=== PATIENT | female | born 1970 | race Caucasian/White ===

== ENCOUNTER 2016-06-25 14:19 | Emergency (ER) | payer SELFPAY ==
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
[2016-06-25 17:06] VITALS: BP 126/79
--- NOTE | 2016-06-25 19:07 | EKG REPORT ---
SEVERITY:- NORMAL ECG - SINUS RHYTHM : Confirmed by: Nghia Cage MD 25-Jun-2016 19:06:09
--- NOTE | 2016-06-25 19:07 | EKG REPORT ---
SEVERITY:- BORDERLINE ECG - SINUS RHYTHM LOW VOLTAGE THROUGHOUT ST ELEV, PROBABLE NORMAL EARLY REPOL PATTERN : Confirmed by: Nghia Cage MD 25-Jun-2016 19:06:29
== END 2016-06-25 17:06 | disposition home or self-care (01) ==
LOC: ER 14:19
DX: S20.219A Contusion of unspecified front wall of thorax, initial encounter (principal); Y04.2XXA Assault by strike against or bumped into by another person, initial encounter; Y92.009 Unspecified place in unspecified non-institutional (private) residence as the place of occurrence of the external cause; F17.210 Nicotine dependence, cigarettes, uncomplicated; J45.909 Unspecified asthma, uncomplicated; R07.1 Chest pain on breathing
CPT/HCPCS: 71020; 93005; 93010; 99284

== ENCOUNTER 2016-07-06 02:18 | Emergency (ER) | payer OTHER ==
[2016-07-06] MEDS ORDERED: IBUPROFEN 600 MG TABLET PO ONE (07:24)
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
[2016-07-06 07:45] VITALS: BP 120/85
== END 2016-07-06 08:22 | disposition home or self-care (01) ==
LOC: ER 02:18
PROC: 0PSPXZZ Reposition Right Metacarpal, External Approach (ICD-10-PCS; principal; 2016-07-06)
DX: S62.616A Displaced fracture of proximal phalanx of right little finger, initial encounter for closed fracture (principal); S62.336A Displaced fracture of neck of fifth metacarpal bone, right hand, initial encounter for closed fracture; S79.921A Unspecified injury of right thigh, initial encounter; Y04.8XXA Assault by other bodily force, initial encounter; Y92.009 Unspecified place in unspecified non-institutional (private) residence as the place of occurrence of the external cause; M79.641 Pain in right hand; M79.604 Pain in right leg; J45.909 Unspecified asthma, uncomplicated
CPT/HCPCS: 99283

== ENCOUNTER 2016-08-07 02:59 | Emergency (ER) | payer SELFPAY ==
[2016-08-07] MEDS ORDERED: ONDANSETRON HCL INJ/PF 4 MG/2 ML SDV IV ONE (03:18)
[2016-08-07] MEDS ORDERED: NORMAL SALINE 1000 ML 1,000 ML IV ONE (03:18)
[2016-08-07 03:34] LABS: ABSOLUTE LYMPHOCYTES (AUTO) 1.1 10^3/uL (0.5-4.7); ABSOLUTE MONOCYTES (AUTO) 0.4 10^3/uL (0.1-1.4); ABSOLUTE NEUT (AUTO) 1.1 10^3/uL (1.7-8.2); BASOPHILS % (AUTO) 0.4 % (0-2); EOSINOPHILS % (AUTO) 1.3 % (0-6); HEMATOCRIT 36.3 % (36.0-47.0); HEMOGLOBIN 12.5 g/dL (12.0-15.5); HGB HCT DIFFERENCE 1.2; LYMPHOCYTES % (AUTO) 42.1 % (13-45); MEAN CORPUSCULAR HEMOGLOBIN 36.7 pg (27.0-33.4); MEAN CORPUSCULAR HGB CONC 34.4 g/dL (32.0-36.0); MEAN CORPUSCULAR VOLUME 107 fl (80-97); MONOCYTES % (AUTO) 14.8 % (3-13); RED BLOOD COUNT 3.41 10^6/uL (3.72-5.28); RED CELL DISTRIBUTION WIDTH 12.8 % (11.5-14.0); SEGMENTED NEUTROPHILS % (AUTO) 41.4 % (42-78); WHITE BLOOD COUNT 2.6 10^3/uL (4.0-10.5)
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
[2016-08-07 03:45] LABS: ALANINE AMINOTRANSFERASE 25 U/L (9-52); ALBUMIN 4.4 g/dL (3.5-5.0); ALKALINE PHOSPHATASE 55 U/L (38-126); ANION GAP 18 (5-19); ASPARTATE AMINO TRANSFERASE 45 U/L (14-36); BILIRUBIN,DIRECT 0.3 mg/dL (0.0-0.4); BILIRUBIN,TOTAL 0.3 mg/dL (0.2-1.3); BLOOD UREA NITROGEN 8 mg/dL (7-20); CALCIUM 9.2 mg/dL (8.4-10.2); CARBON DIOXIDE 24 mmol/L (22-30); CHLORIDE 105 mmol/L (98-107); CREATINE KINASE 163 U/L (30-135); CREATININE RESULT 0.56 mg/dL (0.52-1.25); GLUCOSE 86 mg/dL (75-110); POTASSIUM 3.9 mmol/L (3.6-5.0); SODIUM 146.7 mmol/L (137-145)
[2016-08-07 03:57] LABS: CREATINE KINASE MB 0.96 ng/mL (<4.55)
[2016-08-07 04:04] LABS: TROPONIN I < 0.012 ng/mL
[2016-08-07 06:26] VITALS: BP 117/91
--- NOTE | 2016-08-07 18:54 | EKG REPORT ---
SEVERITY:- NORMAL ECG - SINUS RHYTHM : Confirmed by: Nghia Cage MD 07-Aug-2016 18:54:02
== END 2016-08-07 06:25 | disposition home or self-care (01) ==
LOC: ER 02:59
PROC: 2W3RX1Z Immobilization of Left Lower Leg using Splint (ICD-10-PCS; principal; 2016-08-07)
DX: M25.472 Effusion, left ankle (principal); F10.129 Alcohol abuse with intoxication, unspecified; R00.2 Palpitations; Z87.891 Personal history of nicotine dependence; Z98.51 Tubal ligation status
CPT/HCPCS: 93005; 99285; 96361; 96374; 36415; 82553; 82550; 84703; 85025; 80053; 84484; 73610; 71010; 93010; 29515; J2405; J7030

== ENCOUNTER 2016-10-28 05:10 | Emergency (ER) | payer OTHER ==
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
--- NOTE | 2016-10-28 06:03 | RADIOLOGY REPORT (SQ) ---
EXAM DESCRIPTION: RIBS RIGHT W/PA CHEST COMPLETED DATE/TIME: 10/28/2016 5:32 am REASON FOR STUDY: fall COMPARISON: None. TECHNIQUE: Frontal view of the chest and additional views of the right and left ribs acquired. NUMBER OF VIEWS: Five view. LIMITATIONS: None. FINDINGS: FRONTAL CXR: No pneumothorax. No pleural effusion. No atelectasis or infiltrates. Azygo s lobe. RIBS: No displaced rib fractures. No lytic or blastic bony lesions. Mild deformity of the right 10t h rib laterally may indicate a minimally displaced fracture or prior injury. Minimal nonspecific def ormity of the posterior right 12th and 11th ribs. OTHER: Partially imaged screw fixation at the cervicothoracic junction. IMPRESSION: NO PNEUMOTHORAX. Mild deformity of the right 10th rib laterally may indicate a minimall y displaced fracture or prior injury. COMMENT: SITE OF TRAUMA/COMPLAINT MARKED/STAMP COMPLETED: NO. TECHNICAL DOCUMENTATION: JOB ID: [id number] [employer]- All Rights Reserved
== END 2016-10-28 06:53 | disposition home or self-care (01) ==
LOC: ER 05:10
DX: S20.20XA Contusion of thorax, unspecified, initial encounter (principal); X58.XXXA Exposure to other specified factors, initial encounter; M95.4 Acquired deformity of chest and rib; R07.81 Pleurodynia; F17.210 Nicotine dependence, cigarettes, uncomplicated; J45.909 Unspecified asthma, uncomplicated; Z88.3 Allergy status to other anti-infective agents
CPT/HCPCS: 99283

== ENCOUNTER 2017-01-26 22:38 | Emergency (ER) | payer OTHER ==
[2017-01-26 22:46] VITALS: BP 131/78
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
== END 2017-01-27 05:50 | disposition home or self-care (01) ==
LOC: ER 22:38
DX: S99.911A Unspecified injury of right ankle, initial encounter (principal); W17.89XA Other fall from one level to another, initial encounter; F10.129 Alcohol abuse with intoxication, unspecified; J45.909 Unspecified asthma, uncomplicated
CPT/HCPCS: 99284

== ENCOUNTER 2017-02-01 23:31 | Emergency (ER) | payer OTHER ==
[~2017-02-01 23:31] MED LIST: ROCURONIUM BROMIDE INJ 50 MG/5 ML VIAL IV ONE; SUCCINYLCHOLINE CHLORIDE INJ 200 MG/10 ML VIAL ONE
[2017-02-01] MEDS ORDERED: KETAMINE HCL INJ 500 MG/10 ML VIAL ONE (23:33)
[2017-02-01] MEDS ORDERED: DIPHENHYDRAMINE HCL 50 MG/ML VIAL IV ONE (23:51)
[2017-02-01] MEDS ORDERED: PROPOFOL 100 ML IV PRN (23:51)
[2017-02-01] MEDS ORDERED: EPINEPHRINE INJ/PF 1 MG/1 ML AMPULE IM ONE (23:52)
[2017-02-01] MEDS ORDERED: ETOMIDATE INJ/PF 20 MG/10 ML SDV IV ONE ×2 (23:52)
[2017-02-02] MEDS ORDERED: MIDAZOLAM 2 MG/2 ML INJ IV ONE (00:03)
[2017-02-02] MEDS ORDERED: MIDAZOLAM HCL 100 ML IV PRN (00:03)
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
[2017-02-02] MEDS ORDERED: ROCURONIUM BROMIDE INJ 50 MG/5 ML VIAL IV ONE ×3 (00:07→02:10)
--- NOTE | 2017-02-02 00:09 | RADIOLOGY REPORT (SQ) ---
EXAM DESCRIPTION: CHEST SINGLE VIEW COMPLETED DATE/TIME: 02/01/2017 11:58 pm REASON FOR STUDY: post intubation COMPARISON: August 2016 EXAM PARAMETERS: NUMBER OF VIEWS: One view. TECHNIQUE: Single frontal radiographic view of the chest acquired. RADIATION DOSE: NA LIMITATIONS: None. FINDINGS: LUNGS AND PLEURA: No opacities, masses. No obvious pneumothorax. No pleural effusion. MEDIASTINUM AND HILAR STRUCTURES: Air is identified within the mediastinum. HEART AND VASCULAR STRUCTURES: Heart normal in size. Normal vasculature. BONES: No acute findings. HARDWARE: Endotracheal tube is identified with its tip just above the level of the aortic arch. ET t ube is identified to the right of midline. I cannot confirm its relationship to the josh on the cu rrent film. OTHER: There is extensive subcutaneous air throughout the thorax. IMPRESSION: Air is identified within the mediastinum. There is extensive subcutaneous air throughou t the thorax. Endotracheal position as noted above. Other findings as noted above TECHNICAL DOCUMENTATION: JOB ID: [id number]
[2017-02-02 00:29] LABS: ALANINE AMINOTRANSFERASE 39 U/L (9-52); ALBUMIN 4.7 g/dL (3.5-5.0); ALKALINE PHOSPHATASE 81 U/L (38-126); ASPARTATE AMINO TRANSFERASE 57 U/L (14-36); BILIRUBIN,DIRECT 0.7 mg/dL (0.0-0.4); BILIRUBIN,TOTAL 0.9 mg/dL (0.2-1.3); BLOOD UREA NITROGEN 5 mg/dL (7-20); CALCIUM 9.5 mg/dL (8.4-10.2); CREATININE RESULT 0.45 mg/dL (0.52-1.25); GLUCOSE 148 mg/dL (75-110); POTASSIUM 3.1 mmol/L (3.6-5.0); TOTAL PROTEIN 7.5 g/dL (6.3-8.2)
[2017-02-02 00:34] LABS: ABSOLUTE LYMPHOCYTES (AUTO) 1.8 10^3/uL (0.5-4.7); ABSOLUTE MONOCYTES (AUTO) 0.8 10^3/uL (0.1-1.4); ABSOLUTE NEUT (AUTO) 5.7 10^3/uL (1.7-8.2); BASOPHILS % (AUTO) 0.3 % (0-2); EOSINOPHILS % (AUTO) 0.3 % (0-6); HEMATOCRIT 36.3 % (36.0-47.0); HEMOGLOBIN 12.9 g/dL (12.0-15.5); HGB HCT DIFFERENCE 2.4; LYMPHOCYTES % (AUTO) 21.3 % (13-45); MEAN CORPUSCULAR HEMOGLOBIN 37.6 pg (27.0-33.4); MEAN CORPUSCULAR HGB CONC 35.4 g/dL (32.0-36.0); MEAN CORPUSCULAR VOLUME 106 fl (80-97); MONOCYTES % (AUTO) 9.6 % (3-13); RED BLOOD COUNT 3.42 10^6/uL (3.72-5.28); RED CELL DISTRIBUTION WIDTH 13.3 % (11.5-14.0); SEGMENTED NEUTROPHILS % (AUTO) 68.5 % (42-78); WHITE BLOOD COUNT 8.3 10^3/uL (4.0-10.5)
[2017-02-02 00:37] LABS: PARTIAL THROMBOPLASTIN TIME 25.9 SEC (23.5-35.8); PROTHROMBIN TIME 11.5 SEC (11.4-15.4)
[2017-02-02 00:42] LABS: CARBON DIOXIDE 19 mmol/L (22-30); CHLORIDE 81 mmol/L (98-107)
[2017-02-02 00:45] LABS: ANION GAP 21 (5-19)
[2017-02-02 00:46] LABS: SODIUM 120.6 mmol/L (137-145)
--- NOTE | 2017-02-02 01:07 | RADIOLOGY REPORT (SQ) ---
EXAM DESCRIPTION: CT SOFT TISSUE NECK WITHOUT COMPLETED DATE/TIME: 02/02/2017 12:43 am REASON FOR STUDY: subcutaneous air COMPARISON: None. TECHNIQUE: Noncontrast scanning from skull base through lung apices with review of bone, soft tissue and lung windows. Reconstructed coronal and sagittal MPR images reviewed. All images stored on PAC S. All CT scanners at this facility use dose modulation, iterative reconstruction, and/or weight based d osing when appropriate to reduce radiation dose to as low as reasonably achievable (ALARA). [facility]: Dose Right [facility]: CareDose [facility]: Dose Right [facility]: Teradose 4D [facility]: [employer] RADIATION DOSE: mGy. LIMITATIONS: There is extensive subcutaneous air which limits evaluation otherwise. FINDINGS: SKULL BASE: Intact. MAJOR SALIVARY GLANDS: Poorly seen. Normal as visualized. LYMPHADENOPATHY: No adenopathy. MUCOSAL MASSES OR ASYMMETRY: Nondiagnostic. LARYNX/CORDS: An ETT is present which appears to be within the airway as visualized. LUNG APICES: Bilateral pneumothoraces left greater than right. Extensive pneumomediastinum. BONES: Surgical changes in the spine. THYROID: Normal size. No masses. PARANASAL SINUSES: Clear. OTHER: There is extensive subcutaneous emphysema throughout the face and neck. Air extends throughou t the fascia all tissue planes in the face and neck. Air is also seen in the prevertebral space. Es ophagus as visualized appears intact. IMPRESSION: Extensive subcutaneous emphysema with extension throughout the factual planes of the fac e and neck. Air in the prevertebral space. ETT appears to be in appropriate position. Esophagus as visualized appears normal. Bilateral pneumothoraces left greater than right to be further described on chest CT. TECHNICAL DOCUMENTATION: JOB ID: [id number] Quality ID # [id number]: Final reports with documentation of one or more dose reduction techniques (e.g., Au tomated exposure control, adjustment of the mA and/or kV according to patient size, use of iterative reconstruction technique) 2010 [employer]- All Rights Reserved
--- NOTE | 2017-02-02 01:20 | RADIOLOGY REPORT (SQ) ---
EXAM DESCRIPTION: CT CHEST WITHOUT COMPLETED DATE/TIME: 02/02/2017 12:43 am REASON FOR STUDY: subcutaneous air COMPARISON: Chest radiograph TECHNIQUE: CT scan performed of the chest without intravenous contrast. Images reviewed with lung, soft tissue and bone windows. Reconstructed coronal and sagittal MPR images reviewed. All images st ored on PACS. All CT scanners at this facility use dose modulation, iterative reconstruction, and/or weight based d osing when appropriate to reduce radiation dose to as low as reasonably achievable (ALARA). [facility]: Dose Right [facility]: CareDose [facility]: Dose Right [facility]: Teradose 4D [facility]: [employer] RADIATION DOSE: Up-to-date CT equipment and radiation dose reduction techniques were employed. CTDIv ol: 14.4 mGy. DLP: 1158 mGy-cm. mGy. LIMITATIONS: No technical limitations. FINDINGS: LUNGS AND PLEURA: Bilateral pneumothoraces. Approximately 50% on the left in 20% on the r ight. Parenchymal opacities right upper lobe. No effusions. HILAR AND MEDIASTINAL STRUCTURES: Severe pneumo mediastinum. Air extends along all fascial planes. No definitive etiology. Esophagus visualize. ETT within the trachea. HEART AND VASCULAR STRUCTURES: No aneurysm. No pericardial effusion. UPPER ABDOMEN: See separate report of the CT of the abdomen. THYROID AND OTHER SOFT TISSUES: No masses. No adenopathy. BONES: Multiple posterior left rib fractures. HARDWARE: None in the chest. OTHER: marked diffuse subcutaneous emphysema with air dissecting along all fascial planes along the chest wall and into the neck and upper extremities. IMPRESSION: Bilateral pneumothoraces left greater than right. Approximately 50% on the left and 20% on the right. Parenchymal opacity in the right upper lobe. Severe pneumomediastinum with air extending along all factual planes. Marked diffuse subcutaneous emphysema with air dissecting along all fascial planes along the chest wa ll and into the neck and upper extremities. Multiple posterior left rib fractures. COMMENT: Pertinent findings on the imaging study reported as a CRITICAL RESULT to ALEKSANDR PRESTON DO at01:07 on 02/02/2017. Category of Critical Result: Bilateral pneumothoraces. TECHNICAL DOCUMENTATION: JOB ID: [id number] Quality ID # [id number]: Final reports with documentation of one or more dose reduction techniques (e.g., Au tomated exposure control, adjustment of the mA and/or kV according to patient size, use of iterative reconstruction technique) 2010 [employer]- All Rights Reserved
--- NOTE | 2017-02-02 01:23 | RADIOLOGY REPORT (SQ) ---
EXAM DESCRIPTION: CT ABD/PELVIS NO ORAL OR IV COMPLETED DATE/TIME: 02/02/2017 12:43 am REASON FOR STUDY: subcutaneous air COMPARISON: None. TECHNIQUE: CT scan of the abdomen and pelvis performed without intravenous or oral contrast. Images reviewed with lung, soft tissue, and bone windows. Reconstructed coronal and sagittal MPR images revi ewed. All images stored on PACS. All CT scanners at this facility use dose modulation, iterative reconstruction, and/or weight based d osing when appropriate to reduce radiation dose to as low as reasonably achievable (ALARA). [facility]: Dose Right [facility]: CareDose [facility]: Dose Right [facility]: Teradose 4D [facility]: [employer] RADIATION DOSE: mGy. LIMITATIONS: None. FINDINGS: LOWER CHEST: No significant findings. No nodules or infiltrates. NON-CONTRASTED LIVER, SPLEEN, ADRENALS: Evaluation limited by lack of IV contrast. No identified sign ificant masses. PANCREAS: No masses. No peripancreatic inflammatory changes. GALLBLADDER: No identified stones by CT criteria. No inflammatory changes to suggest cholecystitis. RIGHT KIDNEY AND URETER: No suspicious masses. Assessment limited by lack of IV contrast. No signif icant calcifications. No hydronephrosis or hydroureter. LEFT KIDNEY AND URETER: No suspicious masses. Assessment limited by lack of IV contrast. No signifi cant calcifications. No hydronephrosis or hydroureter. AORTA AND RETROPERITONEUM: No aneurysm. No retroperitoneal masses or adenopathy. BOWEL AND PERITONEAL CAVITY: No obvious masses or inflammatory changes. No free fluid. APPENDIX: Not visualized. PELVIS, BLADDER, AND ABDOMINAL WALL:No abnormal masses. No free fluid. Bladder normal. BONES: Old lower right rib fractures. Acute left rib fractures. OTHER: Extensive subcutaneous emphysema. Extends along all fascia planes of the abdominal wall and p osteriorly. No pneumoperitoneum IMPRESSION: No acute intra-abdominal process. Extensive subcutaneous emphysema throughout the abdominal wall dissecting along all tissue planes. Old lower right rib fractures. Acute left rib fractures as described. COMMENT: Quality ID # 436: Final reports with documentation of one or more dose reduction techniques (e.g., Automated exposure control, adjustment of the mA and/or kV according to patient size, use of iterative reconstruction technique) TECHNICAL DOCUMENTATION: JOB ID: [id number]- All Rights Reserved
[2017-02-02] MEDS ORDERED: POTASSI CL 20 MEQ/50 ML RIDER 20 MEQ/50 ML RTUPB IV SCH (01:25)
--- NOTE | 2017-02-02 01:31 | Operative Report ---
Operative Report DATE OF SURGERY: 02/02/17 Operative Report: Consent was implied emergent. Postprocedural chest xray shows improvement of left pneumothorax and evidence of multiple rib fractures corresponding with history of falls. Patient was sterilely prepped and draped in the usual manner. Pleurovac device was setup prior to access to the chest. Prior to access local was instilled to the subcutaneous tissue to the level of the periosteum of the rib. Access to the pleural cavity was accomplished using access needle with 12 Belgian chest tube, this was advanced with recovery of air. The chest tube was immediately placed to suction with recovery of air. It was affixed to the chest using accompanying coty needle and stitch. Occlusive dressing was placed over the chest tube site and fixed to her skin at multiple sites. Patient tolerated the procedure well. PREOPERATIVE DIAGNOSIS: left pneumothorax, multiple rib fractures POSTOPERATIVE DIAGNOSIS: left pneumothorax, multiple rib fractures OPERATION: left tube thoracostomy SURGEON: UMANG KEBEDE ANESTHESIA: Local COMPLICATIONS: none ESTIMATED BLOOD LOSS: 5mls INTRAOPERATIVE FINDINGS: subcutaneous emphysema
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
--- NOTE | 2017-02-02 01:43 | RADIOLOGY REPORT (SQ) ---
EXAM DESCRIPTION: CHEST SINGLE VIEW COMPLETED DATE/TIME: 02/02/2017 1:28 am REASON FOR STUDY: post chest tube placement COMPARISON: Recent chest radiograph and CT scan. EXAM PARAMETERS: NUMBER OF VIEWS: One view. TECHNIQUE: Single frontal radiographic view of the chest acquired. RADIATION DOSE: NA LIMITATIONS: Extensive subcutaneous emphysema compromises evaluation. FINDINGS: LUNGS AND PLEURA: The right pneumothorax seen on CT not identified on chest radiograph. S mall left apical pneumothorax. Indwelling small caliber chest tube on the left. MEDIASTINUM AND HILAR STRUCTURES: Pneumomediastinum. HEART AND VASCULAR STRUCTURES: Heart normal in size. Normal vasculature. BONES: Multiple rib fractures seen on CT not well seen on chest radiograph. HARDWARE: ETT just at the josh. OTHER: No other significant finding. IMPRESSION: Interval placement of a left-sided small caliber chest tube. Small apical pneumothorax identified on the left. Multiple rib fractures seen on CT not identified on chest radiograph. ET tube just above the josh. TECHNICAL DOCUMENTATION: JOB ID: [id number]
--- NOTE | 2017-02-02 02:16 | RADIOLOGY REPORT (SQ) ---
EXAM DESCRIPTION: CHEST SINGLE VIEW COMPLETED DATE/TIME: 02/02/2017 2:06 am REASON FOR STUDY: penumothorax, hypotension COMPARISON: Chest radiographs of earlier the same date EXAM PARAMETERS: NUMBER OF VIEWS: One view TECHNIQUE: Single frontal radiograph of the chest. RADIATION DOSE: N/A LIMITATIONS: None. FINDINGS: TEMPORARY SUPPORT DEVICES:ETT in expected location. Left pleural catheter unchanged. LUNGS AND PLEURA: Small apical pneumothorax on the left. Parenchymal opacity in the right lung. No ma sses. Right pneumothorax seen on CT not seen on chest radiograph. MEDIASTINUM AND HILAR STRUCTURES: Extensive mediastinal air. HEART AND VASCULAR STRUCTURES: Heart normal in size. normal vascularity. Aorta normal for age. BONES: No acute findings. OTHER: No other significant finding. IMPRESSION: Stable radiographic appearance of the chest. ETT repositioned and in expected location. TECHNICAL DOCUMENTATION: JOB ID: [id number] [employer]- All Rights Reserved
[2017-02-02 04:23] VITALS: BP 108/84
== END 2017-02-02 02:20 | disposition short-term general hospital (02) ==
LOC: ER 23:31
DX: S27.0XXA Traumatic pneumothorax, initial encounter (principal); S22.42XA Multiple fractures of ribs, left side, initial encounter for closed fracture; T79.7XXA Traumatic subcutaneous emphysema, initial encounter; X58.XXXA Exposure to other specified factors, initial encounter; E87.1 Hypo-osmolality and hyponatremia; R11.0 Nausea; R22.0 Localized swelling, mass and lump, head; R00.0 Tachycardia, unspecified; J45.909 Unspecified asthma, uncomplicated; F17.200 Nicotine dependence, unspecified, uncomplicated; Z88.3 Allergy status to other anti-infective agents; Z87.01 Personal history of pneumonia (recurrent)
CPT/HCPCS: 99291; 99292; 96372; 51702; 96374; 36415; 83735; 85025; 85610; 85730; 80053; 71010 ×2; 70490; 71250; 74176; 32551; 31500; J3490 ×2; J1200; J0171; J2704; J0330; J2250; 94002

== ENCOUNTER 2017-05-11 13:25 | Emergency (ER) | payer OTHER ==
[2017-05-11 13:38] VITALS: BP 143/81
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
== END 2017-05-11 14:08 | disposition home or self-care (01) ==
LOC: ER 13:25
DX: Z48.02 Encounter for removal of sutures (principal); J45.909 Unspecified asthma, uncomplicated; Z88.3 Allergy status to other anti-infective agents

== ENCOUNTER 2017-05-23 13:18 | Inpatient (IN) | payer OTHER ==
[2017-05-23] MEDS ORDERED: CEFTRIAXONE INJ 1000 MG VIAL IV ONE (14:57)
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
[2017-05-23] MEDS ORDERED: RINGERS SOLUTION,LACTATED 1,000 ML IV ONE (15:05)
[2017-05-23] MEDS: NORMAL SALINE 1000 ML 1,000 ML IV PRN ×4 (15:28→23:27)
--- NOTE | 2017-05-23 15:38 | RADIOLOGY REPORT (SQ) ---
EXAM DESCRIPTION: CHEST SINGLE VIEW COMPLETED DATE/TIME: 05/23/2017 3:27 pm REASON FOR STUDY: flu like symptoms, hypoxemia COMPARISON: None. EXAM PARAMETERS: NUMBER OF VIEWS: One view. TECHNIQUE: Single frontal radiographic view of the chest acquired. RADIATION DOSE: NA LIMITATIONS: None. FINDINGS: LUNGS AND PLEURA: There is extensive alveolar are airspace type infiltrate in the right mi d and lower lung field consistent with pneumonia. Infiltrate at left costophrenic angle. Blunting o f left costophrenic angle with pleural effusion not excluded. . MEDIASTINUM AND HILAR STRUCTURES: No masses. Contour normal. HEART AND VASCULAR STRUCTURES: The heart is unchanged. The pulmonary vasculature is normal. BONES: Old displaced fractures of left posterior 6th -9th ribs. HARDWARE: Changes compatible with cervicothoracic fusion. OTHER: Chest leads in place. IMPRESSION: Extensive consolidation right mid and lower lung field consistent with pneumonia. Left basilar infiltrate. Left pleural thickening or effusion. TECHNICAL DOCUMENTATION: JOB ID: [id number] [employer]- All Rights Reserved
[2017-05-23 16:02] LABS: A TYPE INFLUENZA AG NEGATIVE (NEGATIVE); B INFLUENZA AG NEGATIVE (NEGATIVE)
[2017-05-23 16:50] LABS: ALANINE AMINOTRANSFERASE 34 U/L (9-52); ALBUMIN 2.7 g/dL (3.5-5.0); ALKALINE PHOSPHATASE 37 U/L (38-126); ASPARTATE AMINO TRANSFERASE 62 U/L (14-36); BLOOD UREA NITROGEN 43 mg/dL (7-20); CALCIUM 7.2 mg/dL (8.4-10.2); CARBON DIOXIDE 14 mmol/L (22-30); CHLORIDE 87 mmol/L (98-107); CREATINE KINASE 44 U/L (30-135); GLUCOSE 90 mg/dL (75-110); TOTAL PROTEIN 5.3 g/dL (6.3-8.2)
[2017-05-23 16:51] LABS: ANION GAP 19 (5-19)
[2017-05-23 16:59] LABS: AMORPHOUS SEDIMENT,URINE TRACE /HPF; APPEARANCE,URINE CLOUDY; BILIRUBIN,URINE NEGATIVE (NEGATIVE); COLOR,URINE YELLOW; GLUCOSE, URINE NEGATIVE (NEGATIVE); KETONES,URINE NEGATIVE (NEGATIVE); LEUKOCYTE ESTERASE,URINE NEGATIVE (NEGATIVE); NITRITE,URINE NEGATIVE (NEGATIVE); PROTEIN,URINE 100 mg/dL (NEGATIVE); URINE SPECIFIC GRAVITY 1.011; UROBILINOGEN,URINE NEGATIVE mg/dL (<2.0)
[2017-05-23 17:02] LABS: CREATINE KINASE MB 1.33 ng/mL (<4.55); NT PRO BNP 5300 pg/mL (<125)
[2017-05-23 17:03] LABS: TROPONIN I < 0.012 ng/mL
[2017-05-23 17:12] LABS: BILIRUBIN,TOTAL 0.2 mg/dL (0.2-1.3)
[2017-05-23] MEDS ORDERED: HYDROMORPHONE HCL INJ/PF 2 MG/ML AMPULE IV ONE ×2 (17:14→18:30)
[2017-05-23 17:16] LABS: BILIRUBIN,DIRECT 0.2 mg/dL (0.0-0.4)
[2017-05-23 17:18] LABS: SODIUM 119.6 mmol/L (137-145)
[2017-05-23] MEDS ORDERED: LEVOFLOXACIN 750 MG/D5W RTU 750 MG/150 ML RTUPB IV ONE (17:57)
--- NOTE | 2017-05-23 18:29 | RADIOLOGY REPORT (SQ) ---
EXAM DESCRIPTION: CHEST SINGLE VIEW COMPLETED DATE/TIME: 05/23/2017 6:05 pm REASON FOR STUDY: chest pain COMPARISON: 05/23/2017. FINDINGS: AP portable upright single-view chest at approximately 1756 hours. Right IJ line with tip to the cavoatrial junction. No evidence of pneumothorax. Extensive right lung infiltrate as before. IMPRESSION: Appropriate right central line. No pneumothorax. TECHNICAL DOCUMENTATION: JOB ID: [id number]
--- NOTE | 2017-05-23 18:33 | EKG REPORT ---
SEVERITY:- ABNORMAL ECG - SINUS TACHYCARDIA PROBABLE LEFT ATRIAL ABNORMALITY BORDERLINE PROLONGED QT INTERVAL : Confirmed by: Brenda Jenkins 23-May-2017 18:33:11
[2017-05-23] MEDS: MAGNESIUM SULFATE/D5W 1 GM/100 ML RTUPB IV SCH ×4 (18:34→20:01)
[2017-05-23] MEDS ORDERED: IPRATROPIUM/ALBUTEROL 0.5-2.5 MG/3 ML AMPUL NEB PRN (18:39)
[2017-05-23] MEDS ORDERED: ONDANSETRON HCL INJ/PF 4 MG/2 ML SDV IV PRN (18:41)
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
[2017-05-23 19:12] LABS: HEMATOCRIT 32.1 % (36.0-47.0); HEMOGLOBIN 11.2 g/dL (12.0-15.5); MEAN CORPUSCULAR HEMOGLOBIN 35.3 pg (27.0-33.4); MEAN CORPUSCULAR HGB CONC 34.9 g/dL (32.0-36.0); MEAN CORPUSCULAR VOLUME 101 fl (80-97); RED BLOOD COUNT 3.17 10^6/uL (3.72-5.28); RED CELL DISTRIBUTION WIDTH 13.4 % (11.5-14.0)
[2017-05-23] MEDS ORDERED: PIPERACILLIN SODIUM/TAZOBACTAM 2.25 GM in NORMAL SALINE 50 ML IV SCH ×2 (19:15→22:00)
[2017-05-23 19:17] LABS: PROTHROMBIN TIME 13.9 SEC (11.4-15.4)
[2017-05-23] MEDS ORDERED: DEXTROSE 5%-WATER 250 ML with NOREPINEPHRINE BITARTRATE 4 MG IV PRN ×2 (19:18)
[2017-05-23] MEDS ORDERED: NOREPINEPHRINE BITARTRATE INJ/PF 4 MG/4 ML SDV IV ONE (19:21)
[2017-05-23 20:00] LABS: ARTERIAL BLOOD BASE EXCESS -9.1 mmol/L; ARTERIAL BLOOD H2CO3 1.01 mmol/L (1.05-1.35); ARTERIAL BLOOD HCO3 16.3 mmol/L (20-26); ARTERIAL BLOOD O2 SATURATION 90.3 % (94-98); ARTERIAL BLOOD PCO2 33.4 mmHg (35-45); ARTERIAL BLOOD PH 7.31 (7.35-7.45); ARTERIAL BLOOD TOTAL CO2 17.3 mmol/L (21-25)
[2017-05-23 20:02] LABS: ARTERIAL BLOOD FIO2 6L
[2017-05-23 20:04] LABS: PLATELET COUNT 90 10^3/uL (150-450)
[2017-05-23] MEDS ORDERED: THIAMINE HCL INJ 200 MG/2 ML VIAL IV PRN (20:11)
[2017-05-23] MEDS ORDERED: FOLIC ACID INJ 5 MG/1 ML 10 ML VIAL IV PRN (20:12)
[2017-05-23] MEDS ORDERED: THIAMINE HCL 100 MG, FOLIC ACID 1 MG in NORMAL SALINE 250 ML IV ONE ×2 (20:15→21:00)
[2017-05-23 20:21] LABS: ABSOLUTE LYMPHOCYTES# (MANUAL) 0.1 10^3/uL (0.5-4.7); ABSOLUTE MONOCYTES # (MANUAL) 0.2 10^3/uL (0.1-1.4); ABSOLUTE NEUTROPHILS# (MANUAL) 0.9 10^3/uL (1.7-8.2); BASOPHILS % (MANUAL) 0 % (0-2); EOSINOPHILS % (MANUAL) 6 % (0-6); LYMPHOCYTES % (MANUAL) 4 % (13-45); MONOCYTES % (MANUAL) 14 % (3-13); SEGMENTED NEUTROPHILS % (MAN) 48 % (42-78); TOTAL CELLS COUNTED 50
[2017-05-23 20:24] LABS: BURR CELLS 1+; OVALOCYTES SLIGHT; PLATELET COMMENT DECREASED; POIKILOCYTOSIS 1+; TOXIC GRANULATION 2+; TOXIC VACUOLATION PRESENT
[2017-05-23 20:28] LABS: BAND NEUTROPHILS % (MANUAL) 26 % (3-5); WHITE BLOOD COUNT 1.2 10^3/uL (4.0-10.5)
[2017-05-23] MEDS ORDERED: DOXYCYCLINE HYCLATE 100 MG in DEXTROSE 5%-WATER 250 ML IV ONE (20:30)
[2017-05-23] MEDS ORDERED: DOXYCYCLINE HYCLATE INJ 100 MG VIAL IV PRN (21:03)
[2017-05-23] MEDS ORDERED: THIAMINE HCL INJ 200 MG/2 ML VIAL ONE (21:24)
[2017-05-23] MEDS: PANTOPRAZOLE SODIUM 40 MG VIAL IV SCH (21:32)
[2017-05-23] MEDS: PIPERACILLIN/TAZOBACTAM 2.25 GM VIAL IV PRN (21:45)
[2017-05-23] MEDS ORDERED: HEPARIN SOD (PORCINE) 5,000 UNIT/ML 1 ML SYRINGE SUBCUT SCH (22:00)
[2017-05-24] MEDS ORDERED: CEFEPIME 2 GM/D5W RTU 2 GM/50 ML RTUPB IV SCH
[2017-05-24] MEDS ORDERED: NOREPINEPHRINE BITARTRATE INJ/PF 4 MG/4 ML SDV IV ONE ×2 (00:33→06:41)
[2017-05-24] MEDS ORDERED: LORAZEPAM INJ 2 MG/1 ML VIAL ONE ×2 (01:04→07:54)
[2017-05-24] MEDS: LORAZEPAM INJ 2 MG/1 ML VIAL IV PRN ×3 (01:04→11:03)
[2017-05-24] MEDS: MAGNESIUM SULFATE/D5W 1 GM/100 ML RTUPB IV SCH ×3 (01:12→03:15)
[2017-05-24] MEDS ORDERED: MAGNESIUM SULFATE/D5W 1 GM/100 ML RTUPB IV ONE (03:05)
[2017-05-24] MEDS: PIPERACILLIN/TAZOBACTAM 2.25 GM VIAL IV PRN (06:00)
[2017-05-24 06:02] LABS: FREE T4 (FREE THYROXINE) 1.52 ng/dL (0.78-2.19)
[2017-05-24 06:07] LABS: HEMATOCRIT 32.3 % (36.0-47.0); HEMOGLOBIN 11.1 g/dL (12.0-15.5); MEAN CORPUSCULAR HEMOGLOBIN 34.8 pg (27.0-33.4); MEAN CORPUSCULAR HGB CONC 34.3 g/dL (32.0-36.0); MEAN CORPUSCULAR VOLUME 102 fl (80-97); RED BLOOD COUNT 3.17 10^6/uL (3.72-5.28); RED CELL DISTRIBUTION WIDTH 13.4 % (11.5-14.0)
[2017-05-24 06:16] LABS: THYROID STIMULATING HORMONE 2.29 uIU/mL (0.47-4.68)
[2017-05-24 06:24] LABS: PLATELET COUNT 58 10^3/uL (150-450)
[2017-05-24 06:43] LABS: ABSOLUTE LYMPHOCYTES# (MANUAL) 0.1 10^3/uL (0.5-4.7); ABSOLUTE MONOCYTES # (MANUAL) 0.4 10^3/uL (0.1-1.4); ABSOLUTE NEUTROPHILS# (MANUAL) 0.5 10^3/uL (1.7-8.2); BAND NEUTROPHILS % (MANUAL) 32 % (3-5); BASOPHILS % (MANUAL) 0 % (0-2); EOSINOPHILS % (MANUAL) 6 % (0-6); LYMPHOCYTES % (MANUAL) 10 % (13-45); MONOCYTES % (MANUAL) 36 % (3-13); SEGMENTED NEUTROPHILS % (MAN) 4 % (42-78); TOTAL CELLS COUNTED 50
[2017-05-24] MEDS: DEXTROSE 5%-WATER 250 ML with NOREPINEPHRINE BITARTRATE 4 MG IV PRN ×10 (06:46→20:21)
[2017-05-24 06:48] LABS: BURR CELLS SLIGHT; PLATELET COMMENT DECREASED; POIKILOCYTOSIS SLIGHT
[2017-05-24 06:52] LABS: MYELOCYTES % (MANUAL) 10 % (0)
[2017-05-24 06:53] LABS: PROMYELOCYTES % (MANUAL) 2 % (0)
[2017-05-24 06:54] LABS: ARTERIAL BLOOD BASE EXCESS -10.5 mmol/L; ARTERIAL BLOOD H2CO3 1.05 mmol/L (1.05-1.35); ARTERIAL BLOOD HCO3 15.6 mmol/L (20-26); ARTERIAL BLOOD O2 SATURATION 87.5 % (94-98); ARTERIAL BLOOD PCO2 34.9 mmHg (35-45); ARTERIAL BLOOD PH 7.27 (7.35-7.45); ARTERIAL BLOOD PO2 59.5 mmHg (80-100); ARTERIAL BLOOD TOTAL CO2 16.6 mmol/L (21-25)
[2017-05-24 06:56] LABS: ARTERIAL BLOOD FIO2 40%
[2017-05-24] MEDS ORDERED: VANCOMYCIN HCL INJ 1000 MG VIAL IV ONE (06:57)
[2017-05-24 07:23] LABS: ANION GAP 13 (5-19); BLOOD UREA NITROGEN 32 mg/dL (7-20); CARBON DIOXIDE 15 mmol/L (22-30); CHLORIDE 96 mmol/L (98-107); GLUCOSE 95 mg/dL (75-110); SODIUM 123.6 mmol/L (137-145)
[2017-05-24 07:48] LABS: CALCIUM 6.3 mg/dL (8.4-10.2); POTASSIUM 2.7 mmol/L (3.6-5.0)
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
[2017-05-24] MEDS ORDERED: CALCIUM GLUCONATE 1000 MG/10 ML INJ IV ONE (10:00)
[2017-05-24] MEDS ORDERED: THIAMINE HCL 100 MG, FOLIC ACID 1 MG in NORMAL SALINE 250 ML IV SCH ×2 (10:00→22:00)
[2017-05-24] MEDS: PANTOPRAZOLE SODIUM 40 MG VIAL IV SCH ×2 (10:15→21:32)
[2017-05-24] MEDS ORDERED: PHARMACY COMMUNICATION ORDER MC NR (10:45)
[2017-05-24] MEDS: POTASSI CL 20 MEQ/50 ML RIDER 20 MEQ/50 ML RTUPB IV SCH ×3 (10:51→14:46)
[2017-05-24] MEDS ORDERED: INFLUENZA ADLT QUAD (36MOS+) 2017-18 VAC 0.5 ML SYR IM PRN (11:41)
[2017-05-24] MEDS ORDERED: PROPOFOL INJ 200 MG/20 ML VIAL IV ONE (11:52)
[2017-05-24] MEDS: MIDAZOLAM HCL 50 MG/100 ML RTUINJ IV PRN ×3 (12:04→22:10)
[2017-05-24] MEDS: NORMAL SALINE 1000 ML 1,000 ML IV PRN (12:04)
[2017-05-24] MEDS: DOXYCYCLINE HYCLATE 100 MG in DEXTROSE 5%-WATER 250 ML IV SCH ×2 (12:05→21:31)
--- NOTE | 2017-05-24 12:40 | PDOC PROGRESS REPORT ---
Subjective Progress Note for:: 05/24/17 Subjective:: Patient is seen on rounds. She is presently on BIPAP with FIO2 of 40%. She is not tachypneic at rest. She desaturates easily down into the 70's when mask is off. She is presently requiring levophed to keep her MAP > 65 mmHg. She was agitated a short time ago, and was given ativan for sedation. She is unable to answer questions for review of systems at the present time. There is no family presently at the bedside. Reason For Visit: RESPIRATORY FAILURE,PNEUMONIA,SEPSIS Physical Exam Vital Signs: Temp Pulse Resp BP Pulse Ox 97.4 F 114 H 25 H 97/64 L 94 05/24/17 08:01 05/23/17 13:27 05/24/17 08:01 05/24/17 08:00 05/24/17 08:01 Intake & Output 05/23/17 05/24/17 05/25/17 06:59 06:59 06:59 Intake Total 2600 Output Total 1200 Balance 1400 General appearance: PRESENT: disheveled, thin, well-developed Head exam: PRESENT: atraumatic, normocephalic Eye exam: PRESENT: conjunctiva pale Ear exam: PRESENT: normal external ear exam Mouth exam: PRESENT: moist, tongue midline Neck exam: ABSENT: carotid bruit, JVD, lymphadenopathy, thyromegaly Respiratory exam: PRESENT: accessory muscle use, crackles, decreased breath sounds, tachypnea - Right lower lung field, left base Cardiovascular exam: PRESENT: RRR. ABSENT: diastolic murmur, rubs, systolic murmur Pulses: PRESENT: normal dorsalis pedis pul Vascular exam: PRESENT: normal capillary refill GI/Abdominal exam: PRESENT: normal bowel sounds, soft. ABSENT: distended, guarding, mass, organolmegaly, rebound, tenderness Rectal exam: PRESENT: deferred Extremities exam: PRESENT: full ROM. ABSENT: calf tenderness, clubbing, pedal edema Musculoskeletal exam: PRESENT: full ROM Neurological exam: PRESENT: alert, awake, oriented to person, oriented to place , CN II-XII grossly intact Psychiatric exam: PRESENT: flat affect Skin exam: PRESENT: dry, intact, mottled, warm. ABSENT: cyanosis, rash Results Laboratory Results: 05/24/17 05:20 05/24/17 05:20 05/23/17 05/23/17 05/23/17 18:55 18:55 18:55 WBC 1.2 L* RBC 3.17 L Hgb 11.2 L Hct 32.1 L MCV 101 H MCH 35.3 H MCHC 34.9 RDW 13.4 Plt Count 90 L Seg Neutrophils % Not Reportable Lymphocytes % Not Reportable Monocytes % Not Reportable Eosinophils % Not Reportable Basophils % Not Reportable Absolute Neutrophils Not Reportable Absolute Lymphocytes Not Reportable Absolute Monocytes Not Reportable Absolute Eosinophils Not Reportable Absolute Basophils Not Reportable Carbonic Acid HCO3/H2CO3 Ratio ABG pH ABG pCO2 ABG pO2 ABG HCO3 ABG O2 Saturation ABG Base Excess FiO2 Sodium Potassium Chloride Carbon Dioxide Anion Gap BUN Creatinine 2.29 H Est GFR ( Amer) 28 L Est GFR (Non-Af Amer) 23 L Glucose Lactic Acid 1.5 Calcium Phosphorus Magnesium TSH Free T4 05/23/17 05/23/17 05/24/17 19:13 19:47 05:20 WBC RBC Hgb Hct MCV MCH MCHC RDW Plt Count Seg Neutrophils % Lymphocytes % Monocytes % Eosinophils % Basophils % Absolute Neutrophils Absolute Lymphocytes Absolute Monocytes Absolute Eosinophils Absolute Basophils Carbonic Acid 1.01 L HCO3/H2CO3 Ratio 16:1 ABG pH 7.31 L ABG pCO2 33.4 L ABG pO2 63.0 L ABG HCO3 16.3 L ABG O2 Saturation 90.3 L ABG Base Excess -9.1 FiO2 6L Sodium Potassium Chloride Carbon Dioxide Anion Gap BUN Creatinine Est GFR ( Amer) Est GFR (Non-Af Amer) Glucose Lactic Acid Calcium Phosphorus 3.9 Magnesium TSH 2.29 Free T4 1.52 05/24/17 05/24/17 05/24/17 05:20 05:20 06:20 WBC 1.0 L* RBC 3.17 L Hgb 11.1 L Hct 32.3 L MCV 102 H MCH 34.8 H MCHC 34.3 RDW 13.4 Plt Count 58 L Seg Neutrophils % Not Reportable Lymphocytes % Not Reportable Monocytes % Not Reportable Eosinophils % Not Reportable Basophils % Not Reportable Absolute Neutrophils Not Reportable Absolute Lymphocytes Not Reportable Absolute Monocytes Not Reportable Absolute Eosinophils Not Reportable Absolute Basophils Not Reportable Carbonic Acid 1.05 HCO3/H2CO3 Ratio 14:1 ABG pH 7.27 L ABG pCO2 34.9 L ABG pO2 59.5 L ABG HCO3 15.6 L ABG O2 Saturation 87.5 L ABG Base Excess -10.5 FiO2 40% Sodium 123.6 L Potassium 2.7 L* D Chloride 96 L Carbon Dioxide 15 L Anion Gap 13 BUN 32 H Creatinine 1.42 H Est GFR ( Amer) 48 L Est GFR (Non-Af Amer) 40 L Glucose 95 Lactic Acid Calcium 6.3 L* Phosphorus Magnesium 2.5 H D TSH Free T4 Impressions: Chest X-Ray 05/24/17 06:00 IMPRESSION: Dense right lower lobe pneumonia persists. Dense consolidation in the medial left lung base persists. Assessment & Plan - Diagnosis (1) Sepsis Qualifiers: Sepsis type: sepsis due to unspecified organism Qualified Code(s): A41.9 - Sepsis, unspecified organism Is this a current diagnosis for this admission?: Yes Plan: Patient was rehydrated with sepsis bolus protocol. She is presently on Levophed at 6mcg/kg/min to maintain MAP > 65 mm Hg. She has severe right middle and lower lobe infiltrates on CXR. She desaturates whenever she takes BIPAP mask off into the 70s. Her chest xray and ABG have worsened since yesterday. 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 We will proceed with elective intubation before she worsens any further. She remains extremely critical (2) Acute hypoxemic respiratory failure Is this a current diagnosis for this admission?: Yes Plan: As above in number 1. Attempts to call were unsuccessful. No answering machine (3) Pneumonia Qualifiers: Pneumonia type: due to unspecified organism Laterality: right Lung location: lower lobe of lung Qualified Code(s): J18.1 - Lobar pneumonia, unspecified organism Is this a current diagnosis for this admission?: Yes Plan: She has broad spectrum coverage. Blood cultures and sputum cultures pending then can descalate (4) Acute renal failure Qualifiers: Acute renal failure type: unspecified Qualified Code(s): N17.9 - Acute kidney failure, unspecified Is this a current diagnosis for this admission?: Yes Plan: Secondary to sepsis, prerenal dehydration and hypotension. Will continue to hydrate (5) Hyponatremia Is this a current diagnosis for this admission?: Yes Plan: Secondary to dehydration and alcoholism (6) Chronic alcoholism Is this a current diagnosis for this admission?: Yes Plan: Patient at high risk for DTs. She will be sedated on IV versed. She has been given high dose thiamine. Banana bag daily (7) Electrolyte imbalance Is this a current diagnosis for this admission?: Yes Plan: Replete and monitor (8) Tobacco abuse Is this a current diagnosis for this admission?: Yes Plan: Counseled (10) Thrombocytopenia Is this a current diagnosis for this admission?: Yes Plan: Secondary to alcoholism and liver disease (11) Neutropenia associated with infectious disease Is this a current diagnosis for this admission?: Yes Plan: Will continue to monitor. She has a significant bandemia as well
[2017-05-24 13:03] LABS: ARTERIAL BLOOD BASE EXCESS -12.9 mmol/L; ARTERIAL BLOOD H2CO3 1.14 mmol/L (1.05-1.35); ARTERIAL BLOOD HCO3 14.4 mmol/L (20-26); ARTERIAL BLOOD O2 SATURATION 91.9 % (94-98); ARTERIAL BLOOD TOTAL CO2 15.6 mmol/L (21-25)
--- NOTE | 2017-05-24 13:04 | RADIOLOGY REPORT (SQ) ---
EXAM DESCRIPTION: CHEST SINGLE VIEW COMPLETED DATE/TIME: 05/24/2017 12:31 pm REASON FOR STUDY: et placement COMPARISON: 03/23/2018 EXAM PARAMETERS: NUMBER OF VIEWS: One view. TECHNIQUE: Single frontal radiographic view of the chest acquired. RADIATION DOSE: NA LIMITATIONS: None. FINDINGS: LUNGS AND PLEURA: Severe pneumonia in the right mid and lower lung not significantly lanier ed. Small bilateral pleural effusions. MEDIASTINUM AND HILAR STRUCTURES: No masses. Contour normal. HEART AND VASCULAR STRUCTURES: Heart normal in size. Normal vasculature. BONES: No acute findings. HARDWARE: Interval insertion of an endotracheal tube with its tip 3 cm above the josh in an NG tube with its tip well within the stomach. Right jugular catheter with its tip in superior vena cava. S tatus post posterior fusion in the lower cervical spine. OTHER: No other significant finding. IMPRESSION: 1. Interval insertion of an endotracheal tube with its tip 3 cm above the josh. 2. No significant change in the pneumonia on the right with small bilateral effusions being noted. TECHNICAL DOCUMENTATION: JOB ID: [id number] [employer]- All Rights Reserved
[2017-05-24 13:08] LABS: ARTERIAL BLOOD FIO2 50%
--- NOTE | 2017-05-24 13:10 | RADIOLOGY REPORT (SQ) ---
EXAM DESCRIPTION: KUB/ABDOMEN (SINGLE VIEW) COMPLETED DATE/TIME: 05/24/2017 12:31 pm REASON FOR STUDY: NGT placement COMPARISON: None. NUMBER OF VIEWS: One view. TECHNIQUE: Supine radiographic image of the upper abdomen acquired for NG placement. LIMITATIONS: None. FINDINGS: BOWEL GAS PATTERN: Normal bowel gas pattern. No dilated loops. CALCIFICATIONS: No suspicious calcifications. SOFT TISSUES: No gross mass or suggestion of organomegaly. HARDWARE: Tip of the NG tube is in the body the stomach. BONES: No acute fracture. No worrisome bone lesions. OTHER: Pneumonia on the right with small left effusion. IMPRESSION: Tip of the NG tube is in the body the stomach. TECHNICAL DOCUMENTATION: JOB ID: [id number] [employer]- All Rights Reserved
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
[2017-05-24 14:29] LABS: PATH REVIEW PATHOLOGIST REVIEWED
[2017-05-24 14:29] LABS: PATH REVIEW PATHOLOGIST REVIEWED
[2017-05-24] MEDS: PIPERACILLIN SODIUM/TAZOBACTAM 2.25 GM in NORMAL SALINE 100 ML IV SCH ×2 (14:48→21:32)
[2017-05-24] MEDS ORDERED: NICOTINE 21 MG/24 HR PATCH.TD24 TD ONE (15:00)
[2017-05-24] MEDS ORDERED: ROCURONIUM BROMIDE INJ 50 MG/5 ML VIAL IV ONE (15:38)
[2017-05-24] MEDS ORDERED: IPRATROPIUM/ALBUTEROL 0.5-2.5 MG/3 ML AMPUL NEB ONE (16:30)
[2017-05-24 16:59] LABS: ARTERIAL BLOOD BASE EXCESS -10.2 mmol/L; ARTERIAL BLOOD H2CO3 0.99 mmol/L (1.05-1.35); ARTERIAL BLOOD HCO3 15.4 mmol/L (20-26); ARTERIAL BLOOD O2 SATURATION 90.2 % (94-98); ARTERIAL BLOOD PCO2 32.9 mmHg (35-45); ARTERIAL BLOOD PH 7.29 (7.35-7.45); ARTERIAL BLOOD PO2 63.8 mmHg (80-100); ARTERIAL BLOOD TOTAL CO2 16.4 mmol/L (21-25)
[2017-05-24 17:02] LABS: ARTERIAL BLOOD FIO2 50%
[2017-05-24] MEDS ORDERED: PHENYLEPHRINE HCL INJ/PF 10 MG/1 ML SDV ONE (17:18)
[2017-05-24] MEDS ORDERED: PROPOFOL 100 ML IV ONE (17:24)
[2017-05-24] MEDS ORDERED: NORMAL SALINE 1000 ML 1,000 ML with POTASSIUM CHLORIDE 20 MEQ, MAGNESIUM SULFATE 8 MEQ,... IV SCH ×5 (18:00)
[2017-05-24] MEDS: NORMAL SALINE 1000 ML 1,000 ML with POTASSIUM CHLORIDE 20 MEQ, MAGNESIUM SULFATE 8 MEQ,... IV SCH ×5 (19:16)
[2017-05-24 19:50] LABS: ARTERIAL BLOOD H2CO3 0.83 mmol/L (1.05-1.35); ARTERIAL BLOOD HCO3 14.4 mmol/L (20-26); ARTERIAL BLOOD PCO2 27.5 mmHg (35-45); ARTERIAL BLOOD PH 7.34 (7.35-7.45); ARTERIAL BLOOD PO2 65.2 mmHg (80-100); ARTERIAL BLOOD TOTAL CO2 15.2 mmol/L (21-25)
[2017-05-24 20:05] LABS: ARTERIAL BLOOD FIO2 50%
[2017-05-25] MEDS: DEXTROSE 5%-WATER 250 ML with NOREPINEPHRINE BITARTRATE 4 MG IV PRN ×6 (00:35→15:33)
[2017-05-25] MEDS: PROPOFOL 100 ML IV PRN ×2 (01:24→17:58)
[2017-05-25] MEDS: MIDAZOLAM HCL 50 MG/100 ML RTUINJ IV PRN ×3 (02:30→20:05)
[2017-05-25 04:27] LABS: HEMATOCRIT 30.3 % (36.0-47.0); HEMOGLOBIN 10.5 g/dL (12.0-15.5); MEAN CORPUSCULAR HEMOGLOBIN 35.1 pg (27.0-33.4); MEAN CORPUSCULAR HGB CONC 34.5 g/dL (32.0-36.0); MEAN CORPUSCULAR VOLUME 102 fl (80-97); RED BLOOD COUNT 2.99 10^6/uL (3.72-5.28); RED CELL DISTRIBUTION WIDTH 13.6 % (11.5-14.0)
[2017-05-25 04:28] LABS: ALANINE AMINOTRANSFERASE 23 U/L (9-52); ALBUMIN 2.2 g/dL (3.5-5.0); ALKALINE PHOSPHATASE 39 U/L (38-126); ANION GAP 9 (5-19); ASPARTATE AMINO TRANSFERASE 41 U/L (14-36); BILIRUBIN,DIRECT 0.1 mg/dL (0.0-0.4); BILIRUBIN,TOTAL 0.1 mg/dL (0.2-1.3); BLOOD UREA NITROGEN 15 mg/dL (7-20); CARBON DIOXIDE 14 mmol/L (22-30); CHLORIDE 105 mmol/L (98-107); GLUCOSE 143 mg/dL (75-110); PHOSPHORUS 2.4 mg/dL (2.5-4.5); SODIUM 128.4 mmol/L (137-145); TOTAL PROTEIN 4.3 g/dL (6.3-8.2)
[2017-05-25 04:36] LABS: INTERNATIONAL RATION (INR) 1.02; PROTHROMBIN TIME 14.1 SEC (11.4-15.4)
[2017-05-25 04:37] LABS: PARTIAL THROMBOPLASTIN TIME 33.4 SEC (23.5-35.8)
[2017-05-25 04:48] LABS: CALCIUM 6.5 mg/dL (8.4-10.2); POTASSIUM 2.7 mmol/L (3.6-5.0)
[2017-05-25 05:03] LABS: WHITE BLOOD COUNT 7.1 10^3/uL (4.0-10.5)
[2017-05-25 05:13] LABS: ABSOLUTE LYMPHOCYTES# (MANUAL) 0.3 10^3/uL (0.5-4.7); ABSOLUTE MONOCYTES # (MANUAL) 0.2 10^3/uL (0.1-1.4); ABSOLUTE NEUTROPHILS# (MANUAL) 6.6 10^3/uL (1.7-8.2); BAND NEUTROPHILS % (MANUAL) 34 % (3-5); BASOPHILS % (MANUAL) 0 % (0-2); EOSINOPHILS % (MANUAL) 0 % (0-6); LYMPHOCYTES % (MANUAL) 4 % (13-45); MONOCYTES % (MANUAL) 3 % (3-13); SEGMENTED NEUTROPHILS % (MAN) 59 % (42-78); TOTAL CELLS COUNTED 100
[2017-05-25 05:14] LABS: TOXIC GRANULATION 1+
[2017-05-25 05:15] LABS: TOXIC VACUOLATION PRESENT
[2017-05-25 05:16] LABS: ANISOCYTOSIS SLIGHT
[2017-05-25 05:17] LABS: PLATELET COMMENT DECREASED
[2017-05-25] MEDS ORDERED: POTASSIUM CHLORIDE 20 MEQ/15 ML UDCUP ONE ×2 (05:21→05:27)
[2017-05-25] MEDS: PIPERACILLIN SODIUM/TAZOBACTAM 2.25 GM in NORMAL SALINE 100 ML IV SCH ×3 (05:24→23:38)
[2017-05-25] MEDS ORDERED: POTASSI CL 20 MEQ/50 ML RIDER 40 MEQ/100 ML RTUPB IV ONE (05:27)
[2017-05-25 05:30] LABS: PLATELET COUNT 31 10^3/uL (150-450)
[2017-05-25] MEDS ORDERED: POTASSIUM CHLORIDE 20 MEQ/15 ML UDCUP NG ONE (05:30)
[2017-05-25] MEDS: POTASSIUM CHLORIDE 20 MEQ/50 ML RTU IV SCH ×2 (05:53→07:06)
[2017-05-25 06:22] LABS: ARTERIAL BLOOD BASE EXCESS -10.3 mmol/L; ARTERIAL BLOOD H2CO3 0.74 mmol/L (1.05-1.35); ARTERIAL BLOOD HCO3 13.6 mmol/L (20-26); ARTERIAL BLOOD O2 SATURATION 92.4 % (94-98); ARTERIAL BLOOD PCO2 24.6 mmHg (35-45); ARTERIAL BLOOD PH 7.36 (7.35-7.45); ARTERIAL BLOOD PO2 64.4 mmHg (80-100); ARTERIAL BLOOD TOTAL CO2 14.4 mmol/L (21-25)
[2017-05-25 06:40] LABS: ARTERIAL BLOOD FIO2 50%
--- NOTE | 2017-05-25 07:08 | RADIOLOGY REPORT (SQ) ---
EXAM DESCRIPTION: CHEST SINGLE VIEW CLINICAL HISTORY: sob COMPARISON: 05/24/2017 FINDINGS: Single frontal view of the chest. Postoperative change of the cervical spine. Endotracheal tube with tip 3 cm above the josh. NG tube with tip below the diaphragm. Right IJ central venous catheter with tip in the SVC. No pneumothorax. Likely small bilateral pleural effusions. Dense right lung consolidation is stable. No new osseous abnormalities. Upper abdominal soft tissues are unremarkable. IMPRESSION: 1. Stable appearance of the chest.
[2017-05-25 07:41] LABS: HEPATITIS A AB IGM Negative (Negative); HEPATITIS B CORE AB IGM Negative (Negative); HEPATITS B SURFACE ANTIGEN Negative (Negative)
[2017-05-25 08:17] LABS: HEPATITIS C VIRUS ANTIBODY 0.4 s/co ratio (0.0-0.9)
[2017-05-25] MEDS: DEXTROSE 5%-WATER 250 ML with PHENYLEPHRINE HCL 40 MG IV PRN ×2 (08:21)
[2017-05-25] MEDS: DOXYCYCLINE HYCLATE 100 MG in DEXTROSE 5%-WATER 250 ML IV SCH ×2 (10:38→23:37)
[2017-05-25] MEDS: NICOTINE 21 MG/24 HR PATCH.TD24 TD SCH (10:38)
[2017-05-25] MEDS: PANTOPRAZOLE SODIUM 40 MG VIAL IV SCH ×2 (10:39→23:38)
[2017-05-25] MEDS ORDERED: CALCIUM GLUCONATE 1000 MG/10 ML INJ IV ONE (12:39)
--- NOTE | 2017-05-25 12:41 | PDOC PROGRESS REPORT ---
Subjective Progress Note for:: 05/25/17 Subjective:: Patient presented with respiratory distress. Patient initially placed on BiPAP however not responding well to that. She is now intubated for hypercapnic hypoxic respiratory failure. Patient blood gases slowly improving. Reason For Visit: RESPIRATORY FAILURE,PNEUMONIA,SEPSIS Physical Exam Vital Signs: Temp Pulse Resp BP Pulse Ox 99.7 F 93 25 H 106/71 100 05/25/17 11:45 05/25/17 11:45 05/25/17 11:45 05/25/17 11:45 05/25/17 11:45 Intake & Output 05/24/17 05/25/17 05/26/17 06:59 06:59 06:59 Intake Total 2600 4631 Output Total 1200 2565 700 Balance 1400 2066 -700 Weight 51.8 kg General appearance: PRESENT: no acute distress, thin, well-developed Head exam: PRESENT: normocephalic Eye exam: PRESENT: EOMI. ABSENT: scleral icterus Ear exam: PRESENT: normal external ear exam Mouth exam: PRESENT: moist Neck exam: ABSENT: carotid bruit, JVD, lymphadenopathy, thyromegaly Respiratory exam: PRESENT: clear to auscultation servando. ABSENT: rales, rhonchi, wheezes Cardiovascular exam: PRESENT: RRR. ABSENT: diastolic murmur, rubs, systolic murmur Pulses: PRESENT: normal dorsalis pedis pul Vascular exam: PRESENT: normal capillary refill GI/Abdominal exam: PRESENT: normal bowel sounds, soft. ABSENT: distended, guarding, mass, organolmegaly, rebound, tenderness Rectal exam: PRESENT: deferred Gentrourinary exam: PRESENT: indwelling catheter Extremities exam: PRESENT: other - Edema of the hands. ABSENT: calf tenderness , clubbing, pedal edema Neurological exam: PRESENT: other - Sedated. ABSENT: motor sensory deficit Psychiatric exam: ABSENT: homicidal ideation, suicidal ideation Skin exam: PRESENT: dry, intact, warm, other - 2 views. ABSENT: cyanosis, rash Results Laboratory Results: 05/25/17 03:52 05/25/17 03:52 05/24/17 05/24/17 05/24/17 12:45 16:40 19:30 WBC RBC Hgb Hct MCV MCH MCHC RDW Plt Count Seg Neutrophils % Lymphocytes % Monocytes % Eosinophils % Basophils % Absolute Neutrophils Absolute Lymphocytes Absolute Monocytes Absolute Eosinophils Absolute Basophils Carbonic Acid 1.14 0.99 L 0.83 L HCO3/H2CO3 Ratio 12:1 15:1 17:1 ABG pH 7.20 L* 7.29 L 7.34 L ABG pCO2 38.0 32.9 L 27.5 L ABG pO2 75.0 L 63.8 L 65.2 L ABG HCO3 14.4 L 15.4 L 14.4 L ABG O2 Saturation 91.9 L 90.2 L 92.0 L ABG Base Excess -12.9 -10.2 -10.0 FiO2 50% 50% 50% Sodium Potassium Chloride Carbon Dioxide Anion Gap BUN Creatinine Est GFR ( Amer) Est GFR (Non-Af Amer) Glucose Calcium Phosphorus Magnesium Total Bilirubin AST ALT Alkaline Phosphatase Total Protein Albumin 05/25/17 05/25/17 05/25/17 03:52 03:52 06:10 WBC 7.1 D RBC 2.99 L Hgb 10.5 L Hct 30.3 L MCV 102 H MCH 35.1 H MCHC 34.5 RDW 13.6 Plt Count 31 L Seg Neutrophils % Not Reportable Lymphocytes % Not Reportable Monocytes % Not Reportable Eosinophils % Not Reportable Basophils % Not Reportable Absolute Neutrophils Not Reportable Absolute Lymphocytes Not Reportable Absolute Monocytes Not Reportable Absolute Eosinophils Not Reportable Absolute Basophils Not Reportable Carbonic Acid 0.74 L HCO3/H2CO3 Ratio 18:1 ABG pH 7.36 ABG pCO2 24.6 L ABG pO2 64.4 L ABG HCO3 13.6 L ABG O2 Saturation 92.4 L ABG Base Excess -10.3 FiO2 50% Sodium 128.4 L Potassium 2.7 L* Chloride 105 Carbon Dioxide 14 L Anion Gap 9 BUN 15 Creatinine 0.68 Est GFR ( Amer) > 60 Est GFR (Non-Af Amer) > 60 Glucose 143 H Calcium 6.5 L* Phosphorus 2.4 L Magnesium 2.3 Total Bilirubin 0.1 L AST 41 H ALT 23 Alkaline Phosphatase 39 Total Protein 4.3 L Albumin 2.2 L Impressions: KUB X-Ray 05/24/17 00:00 IMPRESSION: Tip of the NG tube is in the body the stomach. Chest X-Ray 05/25/17 06:00 IMPRESSION: 1. Stable appearance of the chest. Assessment & Plan - Diagnosis (1) Sepsis Qualifiers: Sepsis type: sepsis due to unspecified organism Qualified Code(s): A41.9 - Sepsis, unspecified organism Is this a current diagnosis for this admission?: Yes Plan: Septic shock secondary to pneumonia which was present on admission. Patient currently on Zosyn and doxycycline still on Dajuan-Synephrine and fluids. Will wean as tolerated. (2) Respiratory failure with hypoxia and hypercapnia Qualifiers: Chronicity: acute Qualified Code(s): J96.01 - Acute respiratory failure with hypoxia; J96.02 - Acute respiratory failure with hypercapnia; J96.02 - Acute respiratory failure with hypercapnia; J96.02 - Acute respiratory failure with hypercapnia Is this a current diagnosis for this admission?: Yes Plan: Return if this is acute however suspect that this may be acute on chronic as patient has extensive smoking history and may have underlying COPD. Patient currently on nebs, budesonide and antibiotics. Will add steroids. Patient currently intubated. Pulmonology following. Will order serial ABGs and chest x -rays. (3) Acute renal failure Qualifiers: Acute renal failure type: unspecified Qualified Code(s): N17.9 - Acute kidney failure, unspecified Is this a current diagnosis for this admission?: Yes Plan: Acute renal failure most likely due to septic shock and hypotension. Patient renal function is now back to normal. Patient creatinine is now 0.6. (4) Chronic alcoholism Is this a current diagnosis for this admission?: Yes Plan: Continue supportive care. She currently on midazolam and propofol. (5) Hyponatremia Is this a current diagnosis for this admission?: Yes Plan: Likely secondary to alcohol abuse and or dehydration. Patient hyponatremia is improving with IV hydration. Him has trended up from 123.6-128.4. (6) Pancytopenia Is this a current diagnosis for this admission?: Yes Plan: Cytopenia most likely due to infection and/or chronic alcoholism resulting in bone marrow suppression. WBC is now 7.1. Hemoglobin is 10.5. Patient has macrocytic anemia most likely secondary to alcohol abuse. Patient platelets are 31,000 which is trending down. Will continue to monitor. Will DC heparin and start patient on SCDs for DVT prophylaxis. (7) Pneumonia Qualifiers: Pneumonia type: due to unspecified organism Laterality: right Lung location: lower lobe of lung Qualified Code(s): J18.1 - Lobar pneumonia, unspecified organism Is this a current diagnosis for this admission?: Yes Plan: Patient on Zosyn and doxycycline. Please note that azithromycin and Levaquin are not being used due to QT prolongation. (8) Protein calorie malnutrition Is this a current diagnosis for this admission?: Yes Plan: Possibly due to poor p.o. intake. Will start dietary supplementation when appropriate. (9) Tobacco abuse Is this a current diagnosis for this admission?: Yes Plan: Patient counseling when appropriate. (10) Hypokalemia Plan: Given a total of 60 mEq of potassium. (11) Hypocalcemia Is this a current diagnosis for this admission?: Yes Plan: Patient calcium is low normal. When corrected for hypoalbuminemia her calcium is still 7.94. Will give patient calcium gluconate. Will follow up. - Time Time Spent with patient: 25-34 minutes Anticipated discharge: Home - Inpatient Certification Medical Necessity: Need For IV Fluids - She is currently intubated and on pressors for hypotension. Patient is still critical in the ICU., Need For Continuous Telemetry Monitoring, Need for Nebulizer Therapy and Monitoring of Response, Need for IV Antibiotics
[2017-05-25] MEDS: NORMAL SALINE 1000 ML 1,000 ML IV PRN (12:52)
[2017-05-25] MEDS ORDERED: POTASSI CL 20 MEQ/50 ML RIDER 20 MEQ/50 ML RTUPB IV ONE (13:00)
[2017-05-25] MEDS: METHYLPREDNISOLONE INJ 40 MG/1 ML SDV IV SCH ×2 (13:26→23:39)
[2017-05-25] MEDS: IPRATROPIUM/ALBUTEROL 0.5-2.5 MG/3 ML AMPUL NEB SCH ×2 (14:40→19:53)
[2017-05-25] MEDS: NORMAL SALINE 1000 ML 1,000 ML with POTASSIUM CHLORIDE 20 MEQ, MAGNESIUM SULFATE 8 MEQ,... IV SCH ×5 (17:57)
[2017-05-25] MEDS: BUDESONIDE NEB 0.5 MG/2 ML AMPUL NEB SCH (19:53)
--- NOTE | 2017-05-25 21:04 | PDOC PROGRESS REPORT ---
Subjective Progress Note for:: 05/25/17 Subjective:: intubated/sedated Reason For Visit: RESPIRATORY FAILURE,PNEUMONIA,SEPSIS Physical Exam Vital Signs: Temp Pulse Resp BP Pulse Ox 37.2 F L 77 25 H 106/71 99 05/25/17 16:00 05/25/17 19:52 05/25/17 19:52 05/25/17 11:45 05/25/17 19:52 Intake & Output 05/24/17 05/25/17 05/26/17 06:59 06:59 06:59 Intake Total 2600 4631 2685 Output Total 1200 2565 1950 Balance 1400 2066 735 Weight 51.8 kg General appearance: PRESENT: no acute distress, disheveled, well-developed Head exam: PRESENT: atraumatic, normocephalic Eye exam: PRESENT: conjunctiva pale. ABSENT: nystagmus, periorbital swelling, scleral icterus Mouth exam: PRESENT: dry mucosa, neck supple, tongue midline, other - ET tube Neck exam: ABSENT: carotid bruit, JVD, lymphadenopathy, thyromegaly, tracheal deviation, tracheostomy Respiratory exam: PRESENT: decreased breath sounds, prolonged expiratory phas, rhonchi, symmetrical, unlabored, wheezes. ABSENT: retraction, stridor, tachypnea Cardiovascular exam: PRESENT: RRR, +S1, +S2 Pulses: PRESENT: normal radial pulses GI/Abdominal exam: PRESENT: diminished bowel sounds, soft Extremities exam: ABSENT: calf tenderness, clubbing Musculoskeletal exam: ABSENT: deformity, dislocation Neurological exam: ABSENT: alert, awake, oriented to person Skin exam: PRESENT: dry, warm Results Laboratory Results: 05/25/17 03:52 05/25/17 03:52 05/25/17 05/25/17 05/25/17 03:52 03:52 06:10 WBC 7.1 D RBC 2.99 L Hgb 10.5 L Hct 30.3 L MCV 102 H MCH 35.1 H MCHC 34.5 RDW 13.6 Plt Count 31 L Seg Neutrophils % Not Reportable Lymphocytes % Not Reportable Monocytes % Not Reportable Eosinophils % Not Reportable Basophils % Not Reportable Absolute Neutrophils Not Reportable Absolute Lymphocytes Not Reportable Absolute Monocytes Not Reportable Absolute Eosinophils Not Reportable Absolute Basophils Not Reportable Carbonic Acid 0.74 L HCO3/H2CO3 Ratio 18:1 ABG pH 7.36 ABG pCO2 24.6 L ABG pO2 64.4 L ABG HCO3 13.6 L ABG O2 Saturation 92.4 L ABG Base Excess -10.3 FiO2 50% Sodium 128.4 L Potassium 2.7 L* Chloride 105 Carbon Dioxide 14 L Anion Gap 9 BUN 15 Creatinine 0.68 Est GFR ( Amer) > 60 Est GFR (Non-Af Amer) > 60 Glucose 143 H Calcium 6.5 L* Phosphorus 2.4 L Magnesium 2.3 Total Bilirubin 0.1 L AST 41 H ALT 23 Alkaline Phosphatase 39 Total Protein 4.3 L Albumin 2.2 L Impressions: KUB X-Ray 05/24/17 00:00 IMPRESSION: Tip of the NG tube is in the body the stomach. Chest X-Ray 05/25/17 06:00 IMPRESSION: 1. Stable appearance of the chest. Assessment & Plan - Diagnosis (1) Pancytopenia Is this a current diagnosis for this admission?: Yes Plan: most likely due to chronic alcohol abuse Labs- All tests 24 hr 05/24/17 05:20 WBC 1.0 L* Hgb 11.1 L MCV 102 H Total Counted 50 (2) Acute hypoxemic respiratory failure Is this a current diagnosis for this admission?: Yes Plan: [facility] vent hypercapnic/hypoxic resp failure (3) Acute renal failure Qualifiers: Acute renal failure type: unspecified Qualified Code(s): N17.9 - Acute kidney failure, unspecified Is this a current diagnosis for this admission?: Yes (4) Chronic alcoholism Is this a current diagnosis for this admission?: Yes Plan: MCV 102--- min 24 beers per day ---per RN report DT precautions thiamine;MVI et al (5) Protein calorie malnutrition Is this a current diagnosis for this admission?: Yes (6) Sepsis Qualifiers: Sepsis type: sepsis due to unspecified organism Qualified Code(s): A41.9 - Sepsis, unspecified organism Is this a current diagnosis for this admission?: Yes (7) Tobacco abuse Is this a current diagnosis for this admission?: Yes - Time Total Critical Time (Minutes): 45
[2017-05-26] MEDS: DEXTROSE 5%-WATER 250 ML with NOREPINEPHRINE BITARTRATE 4 MG IV PRN ×2 (00:24)
[2017-05-26] MEDS: DEXTROSE 5%-WATER 250 ML with PHENYLEPHRINE HCL 40 MG IV PRN ×4 (00:42→17:40)
[2017-05-26] MEDS: IPRATROPIUM/ALBUTEROL 0.5-2.5 MG/3 ML AMPUL NEB SCH ×4 (02:18→20:09)
[2017-05-26] MEDS: NORMAL SALINE 1000 ML 1,000 ML IV PRN (02:18)
[2017-05-26] MEDS: MIDAZOLAM HCL 50 MG/100 ML RTUINJ IV PRN ×3 (03:42→17:40)
[2017-05-26] MEDS: METHYLPREDNISOLONE INJ 40 MG/1 ML SDV IV SCH ×3 (05:59→21:15)
[2017-05-26] MEDS: PIPERACILLIN SODIUM/TAZOBACTAM 2.25 GM in NORMAL SALINE 100 ML IV SCH (06:00)
[2017-05-26 07:07] LABS: ALANINE AMINOTRANSFERASE 19 U/L (9-52); ALBUMIN 1.8 g/dL (3.5-5.0); ALKALINE PHOSPHATASE 51 U/L (38-126); ANION GAP 9 (5-19); ASPARTATE AMINO TRANSFERASE 41 U/L (14-36); BLOOD UREA NITROGEN 11 mg/dL (7-20); CALCIUM 7.1 mg/dL (8.4-10.2); CARBON DIOXIDE 13 mmol/L (22-30); CHLORIDE 110 mmol/L (98-107); GLUCOSE 217 mg/dL (75-110); POTASSIUM 3.2 mmol/L (3.6-5.0); SODIUM 132.2 mmol/L (137-145); TOTAL PROTEIN 3.6 g/dL (6.3-8.2)
[2017-05-26 07:11] LABS: BILIRUBIN,TOTAL < 0.1 mg/dL (0.2-1.3)
[2017-05-26 07:18] LABS: HEMATOCRIT 27.3 % (36.0-47.0); HEMOGLOBIN 9.4 g/dL (12.0-15.5); MEAN CORPUSCULAR HGB CONC 34.3 g/dL (32.0-36.0); MEAN CORPUSCULAR VOLUME 102 fl (80-97); RED BLOOD COUNT 2.68 10^6/uL (3.72-5.28); RED CELL DISTRIBUTION WIDTH 13.9 % (11.5-14.0)
[2017-05-26 07:23] LABS: WHITE BLOOD COUNT 17.2 10^3/uL (4.0-10.5)
[2017-05-26 07:25] LABS: PLATELET COUNT 22 10^3/uL (150-450)
[2017-05-26 07:26] LABS: BASOPHILS % (MANUAL) 0 % (0-2); EOSINOPHILS % (MANUAL) 0 % (0-6); TOTAL CELLS COUNTED 100
[2017-05-26 07:27] LABS: ABSOLUTE LYMPHOCYTES# (MANUAL) 0.5 10^3/uL (0.5-4.7); ABSOLUTE MONOCYTES # (MANUAL) 0.2 10^3/uL (0.1-1.4); ABSOLUTE NEUTROPHILS# (MANUAL) 16.5 10^3/uL (1.7-8.2); BAND NEUTROPHILS % (MANUAL) 4 % (3-5); LYMPHOCYTES % (MANUAL) 2 % (13-45); MONOCYTES % (MANUAL) 1 % (3-13); SEGMENTED NEUTROPHILS % (MAN) 92 % (42-78); TOXIC GRANULATION 2+; TOXIC VACUOLATION PRESENT
[2017-05-26 07:28] LABS: HYPOCHROMASIA SLIGHT; PLATELET COMMENT DECREASED; POLYCHROMASIA SLIGHT
--- NOTE | 2017-05-26 07:28 | RADIOLOGY REPORT (SQ) ---
EXAM DESCRIPTION: CHEST SINGLE VIEW CLINICAL HISTORY: sob COMPARISON: 05/25/2017 FINDINGS: Single frontal view of the chest. Postoperative change of the cervical spine. Endotracheal tube with tip 2 cm above the josh. NG tube with tip below the diaphragm. Right IJ central venous catheter with tip in the SVC. No pneumothorax. Likely small bilateral pleural effusions. Dense right lung consolidation is stable. No new osseous abnormalities. Upper abdominal soft tissues are unremarkable. IMPRESSION: 1. Endotracheal tube with tip 2 cm above the josh. Consider pulling back 1-2 cm. Otherwise stable appearance of the chest.
[2017-05-26] MEDS: PROPOFOL 100 ML IV PRN ×2 (07:34→17:40)
[2017-05-26 07:38] LABS: ARTERIAL BLOOD BASE EXCESS -11.8 mmol/L; ARTERIAL BLOOD FIO2 60%; ARTERIAL BLOOD H2CO3 0.73 mmol/L (1.05-1.35); ARTERIAL BLOOD HCO3 12.5 mmol/L (20-26); ARTERIAL BLOOD O2 SATURATION 96.1 % (94-98); ARTERIAL BLOOD PCO2 24.4 mmHg (35-45); ARTERIAL BLOOD PH 7.33 (7.35-7.45); ARTERIAL BLOOD PO2 86.1 mmHg (80-100); ARTERIAL BLOOD TOTAL CO2 13.3 mmol/L (21-25)
[2017-05-26] MEDS: BUDESONIDE NEB 0.5 MG/2 ML AMPUL NEB SCH ×2 (07:53→20:09)
[2017-05-26] MEDS: PANTOPRAZOLE SODIUM 40 MG VIAL IV SCH ×2 (10:57→21:18)
[2017-05-26] MEDS: NICOTINE 21 MG/24 HR PATCH.TD24 TD SCH (10:57)
[2017-05-26] MEDS: DOXYCYCLINE HYCLATE 100 MG in DEXTROSE 5%-WATER 250 ML IV SCH (10:57)
[2017-05-26 11:39] LABS: PATH REVIEW PATHOLOGIST REVIEWED
[2017-05-26] MEDS ORDERED: SODIUM BICARBONATE 8.4% INJ 50 MEQ/50 ML DISP.SYRIN IV ONE (11:41)
[2017-05-26] MEDS ORDERED: DEXTROSE 5%-WATER 1000 ML 1,000 ML with SODIUM BICARBONATE 100 MEQ IV ONE ×2 (14:00)
[2017-05-26] MEDS: POTASSI CL 20 MEQ/50 ML RIDER 20 MEQ/50 ML RTUPB IV SCH ×2 (17:36→17:41)
[2017-05-26] MEDS: PIPERACILLIN SODIUM/TAZOBACTAM 3.375 GM in NORMAL SALINE 100 ML IV SCH ×2 (17:37→22:14)
[2017-05-26] MEDS: NORMAL SALINE 1000 ML 1,000 ML with POTASSIUM CHLORIDE 20 MEQ, MAGNESIUM SULFATE 8 MEQ,... IV SCH ×5 (17:42)
--- NOTE | 2017-05-26 22:23 | PDOC PROGRESS REPORT ---
Subjective Progress Note for:: 05/26/17 Subjective:: Patient presented with respiratory distress. Patient initially placed on BiPAP however not responding well to that. She is now intubated for hypercapnic hypoxic respiratory failure. Patient blood gases slowly improving. Called by pharmacist today stating that patient doxycycline may be interfering with her Zosyn. Doxycycline was discontinued. Reason For Visit: RESPIRATORY FAILURE,PNEUMONIA,SEPSIS Physical Exam Vital Signs: Temp Pulse Resp BP Pulse Ox 97.3 F 84 25 H 121/85 99 05/26/17 21:54 05/26/17 21:54 05/26/17 21:54 05/26/17 21:54 05/26/17 21:54 Intake & Output 05/25/17 05/26/17 05/27/17 06:59 06:59 06:59 Intake Total 4631 3209 2069 Output Total 2565 2735 1475 Balance 2066 474 594 Weight 51.8 kg 53.9 kg General appearance: PRESENT: no acute distress Head exam: PRESENT: normocephalic Eye exam: ABSENT: scleral icterus Ear exam: PRESENT: normal external ear exam Mouth exam: PRESENT: moist, other - ET tube in place Neck exam: ABSENT: carotid bruit, JVD, lymphadenopathy, thyromegaly Respiratory exam: PRESENT: clear to auscultation servando. ABSENT: rales, rhonchi, wheezes Cardiovascular exam: PRESENT: RRR. ABSENT: diastolic murmur, rubs, systolic murmur Pulses: PRESENT: normal dorsalis pedis pul Vascular exam: PRESENT: normal capillary refill GI/Abdominal exam: PRESENT: normal bowel sounds, soft. ABSENT: distended, guarding, mass, organolmegaly, rebound, tenderness Rectal exam: PRESENT: deferred Gentrourinary exam: PRESENT: indwelling catheter Extremities exam: PRESENT: full ROM, other - Swelling of the hands. ABSENT: calf tenderness, clubbing, pedal edema Neurological exam: PRESENT: other - Intubated and sedated. ABSENT: motor sensory deficit Psychiatric exam: ABSENT: homicidal ideation, suicidal ideation Skin exam: PRESENT: dry, intact, warm. ABSENT: cyanosis, rash Results Laboratory Results: 05/26/17 05:15 05/26/17 05:15 05/26/17 05/26/17 05/26/17 05:15 05:15 05:15 WBC 17.2 H D RBC 2.68 L Hgb 9.4 L Hct 27.3 L MCV 102 H MCH 35.0 H MCHC 34.3 RDW 13.9 Plt Count 22 L* Seg Neutrophils % Not Reportable Lymphocytes % Not Reportable Monocytes % Not Reportable Eosinophils % Not Reportable Basophils % Not Reportable Absolute Neutrophils Not Reportable Absolute Lymphocytes Not Reportable Absolute Monocytes Not Reportable Absolute Eosinophils Not Reportable Absolute Basophils Not Reportable Carbonic Acid 0.73 L HCO3/H2CO3 Ratio 17:1 ABG pH 7.33 L ABG pCO2 24.4 L ABG pO2 86.1 ABG HCO3 12.5 L ABG O2 Saturation 96.1 ABG Base Excess -11.8 FiO2 60% Sodium 132.2 L Potassium 3.2 L Chloride 110 H Carbon Dioxide 13 L Anion Gap 9 BUN 11 Creatinine 0.57 Est GFR ( Amer) > 60 Est GFR (Non-Af Amer) > 60 Glucose 217 H Calcium 7.1 L Magnesium 2.0 Total Bilirubin < 0.1 L AST 41 H ALT 19 Alkaline Phosphatase 51 Total Protein 3.6 L Albumin 1.8 L 05/24/17 12:45 Tracheal Aspirate Gram Stain - Final 05/24/17 12:45 Tracheal Aspirate Sputum Culture - Final NO GROWTH 2 DAYS Impressions: KUB X-Ray 05/24/17 00:00 IMPRESSION: Tip of the NG tube is in the body the stomach. Chest X-Ray 05/26/17 06:00 IMPRESSION: 1. Endotracheal tube with tip 2 cm above the josh. Consider pulling back 1-2 cm. Otherwise stable appearance of the chest. Assessment & Plan - Diagnosis (1) Sepsis Qualifiers: Sepsis type: sepsis due to unspecified organism Qualified Code(s): A41.9 - Sepsis, unspecified organism Is this a current diagnosis for this admission?: Yes Plan: Septic shock secondary to pneumonia which was present on admission. Patient currently on Zosyn. Doxycycline discontinued as this may b e interfering with the zosyn. Still on Dajuan-Synephrine and fluids. Patient could be hypotensive due to propofol. Will wean as tolerated. (2) Respiratory failure with hypoxia and hypercapnia Qualifiers: Chronicity: acute Qualified Code(s): J96.01 - Acute respiratory failure with hypoxia; J96.02 - Acute respiratory failure with hypercapnia; J96.02 - Acute respiratory failure with hypercapnia; J96.02 - Acute respiratory failure with hypercapnia Is this a current diagnosis for this admission?: Yes Plan: Return if this is acute however suspect that this may be acute on chronic as patient has extensive smoking history and may have underlying COPD. Patient currently on nebs, budesonide and antibiotics. Continue steroids and wean as tolerated. . Patient currently intubated. Pulmonology following. Will order serial ABGs and chest x-rays. (3) Acute renal failure Qualifiers: Acute renal failure type: unspecified Qualified Code(s): N17.9 - Acute kidney failure, unspecified Is this a current diagnosis for this admission?: Yes Plan: Acute renal failure most likely due to septic shock and hypotension. Resolved. (4) Chronic alcoholism Is this a current diagnosis for this admission?: Yes Plan: Continue supportive care. She currently on midazolam and propofol. Considering weaning propofol as tolerated. (5) Hyponatremia Is this a current diagnosis for this admission?: Yes Plan: Likely secondary to alcohol abuse and or dehydration. Patient hyponatremia is improving with IV hydration. Sodium gradually improving. Will continue normal saline and monitor. (6) Pancytopenia Is this a current diagnosis for this admission?: Yes Plan: Cytopenia most likely due to infection and/or chronic alcoholism resulting in bone marrow suppression. Patient currently has leukocytosis most likely secondary to steroids. Hemoglobin is slightly lower than the day before. Patient has macrocytic anemia most likely secondary to alcohol abuse. Platelets continue to trend down. This could possibly be related to the use of Zosyn. May consider changing antibiotics if platelets continue to trend down. (7) Pneumonia Qualifiers: Pneumonia type: due to unspecified organism Laterality: right Lung location: lower lobe of lung Qualified Code(s): J18.1 - Lobar pneumonia, unspecified organism Is this a current diagnosis for this admission?: Yes Plan: Patient currently on Zosyn. Doxycycline discontinued it may be interfering with the effects of Zosyn. Unfortunately patient is developing profound thrombocytopenia there is some concern that this may be related to Zosyn. (8) Protein calorie malnutrition Is this a current diagnosis for this admission?: Yes Plan: Possibly due to poor p.o. intake. Will start NG feeds when appropriate. (9) Tobacco abuse Is this a current diagnosis for this admission?: Yes Plan: Nicotine patch in place. (10) Hypokalemia Plan: Patient started on IV fluids with potassium. Monitor electrolytes and replace accordingly. (11) Hypocalcemia Is this a current diagnosis for this admission?: Yes Plan: Patient calcium is low normal. When corrected for hypoalbuminemia her calcium is still 7.94. Patient calcium. Will give calcium gluconate and follow-up in the morning. (12) Metabolic acidosis Is this a current diagnosis for this admission?: Yes Plan: Possibly due sepsis secondary to use of propofol. She was given sodium bicarb today. Will continue supportive care and monitor. - Time Time Spent with patient: 15-24 minutes - Inpatient Certification Medical Necessity: Significant Comorbidiites Make Outpatient Treatment Too Risky - Is currently intubated in the ICU. Patient still critical and requires close monitoring., Need Close Monitoring Due to Risk of Patient Decompensation, Need For IV Fluids, Need For Continuous Telemetry Monitoring, Need for IV Antibiotics
[2017-05-26] MEDS ORDERED: CALCIUM GLUCONATE 1000 MG/10 ML INJ IV ONE (22:45)
[2017-05-27] MEDS: POTASSI CL 20 MEQ/NS 1L 1,000 ML IV PRN ×2 (01:41→12:37)
[2017-05-27] MEDS: IPRATROPIUM/ALBUTEROL 0.5-2.5 MG/3 ML AMPUL NEB SCH ×4 (01:49→19:54)
[2017-05-27] MEDS: PIPERACILLIN SODIUM/TAZOBACTAM 3.375 GM in NORMAL SALINE 100 ML IV SCH (03:05)
[2017-05-27] MEDS: PROPOFOL 100 ML IV PRN ×2 (05:00→14:21)
[2017-05-27] MEDS: METHYLPREDNISOLONE INJ 40 MG/1 ML SDV IV SCH ×3 (05:00→22:30)
[2017-05-27 05:33] LABS: ARTERIAL BLOOD BASE EXCESS -7.3 mmol/L; ARTERIAL BLOOD FIO2 40%; ARTERIAL BLOOD H2CO3 0.76 mmol/L (1.05-1.35); ARTERIAL BLOOD HCO3 15.8 mmol/L (20-26); ARTERIAL BLOOD O2 SATURATION 96.2 % (94-98); ARTERIAL BLOOD PCO2 25.4 mmHg (35-45); ARTERIAL BLOOD PH 7.41 (7.35-7.45); ARTERIAL BLOOD PO2 80.1 mmHg (80-100); ARTERIAL BLOOD TOTAL CO2 16.6 mmol/L (21-25)
[2017-05-27 05:54] LABS: HEMATOCRIT 25.7 % (36.0-47.0); HEMOGLOBIN 8.8 g/dL (12.0-15.5); MEAN CORPUSCULAR HEMOGLOBIN 34.6 pg (27.0-33.4); MEAN CORPUSCULAR HGB CONC 34.3 g/dL (32.0-36.0); MEAN CORPUSCULAR VOLUME 101 fl (80-97); RED BLOOD COUNT 2.55 10^6/uL (3.72-5.28); RED CELL DISTRIBUTION WIDTH 13.6 % (11.5-14.0); WHITE BLOOD COUNT 16.3 10^3/uL (4.0-10.5)
--- NOTE | 2017-05-27 06:14 | RADIOLOGY REPORT (SQ) ---
EXAM DESCRIPTION: CHEST SINGLE VIEW CLINICAL HISTORY: Respiratory failure COMPARISON: 05/26/2017 FINDINGS: Single frontal view of the chest. Postoperative change of the cervical spine. Endotracheal tube with tip 4 cm above the josh. NG tube with tip below the diaphragm. Right IJ central venous catheter with tip in the SVC. No pneumothorax. Likely small bilateral pleural effusions. Dense right lung consolidation is stable. No new osseous abnormalities. Upper abdominal soft tissues are unremarkable. IMPRESSION: 1. Stable appearance of the chest. Electronically signed by: Gonzalo Melchor 05/27/2017 5:13 AM
[2017-05-27 06:18] LABS: ALANINE AMINOTRANSFERASE 20 U/L (9-52); ALBUMIN 1.9 g/dL (3.5-5.0); ALKALINE PHOSPHATASE 51 U/L (38-126); ANION GAP 11 (5-19); ASPARTATE AMINO TRANSFERASE 41 U/L (14-36); BILIRUBIN,DIRECT 0.1 mg/dL (0.0-0.4); BILIRUBIN,TOTAL 0.1 mg/dL (0.2-1.3); BLOOD UREA NITROGEN 16 mg/dL (7-20); CALCIUM 7.7 mg/dL (8.4-10.2); CARBON DIOXIDE 15 mmol/L (22-30); CHLORIDE 111 mmol/L (98-107); GLUCOSE 120 mg/dL (75-110); POTASSIUM 3.1 mmol/L (3.6-5.0); SODIUM 136.8 mmol/L (137-145); TOTAL PROTEIN 3.8 g/dL (6.3-8.2)
[2017-05-27 06:29] LABS: ABSOLUTE LYMPHOCYTES# (MANUAL) 0.5 10^3/uL (0.5-4.7); ABSOLUTE MONOCYTES # (MANUAL) 0.2 10^3/uL (0.1-1.4); ABSOLUTE NEUTROPHILS# (MANUAL) 15.6 10^3/uL (1.7-8.2); BAND NEUTROPHILS % (MANUAL) 8 % (3-5); BASOPHILS % (MANUAL) 0 % (0-2); EOSINOPHILS % (MANUAL) 0 % (0-6); LYMPHOCYTES % (MANUAL) 2 % (13-45); MONOCYTES % (MANUAL) 1 % (3-13); SEGMENTED NEUTROPHILS % (MAN) 88 % (42-78); TOTAL CELLS COUNTED 100
[2017-05-27 06:32] LABS: OVALOCYTES SLIGHT; POIKILOCYTOSIS SLIGHT; POLYCHROMASIA SLIGHT; TOXIC GRANULATION 1+
[2017-05-27 06:33] LABS: BURR CELLS SLIGHT; PLATELET COMMENT DECREASED; SCHISTOCYTES SLIGHT; TEAR DROP CELLS SLIGHT
[2017-05-27 06:36] LABS: PLATELET COUNT 24 10^3/uL (150-450)
[2017-05-27] MEDS: BUDESONIDE NEB 0.5 MG/2 ML AMPUL NEB SCH ×2 (07:53→19:54)
[2017-05-27] MEDS ORDERED: POTASSIUM CHLORIDE 20 MEQ/15 ML UDCUP NG ONE (08:00)
[2017-05-27] MEDS: MIDAZOLAM HCL 50 MG/100 ML RTUINJ IV PRN ×4 (08:06→18:08)
[2017-05-27] MEDS: PANTOPRAZOLE SODIUM 40 MG VIAL IV SCH ×2 (09:07→22:30)
[2017-05-27] MEDS: NICOTINE 21 MG/24 HR PATCH.TD24 TD SCH (09:07)
--- NOTE | 2017-05-27 09:28 | PROGRESS NOTE E ---
Progress Note NAME: ENZO BECKMAN : 1970 AGE: 46Y DATE: 05/27/2017 ROOM: 608 SUBJECTIVE: The patient is lying in bed. The patient remains intubated and sedated, is unable to provide any history. The patient, although still quite ill, appears to be making improvements in terms of aeration. The patient's bandemia has improved, and the patient is now off both vasopressors. The patient has been afebrile. Her blood pressures have been overall much improved. The patient is unable to voice any concerns at this time. REVIEW OF SYSTEMS: Unobtainable. MEDICATIONS: Reviewed. OBJECTIVE: GENERAL: The patient is a 46-year-old female who is currently intubated and sedated, and she is unable to respond. VITAL SIGNS ARE FOLLOWS: Temperature is 99.0. Pulse 97. Respirations 25. Blood pressure is 110/79. Oxygen saturation 99% on 40% FIO2. SKIN: Pale. Dry. No rash. She is not diaphoretic. HEENT: Pupils are sluggish but reactive. Conjunctivae are pale. NECK: There is no evidence of JVP. CARDIOVASCULAR SYSTEM: Heart is tachycardic, regular. No rub. CHEST: Diminished. Symmetrical. Mechanical. ABDOMEN: Soft, nontender, nondistended. EXTREMITIES: No clubbing, cyanosis. The patient does have some dependent-appearing edema. DIAGNOSTICS: Lab values are as follows. Hematology obtained on 05/27/2017: WBCs are 16.3. Hemoglobin is 8.8. Hematocrit is 25.7. Platelet count is 24,000. Chemistry obtained on 05/27/2017: Sodium is 136. Potassium is 3.1. Chloride is 111. Carbon dioxide 15. BUN 16. Creatinine is 0.57. Glucose is 120. Calcium is 7.7. Bilirubin is 0.1. AST 41. ALT is 20. IMPRESSION AND PLAN: 1. STREPTOCOCCUS PNEUMONIAE PNEUMONIA. Will transition coverage to meropenem given the patient's profound thrombocytopenia and will follow. 2. [id number] HYPOXEMIC AND HYPERCAPNIC RESPIRATORY FAILURE. Feel the patient does have underlying COPD given her extensive tobacco history. Continue nebs, antibiotics, and the patient is down to 40% FIO2. Chest x-ray is not that impressive. 3. ACUTE RENAL FAILURE MOST LIKELY DUE TO THE PATIENT'S SEPTIC SHOCK AND HYPOTENSION, RESOLVED. 4. SEPTIC SHOCK. The patient is now off vasopressors, but will continue coverage with meropenem. 5. ALCOHOL DEPENDENCY, CONTINUOUS. Will continue supportive care. Will continue sedation heavily with Versed and attempt to wean propofol if needed. 6. HYPONATREMIA MOST LIKELY SECONDARY TO ALCOHOL ABUSE, DEHYDRATION. This did improve with hydration. Will follow. 7. PANCYTOPENIA. MOST LIKELY, THIS IS DUE TO INFECTION AND CHRONIC ALCOHOLISM RESULTING IN BONE MARROW SUPPRESSION. The patient does have a leukocytosis just due to steroids, but will transition Zosyn to meropenem and follow. 8. PROTEIN CALORIE MALNOURISHMENT. Will continue feedings. 9. TOBACCO DEPENDENCY, CONTINUOUS. Continue nicotine patch. 10. HYPOKALEMIA. Will replace potassium. 11. HYPOCALCEMIA. Corrected calcium was low. She responded well to calcium gluconate. Will follow. 12. METABOLIC ACIDOSIS MOST LIKELY DUE TO SEPSIS AND PROPOFOL. Patient was given sodium bicarb. Will follow. DISPOSITION: The patient is a FULL CODE. Pending patient's symptomatology and diagnostic findings, will reevaluate as needed. TIME SPENT: Time spent on this critical care visit including assessment, plan, physical examination, an attempt at patient education, and attempt at review of the records is 40 minutes. DICTATING PHYSICIAN: JOY NAVARRO NP [id number] PHY#: [id number] ID: [id number] JOB#: [id number] ACCT: [id number] cc: >
[2017-05-27 10:43] LABS: ARTERIAL BLOOD BASE EXCESS -8.5 mmol/L; ARTERIAL BLOOD FIO2 40%; ARTERIAL BLOOD H2CO3 0.69 mmol/L (1.05-1.35); ARTERIAL BLOOD HCO3 14.6 mmol/L (20-26); ARTERIAL BLOOD O2 SATURATION 94.2 % (94-98); ARTERIAL BLOOD PH 7.42 (7.35-7.45); ARTERIAL BLOOD PO2 67.1 mmHg (80-100); ARTERIAL BLOOD TOTAL CO2 15.3 mmol/L (21-25)
[2017-05-27 12:54] LABS: ARTERIAL BLOOD BASE EXCESS -7.2 mmol/L; ARTERIAL BLOOD FIO2 40%; ARTERIAL BLOOD H2CO3 0.75 mmol/L (1.05-1.35); ARTERIAL BLOOD O2 SATURATION 97.1 % (94-98); ARTERIAL BLOOD PH 7.43 (7.35-7.45); ARTERIAL BLOOD PO2 88.3 mmHg (80-100); ARTERIAL BLOOD TOTAL CO2 16.8 mmol/L (21-25)
[2017-05-27] MEDS: MEROPENEM 1 GM in NORMAL SALINE 100 ML IV SCH ×2 (13:30→22:31)
[2017-05-27] MEDS ORDERED: MEROPENEM 1 GM in NORMAL SALINE 50 ML IV SCH (14:00)
[2017-05-27] MEDS: NORMAL SALINE 1000 ML 1,000 ML with POTASSIUM CHLORIDE 20 MEQ, MAGNESIUM SULFATE 8 MEQ,... IV SCH ×5 (18:15)
[2017-05-28] MEDS: PROPOFOL 100 ML IV PRN ×2 (01:37→14:21)
[2017-05-28] MEDS: IPRATROPIUM/ALBUTEROL 0.5-2.5 MG/3 ML AMPUL NEB SCH ×4 (01:54→19:42)
[2017-05-28] MEDS: MEROPENEM 1 GM in NORMAL SALINE 100 ML IV SCH ×3 (05:29→22:35)
[2017-05-28] MEDS: METHYLPREDNISOLONE INJ 40 MG/1 ML SDV IV SCH ×3 (05:29→22:35)
[2017-05-28 05:37] LABS: ARTERIAL BLOOD BASE EXCESS -7.3 mmol/L; ARTERIAL BLOOD H2CO3 0.79 mmol/L (1.05-1.35); ARTERIAL BLOOD HCO3 16.2 mmol/L (20-26); ARTERIAL BLOOD O2 SATURATION 95.5 % (94-98); ARTERIAL BLOOD PCO2 26.4 mmHg (35-45); ARTERIAL BLOOD PH 7.41 (7.35-7.45); ARTERIAL BLOOD PO2 75.3 mmHg (80-100); ARTERIAL BLOOD TOTAL CO2 17.1 mmol/L (21-25)
[2017-05-28 05:38] LABS: ARTERIAL BLOOD FIO2 40%
[2017-05-28 05:41] LABS: HEMATOCRIT 26.9 % (36.0-47.0); HEMOGLOBIN 9.3 g/dL (12.0-15.5); MEAN CORPUSCULAR HEMOGLOBIN 34.7 pg (27.0-33.4); MEAN CORPUSCULAR HGB CONC 34.7 g/dL (32.0-36.0); MEAN CORPUSCULAR VOLUME 100 fl (80-97); RED BLOOD COUNT 2.69 10^6/uL (3.72-5.28); RED CELL DISTRIBUTION WIDTH 14.3 % (11.5-14.0); WHITE BLOOD COUNT 14.7 10^3/uL (4.0-10.5)
[2017-05-28 05:43] LABS: PLATELET COUNT 34 10^3/uL (150-450)
[2017-05-28 05:52] LABS: ANION GAP 8 (5-19); BLOOD UREA NITROGEN 23 mg/dL (7-20); CALCIUM 7.7 mg/dL (8.4-10.2); CARBON DIOXIDE 16 mmol/L (22-30); CHLORIDE 117 mmol/L (98-107); GLUCOSE 115 mg/dL (75-110); POTASSIUM 3.5 mmol/L (3.6-5.0); SODIUM 141.4 mmol/L (137-145)
[2017-05-28 06:07] LABS: ABSOLUTE LYMPHOCYTES# (MANUAL) 0.7 10^3/uL (0.5-4.7); BAND NEUTROPHILS % (MANUAL) 2 % (3-5); BASOPHILS % (MANUAL) 0 % (0-2); EOSINOPHILS % (MANUAL) 0 % (0-6); LYMPHOCYTES % (MANUAL) 5 % (13-45); MONOCYTES % (MANUAL) 0 % (3-13); SEGMENTED NEUTROPHILS % (MAN) 93 % (42-78); TOTAL CELLS COUNTED 100
[2017-05-28 06:10] LABS: ANISOCYTOSIS SLIGHT; BURR CELLS SLIGHT; POIKILOCYTOSIS SLIGHT; TOXIC GRANULATION 2+
[2017-05-28 06:11] LABS: PLATELET COMMENT DECREASED; PLATELET LARGE PRESENT; SCHISTOCYTES SLIGHT; TEAR DROP CELLS SLIGHT
[2017-05-28] MEDS: POTASSI CL 20 MEQ/NS 1L 1000 ML IV PRN (07:48)
[2017-05-28] MEDS: BUDESONIDE NEB 0.5 MG/2 ML AMPUL NEB SCH ×2 (08:17→19:42)
[2017-05-28] MEDS ORDERED: MORPHINE SULFATE 10 MG/ML INJ IV PRN (08:47)
--- NOTE | 2017-05-28 08:55 | RADIOLOGY REPORT (SQ) ---
EXAM DESCRIPTION: CHEST SINGLE VIEW COMPLETED DATE/TIME: 05/28/2017 7:16 am REASON FOR STUDY: Pt intubated COMPARISON: 05/27/2017 EXAM PARAMETERS: NUMBER OF VIEWS: One view. TECHNIQUE: Single frontal radiographic view of the chest acquired. RADIATION DOSE: NA LIMITATIONS: None. FINDINGS: LUNGS AND PLEURA: Abnormal air space density is seen bilaterally with small associated eff usions. Compared to the prior study there has been some improvement on the right with worsening seen on the left. Differential includes pulmonary edema and pneumonia. MEDIASTINUM AND HILAR STRUCTURES: No masses. Contour normal. HEART AND VASCULAR STRUCTURES: Heart normal in size. Normal vasculature. BONES: No acute findings. HARDWARE: Endotracheal tube with its tip 2 cm above the josh. NG tube with its tip in the upper ab domen. Right jugular catheter with its tip in superior vena cava. OTHER: No other significant finding. IMPRESSION: Interval improvement on the right with worsening noted on the left. TECHNICAL DOCUMENTATION: JOB ID: [id number] [employer]- All Rights Reserved
[2017-05-28] MEDS: PANTOPRAZOLE SODIUM 40 MG VIAL IV SCH ×2 (09:08→22:36)
[2017-05-28] MEDS: NICOTINE 21 MG/24 HR PATCH.TD24 TD SCH (09:09)
[2017-05-28] MEDS: HYDROMORPHONE HCL INJ/PF 2 MG/ML AMPULE IV PRN ×3 (09:11→22:36)
--- NOTE | 2017-05-28 10:03 | PROGRESS NOTE E ---
Progress Note NAME: ENZO BECKMAN : 1970 AGE: 46Y DATE: ROOM: 608 SUBJECTIVE: The patient is lying in bed. The patient does appear to be somewhat better today. The patient is no longer having episodes of rapid breathing followed by apnea. I do believe part of this was alcohol withdrawal. The patient continues on Versed and propofol for sedation. The patient is off pressors at this time. The patient has appeared to have responded well to the antibiotic change of meropenem, no longer having low-grade fevers which was thought to be pharmacological. The patient's white count is down to 14.7 and her platelets have improved to 34,000. The patient's ABG this morning is reflective of a pO2 of 75 and pCO2 of 26. Overall, the patient appears to be moving in the right direction at this point. There is no available as the patient's was intoxicated upon his visit. BRIEF HISTORY: The patient is a 46-year-old female with a past medical history of multiple ER contacts. The patient presented to the emergency department with a chief complaint of shortness of breath. The patient, who is a chronic smoker, alcoholic, with underlying COPD gave a month history of increasing dyspnea. The patient was found to have a right lower lobe pneumonia and was found to be septic. The patient was initially tried on BiPAP, however, failed and resulted in intubation. The patient is being followed by Pulmonology. REVIEW OF SYSTEMS: Unobtainable. MEDICATIONS: Medications have been reviewed. OBJECTIVE: ENERAL: The patient is a 46-year-old female who is currently sedated. She does not appear to be distressed, appears more comfortable than yesterday. VITAL SIGNS FOLLOWS: Temperature is 98.4. Pulse 101. Respirations 18. Blood pressure is 135/93. Oxygen saturation 94% on 40% FiO2. SKIN: Warm and dry. No rash. She is not diaphoretic. HEENT: Her pupils are sluggish but reactive. No evidence of JVP. The patient does have an ET tube in place by [employer]. CARDIOVASCULAR: Heart is regular. No rub. CHEST: Diminished, symmetrical, mechanical. ABDOMEN: Soft, nontender. EXTREMITIES: No clubbing or cyanosis. The patient does have some dependent ed. PSYCHIATRIC: Unable to assess. DIAGNOSTICS: Lab are as follows: Hematology panel 05/28/2017: WBC 41.7, hemoglobin 10.3, hematocrit 26.9, platelet count is 34,000. Chemistries done on 05/28/2017: Sodium is 141, potassium 3.5, chloride 117, carbon dioxide 16, BUN 23, creatinine 0.51. Glucose 116. Calcium is 7.7. Magnesium is 1.9. IMPRESSION AND PLAN: 1. STREPTOCOCCUS PNEUMONIAE PNEUMONIA. The patient has responded well to transition to meropenem. Repeat sputum was negative. Given the patient's profound thrombocytopenia, it has improved since stopping Zosyn. 2. ACUTE ON CHRONIC HYPOXEMIC AND HYPERCAPNIC RESPIRATORY FAILURE, overall much improved. The patient is on 40% FiO2, no longer hypercapnic. Chest x-ray does reveal increased aeration by my read. 3. ACUTE RENAL FAILURE. Most likely due to septic shock. Hypotension has resolved. 4. SEPTIC SHOCK. The patient is now off vasopressors. Continue with meropenem. 5. ALCOHOL DEPENDENCY CONTINUES. Will continue supportive care. Will continue to sedate with Versed as I do believe the patient is having withdrawal. 6. HYPONATREMIA. Most likely secondary to chronic alcohol use as well as dehydration. Improved with hydration. 7. PANCYTOPENIA. Most likely due to chronic alcoholism resulting in bone marrow suppression and sepsis process. The patient does not appear to be in DIC. The patient does have leukocytosis, which may be a steroidal response. Platelets are improving. 8. TOBACCO DEPENDENCY, continues. Continue nicotine patch. 9. HYPOKALEMIA. The patient is on a potassium protocol. 10. HYPOCALCEMIA, corrected. Calcium was low. Patient responded well to calcium gluconate. Will follow. 11. PROTEIN/CALORIE MALNOURISHMENT. Will start the patient on trickle feeds. 12. METABOLIC ACIDOSIS DUE TO SEPSIS, INCREASED RENAL FAILURE WELL PROPOFOL. The patient was given sodium bicarb yesterday. Overall stable. Will follow. DISPOSITION: THE PATIENT IS A FULL CODE. Pending the patient's symptomatology and diagnostic findings, we will reevaluate as needed. Time spent on this critical care visit including assessment, plan, physical examination, attempt at patient education, and review of records, specialty collaboration is 40 minutes. DICTATING PHYSICIAN: JOY NAVARRO NP [id number] PHY#: [id number] ID: [id number] JOB#: [id number] ACCT: [id number] cc: > MTDD
[2017-05-28] MEDS: NORMAL SALINE 1000 ML 1,000 ML with POTASSIUM CHLORIDE 20 MEQ, MAGNESIUM SULFATE 8 MEQ,... IV SCH ×5 (18:02)
[2017-05-29] MEDS: IPRATROPIUM/ALBUTEROL 0.5-2.5 MG/3 ML AMPUL NEB SCH ×4 (00:59→20:01)
[2017-05-29] MEDS: POTASSI CL 20 MEQ/NS 1L 1000 ML IV PRN ×2 (01:36→12:19)
[2017-05-29] MEDS: PROPOFOL 100 ML IV PRN ×2 (03:45→12:19)
[2017-05-29] MEDS: HYDROMORPHONE HCL INJ/PF 2 MG/ML AMPULE IV PRN ×4 (03:45→20:28)
[2017-05-29] MEDS: MEROPENEM 1 GM in NORMAL SALINE 100 ML IV SCH ×3 (05:24→22:01)
[2017-05-29] MEDS: METHYLPREDNISOLONE INJ 40 MG/1 ML SDV IV SCH ×3 (05:24→22:02)
[2017-05-29 05:30] LABS: ARTERIAL BLOOD BASE EXCESS -6.5 mmol/L; ARTERIAL BLOOD H2CO3 0.79 mmol/L (1.05-1.35); ARTERIAL BLOOD HCO3 16.8 mmol/L (20-26); ARTERIAL BLOOD O2 SATURATION 95.9 % (94-98); ARTERIAL BLOOD PCO2 26.2 mmHg (35-45); ARTERIAL BLOOD PH 7.42 (7.35-7.45); ARTERIAL BLOOD PO2 77.1 mmHg (80-100); ARTERIAL BLOOD TOTAL CO2 17.6 mmol/L (21-25)
[2017-05-29 05:32] LABS: ARTERIAL BLOOD FIO2 45%
[2017-05-29 05:36] LABS: HEMATOCRIT 27.6 % (36.0-47.0); HEMOGLOBIN 9.5 g/dL (12.0-15.5); MEAN CORPUSCULAR HEMOGLOBIN 34.1 pg (27.0-33.4); MEAN CORPUSCULAR HGB CONC 34.4 g/dL (32.0-36.0); MEAN CORPUSCULAR VOLUME 99 fl (80-97); RED BLOOD COUNT 2.79 10^6/uL (3.72-5.28); RED CELL DISTRIBUTION WIDTH 14.8 % (11.5-14.0); WHITE BLOOD COUNT 15.8 10^3/uL (4.0-10.5)
[2017-05-29 05:39] LABS: INTERNATIONAL RATION (INR) 0.94; PROTHROMBIN TIME 13.3 SEC (11.4-15.4)
[2017-05-29 05:40] LABS: PARTIAL THROMBOPLASTIN TIME 25.7 SEC (23.5-35.8)
[2017-05-29 05:46] LABS: PLATELET COUNT 33 10^3/uL (150-450)
[2017-05-29 05:52] LABS: ALANINE AMINOTRANSFERASE 22 U/L (9-52); ALBUMIN 1.9 g/dL (3.5-5.0); ALKALINE PHOSPHATASE 64 U/L (38-126); ANION GAP 6 (5-19); ASPARTATE AMINO TRANSFERASE 35 U/L (14-36); BILIRUBIN,DIRECT 1.5 mg/dL (0.0-0.4); BILIRUBIN,TOTAL 1.7 mg/dL (0.2-1.3); BLOOD UREA NITROGEN 29 mg/dL (7-20); CALCIUM 7.9 mg/dL (8.4-10.2); CARBON DIOXIDE 18 mmol/L (22-30); CHLORIDE 122 mmol/L (98-107); GLUCOSE 143 mg/dL (75-110); POTASSIUM 4.1 mmol/L (3.6-5.0); SODIUM 146.1 mmol/L (137-145); TOTAL PROTEIN 4.2 g/dL (6.3-8.2)
[2017-05-29 06:05] LABS: ABSOLUTE LYMPHOCYTES# (MANUAL) 0.3 10^3/uL (0.5-4.7); ABSOLUTE NEUTROPHILS# (MANUAL) 15.5 10^3/uL (1.7-8.2); BAND NEUTROPHILS % (MANUAL) 2 % (3-5); BASOPHILS % (MANUAL) 0 % (0-2); EOSINOPHILS % (MANUAL) 0 % (0-6); LYMPHOCYTES % (MANUAL) 2 % (13-45); MONOCYTES % (MANUAL) 0 % (3-13); SEGMENTED NEUTROPHILS % (MAN) 96 % (42-78); TOTAL CELLS COUNTED 100
[2017-05-29 06:06] LABS: ANISOCYTOSIS 1+; PLATELET COMMENT DECREASED; TOXIC GRANULATION 1+; TOXIC VACUOLATION PRESENT
--- NOTE | 2017-05-29 07:13 | RADIOLOGY REPORT (SQ) ---
EXAM DESCRIPTION: CHEST SINGLE VIEW CLINICAL HISTORY: pna COMPARISON: 05/28/2017 FINDINGS: Single frontal view of the chest. Postoperative change of the cervical spine. Endotracheal tube with tip 2 cm above the josh. NG tube with tip below the diaphragm. Right IJ central venous catheter with tip in the SVC. No pneumothorax. Small bilateral pleural effusions and bibasilar airspace opacity, greater on the right than the left. No new osseous abnormalities. Upper abdominal soft tissues are unremarkable. IMPRESSION: 1. Stable appearance of the chest.
[2017-05-29] MEDS: BUDESONIDE NEB 0.5 MG/2 ML AMPUL NEB SCH ×2 (08:20→20:02)
[2017-05-29] MEDS: NICOTINE 21 MG/24 HR PATCH.TD24 TD SCH (10:29)
[2017-05-29] MEDS: PANTOPRAZOLE SODIUM 40 MG VIAL IV SCH ×2 (10:29→22:02)
--- NOTE | 2017-05-29 11:55 | PDOC PROGRESS REPORT ---
Subjective Progress Note for:: 05/26/17 Subjective:: intubated/sedated Reason For Visit: RESPIRATORY FAILURE,PNEUMONIA,SEPSIS Physical Exam Vital Signs: Temp Pulse Resp BP Pulse Ox 98.1 F 79 16 95/64 L 97 05/26/17 08:00 05/26/17 08:00 05/26/17 08:00 05/26/17 08:00 05/26/17 08:00 Intake & Output 05/25/17 05/26/17 05/27/17 06:59 06:59 06:59 Intake Total 4631 3209 Output Total 2565 2735 110 Balance 2066 474 -110 Weight 51.8 kg 53.9 kg General appearance: PRESENT: no acute distress, disheveled, obese, well- developed Head exam: PRESENT: atraumatic, normocephalic Eye exam: PRESENT: conjunctiva pale. ABSENT: nystagmus, periorbital swelling, scleral icterus Mouth exam: PRESENT: dry mucosa, neck supple, tongue midline, other - ET tube in place Neck exam: ABSENT: carotid bruit, JVD, lymphadenopathy, thyromegaly, tracheal deviation, tracheostomy Respiratory exam: PRESENT: decreased breath sounds, prolonged expiratory phas, rhonchi, symmetrical, unlabored, wheezes. ABSENT: retraction, stridor, tachypnea Cardiovascular exam: PRESENT: RRR, +S1, +S2, tachycardia Pulses: PRESENT: normal radial pulses GI/Abdominal exam: PRESENT: diminished bowel sounds, soft Extremities exam: ABSENT: clubbing Musculoskeletal exam: ABSENT: deformity, dislocation Neurological exam: ABSENT: alert, awake, oriented to person Skin exam: PRESENT: dry, warm Results Laboratory Results: 05/26/17 05:15 05/26/17 05:15 05/26/17 05/26/17 05/26/17 05:15 05:15 05:15 WBC 17.2 H D RBC 2.68 L Hgb 9.4 L Hct 27.3 L MCV 102 H MCH 35.0 H MCHC 34.3 RDW 13.9 Plt Count 22 L* Seg Neutrophils % Not Reportable Lymphocytes % Not Reportable Monocytes % Not Reportable Eosinophils % Not Reportable Basophils % Not Reportable Absolute Neutrophils Not Reportable Absolute Lymphocytes Not Reportable Absolute Monocytes Not Reportable Absolute Eosinophils Not Reportable Absolute Basophils Not Reportable Carbonic Acid 0.73 L HCO3/H2CO3 Ratio 17:1 ABG pH 7.33 L ABG pCO2 24.4 L ABG pO2 86.1 ABG HCO3 12.5 L ABG O2 Saturation 96.1 ABG Base Excess -11.8 FiO2 60% Sodium 132.2 L Potassium 3.2 L Chloride 110 H Carbon Dioxide 13 L Anion Gap 9 BUN 11 Creatinine 0.57 Est GFR ( Amer) > 60 Est GFR (Non-Af Amer) > 60 Glucose 217 H Calcium 7.1 L Magnesium 2.0 Total Bilirubin < 0.1 L AST 41 H ALT 19 Alkaline Phosphatase 51 Total Protein 3.6 L Albumin 1.8 L Impressions: KUB X-Ray 05/24/17 00:00 IMPRESSION: Tip of the NG tube is in the body the stomach. Chest X-Ray 05/26/17 06:00 IMPRESSION: 1. Endotracheal tube with tip 2 cm above the josh. Consider pulling back 1-2 cm. Otherwise stable appearance of the chest. Assessment & Plan - Diagnosis (1) Pancytopenia Is this a current diagnosis for this admission?: Yes Plan: Platelets continued to decline (2) Acute hypoxemic respiratory failure Is this a current diagnosis for this admission?: Yes Plan: mech vent hypercapnic/hypoxic resp failure (3) Acute renal failure Qualifiers: Acute renal failure type: unspecified Qualified Code(s): N17.9 - Acute kidney failure, unspecified Is this a current diagnosis for this admission?: Yes Plan: Labs- All tests 24 hr 05/24/17 05:20 BUN 32 H Creatinine 1.42 H possible ATN (4) Chronic alcoholism Is this a current diagnosis for this admission?: Yes Plan: MCV 102--- min 24 beers per day ---per RN report DT precautions thiamine;MVI et al (5) Protein calorie malnutrition Is this a current diagnosis for this admission?: Yes Plan: empty alcohol calories (6) Sepsis Qualifiers: Sepsis type: sepsis due to unspecified organism Qualified Code(s): A41.9 - Sepsis, unspecified organism Is this a current diagnosis for this admission?: Yes Plan: reqiring vasopressor agent(s) (7) Tobacco abuse Is this a current diagnosis for this admission?: Yes Plan: transdermal nicotine - Time Total Critical Time (Minutes): 45
--- NOTE | 2017-05-29 11:58 | PDOC PROGRESS REPORT ---
Subjective Progress Note for:: 05/27/17 Subjective:: intubated/sedated Reason For Visit: RESPIRATORY FAILURE,PNEUMONIA,SEPSIS Physical Exam Vital Signs: Temp Pulse Resp BP Pulse Ox 98.4 F 112 H 25 H 135/93 H 93 05/28/17 06:00 05/28/17 08:17 05/28/17 08:17 05/28/17 05:34 05/28/17 08:17 Intake & Output 05/27/17 05/28/17 05/29/17 06:59 06:59 06:59 Intake Total 4327 3591 Output Total 2790 2270 325 Balance 1537 1321 -325 Weight 56.5 kg 57.5 kg General appearance: PRESENT: no acute distress, disheveled, obese, well- developed. ABSENT: cooperative Head exam: PRESENT: atraumatic, normocephalic Eye exam: PRESENT: conjunctiva pale. ABSENT: nystagmus, periorbital swelling, scleral icterus Mouth exam: PRESENT: dry mucosa, neck supple, tongue midline, other - ET tube in place Neck exam: ABSENT: carotid bruit, JVD, lymphadenopathy, thyromegaly, tracheal deviation, tracheostomy Respiratory exam: PRESENT: crackles, decreased breath sounds, prolonged expiratory phas, rhonchi, symmetrical, unlabored, wheezes. ABSENT: retraction, stridor, tachypnea Cardiovascular exam: PRESENT: RRR, +S1, +S2 Pulses: PRESENT: normal radial pulses GI/Abdominal exam: PRESENT: diminished bowel sounds, soft Gentrourinary exam: PRESENT: indwelling catheter Extremities exam: ABSENT: clubbing Musculoskeletal exam: ABSENT: deformity, dislocation Neurological exam: ABSENT: alert, awake, oriented to person Skin exam: PRESENT: dry, warm Results Laboratory Results: 05/28/17 05:15 05/28/17 05:15 05/27/17 05/27/17 05/27/17 09:40 12:40 19:55 WBC RBC Hgb Hct MCV MCH MCHC RDW Plt Count Seg Neutrophils % Lymphocytes % Monocytes % Eosinophils % Basophils % Absolute Neutrophils Absolute Lymphocytes Absolute Monocytes Absolute Eosinophils Absolute Basophils Carbonic Acid 0.69 L 0.75 L HCO3/H2CO3 Ratio 21:1 21:1 ABG pH 7.42 7.43 ABG pCO2 23.0 L 25.0 L ABG pO2 67.1 L 88.3 ABG HCO3 14.6 L 16.0 L ABG O2 Saturation 94.2 97.1 ABG Base Excess -8.5 -7.2 FiO2 40% 40% Sodium Potassium 3.6 Chloride Carbon Dioxide Anion Gap BUN Creatinine Est GFR ( Amer) Est GFR (Non-Af Amer) Glucose Calcium Magnesium 05/28/17 05/28/17 05/28/17 05:15 05:15 05:15 WBC 14.7 H RBC 2.69 L Hgb 9.3 L Hct 26.9 L MCV 100 H MCH 34.7 H MCHC 34.7 RDW 14.3 H Plt Count 34 L Seg Neutrophils % Not Reportable Lymphocytes % Not Reportable Monocytes % Not Reportable Eosinophils % Not Reportable Basophils % Not Reportable Absolute Neutrophils Not Reportable Absolute Lymphocytes Not Reportable Absolute Monocytes Not Reportable Absolute Eosinophils Not Reportable Absolute Basophils Not Reportable Carbonic Acid 0.79 L HCO3/H2CO3 Ratio 20:1 ABG pH 7.41 ABG pCO2 26.4 L ABG pO2 75.3 L ABG HCO3 16.2 L ABG O2 Saturation 95.5 ABG Base Excess -7.3 FiO2 40% Sodium 141.4 Potassium 3.5 L Chloride 117 H Carbon Dioxide 16 L Anion Gap 8 BUN 23 H Creatinine 0.51 L Est GFR ( Amer) > 60 Est GFR (Non-Af Amer) > 60 Glucose 115 H Calcium 7.7 L Magnesium 1.9 Impressions: KUB X-Ray 05/24/17 00:00 IMPRESSION: Tip of the NG tube is in the body the stomach. Chest X-Ray 05/28/17 06:00 IMPRESSION: Interval improvement on the right with worsening noted on the left. Assessment & Plan - Diagnosis (1) Pancytopenia Is this a current diagnosis for this admission?: Yes Plan: Platelets continued to decline (2) Acute hypoxemic respiratory failure Is this a current diagnosis for this admission?: Yes Plan: Slightly improved hypercapnic/hypoxic resp failure (3) Acute renal failure Qualifiers: Acute renal failure type: unspecified Qualified Code(s): N17.9 - Acute kidney failure, unspecified Is this a current diagnosis for this admission?: Yes Plan: Labs- All tests 24 hr 05/24/17 05:20 BUN 32 H Creatinine 1.42 H possible ATN (4) Chronic alcoholism Is this a current diagnosis for this admission?: Yes Plan: MCV 102--- min 24 beers per day ---per RN report DT precautions thiamine;MVI et al (5) Protein calorie malnutrition Is this a current diagnosis for this admission?: Yes Plan: empty alcohol calories (6) Sepsis Qualifiers: Sepsis type: sepsis due to unspecified organism Qualified Code(s): A41.9 - Sepsis, unspecified organism Is this a current diagnosis for this admission?: Yes Plan: reqiring vasopressor agent(s) (7) Tobacco abuse Is this a current diagnosis for this admission?: Yes Plan: transdermal nicotine - Time Total Critical Time (Minutes): 40
--- NOTE | 2017-05-29 12:01 | PDOC PROGRESS REPORT ---
Subjective Progress Note for:: 05/28/17 Subjective:: intubated/sedated Reason For Visit: RESPIRATORY FAILURE,PNEUMONIA,SEPSIS Physical Exam Vital Signs: Temp Pulse Resp BP Pulse Ox 98.4 F 112 H 25 H 135/93 H 93 05/28/17 06:00 05/28/17 08:17 05/28/17 08:17 05/28/17 05:34 05/28/17 08:17 Intake & Output 05/27/17 05/28/17 05/29/17 06:59 06:59 06:59 Intake Total 4327 3591 Output Total 2790 2270 325 Balance 1537 1321 -325 Weight 56.5 kg 57.5 kg General appearance: PRESENT: no acute distress, disheveled, obese, well- developed. ABSENT: cooperative Head exam: PRESENT: atraumatic, normocephalic Eye exam: PRESENT: conjunctiva pale. ABSENT: nystagmus, periorbital swelling, scleral icterus Mouth exam: PRESENT: dry mucosa, neck supple, tongue midline, other Neck exam: ABSENT: carotid bruit, JVD, lymphadenopathy, thyromegaly, tracheal deviation, tracheostomy Respiratory exam: PRESENT: crackles, decreased breath sounds, prolonged expiratory phas, rhonchi, symmetrical, unlabored, wheezes. ABSENT: rales, retraction, stridor, tachypnea Cardiovascular exam: PRESENT: RRR, +S1, +S2 Pulses: PRESENT: normal radial pulses GI/Abdominal exam: PRESENT: diminished bowel sounds, soft Extremities exam: ABSENT: clubbing Musculoskeletal exam: ABSENT: deformity, dislocation Neurological exam: ABSENT: alert, altered Skin exam: PRESENT: dry, warm Results Laboratory Results: 05/28/17 05:15 05/28/17 05:15 05/27/17 05/27/17 05/27/17 09:40 12:40 19:55 WBC RBC Hgb Hct MCV MCH MCHC RDW Plt Count Seg Neutrophils % Lymphocytes % Monocytes % Eosinophils % Basophils % Absolute Neutrophils Absolute Lymphocytes Absolute Monocytes Absolute Eosinophils Absolute Basophils Carbonic Acid 0.69 L 0.75 L HCO3/H2CO3 Ratio 21:1 21:1 ABG pH 7.42 7.43 ABG pCO2 23.0 L 25.0 L ABG pO2 67.1 L 88.3 ABG HCO3 14.6 L 16.0 L ABG O2 Saturation 94.2 97.1 ABG Base Excess -8.5 -7.2 FiO2 40% 40% Sodium Potassium 3.6 Chloride Carbon Dioxide Anion Gap BUN Creatinine Est GFR ( Amer) Est GFR (Non-Af Amer) Glucose Calcium Magnesium 05/28/17 05/28/17 05/28/17 05:15 05:15 05:15 WBC 14.7 H RBC 2.69 L Hgb 9.3 L Hct 26.9 L MCV 100 H MCH 34.7 H MCHC 34.7 RDW 14.3 H Plt Count 34 L Seg Neutrophils % Not Reportable Lymphocytes % Not Reportable Monocytes % Not Reportable Eosinophils % Not Reportable Basophils % Not Reportable Absolute Neutrophils Not Reportable Absolute Lymphocytes Not Reportable Absolute Monocytes Not Reportable Absolute Eosinophils Not Reportable Absolute Basophils Not Reportable Carbonic Acid 0.79 L HCO3/H2CO3 Ratio 20:1 ABG pH 7.41 ABG pCO2 26.4 L ABG pO2 75.3 L ABG HCO3 16.2 L ABG O2 Saturation 95.5 ABG Base Excess -7.3 FiO2 40% Sodium 141.4 Potassium 3.5 L Chloride 117 H Carbon Dioxide 16 L Anion Gap 8 BUN 23 H Creatinine 0.51 L Est GFR ( Amer) > 60 Est GFR (Non-Af Amer) > 60 Glucose 115 H Calcium 7.7 L Magnesium 1.9 Impressions: KUB X-Ray 05/24/17 00:00 IMPRESSION: Tip of the NG tube is in the body the stomach. Chest X-Ray 05/28/17 06:00 IMPRESSION: Interval improvement on the right with worsening noted on the left. Assessment & Plan - Diagnosis (1) Pancytopenia Is this a current diagnosis for this admission?: Yes Plan: platelets beginning to increase (2) Acute hypoxemic respiratory failure Is this a current diagnosis for this admission?: Yes Plan: Slightly improved hypercapnic/hypoxic resp failure (3) Acute renal failure Qualifiers: Acute renal failure type: unspecified Qualified Code(s): N17.9 - Acute kidney failure, unspecified Is this a current diagnosis for this admission?: Yes Plan: improvement Labs- All tests 24 hr 05/23/17 05/23/17 05/24/17 16:00 18:55 05:20 Creatinine 2.39 H 2.29 H 1.42 H 05/25/17 05/26/17 05/27/17 03:52 05:15 05:10 Creatinine 0.68 0.57 0.57 05/28/17 05/29/17 05:15 05:10 Creatinine 0.51 L 0.46 L (4) Chronic alcoholism Is this a current diagnosis for this admission?: Yes Plan: MCV 102--- min 24 beers per day ---per RN report DT precautions thiamine;MVI et al (5) Protein calorie malnutrition Is this a current diagnosis for this admission?: Yes Plan: empty alcohol calories (6) Sepsis Qualifiers: Sepsis type: sepsis due to unspecified organism Qualified Code(s): A41.9 - Sepsis, unspecified organism Is this a current diagnosis for this admission?: Yes Plan: reqiring vasopressor agent(s) (7) Tobacco abuse Is this a current diagnosis for this admission?: Yes - Time Total Critical Time (Minutes): 45
--- NOTE | 2017-05-29 12:05 | PDOC PROGRESS REPORT ---
Subjective Progress Note for:: 05/29/17 Subjective:: intubated/sedated Reason For Visit: RESPIRATORY FAILURE,PNEUMONIA,SEPSIS Physical Exam Vital Signs: Temp Pulse Resp BP Pulse Ox 99.7 F 117 H 25 H 140/87 H 94 05/29/17 08:00 05/29/17 08:20 05/29/17 08:20 05/29/17 05:57 05/29/17 08:20 Intake & Output 05/28/17 05/29/17 05/30/17 06:59 06:59 06:59 Intake Total 3591 3552 Output Total 2270 2795 250 Balance 1321 757 -250 Weight 57.5 kg 58.8 kg General appearance: PRESENT: no acute distress, disheveled, obese, well- developed. ABSENT: cooperative Head exam: PRESENT: atraumatic, normocephalic Eye exam: PRESENT: conjunctiva pale, EOMI. ABSENT: nystagmus, periorbital swelling, scleral icterus Mouth exam: PRESENT: dry mucosa, neck supple, tongue midline, other - ET tube Neck exam: ABSENT: carotid bruit, JVD, lymphadenopathy, thyromegaly, tracheal deviation, tracheostomy Respiratory exam: PRESENT: crackles, decreased breath sounds, prolonged expiratory phas, rhonchi, symmetrical, unlabored. ABSENT: retraction, stridor, tachypnea Cardiovascular exam: PRESENT: RRR, +S1, +S2 Pulses: PRESENT: normal radial pulses GI/Abdominal exam: PRESENT: diminished bowel sounds, tenderness Extremities exam: ABSENT: clubbing Musculoskeletal exam: ABSENT: deformity, dislocation Neurological exam: ABSENT: alert, awake, oriented to person Skin exam: PRESENT: dry, warm Results Laboratory Results: 05/29/17 05:10 05/29/17 05:10 05/29/17 05/29/17 05/29/17 05:10 05:10 05:10 WBC 15.8 H RBC 2.79 L Hgb 9.5 L Hct 27.6 L MCV 99 H MCH 34.1 H MCHC 34.4 RDW 14.8 H Plt Count 33 L Seg Neutrophils % Not Reportable Lymphocytes % Not Reportable Monocytes % Not Reportable Eosinophils % Not Reportable Basophils % Not Reportable Absolute Neutrophils Not Reportable Absolute Lymphocytes Not Reportable Absolute Monocytes Not Reportable Absolute Eosinophils Not Reportable Absolute Basophils Not Reportable Carbonic Acid 0.79 L HCO3/H2CO3 Ratio 21:1 ABG pH 7.42 ABG pCO2 26.2 L ABG pO2 77.1 L ABG HCO3 16.8 L ABG O2 Saturation 95.9 ABG Base Excess -6.5 FiO2 45% Sodium 146.1 H Potassium 4.1 Chloride 122 H Carbon Dioxide 18 L Anion Gap 6 BUN 29 H Creatinine 0.46 L Est GFR ( Amer) > 60 Est GFR (Non-Af Amer) > 60 Glucose 143 H Calcium 7.9 L Magnesium 2.0 Total Bilirubin 1.7 H AST 35 ALT 22 Alkaline Phosphatase 64 Total Protein 4.2 L Albumin 1.9 L Prealbumin 10.0 L 05/23/17 18:55 Blood Blood Culture - Final NO GROWTH IN 5 DAYS Impressions: KUB X-Ray 05/24/17 00:00 IMPRESSION: Tip of the NG tube is in the body the stomach. Chest X-Ray 05/29/17 06:00 IMPRESSION: 1. Stable appearance of the chest. Assessment & Plan - Diagnosis (1) Pancytopenia Is this a current diagnosis for this admission?: Yes Plan: platelets beginning to increase (2) Acute hypoxemic respiratory failure Is this a current diagnosis for this admission?: Yes Plan: Slightly improved hypoxic resp failure Labs- All tests 24 hr 05/23/17 05/24/17 05/24/17 19:47 06:20 12:45 ABG pO2 63.0 L 59.5 L 75.0 L FiO2 6L 40% 50% 05/24/17 05/24/17 05/25/17 16:40 19:30 06:10 ABG pO2 63.8 L 65.2 L 64.4 L FiO2 50% 50% 50% 05/26/17 05/27/17 05/27/17 05:15 05:10 09:40 ABG pO2 86.1 80.1 67.1 L FiO2 60% 40% 40% 05/27/17 05/28/17 05/29/17 12:40 05:15 05:10 ABG pO2 88.3 75.3 L 77.1 L FiO2 40% 40% 45% (3) Acute renal failure Qualifiers: Acute renal failure type: unspecified Qualified Code(s): N17.9 - Acute kidney failure, unspecified Is this a current diagnosis for this admission?: Yes Plan: improvement Labs- All tests 24 hr 05/23/17 05/23/17 05/24/17 16:00 18:55 05:20 Creatinine 2.39 H 2.29 H 1.42 H 05/25/17 05/26/17 05/27/17 03:52 05:15 05:10 Creatinine 0.68 0.57 0.57 05/28/17 05/29/17 05:15 05:10 Creatinine 0.51 L 0.46 L (4) Chronic alcoholism Is this a current diagnosis for this admission?: Yes Plan: MCV 102--- min 24 beers per day ---per RN report DT precautions thiamine;MVI et al (5) Protein calorie malnutrition Is this a current diagnosis for this admission?: Yes Plan: empty alcohol calories (6) Sepsis Qualifiers: Sepsis type: sepsis due to unspecified organism Qualified Code(s): A41.9 - Sepsis, unspecified organism Is this a current diagnosis for this admission?: Yes (7) Tobacco abuse Is this a current diagnosis for this admission?: Yes - Time Total Critical Time (Minutes): 40
[2017-05-29] MEDS ORDERED: METOPROLOL TARTRATE PF/INJ 5 MG/5 ML SDV IV ONE (14:45)
[2017-05-29] MEDS: NORMAL SALINE 1000 ML 1,000 ML with POTASSIUM CHLORIDE 20 MEQ, MAGNESIUM SULFATE 8 MEQ,... IV SCH ×5 (17:15)
[2017-05-29] MEDS: MIDAZOLAM HCL 50 MG/100 ML RTUINJ IV PRN (18:30)
[2017-05-30] MEDS: IPRATROPIUM/ALBUTEROL 0.5-2.5 MG/3 ML AMPUL NEB SCH ×4 (01:58→19:52)
[2017-05-30] MEDS: POTASSI CL 20 MEQ/NS 1L 1000 ML IV PRN (02:13)
[2017-05-30] MEDS: HYDROMORPHONE HCL INJ/PF 2 MG/ML AMPULE IV PRN ×2 (02:15→10:38)
[2017-05-30] MEDS: PROPOFOL 100 ML IV PRN ×2 (05:02→17:14)
[2017-05-30] MEDS: METHYLPREDNISOLONE INJ 40 MG/1 ML SDV IV SCH ×3 (05:05→21:07)
[2017-05-30] MEDS: NORMAL SALINE INJ/PF 0.9% 10 ML SDV IV PRN ×2 (05:06→10:03)
[2017-05-30] MEDS: MEROPENEM 1 GM in NORMAL SALINE 100 ML IV SCH ×3 (05:06→21:09)
[2017-05-30 05:31] LABS: ARTERIAL BLOOD BASE EXCESS -7.8 mmol/L; ARTERIAL BLOOD H2CO3 0.79 mmol/L (1.05-1.35); ARTERIAL BLOOD HCO3 15.7 mmol/L (20-26); ARTERIAL BLOOD O2 SATURATION 96.2 % (94-98); ARTERIAL BLOOD PCO2 26.1 mmHg (35-45); ARTERIAL BLOOD PO2 81.7 mmHg (80-100); ARTERIAL BLOOD TOTAL CO2 16.5 mmol/L (21-25)
[2017-05-30 05:36] LABS: HEMATOCRIT 28.7 % (36.0-47.0); HEMOGLOBIN 9.7 g/dL (12.0-15.5); MEAN CORPUSCULAR HEMOGLOBIN 33.9 pg (27.0-33.4); MEAN CORPUSCULAR HGB CONC 33.6 g/dL (32.0-36.0); MEAN CORPUSCULAR VOLUME 101 fl (80-97); RED BLOOD COUNT 2.85 10^6/uL (3.72-5.28); RED CELL DISTRIBUTION WIDTH 14.7 % (11.5-14.0); WHITE BLOOD COUNT 28.2 10^3/uL (4.0-10.5)
[2017-05-30] MEDS: MIDAZOLAM HCL 50 MG/100 ML RTUINJ IV PRN ×2 (05:37→17:12)
[2017-05-30 05:47] LABS: ARTERIAL BLOOD FIO2 50%
[2017-05-30 05:55] LABS: PLATELET COUNT 38 10^3/uL (150-450)
[2017-05-30 06:00] LABS: ANION GAP 8 (5-19); BLOOD UREA NITROGEN 46 mg/dL (7-20); CALCIUM 7.9 mg/dL (8.4-10.2); CARBON DIOXIDE 17 mmol/L (22-30); CHLORIDE 126 mmol/L (98-107); GLUCOSE 117 mg/dL (75-110); POTASSIUM 5.9 mmol/L (3.6-5.0); SODIUM 150.7 mmol/L (137-145)
[2017-05-30 06:07] LABS: ABSOLUTE LYMPHOCYTES# (MANUAL) 0.8 10^3/uL (0.5-4.7); ABSOLUTE MONOCYTES # (MANUAL) 0.6 10^3/uL (0.1-1.4); ABSOLUTE NEUTROPHILS# (MANUAL) 26.8 10^3/uL (1.7-8.2); BAND NEUTROPHILS % (MANUAL) 5 % (3-5); BASOPHILS % (MANUAL) 0 % (0-2); EOSINOPHILS % (MANUAL) 0 % (0-6); LYMPHOCYTES % (MANUAL) 3 % (13-45); MONOCYTES % (MANUAL) 2 % (3-13); SEGMENTED NEUTROPHILS % (MAN) 90 % (42-78); TOTAL CELLS COUNTED 100
[2017-05-30 06:09] LABS: PLATELET COMMENT DECREASED
[2017-05-30 06:10] LABS: PLATELET LARGE PRESENT
[2017-05-30 06:12] LABS: RBC MORPHOLOGY COMMENT NORMO-CYTIC/CHROMIC
--- NOTE | 2017-05-30 06:16 | RADIOLOGY REPORT (SQ) ---
EXAM DESCRIPTION: CHEST SINGLE VIEW CLINICAL HISTORY: pna resp failure COMPARISON: 05/29/2017 FINDINGS: Single frontal view of the chest. Postoperative change of the cervical spine. Endotracheal tube with tip 2 cm above the josh. NG tube with tip below the diaphragm. Right IJ central venous catheter with tip in the SVC. No pneumothorax. Small bilateral pleural effusions and bibasilar airspace opacity, greater on the right than the left. No new osseous abnormalities. Upper abdominal soft tissues are unremarkable. IMPRESSION: 1. Stable appearance of the chest. Electronically signed by: Gonzalo Melchor 05/30/2017 5:14 AM
--- NOTE | 2017-05-30 08:17 | RADIOLOGY REPORT (SQ) ---
EXAM DESCRIPTION: KUB/ABDOMEN (SINGLE VIEW) COMPLETED DATE/TIME: 05/30/2017 8:06 am REASON FOR STUDY: abd. discomfort/distention COMPARISON: 05/24/2017 NUMBER OF VIEWS: One view. TECHNIQUE: Supine radiographic image of the abdomen acquired. LIMITATIONS: None. FINDINGS: BOWEL GAS PATTERN: Normal bowel gas pattern. No dilated loops. CALCIFICATIONS: No suspicious calcifications. SOFT TISSUES: No gross mass or suggestion of organomegaly. HARDWARE: Nasogastric tube terminates in the expected location of the stomach. Alonzo catheter in randy ce. BONES: No acute fracture. No worrisome bone lesions. OTHER: No other significant finding. IMPRESSION: NO RADIOGRAPHIC EVIDENCE FOR ACUTE ABDOMINAL DISEASE. SATISFACTORY PLACEMENT NASOGASTRI C TUBE AND ALONZO CATHETER. TECHNICAL DOCUMENTATION: JOB ID: [id number] [employer]- All Rights Reserved Reading location - IP/workstation name: [email or web address]
[2017-05-30] MEDS: BUDESONIDE NEB 0.5 MG/2 ML AMPUL NEB SCH ×2 (08:36→19:53)
[2017-05-30] MEDS: PANTOPRAZOLE SODIUM 40 MG VIAL IV SCH ×2 (09:57→21:08)
[2017-05-30] MEDS: NICOTINE 21 MG/24 HR PATCH.TD24 TD SCH (09:58)
--- NOTE | 2017-05-30 10:14 | PDOC PROGRESS REPORT ---
Subjective Progress Note for:: 05/29/17 Subjective:: Patient was seen in the intensive care unit currently intubated sedated from a Versed infusion. It appears that she probably is having alcohol withdrawal syndrome in addition to possible aspiration pneumonia. Patient was also found to be septic. Patient was admitted with shortness of breath and difficulty breathing. She was found to have a right lower lobe pneumonia. Reason For Visit: RESPIRATORY FAILURE,PNEUMONIA,SEPSIS Physical Exam Vital Signs: Temp Pulse Resp BP Pulse Ox 100.2 F 117 H 25 H 112/78 94 05/29/17 12:00 05/29/17 08:20 05/29/17 11:00 05/29/17 10:35 05/29/17 11:00 Intake & Output 05/28/17 05/29/17 05/30/17 06:59 06:59 06:59 Intake Total 3591 3552 Output Total 2270 2795 1350 Balance 1321 757 -1350 Weight 57.5 kg 58.8 kg Results Laboratory Results: 05/29/17 05:10 05/29/17 05:10 05/29/17 05/29/17 05/29/17 05:10 05:10 05:10 WBC 15.8 H RBC 2.79 L Hgb 9.5 L Hct 27.6 L MCV 99 H MCH 34.1 H MCHC 34.4 RDW 14.8 H Plt Count 33 L Seg Neutrophils % Not Reportable Lymphocytes % Not Reportable Monocytes % Not Reportable Eosinophils % Not Reportable Basophils % Not Reportable Absolute Neutrophils Not Reportable Absolute Lymphocytes Not Reportable Absolute Monocytes Not Reportable Absolute Eosinophils Not Reportable Absolute Basophils Not Reportable Carbonic Acid 0.79 L HCO3/H2CO3 Ratio 21:1 ABG pH 7.42 ABG pCO2 26.2 L ABG pO2 77.1 L ABG HCO3 16.8 L ABG O2 Saturation 95.9 ABG Base Excess -6.5 FiO2 45% Sodium 146.1 H Potassium 4.1 Chloride 122 H Carbon Dioxide 18 L Anion Gap 6 BUN 29 H Creatinine 0.46 L Est GFR ( Amer) > 60 Est GFR (Non-Af Amer) > 60 Glucose 143 H Calcium 7.9 L Magnesium 2.0 Total Bilirubin 1.7 H AST 35 ALT 22 Alkaline Phosphatase 64 Total Protein 4.2 L Albumin 1.9 L Prealbumin 10.0 L 05/23/17 18:55 Blood Blood Culture - Final NO GROWTH IN 5 DAYS Impressions: KUB X-Ray 05/24/17 00:00 IMPRESSION: Tip of the NG tube is in the body the stomach. Chest X-Ray 05/29/17 06:00 IMPRESSION: 1. Stable appearance of the chest. Assessment & Plan - Plan Summary Plan Summary: Assessment and plan Streptococcus pneumonia pneumonia currently on meropenem. If possible we will try and de-escalate. #2 acute on chronic hypoxic and hypercapnic respiratory failure currently on mechanical ventilation. Patient is on SIMV as well as 40% FiO2 and PEEP of 10. Weaning as per pulmonary #3 acute kidney injury likely secondary to ATN. #4 septic shock resolving. She is currently on vasopressors 5. Alcohol abuse with withdrawal syndrome however patient is currently sedated and intubated will continue supportive care. 6. Hyponatremia likely secondary to chronic alcohol abuse 7. Cytopenia secondary to acute infection as well as chronic alcoholism 8. Tobacco abuse disorder patient will need counseling once stable 9. Hypokalemia as well as hypocalcemia on replacement protocol 10. Protein calorie malnutritio continue supplementations 11. Metabolic acidosis likely multifactorial including sepsis renal failure on propofol will continue same sodium bicarb
[2017-05-30] MEDS ORDERED: DOCUSATE SODIUM 100 MG/10 ML UDC NG SCH (10:15)
--- NOTE | 2017-05-30 10:20 | PDOC PROGRESS REPORT ---
Subjective Progress Note for:: 05/30/17 Subjective:: Patient was seen in the intensive care unit currently intubated sedated from a Versed infusion. It appears that she probably is having alcohol withdrawal syndrome in addition to possible aspiration pneumonia. Patient was also found to be septic. Patient was admitted with shortness of breath and difficulty breathing. She was found to have a right lower lobe pneumonia. Patient remains intubated, abdomen distended with last BM on May, no vomiting Reason For Visit: RESPIRATORY FAILURE,PNEUMONIA,SEPSIS Physical Exam Vital Signs: Temp Pulse Resp BP Pulse Ox 100.8 F H 130 H 30 H 87/68 L 93 05/30/17 10:00 05/30/17 08:36 05/30/17 10:00 05/30/17 09:36 05/30/17 10:00 Intake & Output 05/29/17 05/30/17 05/31/17 06:59 06:59 06:59 Intake Total 3552 3770 Output Total 2795 2210 153 Balance 757 1560 -153 Weight 58.8 kg 60.4 kg General appearance: PRESENT: no acute distress, other - Intubated Head exam: PRESENT: atraumatic Eye exam: PRESENT: PERRLA Neck exam: ABSENT: carotid bruit, JVD Respiratory exam: ABSENT: accessory muscle use, chest wall tenderness Cardiovascular exam: PRESENT: +S1, +S2, tachycardia GI/Abdominal exam: PRESENT: diminished bowel sounds, distended, tenderness - mild Extremities exam: PRESENT: +1 edema. ABSENT: joint swelling Neurological exam: PRESENT: other - sedated, responds to pain Skin exam: PRESENT: dry, intact, warm. ABSENT: cyanosis, rash Results Laboratory Results: 05/30/17 05:22 05/30/17 05:22 05/30/17 05/30/17 05/30/17 05:22 05:22 05:22 WBC 28.2 H RBC 2.85 L Hgb 9.7 L Hct 28.7 L MCV 101 H MCH 33.9 H MCHC 33.6 RDW 14.7 H Plt Count 38 L Seg Neutrophils % Not Reportable Lymphocytes % Not Reportable Monocytes % Not Reportable Eosinophils % Not Reportable Basophils % Not Reportable Absolute Neutrophils Not Reportable Absolute Lymphocytes Not Reportable Absolute Monocytes Not Reportable Absolute Eosinophils Not Reportable Absolute Basophils Not Reportable Carbonic Acid 0.79 L HCO3/H2CO3 Ratio 19:1 ABG pH 7.40 ABG pCO2 26.1 L ABG pO2 81.7 ABG HCO3 15.7 L ABG O2 Saturation 96.2 ABG Base Excess -7.8 FiO2 50% Sodium 150.7 H Potassium 5.9 H Chloride 126 H Carbon Dioxide 17 L Anion Gap 8 BUN 46 H Creatinine 0.72 Est GFR ( Amer) > 60 Est GFR (Non-Af Amer) > 60 Glucose 117 H Calcium 7.9 L Magnesium 2.4 H Impressions: KUB X-Ray 05/30/17 00:00 IMPRESSION: NO RADIOGRAPHIC EVIDENCE FOR ACUTE ABDOMINAL DISEASE. SATISFACTORY PLACEMENT NASOGASTRIC TUBE AND ALONZO CATHETER. Chest X-Ray 05/30/17 06:00 IMPRESSION: 1. Stable appearance of the chest. Assessment & Plan - Time Time Spent with patient: 25-34 minutes Medications reviewed and adjusted accordingly: Yes Anticipated discharge: Home - Inpatient Certification Based on my medical assessment, after consideration of the patient's comorbidities, presenting symptoms, or acuity I expect that the services needed warrant INPATIENT care.: Yes Medical Necessity: Need Close Monitoring Due to Risk of Patient Decompensation, Need For IV Fluids, Need for IV Antibiotics - Plan Summary Plan Summary: Streptococcus pneumonia pneumonia currently on meropenem. IAlthough her leukocytosis is worse the continous steroid use may be a contributing factor. Will taper steroids as tolerated #2 acute on chronic hypoxic and hypercapnic respiratory failure currently on mechanical ventilation. Patient is on SIMV as well as 50% FiO2 and PEEP of 10. Appears she was hypoxic during the night and her FIO2 had to be increased #3 acute kidney injury likely secondary to ATN. #4 septic shock resolving. She is currently off vasopressors 5. Alcohol abuse with withdrawal syndrome however patient is currently sedated and intubated will continue supportive care with versed. Some of her tachycardia could also be secondary to withdrawal as well as sepsis 6. Hypernatremia likely aiatrogenic- will change IVF to hypotonic fluid. Hold TF as she appears to have some ileus though KUB shows no significant findings 7. Hyperkalemia- iatrogenic, dc IV K 8. Tobacco abuse disorder patient will need counseling once stable 9. Cytopenia secondary to acute infection as well as chronic alcoholism 10. Protein calorie malnutritio continue supplementations 11. Metabolic acidosis likely multifactorial including sepsis renal failure on propofol will continue same sodium bicarb 12. Sinus tachycardia- multifactorial
[2017-05-30] MEDS: DEXTROSE 5%-1/2 NORMAL SALINE 1,000 ML IV PRN ×2 (10:37→21:06)
[2017-05-30 12:19] LABS: ANION GAP 10 (5-19); BLOOD UREA NITROGEN 54 mg/dL (7-20); CALCIUM 7.9 mg/dL (8.4-10.2); CARBON DIOXIDE 16 mmol/L (22-30); CHLORIDE 125 mmol/L (98-107); GLUCOSE 142 mg/dL (75-110); SODIUM 150.5 mmol/L (137-145)
[2017-05-30 12:22] LABS: POTASSIUM 6.1 mmol/L (3.6-5.0)
[2017-05-30] MEDS ORDERED: INSULIN REG, HUMAN 100 UNIT/ML 3 ML VIAL (PYX) ONE (12:40)
[2017-05-30] MEDS ORDERED: DEXTROSE 50%-WATER 25 GM/50 ML DISP.SYRIN IV ONE ×2 (12:41→12:45)
[2017-05-30] MEDS ORDERED: FUROSEMIDE INJ/PF 20 MG/2 ML SDV ONE (12:41)
[2017-05-30] MEDS: METOCLOPRAMIDE HCL INJ/PF 10 MG/2 ML SDV IV SCH ×3 (12:43→23:41)
[2017-05-30] MEDS ORDERED: INSULIN REG, HUMAN 100 UNIT/ML 3 ML VIAL (PYX) SUBCUT ONE (12:45)
[2017-05-30] MEDS ORDERED: FUROSEMIDE INJ/PF 20 MG/2 ML SDV IV ONE ×2 (12:45→22:00)
[2017-05-30] MEDS ORDERED: LACTULOSE SYRUP 20 GM/30 ML UDCUP PO ONE (13:00)
--- NOTE | 2017-05-30 15:21 | PDOC PROGRESS REPORT ---
Subjective Progress Note for:: 05/30/17 Subjective:: intubated/sedated Reason For Visit: RESPIRATORY FAILURE,PNEUMONIA,SEPSIS Physical Exam Vital Signs: Temp Pulse Resp BP Pulse Ox 100.6 F H 126 H 25 H 102/76 95 05/30/17 07:00 05/30/17 07:30 05/30/17 07:00 05/30/17 06:35 05/30/17 07:00 Intake & Output 05/29/17 05/30/17 05/31/17 06:59 06:59 06:59 Intake Total 3552 3770 Output Total 2795 2210 Balance 757 1560 Weight 58.8 kg 60.4 kg General appearance: PRESENT: no acute distress, disheveled, thin, well- developed. ABSENT: cooperative Head exam: PRESENT: atraumatic, normocephalic Eye exam: PRESENT: conjunctiva pale. ABSENT: nystagmus, periorbital swelling, scleral icterus Mouth exam: PRESENT: dry mucosa, neck supple, tongue midline Neck exam: ABSENT: carotid bruit, JVD, lymphadenopathy, thyromegaly, tracheal deviation, tracheostomy Respiratory exam: PRESENT: decreased breath sounds, prolonged expiratory phas, rales, rhonchi, symmetrical, unlabored. ABSENT: retraction, stridor, tachypnea Cardiovascular exam: PRESENT: RRR, +S1, +S2, tachycardia Pulses: PRESENT: normal radial pulses GI/Abdominal exam: PRESENT: distended, soft Extremities exam: ABSENT: clubbing, joint swelling, pedal edema Musculoskeletal exam: ABSENT: deformity, dislocation Neurological exam: ABSENT: alert, awake, oriented to person Skin exam: PRESENT: dry, warm Results Laboratory Results: 05/30/17 05:22 05/30/17 05:22 05/30/17 05/30/17 05/30/17 05:22 05:22 05:22 WBC 28.2 H RBC 2.85 L Hgb 9.7 L Hct 28.7 L MCV 101 H MCH 33.9 H MCHC 33.6 RDW 14.7 H Plt Count 38 L Seg Neutrophils % Not Reportable Lymphocytes % Not Reportable Monocytes % Not Reportable Eosinophils % Not Reportable Basophils % Not Reportable Absolute Neutrophils Not Reportable Absolute Lymphocytes Not Reportable Absolute Monocytes Not Reportable Absolute Eosinophils Not Reportable Absolute Basophils Not Reportable Carbonic Acid 0.79 L HCO3/H2CO3 Ratio 19:1 ABG pH 7.40 ABG pCO2 26.1 L ABG pO2 81.7 ABG HCO3 15.7 L ABG O2 Saturation 96.2 ABG Base Excess -7.8 FiO2 50% Sodium 150.7 H Potassium 5.9 H Chloride 126 H Carbon Dioxide 17 L Anion Gap 8 BUN 46 H Creatinine 0.72 Est GFR ( Amer) > 60 Est GFR (Non-Af Amer) > 60 Glucose 117 H Calcium 7.9 L Magnesium 2.4 H Impressions: KUB X-Ray 05/24/17 00:00 IMPRESSION: Tip of the NG tube is in the body the stomach. Chest X-Ray 05/30/17 06:00 IMPRESSION: 1. Stable appearance of the chest. Assessment & Plan - Diagnosis (1) Pancytopenia Is this a current diagnosis for this admission?: Yes Plan: wbc improve to appropriate leucocytosis hgb stable plt remain low Labs- All tests 24 hr 05/25/17 05/30/17 03:52 05:22 WBC 7.1 D 28.2 H Hgb 9.7 L Plt Count 38 L (2) Acute hypoxemic respiratory failure Is this a current diagnosis for this admission?: Yes Plan: Labs- All tests 24 hr 05/30/17 05:22 ABG pH 7.40 ABG pCO2 26.1 L ABG pO2 81.7 FiO2 50% (3) Acute renal failure Qualifiers: Acute renal failure type: unspecified Qualified Code(s): N17.9 - Acute kidney failure, unspecified Is this a current diagnosis for this admission?: Yes Plan: Labs- All tests 24 hr 05/30/17 11:45 Sodium 150.5 H Potassium 6.1 H* Chloride 125 H Carbon Dioxide 16 L BUN 54 H hyperkalemia hypernatremia(TBW deficit 2.37 liters) azotemia met acidosis I/O ++6.4 L (4) Chronic alcoholism Is this a current diagnosis for this admission?: Yes Plan: MCV 102--- min 24 beers per day ---per RN report DT precautions thiamine;MVI et al (5) Protein calorie malnutrition Is this a current diagnosis for this admission?: Yes (6) Sepsis Qualifiers: Sepsis type: sepsis due to unspecified organism Qualified Code(s): A41.9 - Sepsis, unspecified organism Is this a current diagnosis for this admission?: Yes Plan: reqiring vasopressor agent(s) (7) Tobacco abuse Is this a current diagnosis for this admission?: Yes Plan: transdermal nicotine - Time Total Critical Time (Minutes): 50
[2017-05-30] MEDS ORDERED: SODIUM POLYSTYRENE SULFONATE 15 GM/60 ML NG ONE (17:00)
[2017-05-30 18:29] LABS: ANION GAP 9 (5-19); BLOOD UREA NITROGEN 56 mg/dL (7-20); CALCIUM 8.1 mg/dL (8.4-10.2); CARBON DIOXIDE 16 mmol/L (22-30); CHLORIDE 124 mmol/L (98-107); GLUCOSE 225 mg/dL (75-110); POTASSIUM 5.7 mmol/L (3.6-5.0); SODIUM 149.2 mmol/L (137-145)
[2017-05-30] MEDS: LACTULOSE SYRUP 20 GM/30 ML UDCUP PO SCH (21:06)
[2017-05-31] MEDS: IPRATROPIUM/ALBUTEROL 0.5-2.5 MG/3 ML AMPUL NEB SCH ×4 (02:01→20:23)
[2017-05-31] MEDS: HYDROMORPHONE HCL INJ/PF 2 MG/ML AMPULE IV PRN ×3 (02:58→20:45)
[2017-05-31] MEDS: PROPOFOL 100 ML IV PRN ×2 (05:01→18:25)
[2017-05-31] MEDS: MIDAZOLAM HCL 50 MG/100 ML RTUINJ IV PRN ×2 (05:02→18:25)
[2017-05-31] MEDS: MEROPENEM 1 GM in NORMAL SALINE 100 ML IV SCH ×3 (05:02→21:26)
[2017-05-31] MEDS: NORMAL SALINE INJ/PF 0.9% 10 ML SDV IV PRN (05:03)
[2017-05-31] MEDS: METOCLOPRAMIDE HCL INJ/PF 10 MG/2 ML SDV IV SCH ×3 (05:03→18:43)
[2017-05-31 05:30] LABS: ARTERIAL BLOOD BASE EXCESS -8.6 mmol/L; ARTERIAL BLOOD H2CO3 0.77 mmol/L (1.05-1.35); ARTERIAL BLOOD HCO3 15.3 mmol/L (20-26); ARTERIAL BLOOD O2 SATURATION 97.2 % (94-98); ARTERIAL BLOOD PCO2 25.5 mmHg (35-45); ARTERIAL BLOOD PO2 91.6 mmHg (80-100)
[2017-05-31 05:33] LABS: ARTERIAL BLOOD FIO2 45%
[2017-05-31 05:47] LABS: ANION GAP 13 (5-19); BLOOD UREA NITROGEN 56 mg/dL (7-20); CALCIUM 7.7 mg/dL (8.4-10.2); CARBON DIOXIDE 16 mmol/L (22-30); CHLORIDE 120 mmol/L (98-107); GLUCOSE 260 mg/dL (75-110); PHOSPHORUS 6.1 mg/dL (2.5-4.5); POTASSIUM 5.6 mmol/L (3.6-5.0); SODIUM 148.8 mmol/L (137-145)
[2017-05-31 06:21] LABS: HEMATOCRIT 22.9 % (36.0-47.0); MEAN CORPUSCULAR HEMOGLOBIN 33.6 pg (27.0-33.4); MEAN CORPUSCULAR VOLUME 102 fl (80-97); RED BLOOD COUNT 2.25 10^6/uL (3.72-5.28); RED CELL DISTRIBUTION WIDTH 14.7 % (11.5-14.0); WHITE BLOOD COUNT 19.5 10^3/uL (4.0-10.5)
[2017-05-31 06:50] LABS: PLATELET COUNT 63 10^3/uL (150-450)
[2017-05-31 06:53] LABS: ABSOLUTE LYMPHOCYTES# (MANUAL) 0.2 10^3/uL (0.5-4.7); ABSOLUTE NEUTROPHILS# (MANUAL) 19.3 10^3/uL (1.7-8.2); BAND NEUTROPHILS % (MANUAL) 2 % (3-5); BASOPHILS % (MANUAL) 0 % (0-2); EOSINOPHILS % (MANUAL) 0 % (0-6); LYMPHOCYTES % (MANUAL) 1 % (13-45); MONOCYTES % (MANUAL) 0 % (3-13); SEGMENTED NEUTROPHILS % (MAN) 97 % (42-78); TOTAL CELLS COUNTED 100
[2017-05-31 06:56] LABS: ANISOCYTOSIS SLIGHT; OVALOCYTES SLIGHT; POIKILOCYTOSIS SLIGHT; SICKLE RED CELLS SLIGHT; TOXIC GRANULATION SLIGHT
[2017-05-31 06:57] LABS: PLATELET COMMENT DECREASED; TEAR DROP CELLS SLIGHT
[2017-05-31 07:18] LABS: HEMOGLOBIN 7.6 g/dL (12.0-15.5)
[2017-05-31] MEDS ORDERED: NORMAL SALINE 250 ML IV PRN ×2 (07:33)
[2017-05-31] MEDS: BUDESONIDE NEB 0.5 MG/2 ML AMPUL NEB SCH ×2 (08:20→20:23)
--- NOTE | 2017-05-31 09:25 | RADIOLOGY REPORT (SQ) ---
EXAM DESCRIPTION: CHEST SINGLE VIEW COMPLETED DATE/TIME: 05/31/2017 8:06 am REASON FOR STUDY: resp failu COMPARISON: Chest films 05/30/2017, 05/29/2017, 05/28/2017 EXAM PARAMETERS: NUMBER OF VIEWS: One view. TECHNIQUE: Single frontal radiographic view of the chest acquired. RADIATION DOSE: NA LIMITATIONS: None. FINDINGS: LUNGS AND PLEURA: Cavitary lesions in the right lower lobe with air-fluid levels. Cavitar y pneumonia/ TB/atypical pneumonia should be considered. There is minimal airspace disease above the right and left hemidiaphragms, improved compared to 223 1 8. Question trace left pleural effusion. No pneumothorax. MEDIASTINUM AND HILAR STRUCTURES: No masses. Contour normal. HEART AND VASCULAR STRUCTURES: Heart normal in size. Normal vasculature. BONES: No acute findings. HARDWARE: Endotracheal tube tip is at the josh. This report was called to the patient's nurse in [facility] [place]. Right jugular central line tip superior vena cava. Nasogastric tube tip and side port in the stomach. OTHER: No other significant finding. IMPRESSION: Endotracheal tube tip at the josh. Patient's ICU nurse notified Clearing of the diffuse alveolar opacities in the mid and lower lungs seen 05/28/2015. There is persi stent cavitary infiltrate right lung with at least 3 air-filled cavities containing air-fluid levels. Minimal left basilar atelectasis above the left hemidiaphragm. Trace left pleural effusion TECHNICAL DOCUMENTATION: JOB ID: [id number] [employer]- All Rights Reserved Reading location - IP/workstation name: [facility]-[email or web address]
[2017-05-31] MEDS: METHYLPREDNISOLONE INJ 40 MG/1 ML SDV IV SCH ×2 (09:44→21:26)
[2017-05-31] MEDS: NICOTINE 21 MG/24 HR PATCH.TD24 TD SCH (09:44)
[2017-05-31] MEDS: PANTOPRAZOLE SODIUM 40 MG VIAL IV SCH ×2 (09:45→21:26)
[2017-05-31] MEDS: LACTULOSE SYRUP 20 GM/30 ML UDCUP PO SCH (09:46)
--- NOTE | 2017-05-31 10:06 | PDOC PROGRESS REPORT ---
Subjective Progress Note for:: 05/31/17 Subjective:: Patient was seen in the intensive care unit currently intubated sedated from a Versed infusion. It appears that she probably is having alcohol withdrawal syndrome in addition to possible aspiration pneumonia. Patient was also found to be septic. Patient was admitted with shortness of breath and difficulty breathing. She was found to have a right lower lobe pneumonia. Patient remains intubated, abdomen distended with last BM on May, no vomiting. Patient noted to be more anemic with no evidence of acute blood loss. She however remains tachycardic. Reason For Visit: RESPIRATORY FAILURE,PNEUMONIA,SEPSIS Physical Exam Vital Signs: Temp Pulse Resp BP Pulse Ox 98.8 F 111 H 25 H 89/67 L 100 05/31/17 06:00 05/31/17 08:19 05/31/17 08:19 05/31/17 05:48 05/31/17 08:19 Intake & Output 05/30/17 05/31/17 06/01/17 06:59 06:59 06:59 Intake Total 3770 2619 Output Total 2210 1793 175 Balance 1560 826 -175 Weight 60.4 kg 61.8 kg General appearance: PRESENT: other - Intubated unresponsive to pain Head exam: PRESENT: atraumatic Eye exam: PRESENT: PERRLA Ear exam: PRESENT: normal external ear exam Mouth exam: PRESENT: dry mucosa Neck exam: ABSENT: carotid bruit, JVD, lymphadenopathy, thyromegaly Respiratory exam: PRESENT: decreased breath sounds, rhonchi GI/Abdominal exam: PRESENT: distended, firm, hypoactive bowel sounds, tenderness Rectal exam: PRESENT: deferred Neurological exam: PRESENT: altered - Sedated Results Laboratory Results: 05/31/17 06:00 05/31/17 05:05 05/30/17 05/30/17 05/30/17 11:45 17:50 17:50 WBC RBC Hgb Hct MCV MCH MCHC RDW Plt Count Seg Neutrophils % Lymphocytes % Monocytes % Eosinophils % Basophils % Absolute Neutrophils Absolute Lymphocytes Absolute Monocytes Absolute Eosinophils Absolute Basophils Carbonic Acid HCO3/H2CO3 Ratio ABG pH ABG pCO2 ABG pO2 ABG HCO3 ABG O2 Saturation ABG Base Excess FiO2 Sodium 150.5 H 149.2 H Potassium 6.1 H* 5.7 H Chloride 125 H 124 H Carbon Dioxide 16 L 16 L Anion Gap 10 9 BUN 54 H 56 H Creatinine 0.82 0.66 Est GFR ( Amer) > 60 > 60 Est GFR (Non-Af Amer) > 60 > 60 Glucose 142 H 225 H Serum Osmolality 328 H Calcium 7.9 L 8.1 L Phosphorus Magnesium 2.4 H 05/31/17 05/31/17 05/31/17 05:05 05:05 05:05 WBC Cancelled RBC Cancelled Hgb Cancelled Hct Cancelled MCV Cancelled MCH Cancelled MCHC Cancelled RDW Cancelled Plt Count Cancelled Seg Neutrophils % Cancelled Lymphocytes % Cancelled Monocytes % Cancelled Eosinophils % Cancelled Basophils % Cancelled Absolute Neutrophils Cancelled Absolute Lymphocytes Cancelled Absolute Monocytes Cancelled Absolute Eosinophils Cancelled Absolute Basophils Cancelled Carbonic Acid 0.77 L HCO3/H2CO3 Ratio 19:1 ABG pH 7.40 ABG pCO2 25.5 L ABG pO2 91.6 ABG HCO3 15.3 L ABG O2 Saturation 97.2 ABG Base Excess -8.6 FiO2 45% Sodium 148.8 H Potassium 5.6 H Chloride 120 H Carbon Dioxide 16 L Anion Gap 13 BUN 56 H Creatinine 0.69 Est GFR ( Amer) > 60 Est GFR (Non-Af Amer) > 60 Glucose 260 H Serum Osmolality Calcium 7.7 L Phosphorus 6.1 H Magnesium 2.3 05/31/17 05/31/17 05:05 06:00 WBC 19.5 H RBC 2.25 L Hgb 7.6 L D Hct 22.9 L MCV 102 H MCH 33.6 H MCHC 33.0 RDW 14.7 H Plt Count 63 L Seg Neutrophils % Not Reportable Lymphocytes % Not Reportable Monocytes % Not Reportable Eosinophils % Not Reportable Basophils % Not Reportable Absolute Neutrophils Not Reportable Absolute Lymphocytes Not Reportable Absolute Monocytes Not Reportable Absolute Eosinophils Not Reportable Absolute Basophils Not Reportable Carbonic Acid HCO3/H2CO3 Ratio ABG pH ABG pCO2 ABG pO2 ABG HCO3 ABG O2 Saturation ABG Base Excess FiO2 Sodium Potassium Chloride Carbon Dioxide Anion Gap BUN Creatinine Est GFR ( Amer) Est GFR (Non-Af Amer) Glucose Serum Osmolality 333 H Calcium Phosphorus Magnesium Impressions: KUB X-Ray 05/30/17 00:00 IMPRESSION: NO RADIOGRAPHIC EVIDENCE FOR ACUTE ABDOMINAL DISEASE. SATISFACTORY PLACEMENT NASOGASTRIC TUBE AND ALONZO CATHETER. Chest X-Ray 05/31/17 06:00 IMPRESSION: Endotracheal tube tip at the josh. Patient's ICU nurse notified Clearing of the diffuse alveolar opacities in the mid and lower lungs seen 2015. There is persistent cavitary infiltrate right lung with at least 3 air- filled cavities containing air-fluid levels. Minimal left basilar atelectasis above the left hemidiaphragm. Trace left pleural effusion Status: Imported from PACS Assessment & Plan - Time Time Spent with patient: 25-34 minutes Medications reviewed and adjusted accordingly: Yes Anticipated discharge: Home Within: Other - Unknown - Plan Summary Plan Summary: streptococcus pneumonia continue on meropenem. Leukocytosis likely secondary to steroids. This is improving with tapering of steroids #2 acute on chronic hypoxic and hypercapnic respiratory failure currently on mechanical ventilation. Patient is on SIMV as well as 45% FiO2 and PEEP of 10. #3 acute kidney injury likely secondary to ATN. #4 septic shock resolving. She is currently off vasopressors 5. Alcohol abuse with withdrawal syndrome however patient is currently sedated and intubated will continue supportive care with versed. Some of her tachycardia likely secondary to withdrawal as well as sepsis 6. Hypernatremia likely iatrogenic-continue hypotonic fluid. Hold TF as she appears to have some ileus though KUB shows no significant findings We will obtain CT abdomen to reevaluate 7. Hyperkalemia- iatrogenic, off IV K, treat with Kayexalate and continue to monitor lites 8. Anemia with no evidence of acute blood loss likely component of acute illness and bone marrow suppression and underlying nutritional deficiencies. Will obtain iron profile and patient will be transfused. Hopefully this will help her blood pressure as well as her tachycardia also 9. Cytopenia secondary to acute infection as well as chronic alcoholism 10. Protein calorie malnutrition continue supplementations 11. Metabolic acidosis likely multifactorial including sepsis renal failure on propofol will continue same sodium bicarb 12. Sinus tachycardia- multifactorial 13. Tobacco abuse disorder patient will need counseling once stable 14. Patient's prognosis is guarded
[2017-05-31] MEDS: DEXTROSE 5%-1/2 NORMAL SALINE 1,000 ML IV PRN (10:41)
[2017-05-31] MEDS: LEVALBUTEROL HCL NEB 1.25 MG/3 ML AMPUL NEB PRN (11:58)
--- NOTE | 2017-05-31 12:53 | RADIOLOGY REPORT (SQ) ---
EXAM DESCRIPTION: CT ABD/PELVIS WITH IV ORAL COMPLETED DATE/TIME: 05/31/2017 11:44 am REASON FOR STUDY: Abdominal Distension, ?Ileus COMPARISON: CT chest abdomen pelvis 02/02/2017 Chest films 05/23/2017, 05/24/2017, 05/30/2017, 05/31/2017 KUB 05/30/2017 TECHNIQUE: CT scan of the abdomen and pelvis performed using helical scanning technique with dynamic intravenous contrast injection. No oral contrast. Images reviewed with lung, soft tissue, and bone windows. Reconstructed coronal and sagittal MPR images reviewed. Delayed images for evaluation of the urinary system also acquired. All images stored on PACS. All CT scanners at this facility use dose modulation, iterative reconstruction, and/or weight based d osing when appropriate to reduce radiation dose to as low as reasonably achievable (ALARA). [facility]: Dose Right [facility]: CareDose [facility]: Dose Right [facility]: Teradose 4D [facility]: inMotionNow CONTRAST TYPE AND DOSE: contrast/concentration: Isovue 370.00 mg/ml; Total Contrast Delivered: 67.0 ml; Total Saline Delivered: 65.0 ml RENAL FUNCTION: Creatinine 0.7 RADIATION DOSE: CT Rad equipment meets quality standard of care and radiation dose reduction techniq ues were employed. CTDIvol: 8.0 - 9.4 mGy. DLP: 921 mGy-cm.. LIMITATIONS: None. FINDINGS: There is a large amount of free intraperitoneal fluid with scattered air bubbles present. There is dependently layering dense material in the fluid collections along the right and left lower quadrant and pelvis. Findings are worrisome for leakage of oral contrast from bowel perforation. S mall amount of free intraperitoneal air. These findings were called to Dr. Perez as a critical res ult, 1150 hours 05/31/2017. Patient has a nasogastric tube with the tip and side port in the stomach. Oral contrast was given th rough the nasogastric tube into the stomach and small bowel. No dilated bowel loops worrisome for ob struction. LOWER CHEST: There is a cavitary infiltrate in the right middle lobe, with thick walled irregular cav ity with air-fluid levels on axial images 1-7. Bibasilar dependent atelectasis in the posterior lung bases with trace bilateral pleural effusions. 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 No masses. No dilated ducts. SPLEEN: Normal size. No focal lesions. PANCREAS: No masses. No significant calcifications. No adjacent inflammation or peripancreatic fluid collections. Pancreatic duct not dilated. GALLBLADDER: No identified stones by CT criteria. No inflammatory changes to suggest cholecystitis. ADRENAL GLANDS: No significant masses or asymmetry. RIGHT KIDNEY AND URETER: No solid masses. No significant calcifications. No hydronephrosis or hyd roureter. LEFT KIDNEY AND URETER: No solid masses. No significant calcifications. No hydronephrosis or hydr oureter. AORTA AND VESSELS: No aneurysm. No dissection. Renal arteries, SMA, celiac without stenosis. RETROPERITONEUM: No retroperitoneal adenopathy, hemorrhage or masses. BOWEL AND PERITONEAL CAVITY: As above. Leakage of oral contrast with dependently layering density in the pelvis. Large amount of free intraperitoneal fluid, small amount of free intraperitoneal air as above. No CT gross evidence of bowel obstruction. APPENDIX: Not identified PELVIS: [place] catheter drains the bladder. There is a large amount of fluid in the pelvis with oral contrast from bowel leak. Post hysterectomy ABDOMINAL WALL: No masses. No hernias. BONES: Old bilateral lower rib fractures, nonunited. OTHER: No other significant finding. IMPRESSION: Large amount of free intraperitoneal air and fluid. There is oral contrast in the pelvi s suggesting bowel perforation. Findings discussed with the patient's attending physician as a criti onel result COMMENT: Pertinent findings on the imaging study reported as a CRITICAL RESULT to PORFIRIO Grigsby MD at11:47 on 05/31/2017. Category of Critical Result: Free intraperitoneal air and fluid, findings worrisome for bowel perfora tion TECHNICAL DOCUMENTATION: JOB ID: [id number] Quality ID # [id number]: Final reports with documentation of one or more dose reduction techniques (e.g., Au tomated exposure control, adjustment of the mA and/or kV according to patient size, use of iterative reconstruction technique) 2010 [employer]- All Rights Reserved Reading location - IP/workstation name: [email or web address]
[2017-05-31] MEDS ORDERED: ONDANSETRON HCL INJ/PF 4 MG/2 ML SDV ONE (13:33)
[2017-05-31] MEDS ORDERED: GLYCOPYRROLATE INJ 0.4 MG/2 ML VIAL ONE (13:33)
[2017-05-31] MEDS ORDERED: LIDOCAINE 2% INJ-PF (20 MG/ML) 2 ML AMPUL ONE (13:33)
[2017-05-31] MEDS ORDERED: VECURONIUM BROMIDE INJ 10 MG VIAL IV ONE (13:33)
--- NOTE | 2017-05-31 13:52 | PDOC PROGRESS REPORT ---
Subjective Progress Note for:: 05/31/17 Subjective:: intubated/sedated Reason For Visit: RESPIRATORY FAILURE,PNEUMONIA,SEPSIS Physical Exam Vital Signs: Temp Pulse Resp BP Pulse Ox 98.4 F 114 H 25 H 103/71 96 05/31/17 13:13 05/31/17 13:13 05/31/17 13:13 05/31/17 13:13 05/31/17 13:13 Intake & Output 05/30/17 05/31/17 06/01/17 06:59 06:59 06:59 Intake Total 3770 2619 0 Output Total 2210 1793 300 Balance 1560 826 -300 Weight 60.4 kg 61.8 kg General appearance: PRESENT: no acute distress, disheveled, well-developed Head exam: PRESENT: atraumatic, normocephalic Eye exam: PRESENT: conjunctiva pale. ABSENT: nystagmus, periorbital swelling, scleral icterus Mouth exam: PRESENT: dry mucosa, neck supple, tongue midline, other - ET tube Neck exam: ABSENT: carotid bruit, JVD, lymphadenopathy, thyromegaly, tracheal deviation, tracheostomy Respiratory exam: PRESENT: decreased breath sounds, prolonged expiratory phas Cardiovascular exam: PRESENT: RRR, +S1, +S2 Pulses: PRESENT: normal radial pulses - 08204 GI/Abdominal exam: PRESENT: diminished bowel sounds, soft Extremities exam: ABSENT: calf tenderness, clubbing Musculoskeletal exam: ABSENT: deformity, dislocation Neurological exam: ABSENT: awake - 09003 Skin exam: PRESENT: dry, warm - 48311 Results Laboratory Results: 05/31/17 06:00 05/31/17 05:05 05/30/17 05/30/17 05/31/17 17:50 17:50 05:05 WBC RBC Hgb Hct MCV MCH MCHC RDW Plt Count Seg Neutrophils % Lymphocytes % Monocytes % Eosinophils % Basophils % Absolute Neutrophils Absolute Lymphocytes Absolute Monocytes Absolute Eosinophils Absolute Basophils Carbonic Acid 0.77 L HCO3/H2CO3 Ratio 19:1 ABG pH 7.40 ABG pCO2 25.5 L ABG pO2 91.6 ABG HCO3 15.3 L ABG O2 Saturation 97.2 ABG Base Excess -8.6 FiO2 45% Sodium 149.2 H Potassium 5.7 H Chloride 124 H Carbon Dioxide 16 L Anion Gap 9 BUN 56 H Creatinine 0.66 Est GFR ( Amer) > 60 Est GFR (Non-Af Amer) > 60 Glucose 225 H Serum Osmolality 328 H Calcium 8.1 L Phosphorus Magnesium Blood Type Antibody Screen 05/31/17 05/31/17 05/31/17 05:05 05:05 05:05 WBC Cancelled RBC Cancelled Hgb Cancelled Hct Cancelled MCV Cancelled MCH Cancelled MCHC Cancelled RDW Cancelled Plt Count Cancelled Seg Neutrophils % Cancelled Lymphocytes % Cancelled Monocytes % Cancelled Eosinophils % Cancelled Basophils % Cancelled Absolute Neutrophils Cancelled Absolute Lymphocytes Cancelled Absolute Monocytes Cancelled Absolute Eosinophils Cancelled Absolute Basophils Cancelled Carbonic Acid HCO3/H2CO3 Ratio ABG pH ABG pCO2 ABG pO2 ABG HCO3 ABG O2 Saturation ABG Base Excess FiO2 Sodium 148.8 H Potassium 5.6 H Chloride 120 H Carbon Dioxide 16 L Anion Gap 13 BUN 56 H Creatinine 0.69 Est GFR ( Amer) > 60 Est GFR (Non-Af Amer) > 60 Glucose 260 H Serum Osmolality 333 H Calcium 7.7 L Phosphorus 6.1 H Magnesium 2.3 Blood Type Antibody Screen 05/31/17 05/31/17 06:00 08:30 WBC 19.5 H RBC 2.25 L Hgb 7.6 L D Hct 22.9 L MCV 102 H MCH 33.6 H MCHC 33.0 RDW 14.7 H Plt Count 63 L Seg Neutrophils % Not Reportable Lymphocytes % Not Reportable Monocytes % Not Reportable Eosinophils % Not Reportable Basophils % Not Reportable Absolute Neutrophils Not Reportable Absolute Lymphocytes Not Reportable Absolute Monocytes Not Reportable Absolute Eosinophils Not Reportable Absolute Basophils Not Reportable Carbonic Acid HCO3/H2CO3 Ratio ABG pH ABG pCO2 ABG pO2 ABG HCO3 ABG O2 Saturation ABG Base Excess FiO2 Sodium Potassium Chloride Carbon Dioxide Anion Gap BUN Creatinine Est GFR ( Amer) Est GFR (Non-Af Amer) Glucose Serum Osmolality Calcium Phosphorus Magnesium Blood Type A POSITIVE Antibody Screen NEGATIVE Impressions: KUB X-Ray 05/30/17 00:00 IMPRESSION: NO RADIOGRAPHIC EVIDENCE FOR ACUTE ABDOMINAL DISEASE. SATISFACTORY PLACEMENT NASOGASTRIC TUBE AND ALONZO CATHETER. Abdomen/Pelvis CT 05/31/17 00:00 IMPRESSION: Large amount of free intraperitoneal air and fluid. There is oral contrast in the pelvis suggesting bowel perforation. Findings discussed with the patient's attending physician as a critical result Chest X-Ray 05/31/17 06:00 IMPRESSION: Endotracheal tube tip at the josh. Patient's ICU nurse notified Clearing of the diffuse alveolar opacities in the mid and lower lungs seen 2015. There is persistent cavitary infiltrate right lung with at least 3 air- filled cavities containing air-fluid levels. Minimal left basilar atelectasis above the left hemidiaphragm. Trace left pleural effusion Assessment & Plan - Diagnosis (1) Pancytopenia Is this a current diagnosis for this admission?: Yes Plan: wbc improve to appropriate leucocytosis hgb stable plt remain low Labs- All tests 24 hr 05/25/17 05/30/17 03:52 05:22 WBC 7.1 D 28.2 H Hgb 9.7 L Plt Count 38 L (2) Acute hypoxemic respiratory failure Is this a current diagnosis for this admission?: Yes Plan: Labs- All tests 24 hr 05/30/17 05:22 ABG pH 7.40 ABG pCO2 26.1 L ABG pO2 81.7 FiO2 50% (3) Acute renal failure Qualifiers: Acute renal failure type: unspecified Qualified Code(s): N17.9 - Acute kidney failure, unspecified Is this a current diagnosis for this admission?: Yes Plan: Labs- All tests 24 hr 05/30/17 11:45 Sodium 150.5 H Potassium 6.1 H* Chloride 125 H Carbon Dioxide 16 L BUN 54 H hyperkalemia hypernatremia(TBW deficit 2.37 liters) azotemia met acidosis I/O ++6.4 L (4) Chronic alcoholism Is this a current diagnosis for this admission?: Yes Plan: MCV 102--- min 24 beers per day ---per RN report DT precautions thiamine;MVI et al (5) Protein calorie malnutrition Is this a current diagnosis for this admission?: Yes Plan: empty alcohol calories (6) Sepsis Qualifiers: Sepsis type: sepsis due to unspecified organism Qualified Code(s): A41.9 - Sepsis, unspecified organism Is this a current diagnosis for this admission?: Yes Plan: reqiring vasopressor agent(s) (7) Tobacco abuse Is this a current diagnosis for this admission?: Yes Plan: transdermal nicotine - Time Total Critical Time (Minutes): 40
[2017-05-31] MEDS ORDERED: EPHEDRINE SULFATE INJ 50 MG/1 ML AMPULE ONE (14:15)
[2017-05-31] MEDS ORDERED: MIDAZOLAM 2 MG/2 ML INJ ONE (14:15)
[2017-05-31] MEDS ORDERED: FENTANYL CITRATE INJ/PF 250 MCG/5 ML AMPULE ONE (14:15)
[2017-05-31] MEDS ORDERED: PROPOFOL INJ 200 MG/20 ML VIAL IV ONE (14:16)
[2017-05-31 15:37] LABS: HEMATOCRIT 27.2 % (36.0-47.0); MEAN CORPUSCULAR HGB CONC 33.1 g/dL (32.0-36.0); MEAN CORPUSCULAR VOLUME 100 fl (80-97); RED BLOOD COUNT 2.73 10^6/uL (3.72-5.28); RED CELL DISTRIBUTION WIDTH 16.1 % (11.5-14.0); WHITE BLOOD COUNT 19.6 10^3/uL (4.0-10.5)
[2017-05-31 15:40] LABS: ARTERIAL BLOOD BASE EXCESS -10.9 mmol/L; ARTERIAL BLOOD FIO2 100%; ARTERIAL BLOOD H2CO3 1.18 mmol/L (1.05-1.35); ARTERIAL BLOOD HCO3 15.9 mmol/L (20-26); ARTERIAL BLOOD O2 SATURATION 99.7 % (94-98); ARTERIAL BLOOD PCO2 39.2 mmHg (35-45); ARTERIAL BLOOD PH 7.23 (7.35-7.45); ARTERIAL BLOOD PO2 352.3 mmHg (80-100); ARTERIAL BLOOD TOTAL CO2 17.1 mmol/L (21-25)
[2017-05-31] MEDS ORDERED: CALCIUM GLUCONATE 1000 MG/10 ML INJ IV ONE (15:49)
[2017-05-31] MEDS ORDERED: SODIUM BICARBONATE 8.4% INJ 50 MEQ/50 ML DISP.SYRIN ONE ×2 (15:49→15:50)
[2017-05-31 15:55] LABS: ABSOLUTE LYMPHOCYTES# (MANUAL) 0.4 10^3/uL (0.5-4.7); ABSOLUTE MONOCYTES # (MANUAL) 0.2 10^3/uL (0.1-1.4); BAND NEUTROPHILS % (MANUAL) 1 % (3-5); BASOPHILS % (MANUAL) 0 % (0-2); EOSINOPHILS % (MANUAL) 0 % (0-6); LYMPHOCYTES % (MANUAL) 2 % (13-45); MONOCYTES % (MANUAL) 1 % (3-13); SEGMENTED NEUTROPHILS % (MAN) 96 % (42-78); TOTAL CELLS COUNTED 100
[2017-05-31 15:57] LABS: ANISOCYTOSIS 1+
[2017-05-31 15:58] LABS: ANION GAP 5 (5-19); BLOOD UREA NITROGEN 51 mg/dL (7-20); BURR CELLS SLIGHT; CALCIUM 7.4 mg/dL (8.4-10.2); CARBON DIOXIDE 16 mmol/L (22-30); CHLORIDE 127 mmol/L (98-107); GLUCOSE 225 mg/dL (75-110); HELMET CELLS SLIGHT; PLATELET COMMENT DECREASED; PLATELET COUNT 71 10^3/uL (150-450); POIKILOCYTOSIS 1+; POTASSIUM 5.6 mmol/L (3.6-5.0); SODIUM 148.2 mmol/L (137-145)
--- NOTE | 2017-05-31 17:44 | OPERATIVE REPORT E ---
Operative Report NAME: ENZO BECKMAN : 1970 AGE: 46Y DATE OF SURGERY: 05/31/2017 ROOM: 608 PREOPERATIVE DIAGNOSIS: PERITONITIS WITH PERFORATED VISCUS. POSTOPERATIVE DIAGNOSIS: PERITONITIS WITH PERFORATED GASTRIC ULCER. OPERATIONS: Exploratory laparotomy, repair of perforated gastric ulcer with omental patch. SURGEON: MARGY MUÑOZ M.D. ANESTHESIA: General. INDICATIONS: This is a 46-year-old female initially admitted for alcohol withdrawal symptoms. Patient noted to be having distention of the abdomen, and a CAT scan of the abdomen this morning revealed perforated bowel with a lot of fluid in the abdomen, with free air. Patient has been intubated and examination has diffuse firmness of the abdominal wall, with obvious diffuse tenderness. PROCEDURE: Patient's 's telephone number was cut off. Several attempts were done to get in touch with the patient's family, but unable to do so. Since patient needed emergency surgery, consent obtained with her hospitalist and myself to do the exploratory laparotomy. Patient was then placed in supine position, and after adequate general anesthesia, the abdomen was then prepped and draped in the usual sterile fashion. Appropriate timeout was called. A midline incision was then made just below the xiphoid to below the umbilicus. The abdominal cavity was entered. A lot of yellowish fluid extruded out. Most of the fluid was then suctioned out and at least 4 to 5 liters of fluid were suctioned. On exploration of the abdomen, there was an obvious perforation of the anterior gastric wall, close to the pylorus. Two sutures of 2-0 silk were placed close to the perforation, since it was relatively small. Next, abdominal cavity was then copiously irrigated with at least 15 liters of saline until return flow was clear. The small bowel was checked from the ligament of Treitz down to the sacrum. There was a lot of formed yellowish exudate on top of the bowel wall, which mostly was removed gently with a sponge and forceps. The small bowel was noted to be relatively soft and not dilated. The rest of the stomach wall appears to be soft, with no other areas of inflammation. After irrigating the abdominal cavity, the omentum was then used to patch the repaired gastric ulcer site. About 3 sutures of 2-0 silk were used to place the omentum around the perforation. Having done this, the fascia was subsequently closed with running suture using #1 PDS single arm, starting from both ends and tying them just below the umbilicus. The subcutaneous was then irrigated and the skin closed with merry. Sterile dressing was placed over the operative site. Needle, instrument and sponge counts were all correct. The NG tube was placed in the stomach, just above the area of the perforation. Patient tolerated procedure well. Estimated blood loss was about 50 mL. Patient was brought to the intensive care unit in guarded condition. DICTATING PHYSICIAN: MARGY MUÑOZ M.D. [id number] PHY#: [id number] ID: [id number] JOB#: [id number] ACCT: [id number] cc:MARGY MUÑOZ M.D. >
[2017-05-31] MEDS ORDERED: PIPERACILLIN SODIUM/TAZOBACTAM 3.375 GM in NORMAL SALINE 100 ML IV ONE (19:30)
[2017-05-31] MEDS: LACTULOSE SYRUP 20 GM/30 ML UDCUP NG SCH (21:26)
[2017-05-31 21:32] LABS: ARTERIAL BLOOD BASE EXCESS -3.8 mmol/L; ARTERIAL BLOOD FIO2 50%; ARTERIAL BLOOD H2CO3 0.79 mmol/L (1.05-1.35); ARTERIAL BLOOD HCO3 18.6 mmol/L (20-26); ARTERIAL BLOOD O2 SATURATION 94.8 % (94-98); ARTERIAL BLOOD PCO2 26.3 mmHg (35-45); ARTERIAL BLOOD PH 7.47 (7.35-7.45); ARTERIAL BLOOD PO2 67.4 mmHg (80-100); ARTERIAL BLOOD TOTAL CO2 19.4 mmol/L (21-25)
[2017-06-01] MEDS: PIPERACILLIN SODIUM/TAZOBACTAM 3.375 GM in NORMAL SALINE 100 ML IV SCH ×4 (00:22→18:45)
[2017-06-01] MEDS: METOCLOPRAMIDE HCL INJ/PF 10 MG/2 ML SDV IV SCH ×2 (00:22→05:30)
[2017-06-01] MEDS: HYDROMORPHONE HCL INJ/PF 2 MG/ML AMPULE IV PRN ×4 (02:23→21:55)
[2017-06-01] MEDS: IPRATROPIUM/ALBUTEROL 0.5-2.5 MG/3 ML AMPUL NEB SCH ×4 (02:46→20:09)
[2017-06-01] MEDS: DEXTROSE 5%-1/2 NORMAL SALINE 1,000 ML IV PRN (05:23)
[2017-06-01] MEDS: PROPOFOL 100 ML IV PRN ×2 (05:25→16:16)
[2017-06-01 05:39] LABS: HEMATOCRIT 26.9 % (36.0-47.0); HEMOGLOBIN 9.3 g/dL (12.0-15.5); MEAN CORPUSCULAR HEMOGLOBIN 32.2 pg (27.0-33.4); MEAN CORPUSCULAR HGB CONC 34.4 g/dL (32.0-36.0); RED BLOOD COUNT 2.87 10^6/uL (3.72-5.28); RED CELL DISTRIBUTION WIDTH 17.4 % (11.5-14.0); WHITE BLOOD COUNT 14.8 10^3/uL (4.0-10.5)
[2017-06-01 05:48] LABS: ARTERIAL BLOOD BASE EXCESS -2.6 mmol/L; ARTERIAL BLOOD H2CO3 0.78 mmol/L (1.05-1.35); ARTERIAL BLOOD HCO3 19.8 mmol/L (20-26); ARTERIAL BLOOD O2 SATURATION 97.4 % (94-98); ARTERIAL BLOOD PCO2 25.9 mmHg (35-45); ARTERIAL BLOOD PO2 86.5 mmHg (80-100); ARTERIAL BLOOD TOTAL CO2 20.6 mmol/L (21-25)
[2017-06-01 05:52] LABS: ARTERIAL BLOOD FIO2 50%
[2017-06-01 05:58] LABS: ALANINE AMINOTRANSFERASE 48 U/L (9-52); ALBUMIN 1.8 g/dL (3.5-5.0); ALKALINE PHOSPHATASE 74 U/L (38-126); ANION GAP 10 (5-19); ASPARTATE AMINO TRANSFERASE 42 U/L (14-36); BILIRUBIN,DIRECT 1.4 mg/dL (0.0-0.4); BILIRUBIN,TOTAL 1.8 mg/dL (0.2-1.3); BLOOD UREA NITROGEN 38 mg/dL (7-20); CALCIUM 7.8 mg/dL (8.4-10.2); CARBON DIOXIDE 18 mmol/L (22-30); CHLORIDE 126 mmol/L (98-107); GLUCOSE 225 mg/dL (75-110); SODIUM 154.2 mmol/L (137-145); TOTAL PROTEIN 3.8 g/dL (6.3-8.2)
[2017-06-01] MEDS: MEROPENEM 1 GM in NORMAL SALINE 100 ML IV SCH (06:02)
[2017-06-01] MEDS: MIDAZOLAM HCL 50 MG/100 ML RTUINJ IV PRN ×2 (06:02→20:24)
[2017-06-01 06:03] LABS: POTASSIUM 4.5 mmol/L (3.6-5.0)
[2017-06-01 06:16] LABS: MEAN CORPUSCULAR VOLUME 94 fl (80-97); PLATELET COUNT 79 10^3/uL (150-450)
[2017-06-01 06:18] LABS: ABSOLUTE LYMPHOCYTES# (MANUAL) 0.4 10^3/uL (0.5-4.7); ABSOLUTE NEUTROPHILS# (MANUAL) 14.4 10^3/uL (1.7-8.2); BAND NEUTROPHILS % (MANUAL) 3 % (3-5); BASOPHILS % (MANUAL) 0 % (0-2); EOSINOPHILS % (MANUAL) 0 % (0-6); LYMPHOCYTES % (MANUAL) 3 % (13-45); MONOCYTES % (MANUAL) 0 % (3-13); SEGMENTED NEUTROPHILS % (MAN) 94 % (42-78); TOTAL CELLS COUNTED 100
[2017-06-01 06:22] LABS: ANISOCYTOSIS 1+; BURR CELLS 1+; HELMET CELLS SLIGHT; OVALOCYTES SLIGHT; POIKILOCYTOSIS 1+; SCHISTOCYTES 1+; TOXIC GRANULATION 1+
[2017-06-01 06:23] LABS: PLATELET COMMENT DECREASED; PLATELET LARGE PRESENT; TEAR DROP CELLS 1+
--- NOTE | 2017-06-01 07:50 | RADIOLOGY REPORT (SQ) ---
EXAM DESCRIPTION: CHEST SINGLE VIEW CLINICAL HISTORY: 46 years Female, resp fail COMPARISON: 05/31/17. NUMBER OF VIEWS/TECHNIQUE: 1/AP LIMITATIONS: None. FINDINGS: Small patchiness of the right lower lobe, small bibasilar opacity-effusion, normal cardiac silhouette, and tip of an endotracheal tube is 1.7 cm from the josh; recommend 1.5 cm retraction of the endotracheal tube. Adequate appearing right jugular central line and likely adequate enteric tube obscured distally. Lower cervical hardware. No pneumothorax. No acute bone defect. IMPRESSION: Tip of an endotracheal tube is 1.7 cm from the josh; recommend 1.5 cm retraction. Else, stable.
[2017-06-01] MEDS: BUDESONIDE NEB 0.5 MG/2 ML AMPUL NEB SCH ×2 (08:36→20:08)
[2017-06-01] MEDS: PANTOPRAZOLE SODIUM 40 MG VIAL IV SCH ×2 (09:17→21:52)
[2017-06-01] MEDS: LACTULOSE SYRUP 20 GM/30 ML UDCUP NG SCH ×2 (09:17→21:43)
[2017-06-01] MEDS: METHYLPREDNISOLONE INJ 40 MG/1 ML SDV IV SCH (09:17)
[2017-06-01] MEDS: NICOTINE 21 MG/24 HR PATCH.TD24 TD SCH (09:18)
--- NOTE | 2017-06-01 10:02 | PDOC PROGRESS REPORT ---
Subjective Progress Note for:: 06/01/17 Subjective:: Patient was seen in the intensive care unit currently intubated sedated from a Versed infusion. It appears that she probably is having alcohol withdrawal syndrome in addition to possible aspiration pneumonia. Patient was also found to be septic. Patient was admitted with shortness of breath and difficulty breathing. She was found to have a right lower lobe pneumonia. POD 1- Exp Laparotomy Reason For Visit: RESPIRATORY FAILURE,PNEUMONIA,SEPSIS Physical Exam Vital Signs: Temp Pulse Resp BP Pulse Ox 98.1 F 99 25 H 113/71 100 06/01/17 06:00 06/01/17 08:41 06/01/17 08:41 06/01/17 05:53 06/01/17 08:41 Intake & Output 05/31/17 06/01/17 06/02/17 06:59 06:59 06:59 Intake Total 2619 3482 Output Total 1793 2165 200 Balance 826 1317 -200 Weight 61.8 kg 62.2 kg General appearance: PRESENT: no acute distress, other - intubated Head exam: PRESENT: atraumatic Ear exam: PRESENT: normal external ear exam Respiratory exam: PRESENT: decreased breath sounds, unlabored, other - intubated Cardiovascular exam: PRESENT: tachycardia GI/Abdominal exam: PRESENT: distended, firm, hypoactive bowel sounds, other - dressing around incision site Extremities exam: PRESENT: +2 edema Psychiatric exam: PRESENT: other - sedated Results Laboratory Results: 06/01/17 05:10 06/01/17 05:10 05/31/17 05/31/17 05/31/17 08:30 15:15 15:20 WBC 19.6 H RBC 2.73 L Hgb 9.0 L Hct 27.2 L MCV 100 H MCH 33.0 MCHC 33.1 RDW 16.1 H Plt Count 71 L Seg Neutrophils % Not Reportable Lymphocytes % Not Reportable Monocytes % Not Reportable Eosinophils % Not Reportable Basophils % Not Reportable Absolute Neutrophils Not Reportable Absolute Lymphocytes Not Reportable Absolute Monocytes Not Reportable Absolute Eosinophils Not Reportable Absolute Basophils Not Reportable Carbonic Acid 1.18 HCO3/H2CO3 Ratio 13:1 ABG pH 7.23 L ABG pCO2 39.2 ABG pO2 352.3 H ABG HCO3 15.9 L ABG O2 Saturation 99.7 H ABG Base Excess -10.9 FiO2 100% Sodium Potassium Chloride Carbon Dioxide Anion Gap BUN Creatinine Est GFR ( Amer) Est GFR (Non-Af Amer) Glucose Calcium Magnesium Total Bilirubin AST ALT Alkaline Phosphatase Total Protein Albumin Blood Type A POSITIVE Antibody Screen NEGATIVE 05/31/17 05/31/17 06/01/17 15:20 21:15 05:10 WBC RBC Hgb Hct MCV MCH MCHC RDW Plt Count Seg Neutrophils % Lymphocytes % Monocytes % Eosinophils % Basophils % Absolute Neutrophils Absolute Lymphocytes Absolute Monocytes Absolute Eosinophils Absolute Basophils Carbonic Acid 0.79 L 0.78 L HCO3/H2CO3 Ratio 23:1 25:1 ABG pH 7.47 H 7.50 H ABG pCO2 26.3 L 25.9 L ABG pO2 67.4 L 86.5 ABG HCO3 18.6 L 19.8 L ABG O2 Saturation 94.8 97.4 ABG Base Excess -3.8 -2.6 FiO2 50% 50% Sodium 148.2 H Potassium 5.6 H Chloride 127 H Carbon Dioxide 16 L Anion Gap 5 BUN 51 H Creatinine 0.54 Est GFR ( Amer) > 60 Est GFR (Non-Af Amer) > 60 Glucose 225 H Calcium 7.4 L Magnesium Total Bilirubin AST ALT Alkaline Phosphatase Total Protein Albumin Blood Type Antibody Screen 06/01/17 06/01/17 05:10 05:10 WBC 14.8 H RBC 2.87 L Hgb 9.3 L Hct 26.9 L MCV 94 D MCH 32.2 MCHC 34.4 RDW 17.4 H Plt Count 79 L Seg Neutrophils % Not Reportable Lymphocytes % Not Reportable Monocytes % Not Reportable Eosinophils % Not Reportable Basophils % Not Reportable Absolute Neutrophils Not Reportable Absolute Lymphocytes Not Reportable Absolute Monocytes Not Reportable Absolute Eosinophils Not Reportable Absolute Basophils Not Reportable Carbonic Acid HCO3/H2CO3 Ratio ABG pH ABG pCO2 ABG pO2 ABG HCO3 ABG O2 Saturation ABG Base Excess FiO2 Sodium 154.2 H Potassium 4.5 D Chloride 126 H Carbon Dioxide 18 L Anion Gap 10 BUN 38 H Creatinine 0.47 L Est GFR ( Amer) > 60 Est GFR (Non-Af Amer) > 60 Glucose 225 H Calcium 7.8 L Magnesium 2.1 Total Bilirubin 1.8 H AST 42 H ALT 48 Alkaline Phosphatase 74 Total Protein 3.8 L Albumin 1.8 L Blood Type Antibody Screen Impressions: KUB X-Ray 05/30/17 00:00 IMPRESSION: NO RADIOGRAPHIC EVIDENCE FOR ACUTE ABDOMINAL DISEASE. SATISFACTORY PLACEMENT NASOGASTRIC TUBE AND ALONZO CATHETER. Abdomen/Pelvis CT 05/31/17 00:00 IMPRESSION: Large amount of free intraperitoneal air and fluid. There is oral contrast in the pelvis suggesting bowel perforation. Findings discussed with the patient's attending physician as a critical result Chest X-Ray 06/01/17 06:00 IMPRESSION: Tip of an endotracheal tube is 1.7 cm from the josh; recommend 1.5 cm retraction. Else, stable. Assessment & Plan - Plan Summary Plan Summary: #1. Perforated gastric ulcer-Patient is 1 day postop status post exploratory laparotomy perforated gastric ulcer. As she also had an omental patch to repair the gastric ulcer site. Patient had appears to be resting comfortably on the mechanical ventilation. Her abdomen appears to be less distended today with paucity of bowel sounds. #2 acute on chronic hypoxic and hypercapnic respiratory failure currently on mechanical ventilation. Patient is on SIMV 25 as well as 50% FiO2 and PEEP of 10. #3 acute kidney injury likely secondary to ATN. #4 septic shock resolving. She is currently off vasopressors 5. Alcohol abuse with withdrawal syndrome however patient is currently sedated and intubated will continue supportive care with versed. Some of her tachycardia likely secondary to withdrawal as well as sepsis 6. Hypernatremia likely iatrogenic-change to d51/4 7. Hyperkalemia- iatrogenic, off IV K, 8. Anemia with no evidence of acute blood loss likely component of acute illness and bone marrow suppression and underlying nutritional deficiencies. s/ p 2units PRBC 9. Cytopenia secondary to acute infection as well as chronic alcoholism 10. Protein calorie malnutrition continue supplementations 11. Metabolic acidosis likely multifactorial including sepsis renal failure o will continue same sodium bicarb 12. Sinus tachycardia- multifactorial 13. Tobacco abuse disorder patient will need counseling once stable 14. Patient's prognosis is guarded 15. streptococcus pneumonia continue on meropenem.
[2017-06-01] MEDS: DEXTROSE 5%-1/4 NORMAL SALINE 1,000 ML IV PRN (16:17)
[2017-06-01] MEDS ORDERED: PIPERACILLIN SODIUM/TAZOBACTAM 3.375 GM in NORMAL SALINE 100 ML IV SCH (18:00)
[2017-06-02] MEDS: PIPERACILLIN SODIUM/TAZOBACTAM 3.375 GM in NORMAL SALINE 100 ML IV SCH ×4 (01:24→17:20)
[2017-06-02] MEDS: PROPOFOL 100 ML IV PRN ×2 (01:26→10:14)
[2017-06-02] MEDS: DEXTROSE 5%-1/4 NORMAL SALINE 1,000 ML IV PRN ×2 (01:28→10:12)
[2017-06-02] MEDS: IPRATROPIUM/ALBUTEROL 0.5-2.5 MG/3 ML AMPUL NEB SCH ×4 (02:45→20:10)
[2017-06-02] MEDS: HYDROMORPHONE HCL INJ/PF 2 MG/ML AMPULE IV PRN ×3 (03:37→13:38)
[2017-06-02 04:22] LABS: ARTERIAL BLOOD BASE EXCESS -6.1 mmol/L; ARTERIAL BLOOD FIO2 50%; ARTERIAL BLOOD H2CO3 0.88 mmol/L (1.05-1.35); ARTERIAL BLOOD HCO3 17.6 mmol/L (20-26); ARTERIAL BLOOD O2 SATURATION 96.1 % (94-98); ARTERIAL BLOOD PCO2 29.4 mmHg (35-45); ARTERIAL BLOOD PO2 80.9 mmHg (80-100); ARTERIAL BLOOD TOTAL CO2 18.5 mmol/L (21-25)
[2017-06-02 04:23] LABS: HEMATOCRIT 28.7 % (36.0-47.0); HEMOGLOBIN 9.5 g/dL (12.0-15.5); MEAN CORPUSCULAR HGB CONC 33.2 g/dL (32.0-36.0); MEAN CORPUSCULAR VOLUME 97 fl (80-97); PLATELET COUNT 105 10^3/uL (150-450); RED BLOOD COUNT 2.98 10^6/uL (3.72-5.28); RED CELL DISTRIBUTION WIDTH 17.5 % (11.5-14.0); WHITE BLOOD COUNT 16.6 10^3/uL (4.0-10.5)
[2017-06-02 04:38] LABS: BLOOD UREA NITROGEN 23 mg/dL (7-20); CALCIUM 7.6 mg/dL (8.4-10.2); CHLORIDE 125 mmol/L (98-107); GLUCOSE 168 mg/dL (75-110); POTASSIUM 3.8 mmol/L (3.6-5.0)
[2017-06-02 04:44] LABS: ABSOLUTE LYMPHOCYTES# (MANUAL) 0.3 10^3/uL (0.5-4.7); ABSOLUTE NEUTROPHILS# (MANUAL) 16.1 10^3/uL (1.7-8.2); BAND NEUTROPHILS % (MANUAL) 2 % (3-5); BASOPHILS % (MANUAL) 0 % (0-2); EOSINOPHILS % (MANUAL) 1 % (0-6); LYMPHOCYTES % (MANUAL) 2 % (13-45); MONOCYTES % (MANUAL) 0 % (3-13); NUCLEATED RED BLOOD CELLS 1 /100 WBC (0); SEGMENTED NEUTROPHILS % (MAN) 95 % (42-78); TOTAL CELLS COUNTED 100
[2017-06-02 04:46] LABS: ANISOCYTOSIS 1+; OVALOCYTES 1+; PLATELET CLUMPS PRESENT; PLATELET COMMENT ADEQUATE; PLATELET GIANT PRESENT; PLATELET LARGE PRESENT; POIKILOCYTOSIS SLIGHT; POLYCHROMASIA SLIGHT; TOXIC GRANULATION 1+
[2017-06-02 04:50] LABS: CARBON DIOXIDE 20 mmol/L (22-30); SODIUM 149.3 mmol/L (137-145)
[2017-06-02 04:51] LABS: ANION GAP 4 (5-19)
[2017-06-02] MEDS ORDERED: ACETAMINOPHEN 650 MG SUPP.RECT PR ONE (05:56)
[2017-06-02] MEDS ORDERED: NORMAL SALINE 1000 ML 2,000 ML IV ONE (06:00)
[2017-06-02] MEDS ORDERED: ACETAMINOPHEN 650 MG SUPP.RECT PR PRN (06:27)
--- NOTE | 2017-06-02 07:13 | RADIOLOGY REPORT (SQ) ---
EXAM DESCRIPTION: CHEST SINGLE VIEW COMPLETED DATE/TIME: 06/02/2017 6:10 am REASON FOR STUDY: resp fail COMPARISON: Chest films 05/24/2017, 05/30/2017, 05/31/2017, 06/01/2017 EXAM PARAMETERS: NUMBER OF VIEWS: One view. TECHNIQUE: Single frontal radiographic view of the chest acquired. RADIATION DOSE: NA LIMITATIONS: None. FINDINGS: LUNGS AND PLEURA: Cavitation of the right middle lobe with air-fluid levels in the cavitie s. This is similar compared to 05/30/2017, cavities are new compared to chest film 05/24/2017. There is consolidation in the right and left lower lobe retrocardiac regions atelectasis versus pneum onia. Trace left pleural effusion. No gross pneumothorax. MEDIASTINUM AND HILAR STRUCTURES: No masses. Contour normal. HEART AND VASCULAR STRUCTURES: Heart normal in size. Normal vasculature. BONES: Old lower cervical fusion hardware HARDWARE: Endotracheal tube tip 1 cm above the josh. Right jugular central line tip in the right a trium OTHER: No other significant finding. IMPRESSION: No change from yesterday. Cavitation throughout the right middle lobe Persistent dense consolidation in the right and left posterior lung bases. Endotracheal tube tip 1 cm above the josh TECHNICAL DOCUMENTATION: JOB ID: [id number] [employer]- All Rights Reserved Reading location - IP/workstation name: [email or web address]
[2017-06-02] MEDS: BUDESONIDE NEB 0.5 MG/2 ML AMPUL NEB SCH ×2 (07:51→20:10)
[2017-06-02] MEDS ORDERED: PHENYLEPHRINE HCL INJ/PF 10 MG/1 ML SDV ONE (08:38)
--- NOTE | 2017-06-02 09:16 | PDOC PROGRESS REPORT ---
Subjective Progress Note for:: 06/02/17 Subjective:: intubated/sedated Reason For Visit: RESPIRATORY FAILURE,PNEUMONIA,SEPSIS Physical Exam Vital Signs: Temp Pulse Resp BP Pulse Ox 101.7 F H 130 H 28 H 106/78 99 06/02/17 06:08 06/02/17 06:00 06/02/17 06:08 06/02/17 06:08 06/02/17 06:00 Intake & Output 06/01/17 06/02/17 06/03/17 06:59 06:59 06:59 Intake Total 3482 3304 Output Total 2165 1615 70 Balance 1317 1689 -70 Weight 62.2 kg 62.5 kg General appearance: PRESENT: no acute distress, disheveled, thin. ABSENT: cooperative Head exam: PRESENT: atraumatic, normocephalic Eye exam: PRESENT: conjunctiva pale. ABSENT: nystagmus, periorbital swelling, scleral icterus Mouth exam: PRESENT: dry mucosa, neck supple, tongue midline - ET tube Neck exam: PRESENT: tracheostomy. ABSENT: carotid bruit, JVD, lymphadenopathy, thyromegaly, tracheal deviation Respiratory exam: PRESENT: decreased breath sounds, prolonged expiratory phas, rhonchi, symmetrical, unlabored. ABSENT: rales, retraction, stridor, tachypnea Cardiovascular exam: PRESENT: RRR, +S1, +S2 Pulses: PRESENT: normal radial pulses GI/Abdominal exam: PRESENT: diminished bowel sounds, soft Extremities exam: ABSENT: clubbing Musculoskeletal exam: ABSENT: deformity, dislocation Neurological exam: ABSENT: alert, awake, oriented to person Skin exam: PRESENT: dry Results Laboratory Results: 06/02/17 04:10 06/02/17 04:10 05/31/17 06/02/17 06/02/17 08:30 04:10 04:10 WBC RBC Hgb Hct MCV MCH MCHC RDW Plt Count Seg Neutrophils % Lymphocytes % Monocytes % Eosinophils % Basophils % Absolute Neutrophils Absolute Lymphocytes Absolute Monocytes Absolute Eosinophils Absolute Basophils Carbonic Acid 0.88 L HCO3/H2CO3 Ratio 20:1 ABG pH 7.40 ABG pCO2 29.4 L ABG pO2 80.9 ABG HCO3 17.6 L ABG O2 Saturation 96.1 ABG Base Excess -6.1 FiO2 50% Sodium 149.3 H Potassium 3.8 Chloride 125 H Carbon Dioxide 20 L Anion Gap 4 L BUN 23 H Creatinine 0.37 L Est GFR ( Amer) > 60 Est GFR (Non-Af Amer) > 60 Glucose 168 H Calcium 7.6 L Magnesium 1.7 Blood Type A POSITIVE Antibody Screen NEGATIVE 06/02/17 04:10 WBC 16.6 H RBC 2.98 L Hgb 9.5 L Hct 28.7 L MCV 97 MCH 32.0 MCHC 33.2 RDW 17.5 H Plt Count 105 L Seg Neutrophils % Not Reportable Lymphocytes % Not Reportable Monocytes % Not Reportable Eosinophils % Not Reportable Basophils % Not Reportable Absolute Neutrophils Not Reportable Absolute Lymphocytes Not Reportable Absolute Monocytes Not Reportable Absolute Eosinophils Not Reportable Absolute Basophils Not Reportable Carbonic Acid HCO3/H2CO3 Ratio ABG pH ABG pCO2 ABG pO2 ABG HCO3 ABG O2 Saturation ABG Base Excess FiO2 Sodium Potassium Chloride Carbon Dioxide Anion Gap BUN Creatinine Est GFR ( Amer) Est GFR (Non-Af Amer) Glucose Calcium Magnesium Blood Type Antibody Screen Impressions: KUB X-Ray 05/30/17 00:00 IMPRESSION: NO RADIOGRAPHIC EVIDENCE FOR ACUTE ABDOMINAL DISEASE. SATISFACTORY PLACEMENT NASOGASTRIC TUBE AND ALONZO CATHETER. Abdomen/Pelvis CT 05/31/17 00:00 IMPRESSION: Large amount of free intraperitoneal air and fluid. There is oral contrast in the pelvis suggesting bowel perforation. Findings discussed with the patient's attending physician as a critical result Chest X-Ray 06/02/17 06:00 IMPRESSION: No change from yesterday. Cavitation throughout the right middle lobe Persistent dense consolidation in the right and left posterior lung bases. Endotracheal tube tip 1 cm above the josh Assessment & Plan - Diagnosis (1) Pancytopenia Is this a current diagnosis for this admission?: Yes Plan: wbc improve to appropriate leucocytosis hgb stable plt remain low Labs- All tests 24 hr 05/25/17 05/30/17 03:52 05:22 WBC 7.1 D 28.2 H Hgb 9.7 L Plt Count 38 L (2) Acute hypoxemic respiratory failure Is this a current diagnosis for this admission?: Yes Plan: declining cxr (3) Acute renal failure Qualifiers: Acute renal failure type: unspecified Qualified Code(s): N17.9 - Acute kidney failure, unspecified Is this a current diagnosis for this admission?: Yes Plan: I/O last 96h +6.7L wt+3.7 kg (4) Chronic alcoholism Is this a current diagnosis for this admission?: Yes Plan: MCV 102--- min 24 beers per day ---per RN report DT precautions thiamine;MVI et al (5) Protein calorie malnutrition Is this a current diagnosis for this admission?: Yes Plan: empty alcohol calories (6) Sepsis Qualifiers: Sepsis type: sepsis due to unspecified organism Qualified Code(s): A41.9 - Sepsis, unspecified organism Is this a current diagnosis for this admission?: Yes Plan: reqiring vasopressor agent(s) (7) Tobacco abuse Is this a current diagnosis for this admission?: Yes Plan: transdermal nicotine - Time Total Critical Time (Minutes): 50
[2017-06-02] MEDS ORDERED: VASOPRESSIN INJ 20 UNIT/1 ML VIAL ONE (09:27)
[2017-06-02] MEDS ORDERED: DEXTROSE 5%-WATER 250 ML with VASOPRESSIN 100 UNIT IV PRN ×2 (09:34)
--- NOTE | 2017-06-02 09:41 | RADIOLOGY REPORT (SQ) ---
EXAM DESCRIPTION: CHEST SINGLE VIEW COMPLETED DATE/TIME: 06/02/2017 9:22 am REASON FOR STUDY: Aspiration Pneumonia COMPARISON: 06/02/2017, 557 hours EXAM PARAMETERS: NUMBER OF VIEWS: One view. TECHNIQUE: Single frontal radiographic view of the chest acquired. RADIATION DOSE: NA LIMITATIONS: None. FINDINGS: LUNGS AND PLEURA: Lung parenchyma is unchanged. No pleural effusion or pneumothorax MEDIASTINUM AND HILAR STRUCTURES: No masses. Contour normal. HEART AND VASCULAR STRUCTURES: Heart normal in size. Normal vasculature. BONES: No acute findings. HARDWARE: The endotracheal tube has been pulled back, tip is now 2 cm above the josh. Right jugula r central line tip in the SVC/right atrium. Nasogastric tube tip and side port in the stomach. OTHER: No other significant finding. IMPRESSION: Adjustment of the endotracheal tube, tube tip is now 2 cm above the josh TECHNICAL DOCUMENTATION: JOB ID: [id number] [employer]- All Rights Reserved Reading location - IP/workstation name: [email or web address]
--- NOTE | 2017-06-02 09:42 | RADIOLOGY REPORT (SQ) ---
EXAM DESCRIPTION: KUB/ABDOMEN (SINGLE VIEW) COMPLETED DATE/TIME: 06/02/2017 9:22 am REASON FOR STUDY: Vomiting COMPARISON: KUB 05/30/2017 CT abdomen pelvis 05/31/2017 NUMBER OF VIEWS: One view. TECHNIQUE: Supine radiographic image of the abdomen acquired. LIMITATIONS: None. FINDINGS: Midline anterior abdominal wall merry are present post perforated gastric ulcer repair. There is a nasogastric tube with the tip and side port in the stomach. Ohara catheter in the bladder Relatively gasless abdomen with fluid-filled bowel loops present. Old right lower lateral and posterior rib fractures IMPRESSION: Nasogastric tube tip and side port in the stomach Gasless abdomen. Fluid-filled bowel loops are present. TECHNICAL DOCUMENTATION: JOB ID: [id number] [employer]- All Rights Reserved Reading location - IP/workstation name: [email or web address]
[2017-06-02] MEDS: DEXTROSE 5%-WATER 250 ML with PHENYLEPHRINE HCL 40 MG IV PRN ×4 (10:09→22:17)
[2017-06-02] MEDS: LACTULOSE SYRUP 20 GM/30 ML UDCUP NG SCH ×2 (10:15→22:00)
[2017-06-02] MEDS: PANTOPRAZOLE SODIUM 40 MG VIAL IV SCH (10:52)
[2017-06-02] MEDS: NICOTINE 21 MG/24 HR PATCH.TD24 TD SCH (10:52)
[2017-06-02] MEDS ORDERED: METHYLPREDNISOLONE INJ 40 MG/1 ML SDV IV SCH (11:00)
[2017-06-02] MEDS: ACETAMINOPHEN 650 MG SUPP.RECT PR PRN (11:08)
[2017-06-02] MEDS ORDERED: ACETYLCYSTEINE 20% SOLN 800 MG/4 ML VIAL.NEB NEB ONE (11:15)
[2017-06-02] MEDS: LEVALBUTEROL HCL NEB 1.25 MG/3 ML AMPUL NEB PRN (12:00)
[2017-06-02] MEDS ORDERED: PHARMACY COMMUNICATION ORDER MC NR (12:30)
[2017-06-02] MEDS: ACETYLCYSTEINE 20% SOLN 800 MG/4 ML VIAL.NEB NEB SCH (12:38)
--- NOTE | 2017-06-02 12:49 | PDOC PROGRESS REPORT ---
Subjective Progress Note for:: 06/02/17 Subjective:: Patient was seen in the intensive care unit today and unfortunately she appears to have taken a turn for the worse overnight. She has been tachycardic and hypotensive. She actually had bilious vomiting despite the NG tube while I was in the room today. Blood pressure was as low as 85 systolic. Incision site appears to be clean and blood pressure did improve with propofol and versed dosage reduction There has still been no visitors including her to see her and there is no contact information available POD 2- Exp Laparotomy Reason For Visit: RESPIRATORY FAILURE,PNEUMONIA,SEPSIS Physical Exam Vital Signs: Temp Pulse Resp BP Pulse Ox 101.3 F H 137 H 21 H 86/70 L 93 06/02/17 10:12 06/02/17 08:00 06/02/17 10:12 06/02/17 10:12 06/02/17 10:12 Intake & Output 06/01/17 06/02/17 06/03/17 06:59 06:59 06:59 Intake Total 3482 3304 Output Total 2165 1615 80 Balance 1317 1689 -80 Weight 62.2 kg 62.5 kg General appearance: PRESENT: no acute distress, other - Intubated and sedated NG tube and ET tube in place Head exam: PRESENT: atraumatic, normocephalic Eye exam: PRESENT: EOMI, PERRLA. ABSENT: scleral icterus Ear exam: PRESENT: normal external ear exam Mouth exam: PRESENT: dry mucosa Neck exam: ABSENT: carotid bruit, JVD, lymphadenopathy, thyromegaly Respiratory exam: PRESENT: decreased breath sounds, rales, rhonchi. ABSENT: wheezes Cardiovascular exam: PRESENT: diastolic murmur, rubs, +S1, +S2, tachycardia. ABSENT: systolic murmur Pulses: PRESENT: normal dorsalis pedis pul Vascular exam: PRESENT: normal capillary refill GI/Abdominal exam: PRESENT: guarding, hypoactive bowel sounds, mass, organolmegaly, rebound, soft. ABSENT: distended, tenderness Rectal exam: PRESENT: deferred Extremities exam: PRESENT: full ROM, +2 edema - Upper and lower extremities. ABSENT: calf tenderness, clubbing, pedal edema Neurological exam: PRESENT: other - Sedated and unable to evaluate Psychiatric exam: ABSENT: homicidal ideation, suicidal ideation Skin exam: PRESENT: dry, intact, warm. ABSENT: cyanosis, rash Results Laboratory Results: 06/02/17 04:10 06/02/17 04:10 05/31/17 06/02/17 06/02/17 08:30 04:10 04:10 WBC RBC Hgb Hct MCV MCH MCHC RDW Plt Count Seg Neutrophils % Lymphocytes % Monocytes % Eosinophils % Basophils % Absolute Neutrophils Absolute Lymphocytes Absolute Monocytes Absolute Eosinophils Absolute Basophils Carbonic Acid 0.88 L HCO3/H2CO3 Ratio 20:1 ABG pH 7.40 ABG pCO2 29.4 L ABG pO2 80.9 ABG HCO3 17.6 L ABG O2 Saturation 96.1 ABG Base Excess -6.1 FiO2 50% Sodium 149.3 H Potassium 3.8 Chloride 125 H Carbon Dioxide 20 L Anion Gap 4 L BUN 23 H Creatinine 0.37 L Est GFR ( Amer) > 60 Est GFR (Non-Af Amer) > 60 Glucose 168 H Calcium 7.6 L Magnesium 1.7 Blood Type A POSITIVE Antibody Screen NEGATIVE 06/02/17 04:10 WBC 16.6 H RBC 2.98 L Hgb 9.5 L Hct 28.7 L MCV 97 MCH 32.0 MCHC 33.2 RDW 17.5 H Plt Count 105 L Seg Neutrophils % Not Reportable Lymphocytes % Not Reportable Monocytes % Not Reportable Eosinophils % Not Reportable Basophils % Not Reportable Absolute Neutrophils Not Reportable Absolute Lymphocytes Not Reportable Absolute Monocytes Not Reportable Absolute Eosinophils Not Reportable Absolute Basophils Not Reportable Carbonic Acid HCO3/H2CO3 Ratio ABG pH ABG pCO2 ABG pO2 ABG HCO3 ABG O2 Saturation ABG Base Excess FiO2 Sodium Potassium Chloride Carbon Dioxide Anion Gap BUN Creatinine Est GFR ( Amer) Est GFR (Non-Af Amer) Glucose Calcium Magnesium Blood Type Antibody Screen Impressions: Abdomen/Pelvis CT 05/31/17 00:00 IMPRESSION: Large amount of free intraperitoneal air and fluid. There is oral contrast in the pelvis suggesting bowel perforation. Findings discussed with the patient's attending physician as a critical result KUB X-Ray 06/02/17 09:03 IMPRESSION: Nasogastric tube tip and side port in the stomach Gasless abdomen. Fluid-filled bowel loops are present. Chest X-Ray 06/02/17 09:04 IMPRESSION: Adjustment of the endotracheal tube, tube tip is now 2 cm above the josh Assessment & Plan - Time Time Spent with patient: 25-34 minutes Total Critical Time (Minutes): 15 Medications reviewed and adjusted accordingly: Yes Anticipated discharge: Home Within: Other - Unknown - Inpatient Certification Medical Necessity: Need For IV Fluids, Need for IV Antibiotics, Other - Plan Summary Plan Summary: #1. Perforated gastric ulcer-Patient is 2nd day postop status post exploratory laparotomy perforated gastric ulcer. As she also had an omental patch to repair the gastric ulcer site. #2 acute on chronic hypoxic and hypercapnic respiratory failure currently on mechanical ventilation. He is still unable to tolerate any weaning #3 acute kidney injury likely secondary to ATN. #4 septic shock patient is back on Dajuan-Synephrine today as a blood pressure was low and she is febrile with an increase in white count. Will await surgical evaluation although I suspect she may need a follow-up CT of her abdomen She had been on meropenem but this was discontinued and Zosyn started and I have also added vancomycin to her regimen today for broad-spectrum coverage. All heparin cultures have been negative so far except for the initial one on admission which was positive for strep pneumonia 5. Alcohol abuse with withdrawal syndrome however patient is currently sedated and intubated will continue supportive care with versed. Some of her tachycardia likely secondary to withdrawal as well as sepsis 6. Hypernatremia likely iatrogenic-Cont D51/4. May need isotonic fluid at some point due to her blood pressure 7. Hyperkalemia- iatrogenic, off IV K, 8. Anemia with no evidence of acute blood loss likely component of acute illness and bone marrow suppression and underlying nutritional deficiencies. s/ p 2units PRBC 9. Cytopenia secondary to acute infection as well as chronic alcoholism patient received fresh frozen plasma prior to surgery 10. Protein calorie malnutrition-tube feeding has been on hold appropriately and at some point we may need to start this lady on parenteral nutrition 11. Metabolic acidosis likely multifactorial including sepsis renal failure- will continue sodium bicarb 12. Sinus tachycardia- multifactorial 13. Tobacco abuse disorder patient will need counseling once stable 14. Patient's prognosis is guarded to poor 15. streptococcus pneumonia -follow up on CXR
[2017-06-02] MEDS: VANCOMYCIN HCL 1,000 MG in DEXTROSE 5%-WATER 250 ML IV SCH ×2 (13:34→22:16)
[2017-06-02] MEDS ORDERED: FUROSEMIDE INJ/PF 40 MG/4 ML SDV ONE (17:20)
[2017-06-02] MEDS: MIDAZOLAM HCL 50 MG/100 ML RTUINJ IV PRN (17:40)
--- NOTE | 2017-06-02 19:13 | PDOC PROGRESS REPORT ---
Subjective Progress Note for:: 06/02/17 Subjective:: vomiting despite NGT Reason For Visit: RESPIRATORY FAILURE,PNEUMONIA,SEPSIS Physical Exam Vital Signs: Temp Pulse Resp BP Pulse Ox 99.1 F 111 H 26 H 127/82 H 96 06/02/17 18:13 06/02/17 14:39 06/02/17 18:13 06/02/17 18:13 06/02/17 18:13 Intake & Output 06/01/17 06/02/17 06/03/17 06:59 06:59 06:59 Intake Total 3482 3304 1868 Output Total 2165 1615 100 Balance 1317 1689 1768 Weight 62.2 kg 62.5 kg Exam: Patient was more hemodynamically stable yesterday until she had this vomiting episode with possible aspiration. She is back on pressors. Her abdomen is more distended but soft Her NGT is draining well. I spoke to her nurse and told her to make sure NGT is flushed regularly. Still nobody has visited her and apparently no contact information. 's phone apparently disconnected Abdominal findings at this time does not show any obvious acute changes that will require re=exploration. Will monitor closely. Results Laboratory Results: 06/02/17 04:10 06/02/17 04:10 05/31/17 06/02/17 06/02/17 08:30 04:10 04:10 WBC RBC Hgb Hct MCV MCH MCHC RDW Plt Count Seg Neutrophils % Lymphocytes % Monocytes % Eosinophils % Basophils % Absolute Neutrophils Absolute Lymphocytes Absolute Monocytes Absolute Eosinophils Absolute Basophils Carbonic Acid 0.88 L HCO3/H2CO3 Ratio 20:1 ABG pH 7.40 ABG pCO2 29.4 L ABG pO2 80.9 ABG HCO3 17.6 L ABG O2 Saturation 96.1 ABG Base Excess -6.1 FiO2 50% Sodium 149.3 H Potassium 3.8 Chloride 125 H Carbon Dioxide 20 L Anion Gap 4 L BUN 23 H Creatinine 0.37 L Est GFR ( Amer) > 60 Est GFR (Non-Af Amer) > 60 Glucose 168 H Calcium 7.6 L Magnesium 1.7 Blood Type A POSITIVE Antibody Screen NEGATIVE 06/02/17 04:10 WBC 16.6 H RBC 2.98 L Hgb 9.5 L Hct 28.7 L MCV 97 MCH 32.0 MCHC 33.2 RDW 17.5 H Plt Count 105 L Seg Neutrophils % Not Reportable Lymphocytes % Not Reportable Monocytes % Not Reportable Eosinophils % Not Reportable Basophils % Not Reportable Absolute Neutrophils Not Reportable Absolute Lymphocytes Not Reportable Absolute Monocytes Not Reportable Absolute Eosinophils Not Reportable Absolute Basophils Not Reportable Carbonic Acid HCO3/H2CO3 Ratio ABG pH ABG pCO2 ABG pO2 ABG HCO3 ABG O2 Saturation ABG Base Excess FiO2 Sodium Potassium Chloride Carbon Dioxide Anion Gap BUN Creatinine Est GFR ( Amer) Est GFR (Non-Af Amer) Glucose Calcium Magnesium Blood Type Antibody Screen Impressions: Abdomen/Pelvis CT 05/31/17 00:00 IMPRESSION: Large amount of free intraperitoneal air and fluid. There is oral contrast in the pelvis suggesting bowel perforation. Findings discussed with the patient's attending physician as a critical result KUB X-Ray 06/02/17 09:03 IMPRESSION: Nasogastric tube tip and side port in the stomach Gasless abdomen. Fluid-filled bowel loops are present. Chest X-Ray 06/02/17 09:04 IMPRESSION: Adjustment of the endotracheal tube, tube tip is now 2 cm above the josh
[2017-06-03] MEDS: PIPERACILLIN SODIUM/TAZOBACTAM 3.375 GM in NORMAL SALINE 100 ML IV SCH ×4 (00:05→18:51)
[2017-06-03] MEDS: DEXTROSE 5%-1/4 NORMAL SALINE 1,000 ML IV PRN (00:07)
[2017-06-03] MEDS: IPRATROPIUM/ALBUTEROL 0.5-2.5 MG/3 ML AMPUL NEB SCH ×4 (01:41→19:50)
[2017-06-03 05:11] LABS: ARTERIAL BLOOD BASE EXCESS -5.2 mmol/L; ARTERIAL BLOOD H2CO3 0.77 mmol/L (1.05-1.35); ARTERIAL BLOOD HCO3 17.8 mmol/L (20-26); ARTERIAL BLOOD PCO2 25.6 mmHg (35-45); ARTERIAL BLOOD PH 7.46 (7.35-7.45); ARTERIAL BLOOD PO2 141.6 mmHg (80-100); ARTERIAL BLOOD TOTAL CO2 18.5 mmol/L (21-25)
[2017-06-03 05:13] LABS: ARTERIAL BLOOD FIO2 40%
[2017-06-03 05:14] LABS: MEAN CORPUSCULAR HEMOGLOBIN 32.3 pg (27.0-33.4); MEAN CORPUSCULAR HGB CONC 33.5 g/dL (32.0-36.0); MEAN CORPUSCULAR VOLUME 96 fl (80-97); PLATELET COUNT 107 10^3/uL (150-450); RED CELL DISTRIBUTION WIDTH 17.3 % (11.5-14.0); WHITE BLOOD COUNT 22.8 10^3/uL (4.0-10.5)
[2017-06-03 05:33] LABS: ANION GAP 10 (5-19); BLOOD UREA NITROGEN 22 mg/dL (7-20); CALCIUM 7.7 mg/dL (8.4-10.2); CARBON DIOXIDE 18 mmol/L (22-30); CHLORIDE 117 mmol/L (98-107); GLUCOSE 119 mg/dL (75-110); POTASSIUM 3.4 mmol/L (3.6-5.0); SODIUM 145.3 mmol/L (137-145)
[2017-06-03] MEDS: VANCOMYCIN HCL 1,000 MG in DEXTROSE 5%-WATER 250 ML IV SCH ×3 (05:48→22:32)
[2017-06-03 06:11] LABS: ABSOLUTE LYMPHOCYTES# (MANUAL) 0.2 10^3/uL (0.5-4.7); ABSOLUTE NEUTROPHILS# (MANUAL) 22.3 10^3/uL (1.7-8.2); BAND NEUTROPHILS % (MANUAL) 3 % (3-5); BASOPHILS % (MANUAL) 0 % (0-2); EOSINOPHILS % (MANUAL) 1 % (0-6); LYMPHOCYTES % (MANUAL) 1 % (13-45); MONOCYTES % (MANUAL) 0 % (3-13); SEGMENTED NEUTROPHILS % (MAN) 95 % (42-78); TOTAL CELLS COUNTED 100
[2017-06-03] MEDS: ACETAMINOPHEN 650 MG SUPP.RECT PR PRN (06:11)
[2017-06-03] MEDS: MIDAZOLAM HCL 50 MG/100 ML RTUINJ IV PRN ×5 (06:11→23:27)
[2017-06-03 06:13] LABS: ANISOCYTOSIS 1+; OVALOCYTES SLIGHT; PLATELET CLUMPS PRESENT; PLATELET COMMENT ADEQUATE; PLATELET GIANT PRESENT; POIKILOCYTOSIS SLIGHT; POLYCHROMASIA SLIGHT; TOXIC GRANULATION SLIGHT
--- NOTE | 2017-06-03 07:50 | RADIOLOGY REPORT (SQ) ---
EXAM DESCRIPTION: CHEST SINGLE VIEW CLINICAL HISTORY: 46 years Female, PNA/resp failure COMPARISON: 06/02/17. NUMBER OF VIEWS/TECHNIQUE: 1/AP LIMITATIONS: None. FINDINGS: Small patchiness of the peripheral right lower lobe, small left lower lobar opacity, moderate scarring and cavitation-bullous disease of the right mid and lower lung field, adequate appearing endotracheal tube tip is 1.8 cm from the josh; consider 1.2 cm retraction. Likely adequate enteric tube obscured distally. Right jugular central line at the upper right atrium. Small left posterior third rib deformity. Azygos lobe. No pneumothorax. No acute bone defect. IMPRESSION: No significant change.
[2017-06-03] MEDS: BUDESONIDE NEB 0.5 MG/2 ML AMPUL NEB SCH ×2 (07:51→19:50)
[2017-06-03] MEDS: ACETYLCYSTEINE 20% SOLN 800 MG/4 ML VIAL.NEB NEB SCH ×2 (07:51→19:50)
--- NOTE | 2017-06-03 11:01 | PDOC PROGRESS REPORT ---
Subjective Progress Note for:: 06/03/17 Subjective:: Patient was seen in the intensive care unit today and unfortunately she appears to have taken a turn for the worse overnight. She has been tachycardic and hypotensive. She actually had bilious vomiting despite the NG tube while I was in the room today. Blood pressure was as low as 85 systolic. Incision site appears to be clean and blood pressure did improve with propofol and versed dosage reduction There has still been no visitors including her to see her and there is no contact information available POD 3- Exp Laparotomy, dhe appears to have stabilized and symptomatically improved. She did have a large watery stool while I was in the room defrosting many days and understand and abdomen is less distended. She is down on FiO2 to 40% with a PEEP of 8 and SIMV of 20. Her blood pressure has also improved with vasopressin and Dajuan-Synephrine which is currently being titrated. She received a dose of Lasix IV yesterday and a repeat another dose today as edema appears to be much improved. Reason For Visit: RESPIRATORY FAILURE,PNEUMONIA,SEPSIS Physical Exam Vital Signs: Temp Pulse Resp BP Pulse Ox 100.8 F H 125 H 20 121/106 H 96 06/03/17 08:00 06/03/17 08:00 06/03/17 08:00 06/03/17 08:00 06/03/17 08:00 Intake & Output 06/02/17 06/03/17 06/04/17 06:59 06:59 06:59 Intake Total 3304 3597 Output Total 1615 1175 100 Balance 1689 2422 -100 Weight 62.5 kg 66.2 kg General appearance: PRESENT: no acute distress, other - Appears comfortable on mechanical ventilation Head exam: PRESENT: atraumatic Eye exam: PRESENT: PERRLA Ear exam: PRESENT: normal external ear exam Neck exam: ABSENT: carotid bruit, JVD, lymphadenopathy, thyromegaly Respiratory exam: PRESENT: decreased breath sounds, unlabored. ABSENT: rhonchi , wheezes Cardiovascular exam: PRESENT: +S1, +S2, tachycardia Pulses: PRESENT: normal dorsalis pedis pul GI/Abdominal exam: PRESENT: diminished bowel sounds, distended - Less distended , tenderness - Postop as expected Rectal exam: PRESENT: deferred Extremities exam: PRESENT: pedal edema, +2 edema. ABSENT: calf tenderness, clubbing Neurological exam: PRESENT: other - Sedated and intubated Results Laboratory Results: 06/03/17 04:50 06/03/17 04:50 05/31/17 06/03/17 06/03/17 08:30 04:40 04:50 WBC RBC Hgb Hct MCV MCH MCHC RDW Plt Count Seg Neutrophils % Lymphocytes % Monocytes % Eosinophils % Basophils % Absolute Neutrophils Absolute Lymphocytes Absolute Monocytes Absolute Eosinophils Absolute Basophils Carbonic Acid 0.77 L HCO3/H2CO3 Ratio 23:1 ABG pH 7.46 H ABG pCO2 25.6 L ABG pO2 141.6 H ABG HCO3 17.8 L ABG O2 Saturation 99.0 H ABG Base Excess -5.2 FiO2 40% Sodium 145.3 H Potassium 3.4 L Chloride 117 H Carbon Dioxide 18 L Anion Gap 10 BUN 22 H Creatinine 0.37 L Est GFR ( Amer) > 60 Est GFR (Non-Af Amer) > 60 Glucose 119 H Calcium 7.7 L Magnesium 1.6 Stool Occult Blood Blood Type A POSITIVE Antibody Screen NEGATIVE 06/03/17 06/03/17 04:50 08:45 WBC 22.8 H RBC 2.80 L Hgb 9.0 L Hct 27.0 L MCV 96 MCH 32.3 MCHC 33.5 RDW 17.3 H Plt Count 107 L Seg Neutrophils % Not Reportable Lymphocytes % Not Reportable Monocytes % Not Reportable Eosinophils % Not Reportable Basophils % Not Reportable Absolute Neutrophils Not Reportable Absolute Lymphocytes Not Reportable Absolute Monocytes Not Reportable Absolute Eosinophils Not Reportable Absolute Basophils Not Reportable Carbonic Acid HCO3/H2CO3 Ratio ABG pH ABG pCO2 ABG pO2 ABG HCO3 ABG O2 Saturation ABG Base Excess FiO2 Sodium Potassium Chloride Carbon Dioxide Anion Gap BUN Creatinine Est GFR ( Amer) Est GFR (Non-Af Amer) Glucose Calcium Magnesium Stool Occult Blood NEGATIVE Blood Type Antibody Screen Impressions: Abdomen/Pelvis CT 05/31/17 00:00 IMPRESSION: Large amount of free intraperitoneal air and fluid. There is oral contrast in the pelvis suggesting bowel perforation. Findings discussed with the patient's attending physician as a critical result KUB X-Ray 06/02/17 09:03 IMPRESSION: Nasogastric tube tip and side port in the stomach Gasless abdomen. Fluid-filled bowel loops are present. Chest X-Ray 06/03/17 06:00 IMPRESSION: No significant change. Assessment & Plan - Time Time Spent with patient: 35 or more minutes Total Critical Time (Minutes): 15 Medications reviewed and adjusted accordingly: Yes Anticipated discharge: Home - Plan Summary Plan Summary: 1. Perforated gastric ulcer-Patient is postop 3 status post exploratory laparotomy perforated gastric ulcer. As she also had an omental patch to repair the gastric ulcer site. We will continue PPI #2 acute on chronic hypoxic and hypercapnic respiratory failure currently on mechanical ventilation. She is still unable to tolerate any weaning however I do see some progress and a respiration has been relatively stable #3 acute kidney injury likely secondary to ATN. #4 septic shock patient is being tapered off Dajuan-Synephrine today but will continue low-dose vasopressin. She had been on meropenem but this was discontinued and Zosyn started and I also added vancomycin to her regimen 06/02 for broad-spectrum coverage. All pancultures have been negative so far except for the initial one on admission which was positive for strep pneumonia 5. Alcohol abuse with withdrawal syndrome however patient is currently sedated and intubated will continue supportive care with versed. 6. Hypernatremia likely iatrogenic-Cont D51/4. Resolving 7. Hyperkalemia- iatrogenic, off IV K, now slightly hypokalemic 8. Anemia with no evidence of acute blood loss likely component of acute illness and bone marrow suppression and underlying nutritional deficiencies. s/ p 2units PRBC 9. Cytopenia secondary to acute infection as well as chronic alcoholism patient received fresh frozen plasma prior to surgery 10. Protein calorie malnutrition-tube feeding has been on hold appropriately. Will consult nutrition dietitian to start TPN 11. Metabolic acidosis likely multifactorial including sepsis renal failure- will continue sodium bicarb 12. Sinus tachycardia- multifactorial 13. Tobacco abuse disorder patient will need counseling once stable 14. Patient's prognosis is guarded to poor 15. streptococcus pneumonia -we will continue current management
[2017-06-03] MEDS ORDERED: FUROSEMIDE INJ/PF 40 MG/4 ML SDV IV ONE (11:15)
--- NOTE | 2017-06-03 11:16 | PDOC PROGRESS REPORT ---
Subjective Progress Note for:: 06/03/17 Subjective:: intubated/sedated Reason For Visit: RESPIRATORY FAILURE,PNEUMONIA,SEPSIS Physical Exam Vital Signs: Temp Pulse Resp BP Pulse Ox 100.9 F H 112 H 20 106/67 99 06/03/17 06:43 06/03/17 01:41 06/03/17 06:43 06/03/17 06:43 06/03/17 06:43 Intake & Output 06/02/17 06/03/17 06/04/17 06:59 06:59 06:59 Intake Total 3304 3597 Output Total 1615 1175 Balance 1689 8832 Weight 62.5 kg 66.2 kg General appearance: PRESENT: no acute distress, disheveled, well-developed. ABSENT: cooperative Head exam: PRESENT: atraumatic, normocephalic Eye exam: PRESENT: conjunctiva pale, PERRLA. ABSENT: EOMI, nystagmus, periorbital swelling, scleral icterus Mouth exam: PRESENT: dry mucosa, neck supple, tongue midline, other - ET tube in place Neck exam: ABSENT: carotid bruit, JVD, lymphadenopathy, thyromegaly, tracheal deviation, tracheostomy Respiratory exam: PRESENT: crackles, decreased breath sounds, prolonged expiratory phas, rhonchi, symmetrical, unlabored. ABSENT: retraction, stridor, tachypnea Cardiovascular exam: PRESENT: RRR, +S1, +S2 Pulses: PRESENT: normal radial pulses GI/Abdominal exam: PRESENT: diminished bowel sounds, soft, other - Status post surgery Gentrourinary exam: PRESENT: indwelling catheter Extremities exam: ABSENT: clubbing, joint swelling Musculoskeletal exam: ABSENT: deformity, dislocation Neurological exam: ABSENT: alert, awake, oriented to person Skin exam: PRESENT: dry, warm Results Laboratory Results: 06/03/17 04:50 06/03/17 04:50 05/31/17 06/03/17 06/03/17 08:30 04:40 04:50 WBC RBC Hgb Hct MCV MCH MCHC RDW Plt Count Seg Neutrophils % Lymphocytes % Monocytes % Eosinophils % Basophils % Absolute Neutrophils Absolute Lymphocytes Absolute Monocytes Absolute Eosinophils Absolute Basophils Carbonic Acid 0.77 L HCO3/H2CO3 Ratio 23:1 ABG pH 7.46 H ABG pCO2 25.6 L ABG pO2 141.6 H ABG HCO3 17.8 L ABG O2 Saturation 99.0 H ABG Base Excess -5.2 FiO2 40% Sodium 145.3 H Potassium 3.4 L Chloride 117 H Carbon Dioxide 18 L Anion Gap 10 BUN 22 H Creatinine 0.37 L Est GFR ( Amer) > 60 Est GFR (Non-Af Amer) > 60 Glucose 119 H Calcium 7.7 L Magnesium 1.6 Blood Type A POSITIVE Antibody Screen NEGATIVE 06/03/17 04:50 WBC 22.8 H RBC 2.80 L Hgb 9.0 L Hct 27.0 L MCV 96 MCH 32.3 MCHC 33.5 RDW 17.3 H Plt Count 107 L Seg Neutrophils % Not Reportable Lymphocytes % Not Reportable Monocytes % Not Reportable Eosinophils % Not Reportable Basophils % Not Reportable Absolute Neutrophils Not Reportable Absolute Lymphocytes Not Reportable Absolute Monocytes Not Reportable Absolute Eosinophils Not Reportable Absolute Basophils Not Reportable Carbonic Acid HCO3/H2CO3 Ratio ABG pH ABG pCO2 ABG pO2 ABG HCO3 ABG O2 Saturation ABG Base Excess FiO2 Sodium Potassium Chloride Carbon Dioxide Anion Gap BUN Creatinine Est GFR ( Amer) Est GFR (Non-Af Amer) Glucose Calcium Magnesium Blood Type Antibody Screen Impressions: Abdomen/Pelvis CT 05/31/17 00:00 IMPRESSION: Large amount of free intraperitoneal air and fluid. There is oral contrast in the pelvis suggesting bowel perforation. Findings discussed with the patient's attending physician as a critical result KUB X-Ray 06/02/17 09:03 IMPRESSION: Nasogastric tube tip and side port in the stomach Gasless abdomen. Fluid-filled bowel loops are present. Chest X-Ray 06/03/17 06:00 IMPRESSION: No significant change. Assessment & Plan - Diagnosis (1) Pancytopenia Is this a current diagnosis for this admission?: Yes Plan: Platelets low but improving (2) Acute hypoxemic respiratory failure Is this a current diagnosis for this admission?: Yes Plan: Better ABG with less FiO2 requirements (3) Acute renal failure Qualifiers: Acute renal failure type: unspecified Qualified Code(s): N17.9 - Acute kidney failure, unspecified Is this a current diagnosis for this admission?: Yes Plan: I/O last 96h +6.7L wt+3.7 kg (4) Chronic alcoholism Is this a current diagnosis for this admission?: Yes Plan: MCV 102--- min 24 beers per day ---per RN report DT precautions thiamine;MVI et al (5) Protein calorie malnutrition Is this a current diagnosis for this admission?: Yes Plan: Consider TPN or enteral nutrition patient desperate need of protein and calories (6) Sepsis Qualifiers: Sepsis type: sepsis due to unspecified organism Qualified Code(s): A41.9 - Sepsis, unspecified organism Is this a current diagnosis for this admission?: Yes (7) Tobacco abuse Is this a current diagnosis for this admission?: Yes - Time Total Critical Time (Minutes): 35
[2017-06-03] MEDS: METHYLPREDNISOLONE INJ 40 MG/1 ML SDV IV SCH (11:36)
[2017-06-03] MEDS: NICOTINE 21 MG/24 HR PATCH.TD24 TD SCH (11:41)
[2017-06-03] MEDS: LACTULOSE SYRUP 20 GM/30 ML UDCUP NG SCH ×2 (11:41→22:33)
--- NOTE | 2017-06-03 13:31 | PDOC PROGRESS REPORT ---
Subjective Progress Note for:: 06/03/17 Subjective:: Intubated and sedated. Reason For Visit: RESPIRATORY FAILURE,PNEUMONIA,SEPSIS Physical Exam Vital Signs: Temp Pulse Resp BP Pulse Ox 99.5 F 94 21 H 98/66 L 98 06/03/17 12:14 06/03/17 12:00 06/03/17 12:14 06/03/17 12:14 06/03/17 12:14 Intake & Output 06/02/17 06/03/17 06/04/17 06:59 06:59 06:59 Intake Total 3304 3597 Output Total 1615 1175 325 Balance 1689 2422 -325 Weight 62.5 kg 66.2 kg General appearance: PRESENT: no acute distress Respiratory exam: PRESENT: clear to auscultation servando Cardiovascular exam: PRESENT: RRR GI/Abdominal exam: PRESENT: other - Edematous, distended but soft, apparently had bowel movement this morning. Results Laboratory Results: 06/03/17 04:50 06/03/17 04:50 06/03/17 06/03/17 06/03/17 04:40 04:50 04:50 WBC 22.8 H RBC 2.80 L Hgb 9.0 L Hct 27.0 L MCV 96 MCH 32.3 MCHC 33.5 RDW 17.3 H Plt Count 107 L Seg Neutrophils % Not Reportable Lymphocytes % Not Reportable Monocytes % Not Reportable Eosinophils % Not Reportable Basophils % Not Reportable Absolute Neutrophils Not Reportable Absolute Lymphocytes Not Reportable Absolute Monocytes Not Reportable Absolute Eosinophils Not Reportable Absolute Basophils Not Reportable Carbonic Acid 0.77 L HCO3/H2CO3 Ratio 23:1 ABG pH 7.46 H ABG pCO2 25.6 L ABG pO2 141.6 H ABG HCO3 17.8 L ABG O2 Saturation 99.0 H ABG Base Excess -5.2 FiO2 40% Sodium 145.3 H Potassium 3.4 L Chloride 117 H Carbon Dioxide 18 L Anion Gap 10 BUN 22 H Creatinine 0.37 L Est GFR ( Amer) > 60 Est GFR (Non-Af Amer) > 60 Glucose 119 H Calcium 7.7 L Magnesium 1.6 Albumin Stool Occult Blood Stool for White Cells 06/03/17 06/03/17 06/03/17 04:50 08:45 10:14 WBC RBC Hgb Hct MCV MCH MCHC RDW Plt Count Seg Neutrophils % Lymphocytes % Monocytes % Eosinophils % Basophils % Absolute Neutrophils Absolute Lymphocytes Absolute Monocytes Absolute Eosinophils Absolute Basophils Carbonic Acid HCO3/H2CO3 Ratio ABG pH ABG pCO2 ABG pO2 ABG HCO3 ABG O2 Saturation ABG Base Excess FiO2 Sodium Potassium Chloride Carbon Dioxide Anion Gap BUN Creatinine Est GFR ( Amer) Est GFR (Non-Af Amer) Glucose Calcium Cancelled Magnesium Albumin 1.6 L Stool Occult Blood NEGATIVE Stool for White Cells NO WBCs SEEN Impressions: Abdomen/Pelvis CT 05/31/17 00:00 IMPRESSION: Large amount of free intraperitoneal air and fluid. There is oral contrast in the pelvis suggesting bowel perforation. Findings discussed with the patient's attending physician as a critical result KUB X-Ray 06/02/17 09:03 IMPRESSION: Nasogastric tube tip and side port in the stomach Gasless abdomen. Fluid-filled bowel loops are present. Chest X-Ray 06/03/17 06:00 IMPRESSION: No significant change. Assessment & Plan - Diagnosis (1) Perforated gastric ulcer Qualifiers: Gastric ulcer chronicity: acute Qualified Code(s): K25.1 - Acute gastric ulcer with perforation Is this a current diagnosis for this admission?: Yes Plan: Status post omental patch. Postoperative course complicated by probable aspiration. Continue supportive care. Would NOT start feeding through the NG tube yet.
[2017-06-03 14:31] LABS: VANCOMYCIN,TROUGH 18.3 ug/mL (5.0-20.0)
[2017-06-03] MEDS: PROPOFOL 100 ML IV PRN (18:50)
[2017-06-04] MEDS: PIPERACILLIN SODIUM/TAZOBACTAM 3.375 GM in NORMAL SALINE 100 ML IV SCH ×4 (00:50→17:53)
[2017-06-04] MEDS: IPRATROPIUM/ALBUTEROL 0.5-2.5 MG/3 ML AMPUL NEB SCH ×4 (02:11→20:47)
[2017-06-04] MEDS: DEXTROSE 5%-1/4 NORMAL SALINE 1,000 ML IV PRN (02:30)
[2017-06-04] MEDS: MIDAZOLAM HCL 50 MG/100 ML RTUINJ IV PRN ×3 (03:40→18:36)
[2017-06-04 05:16] LABS: ARTERIAL BLOOD BASE EXCESS -4.2 mmol/L; ARTERIAL BLOOD H2CO3 0.85 mmol/L (1.05-1.35); ARTERIAL BLOOD HCO3 19.2 mmol/L (20-26); ARTERIAL BLOOD O2 SATURATION 96.8 % (94-98); ARTERIAL BLOOD PCO2 28.2 mmHg (35-45); ARTERIAL BLOOD PH 7.45 (7.35-7.45); ARTERIAL BLOOD PO2 82.8 mmHg (80-100)
[2017-06-04 05:17] LABS: ARTERIAL BLOOD FIO2 30%
[2017-06-04 05:31] LABS: HEMATOCRIT 22.9 % (36.0-47.0); MEAN CORPUSCULAR HEMOGLOBIN 31.6 pg (27.0-33.4); MEAN CORPUSCULAR VOLUME 96 fl (80-97); PLATELET COUNT 109 10^3/uL (150-450); RED BLOOD COUNT 2.39 10^6/uL (3.72-5.28); RED CELL DISTRIBUTION WIDTH 16.7 % (11.5-14.0); WHITE BLOOD COUNT 16.8 10^3/uL (4.0-10.5)
[2017-06-04 05:39] LABS: ALANINE AMINOTRANSFERASE 40 U/L (9-52); ALBUMIN 1.7 g/dL (3.5-5.0); ALKALINE PHOSPHATASE 84 U/L (38-126); ANION GAP 10 (5-19); ASPARTATE AMINO TRANSFERASE 17 U/L (14-36); BILIRUBIN,DIRECT 0.3 mg/dL (0.0-0.4); BILIRUBIN,TOTAL 0.5 mg/dL (0.2-1.3); BLOOD UREA NITROGEN 18 mg/dL (7-20); CALCIUM 7.3 mg/dL (8.4-10.2); CARBON DIOXIDE 19 mmol/L (22-30); CHLORIDE 112 mmol/L (98-107); GLUCOSE 192 mg/dL (75-110); SODIUM 140.8 mmol/L (137-145); TOTAL PROTEIN 3.8 g/dL (6.3-8.2)
[2017-06-04 05:42] LABS: POTASSIUM 2.8 mmol/L (3.6-5.0)
[2017-06-04] MEDS: VANCOMYCIN HCL 1,000 MG in DEXTROSE 5%-WATER 250 ML IV SCH ×3 (05:52→22:28)
[2017-06-04] MEDS: PROPOFOL 100 ML IV PRN ×2 (05:52→12:13)
[2017-06-04 05:53] LABS: HEMOGLOBIN 7.6 g/dL (12.0-15.5)
[2017-06-04 05:56] LABS: ABSOLUTE LYMPHOCYTES# (MANUAL) 0.2 10^3/uL (0.5-4.7); ABSOLUTE MONOCYTES # (MANUAL) 0.2 10^3/uL (0.1-1.4); ABSOLUTE NEUTROPHILS# (MANUAL) 16.5 10^3/uL (1.7-8.2); BAND NEUTROPHILS % (MANUAL) 3 % (3-5); BASOPHILS % (MANUAL) 0 % (0-2); EOSINOPHILS % (MANUAL) 0 % (0-6); LYMPHOCYTES % (MANUAL) 1 % (13-45); MONOCYTES % (MANUAL) 1 % (3-13); SEGMENTED NEUTROPHILS % (MAN) 95 % (42-78); TOTAL CELLS COUNTED 100
[2017-06-04 05:59] LABS: ANISOCYTOSIS 1+; OVALOCYTES 1+; PLATELET CLUMPS PRESENT; PLATELET COMMENT ADEQUATE; POIKILOCYTOSIS SLIGHT; POLYCHROMASIA SLIGHT
[2017-06-04] MEDS: POTASSIUM CHLORIDE 20 MEQ/50 ML RTU IV SCH ×3 (06:17→12:14)
[2017-06-04] MEDS: MAGNESIUM SULFATE 1 GM/D5W 100 ML IV SCH ×2 (06:56→08:00)
--- NOTE | 2017-06-04 07:52 | RADIOLOGY REPORT (SQ) ---
EXAM DESCRIPTION: CHEST SINGLE VIEW COMPLETED DATE/TIME: 06/04/2017 5:55 am REASON FOR STUDY: pna COMPARISON: 06/03/2017 EXAM PARAMETERS: NUMBER OF VIEWS: One view. TECHNIQUE: Single frontal radiographic view of the chest acquired. RADIATION DOSE: NA LIMITATIONS: None. FINDINGS: LUNGS AND PLEURA: Patchy predominately basilar airspace densities all are again identified and appear essentially unchanged. There is some blunting of the costophrenic angles which I cannot exclude as tiny pleural effusions. MEDIASTINUM AND HILAR STRUCTURES: No masses. Contour normal. HEART AND VASCULAR STRUCTURES: The configuration of the heart and mediastinal structures is unchanged BONES: Position. NG tube is seen in course to the abdomen. HARDWARE: On the current study the tip of the endotracheal tube is at the level of the right mainstem bronchus and should be repositioned. Central line is unchanged in position. NG tube is seen in cou rse to the abdomen. OTHER: No other significant finding. IMPRESSION: Patchy predominately airspace densities appear essentially unchanged. On the current st udy the tip of the endotracheal tube is at the level of the right mainstem bronchus and should be rep ositioned. Other findings as noted above COMMENT: ICU was notified of the ET tube position TECHNICAL DOCUMENTATION: JOB ID: [id number] [employer]- All Rights Reserved Reading location - IP/workstation name: [email or web address]
[2017-06-04] MEDS: ACETYLCYSTEINE 20% SOLN 800 MG/4 ML VIAL.NEB NEB SCH ×2 (08:09→20:47)
[2017-06-04] MEDS: BUDESONIDE NEB 0.5 MG/2 ML AMPUL NEB SCH ×2 (08:10→20:47)
[2017-06-04] MEDS ORDERED: NORMAL SALINE 250 ML IV PRN ×2 (08:54)
[2017-06-04] MEDS ORDERED: MICAFUNGIN SODIUM INJ/PF 100 MG VIAL IV SCH (09:00)
--- NOTE | 2017-06-04 09:01 | PDOC PROGRESS REPORT ---
Subjective Progress Note for:: 06/04/17 Subjective:: intubated/sedated Reason For Visit: RESPIRATORY FAILURE,PNEUMONIA,SEPSIS Physical Exam Vital Signs: Temp Pulse Resp BP Pulse Ox 97.2 F 71 18 128/76 H 99 06/04/17 06:00 06/04/17 05:55 06/04/17 06:00 06/04/17 05:59 06/04/17 06:00 Intake & Output 06/03/17 06/04/17 06/05/17 06:59 06:59 06:59 Intake Total 3597 3541 Output Total 1175 3040 Balance 2422 501 Weight 66.2 kg 66.7 kg General appearance: PRESENT: no acute distress, disheveled, well-developed. ABSENT: cooperative Head exam: PRESENT: atraumatic, normocephalic Eye exam: PRESENT: conjunctiva pale. ABSENT: nystagmus, periorbital swelling, scleral icterus Mouth exam: PRESENT: dry mucosa, neck supple, tongue midline, other - ET tube Neck exam: ABSENT: carotid bruit, JVD, lymphadenopathy, thyromegaly, tracheal deviation, tracheostomy Respiratory exam: PRESENT: decreased breath sounds, prolonged expiratory phas, rhonchi, symmetrical, unlabored, wheezes. ABSENT: stridor Cardiovascular exam: PRESENT: RRR, +S1, +S2, tachycardia Pulses: PRESENT: normal radial pulses - [id number] GI/Abdominal exam: PRESENT: diminished bowel sounds, other - s/p surgery Extremities exam: ABSENT: calf tenderness, clubbing Musculoskeletal exam: ABSENT: deformity, dislocation Neurological exam: ABSENT: alert, awake, oriented to person Skin exam: PRESENT: dry, warm Results Laboratory Results: 06/04/17 04:55 06/04/17 04:55 06/03/17 06/03/17 06/03/17 04:50 08:45 10:14 WBC RBC Hgb Hct MCV MCH MCHC RDW Plt Count Seg Neutrophils % Lymphocytes % Monocytes % Eosinophils % Basophils % Absolute Neutrophils Absolute Lymphocytes Absolute Monocytes Absolute Eosinophils Absolute Basophils Carbonic Acid HCO3/H2CO3 Ratio ABG pH ABG pCO2 ABG pO2 ABG HCO3 ABG O2 Saturation ABG Base Excess FiO2 Sodium Potassium Chloride Carbon Dioxide Anion Gap BUN Creatinine Est GFR ( Amer) Est GFR (Non-Af Amer) Glucose Calcium Cancelled Magnesium Total Bilirubin AST ALT Alkaline Phosphatase Total Protein Albumin 1.6 L Stool Occult Blood NEGATIVE Stool for White Cells NO WBCs SEEN 06/04/17 06/04/17 06/04/17 04:55 04:55 04:55 WBC 16.8 H RBC 2.39 L Hgb 7.6 L Hct 22.9 L MCV 96 MCH 31.6 MCHC 33.0 RDW 16.7 H Plt Count 109 L Seg Neutrophils % Not Reportable Lymphocytes % Not Reportable Monocytes % Not Reportable Eosinophils % Not Reportable Basophils % Not Reportable Absolute Neutrophils Not Reportable Absolute Lymphocytes Not Reportable Absolute Monocytes Not Reportable Absolute Eosinophils Not Reportable Absolute Basophils Not Reportable Carbonic Acid 0.85 L HCO3/H2CO3 Ratio 22:1 ABG pH 7.45 ABG pCO2 28.2 L ABG pO2 82.8 ABG HCO3 19.2 L ABG O2 Saturation 96.8 ABG Base Excess -4.2 FiO2 30% Sodium 140.8 Potassium 2.8 L* Chloride 112 H Carbon Dioxide 19 L Anion Gap 10 BUN 18 Creatinine 0.39 L Est GFR ( Amer) > 60 Est GFR (Non-Af Amer) > 60 Glucose 192 H Calcium 7.3 L Magnesium 1.4 L Total Bilirubin 0.5 AST 17 ALT 40 Alkaline Phosphatase 84 Total Protein 3.8 L Albumin 1.7 L Stool Occult Blood Stool for White Cells 06/02/17 07:50 Catheterized Urine Urine Culture - Final C.albicans/C.dubliniensis Impressions: Abdomen/Pelvis CT 05/31/17 00:00 IMPRESSION: Large amount of free intraperitoneal air and fluid. There is oral contrast in the pelvis suggesting bowel perforation. Findings discussed with the patient's attending physician as a critical result KUB X-Ray 06/02/17 09:03 IMPRESSION: Nasogastric tube tip and side port in the stomach Gasless abdomen. Fluid-filled bowel loops are present. Chest X-Ray 06/04/17 06:00 IMPRESSION: Patchy predominately airspace densities appear essentially unchanged. On the current study the tip of the endotracheal tube is at the level of the right mainstem bronchus and should be repositioned. Other findings as noted above Assessment & Plan - Diagnosis (1) Pancytopenia Is this a current diagnosis for this admission?: Yes Plan: Platelets low but improving (2) Acute hypoxemic respiratory failure Is this a current diagnosis for this admission?: Yes Plan: Better ABG with less FiO2 requirements (3) Acute renal failure Qualifiers: Qualified Code(s): N17.9 - Acute kidney failure, unspecified Is this a current diagnosis for this admission?: Yes Plan: I/O last 96h +6.7L wt+3.7 kg (4) Chronic alcoholism Is this a current diagnosis for this admission?: Yes Plan: MCV 102--- min 24 beers per day ---per RN report DT precautions thiamine;MVI et al (5) Protein calorie malnutrition Is this a current diagnosis for this admission?: Yes Plan: Consider TPN or enteral nutrition patient desperate need of protein and calories (6) Sepsis Qualifiers: Qualified Code(s): A41.9 - Sepsis, unspecified organism Is this a current diagnosis for this admission?: Yes (7) Tobacco abuse Is this a current diagnosis for this admission?: Yes Plan: transdermal nicotine
--- NOTE | 2017-06-04 09:07 | PDOC PROGRESS REPORT ---
Subjective Progress Note for:: 06/04/17 Subjective:: She is intubated and sedated. Per report given to me from overnight and todays nurses she has been weaned off of pressors, BP stable. K is low. Na improving. Hgb has dropped a few points, no sign active bleeding. Minimal NG tube out put. No family at bedside but has told staff he recently let her family in [place] know she is here and they are driving down soon. Reason For Visit: acute RESPIRATORY FAILURE,PNEUMONIA,SEPSIS, perforated gastric ulcer, alcohol withdrawal Physical Exam Vital Signs: Temp Pulse Resp BP Pulse Ox 97.2 F 71 18 128/76 H 99 06/04/17 06:00 06/04/17 05:55 06/04/17 06:00 06/04/17 05:59 06/04/17 06:00 Intake & Output 06/03/17 06/04/17 06/05/17 06:59 06:59 06:59 Intake Total 3597 3541 Output Total 1175 3040 Balance 2422 501 Weight 66.2 kg 66.7 kg General appearance: PRESENT: no acute distress, thin Head exam: PRESENT: atraumatic, normocephalic Eye exam: PRESENT: conjunctiva pink, PERRLA. ABSENT: conjunctival injection Ear exam: PRESENT: normal external ear exam. ABSENT: bleeding, drainage Mouth exam: PRESENT: moist, other - ET tube in place, NG tube in place draining yellow liquid Neck exam: PRESENT: lymphadenopathy, other - right IJ CVC CDI. ABSENT: JVD Respiratory exam: PRESENT: decreased breath sounds, rales, rhonchi, unlabored. ABSENT: wheezes Cardiovascular exam: PRESENT: RRR. ABSENT: systolic murmur Pulses: PRESENT: normal radial pulses, normal dorsalis pedis pul GI/Abdominal exam: PRESENT: other - abd with slight distension, no bowel sounds in all quadrants, not firm Rectal exam: PRESENT: deferred Gentrourinary exam: PRESENT: indwelling catheter Extremities exam: PRESENT: +2 edema, other - anasarca Musculoskeletal exam: PRESENT: normal inspection. ABSENT: deformity Neurological exam: PRESENT: other - cannot fully assess due to intuabtion and sedation, PERRL, responsive to painful stim. ABSENT: alert, awake Focused psych exam: PRESENT: other - cannot assess Skin exam: PRESENT: intact, other - edema thoughout, multiple tatoos, abd incision CDI Results Laboratory Results: 06/04/17 04:55 06/04/17 04:55 06/03/17 06/03/17 06/03/17 04:50 08:45 10:14 WBC RBC Hgb Hct MCV MCH MCHC RDW Plt Count Seg Neutrophils % Lymphocytes % Monocytes % Eosinophils % Basophils % Absolute Neutrophils Absolute Lymphocytes Absolute Monocytes Absolute Eosinophils Absolute Basophils Carbonic Acid HCO3/H2CO3 Ratio ABG pH ABG pCO2 ABG pO2 ABG HCO3 ABG O2 Saturation ABG Base Excess FiO2 Sodium Potassium Chloride Carbon Dioxide Anion Gap BUN Creatinine Est GFR ( Amer) Est GFR (Non-Af Amer) Glucose Calcium Cancelled Magnesium Total Bilirubin AST ALT Alkaline Phosphatase Total Protein Albumin 1.6 L Stool Occult Blood NEGATIVE Stool for White Cells NO WBCs SEEN 06/04/17 06/04/17 06/04/17 04:55 04:55 04:55 WBC 16.8 H RBC 2.39 L Hgb 7.6 L Hct 22.9 L MCV 96 MCH 31.6 MCHC 33.0 RDW 16.7 H Plt Count 109 L Seg Neutrophils % Not Reportable Lymphocytes % Not Reportable Monocytes % Not Reportable Eosinophils % Not Reportable Basophils % Not Reportable Absolute Neutrophils Not Reportable Absolute Lymphocytes Not Reportable Absolute Monocytes Not Reportable Absolute Eosinophils Not Reportable Absolute Basophils Not Reportable Carbonic Acid 0.85 L HCO3/H2CO3 Ratio 22:1 ABG pH 7.45 ABG pCO2 28.2 L ABG pO2 82.8 ABG HCO3 19.2 L ABG O2 Saturation 96.8 ABG Base Excess -4.2 FiO2 30% Sodium 140.8 Potassium 2.8 L* Chloride 112 H Carbon Dioxide 19 L Anion Gap 10 BUN 18 Creatinine 0.39 L Est GFR ( Amer) > 60 Est GFR (Non-Af Amer) > 60 Glucose 192 H Calcium 7.3 L Magnesium 1.4 L Total Bilirubin 0.5 AST 17 ALT 40 Alkaline Phosphatase 84 Total Protein 3.8 L Albumin 1.7 L Stool Occult Blood Stool for White Cells 06/02/17 07:50 Catheterized Urine Urine Culture - Final C.albicans/C.dubliniensis Impressions: Abdomen/Pelvis CT 05/31/17 00:00 IMPRESSION: Large amount of free intraperitoneal air and fluid. There is oral contrast in the pelvis suggesting bowel perforation. Findings discussed with the patient's attending physician as a critical result KUB X-Ray 06/02/17 09:03 IMPRESSION: Nasogastric tube tip and side port in the stomach Gasless abdomen. Fluid-filled bowel loops are present. Chest X-Ray 06/04/17 06:00 IMPRESSION: Patchy predominately airspace densities appear essentially unchanged. On the current study the tip of the endotracheal tube is at the level of the right mainstem bronchus and should be repositioned. Other findings as noted above Assessment & Plan - Diagnosis (1) Fungemia Is this a current diagnosis for this admission?: Yes (2) Alcohol withdrawal Is this a current diagnosis for this admission?: Yes (3) Acute hypoxemic respiratory failure Is this a current diagnosis for this admission?: Yes (4) Electrolyte imbalance Is this a current diagnosis for this admission?: Yes (5) Hypokalemia Is this a current diagnosis for this admission?: Yes (6) Perforated gastric ulcer Qualifiers: Gastric ulcer chronicity: acute Qualified Code(s): K25.1 - Acute gastric ulcer with perforation Is this a current diagnosis for this admission?: Yes (7) Pneumonia Qualifiers: Pneumonia type: aspiration pneumonia Aspiration pneumonia type: unspecified Laterality: bilateral Lung location: lower lobe of lung Qualified Code(s): J69.0 - Pneumonitis due to inhalation of food and vomit Is this a current diagnosis for this admission?: Yes (8) Protein calorie malnutrition Qualifiers: Protein-calorie malnutrition severity: severe Qualified Code(s): E43 - Unspecified severe protein-calorie malnutrition Is this a current diagnosis for this admission?: Yes (9) Sepsis Qualifiers: Sepsis type: Justa Qualified Code(s): B37.7 - Candidal sepsis Is this a current diagnosis for this admission?: Yes (10) Thrombocytopenia Is this a current diagnosis for this admission?: Yes (11) Tobacco abuse Is this a current diagnosis for this admission?: Yes - Time Time Spent with patient: 35 or more minutes Total Critical Time (Minutes): 30 Medications reviewed and adjusted accordingly: Yes Within: Other - not yet clear, pateient may need trach and ltac - Inpatient Certification Based on my medical assessment, after consideration of the patient's comorbidities, presenting symptoms, or acuity I expect that the services needed warrant INPATIENT care.: Yes I certify that my determination is in accordance with my understanding of Medicare's requirements for reasonable and necessary INPATIENT services [42 CFR 412.3e].: Yes Medical Necessity: Need For Continuous Telemetry Monitoring, Need for IV Antibiotics, Risk of Complication if Not Cared For in Hospital - Plan Summary Plan Summary: 1. Perforated gastric ulcer-Patient is POD 4 status post exploratory laparotomy , with omental patch repair. We will continue PPI. Yesterday surgeon recommended no NG tube feeds for now. I do not see HPylori biopsy and will ask surgeon if done. Cont to monitor surgical wound, look good today. 1.5. fungemia. micro lab following species, will start micafungin now 100 mg IV q 24 hours. 2. acute on chronic hypoxic and hypercapnic respiratory failure currently on mechanical ventilation. Pt now off pressors and ABG with pH 7.45 this am. WIll work towards PS vent trial today once we wean her versed off. Also with aspiration PNA and strep penumo on admit, right mainstem ET tube (RT adjusting) . 3. acute kidney injury likely secondary to ATN. Improved. Monitor. 4. septic shock : improving, bassem and vasopressin off today. She had been on meropenem but this was discontinued and Zosyn started and vancomycin added to her regimen 06/02 for broad-spectrum coverage. All pancultures have been negative so far except for the initial one on admission which was positive for strep pneumonia. Will cont to monitor cultures and stop vanc when indicated. 5. Alcohol abuse with withdrawal syndrome: currently sedated and intubated, withdrawal syndrom improved, will wean versed today and add prn ativan 2mg IV q 2hrs prna agitation. 6. Hypernatremia likely iatrogenic-Resolving, will stop D5. 7. Hyperkalemia- iatrogenic, off IV K, now hypokalemic and K is being replaced , repeat K level later this afternoon 8. Anemia with no evidence of acute blood loss likely component of acute illness and bone marrow suppression and underlying nutritional deficiencies. s/ p 2units PRBC. Hgb dropped today, no evidence active bleed, will repeat later today to aleks castro. 9. Cytopenia secondary to acute infection as well as chronic alcoholism patient received fresh frozen plasma prior to surgery. Plts improving. 10. Protein calorie malnutrition-tube feeding has been on hold appropriately. Will consult nutrition dietitian to start TPN today. 11. Metabolic acidosis likely multifactorial including sepsis renal failure- improved, bicarb has been dced. 12. Sinus tachycardia- intermittant, monitor 13. Tobacco abuse disorder patient will need counseling if she survives 14. Patient's prognosis is guarded to poor 15. streptococcus pneumonia -we will continue current management, repeat cultures until all clear Discussed her care with VASCULAR MANAGER and Dr. Rea. 30 min critical care time.
[2017-06-04 10:06] LABS: HEMATOCRIT 22.4 % (36.0-47.0); MEAN CORPUSCULAR HEMOGLOBIN 32.2 pg (27.0-33.4); MEAN CORPUSCULAR HGB CONC 33.5 g/dL (32.0-36.0); MEAN CORPUSCULAR VOLUME 96 fl (80-97); PLATELET COUNT 112 10^3/uL (150-450); RED BLOOD COUNT 2.34 10^6/uL (3.72-5.28); RED CELL DISTRIBUTION WIDTH 16.8 % (11.5-14.0); WHITE BLOOD COUNT 17.2 10^3/uL (4.0-10.5)
[2017-06-04 10:37] LABS: HEMOGLOBIN 7.5 g/dL (12.0-15.5)
[2017-06-04] MEDS: MAGNESIUM SULFATE/D5W 1 GM/100 ML RTUPB IV SCH ×2 (11:41→16:07)
[2017-06-04] MEDS: LACTULOSE SYRUP 20 GM/30 ML UDCUP NG SCH ×2 (11:42→22:28)
[2017-06-04] MEDS: LORAZEPAM INJ 2 MG/1 ML VIAL IV PRN ×2 (12:10→16:00)
[2017-06-04] MEDS: FENTANYL CITRATE INJ/PF 100 MCG/2 ML AMPUL IV PRN ×3 (12:10→22:43)
[2017-06-04] MEDS: MICAFUNGIN SODIUM 100 MG in NORMAL SALINE 100 ML IV SCH (12:12)
[2017-06-04] MEDS: NICOTINE 21 MG/24 HR PATCH.TD24 TD SCH (12:13)
[2017-06-04] MEDS: METHYLPREDNISOLONE INJ 40 MG/1 ML SDV IV SCH (12:14)
[2017-06-04] MEDS ORDERED: PANTOPRAZOLE SODIUM 40 MG VIAL IV ONE (15:00)
[2017-06-04 19:08] LABS: HEMATOCRIT 32.2 % (36.0-47.0); MEAN CORPUSCULAR HEMOGLOBIN 30.8 pg (27.0-33.4); MEAN CORPUSCULAR HGB CONC 33.3 g/dL (32.0-36.0); MEAN CORPUSCULAR VOLUME 93 fl (80-97); PLATELET COUNT 116 10^3/uL (150-450); RED BLOOD COUNT 3.49 10^6/uL (3.72-5.28); WHITE BLOOD COUNT 18.7 10^3/uL (4.0-10.5)
[2017-06-04 19:09] LABS: HEMOGLOBIN 10.7 g/dL (12.0-15.5)
[2017-06-04 19:17] LABS: ANION GAP 10 (5-19); BLOOD UREA NITROGEN 17 mg/dL (7-20); CALCIUM 7.9 mg/dL (8.4-10.2); CARBON DIOXIDE 18 mmol/L (22-30); CHLORIDE 111 mmol/L (98-107); GLUCOSE 178 mg/dL (75-110); SODIUM 138.5 mmol/L (137-145)
[2017-06-04] MEDS ORDERED: DEXTROSE 40% GEL 15 GM TUBE X 2 PO PRN (20:07)
[2017-06-04] MEDS ORDERED: DEXTROSE 50%-WATER SYRINGE 25 GM/50 ML DOSE IV PRN (20:07)
[2017-06-04] MEDS ORDERED: GLUCAGON,HUMAN RECOMB 1 MG INJ IM PRN (20:07)
[2017-06-04] MEDS ORDERED: DEXTROSE 10%-WATER 1,000 ML IV PRN (20:07)
[2017-06-04] MEDS ORDERED: INSULIN REG, HUMAN 100 UNIT/ML 3 ML VIAL (PYX) SUBCUT PRN (20:07)
[2017-06-04] MEDS ORDERED: DEXTROSE 40% GEL 15 GM TUBE PO PRN (20:07)
[2017-06-04] MEDS ORDERED: DEXTROSE 50%-WATER SYRINGE 12.5 GM/25 ML DOSE IV PRN (20:07)
--- NOTE | 2017-06-04 21:36 | PDOC PROGRESS REPORT ---
Subjective Progress Note for:: 06/04/17 Subjective:: still intubated and sedated Reason For Visit: RESPIRATORY FAILURE,PNEUMONIA,SEPSIS Physical Exam Vital Signs: Temp Pulse Resp BP Pulse Ox 97.3 F 71 18 126/79 H 95 06/04/17 19:10 06/04/17 19:10 06/04/17 19:10 06/04/17 19:00 06/04/17 19:10 Intake & Output 06/03/17 06/04/17 06/05/17 06:59 06:59 06:59 Intake Total 3597 3541 2863 Output Total 1175 3040 1050 Balance 2422 501 1813 Weight 66.2 kg 66.7 kg Exam: NGT has decreased. Abdomen is less distended and soft Results Laboratory Results: 06/04/17 18:40 06/04/17 18:40 06/04/17 06/04/17 06/04/17 04:55 04:55 04:55 WBC 16.8 H RBC 2.39 L Hgb 7.6 L Hct 22.9 L MCV 96 MCH 31.6 MCHC 33.0 RDW 16.7 H Plt Count 109 L Seg Neutrophils % Not Reportable Lymphocytes % Not Reportable Monocytes % Not Reportable Eosinophils % Not Reportable Basophils % Not Reportable Absolute Neutrophils Not Reportable Absolute Lymphocytes Not Reportable Absolute Monocytes Not Reportable Absolute Eosinophils Not Reportable Absolute Basophils Not Reportable Carbonic Acid 0.85 L HCO3/H2CO3 Ratio 22:1 ABG pH 7.45 ABG pCO2 28.2 L ABG pO2 82.8 ABG HCO3 19.2 L ABG O2 Saturation 96.8 ABG Base Excess -4.2 FiO2 30% Sodium 140.8 Potassium 2.8 L* Chloride 112 H Carbon Dioxide 19 L Anion Gap 10 BUN 18 Creatinine 0.39 L Est GFR ( Amer) > 60 Est GFR (Non-Af Amer) > 60 Glucose 192 H Calcium 7.3 L Magnesium 1.4 L Total Bilirubin 0.5 AST 17 ALT 40 Alkaline Phosphatase 84 Total Protein 3.8 L Albumin 1.7 L Blood Type Antibody Screen 06/04/17 06/04/17 06/04/17 09:30 09:51 18:40 WBC 17.2 H RBC 2.34 L Hgb 7.5 L Hct 22.4 L MCV 96 MCH 32.2 MCHC 33.5 RDW 16.8 H Plt Count 112 L Seg Neutrophils % Lymphocytes % Monocytes % Eosinophils % Basophils % Absolute Neutrophils Absolute Lymphocytes Absolute Monocytes Absolute Eosinophils Absolute Basophils Carbonic Acid HCO3/H2CO3 Ratio ABG pH ABG pCO2 ABG pO2 ABG HCO3 ABG O2 Saturation ABG Base Excess FiO2 Sodium 138.5 Potassium 4.0 D Chloride 111 H Carbon Dioxide 18 L Anion Gap 10 BUN 17 Creatinine 0.52 Est GFR ( Amer) > 60 Est GFR (Non-Af Amer) > 60 Glucose 178 H Calcium 7.9 L Magnesium Total Bilirubin AST ALT Alkaline Phosphatase Total Protein Albumin Blood Type A POSITIVE Antibody Screen NEGATIVE 06/04/17 18:40 WBC 18.7 H RBC 3.49 L Hgb 10.7 L D Hct 32.2 L MCV 93 MCH 30.8 MCHC 33.3 RDW 17.0 H Plt Count 116 L Seg Neutrophils % Lymphocytes % Monocytes % Eosinophils % Basophils % Absolute Neutrophils Absolute Lymphocytes Absolute Monocytes Absolute Eosinophils Absolute Basophils Carbonic Acid HCO3/H2CO3 Ratio ABG pH ABG pCO2 ABG pO2 ABG HCO3 ABG O2 Saturation ABG Base Excess FiO2 Sodium Potassium Chloride Carbon Dioxide Anion Gap BUN Creatinine Est GFR ( Amer) Est GFR (Non-Af Amer) Glucose Calcium Magnesium Total Bilirubin AST ALT Alkaline Phosphatase Total Protein Albumin Blood Type Antibody Screen 06/02/17 07:50 Tracheal Aspirate Gram Stain - Final 06/02/17 07:50 Tracheal Aspirate Sputum Culture - Final C.albicans/C.dubliniensis Normal Aleida Absent Impressions: Abdomen/Pelvis CT 05/31/17 00:00 IMPRESSION: Large amount of free intraperitoneal air and fluid. There is oral contrast in the pelvis suggesting bowel perforation. Findings discussed with the patient's attending physician as a critical result KUB X-Ray 06/02/17 09:03 IMPRESSION: Nasogastric tube tip and side port in the stomach Gasless abdomen. Fluid-filled bowel loops are present. Chest X-Ray 06/04/17 06:00 IMPRESSION: Patchy predominately airspace densities appear essentially unchanged. On the current study the tip of the endotracheal tube is at the level of the right mainstem bronchus and should be repositioned. Other findings as noted above Assessment & Plan - Time Time Spent with patient: 15-24 minutes - Plan Summary Plan Summary: Agree with Dr Rea that patient will need TPN Hopefully can be extubated soon and can start po intake. Will obtain gastrograffin thru NGT to check on repaired gastric ulcer perforation prior to start po intake
[2017-06-04] MEDS: PANTOPRAZOLE SODIUM 40 MG VIAL IV SCH (22:28)
[2017-06-05] MEDS: PIPERACILLIN SODIUM/TAZOBACTAM 3.375 GM in NORMAL SALINE 100 ML IV SCH ×3 (00:09→11:43)
[2017-06-05] MEDS: PROPOFOL 100 ML IV PRN ×5 (01:11→22:22)
[2017-06-05] MEDS: IPRATROPIUM/ALBUTEROL 0.5-2.5 MG/3 ML AMPUL NEB SCH ×4 (02:15→20:00)
[2017-06-05] MEDS: VANCOMYCIN HCL 1,000 MG in DEXTROSE 5%-WATER 250 ML IV SCH (05:28)
[2017-06-05 05:44] LABS: HEMATOCRIT 32.4 % (36.0-47.0); HEMOGLOBIN 10.9 g/dL (12.0-15.5); MEAN CORPUSCULAR HEMOGLOBIN 30.7 pg (27.0-33.4); MEAN CORPUSCULAR HGB CONC 33.5 g/dL (32.0-36.0); MEAN CORPUSCULAR VOLUME 92 fl (80-97); PLATELET COUNT 118 10^3/uL (150-450); RED BLOOD COUNT 3.53 10^6/uL (3.72-5.28); RED CELL DISTRIBUTION WIDTH 17.2 % (11.5-14.0); WHITE BLOOD COUNT 15.7 10^3/uL (4.0-10.5)
[2017-06-05] MEDS: LORAZEPAM INJ 2 MG/1 ML VIAL IV PRN (06:04)
[2017-06-05 06:33] LABS: PHOSPHORUS 3.8 mg/dL (2.5-4.5)
[2017-06-05 06:39] LABS: ALANINE AMINOTRANSFERASE 35 U/L (9-52); ALBUMIN 1.9 g/dL (3.5-5.0); ALKALINE PHOSPHATASE 106 U/L (38-126); ANION GAP 10 (5-19); ASPARTATE AMINO TRANSFERASE 23 U/L (14-36); BILIRUBIN,DIRECT 0.4 mg/dL (0.0-0.4); BILIRUBIN,TOTAL 0.5 mg/dL (0.2-1.3); BLOOD UREA NITROGEN 15 mg/dL (7-20); CARBON DIOXIDE 18 mmol/L (22-30); CHLORIDE 111 mmol/L (98-107); GLUCOSE 119 mg/dL (75-110); POTASSIUM 3.6 mmol/L (3.6-5.0); PREALBUMIN 10.2 mg/dL (17.6-36.0); SODIUM 138.9 mmol/L (137-145); TOTAL PROTEIN 4.3 g/dL (6.3-8.2)
[2017-06-05] MEDS: MIDAZOLAM HCL 50 MG/100 ML RTUINJ IV PRN ×2 (07:45→21:58)
[2017-06-05] MEDS: BUDESONIDE NEB 0.5 MG/2 ML AMPUL NEB SCH ×2 (08:11→20:00)
[2017-06-05] MEDS: ACETYLCYSTEINE 20% SOLN 800 MG/4 ML VIAL.NEB NEB SCH ×2 (08:12→20:00)
[2017-06-05] MEDS: FENTANYL CITRATE INJ/PF 100 MCG/2 ML AMPUL IV PRN (09:23)
[2017-06-05] MEDS: PANTOPRAZOLE SODIUM 40 MG VIAL IV SCH ×2 (09:24→21:57)
[2017-06-05] MEDS: LACTULOSE SYRUP 20 GM/30 ML UDCUP NG SCH ×2 (09:25→21:57)
[2017-06-05] MEDS: NICOTINE 21 MG/24 HR PATCH.TD24 TD SCH (09:25)
[2017-06-05 10:20] LABS: ARTERIAL BLOOD BASE EXCESS -5.8 mmol/L; ARTERIAL BLOOD H2CO3 0.88 mmol/L (1.05-1.35); ARTERIAL BLOOD HCO3 17.8 mmol/L (20-26); ARTERIAL BLOOD O2 SATURATION 96.2 % (94-98); ARTERIAL BLOOD PCO2 29.3 mmHg (35-45); ARTERIAL BLOOD PO2 81.8 mmHg (80-100); ARTERIAL BLOOD TOTAL CO2 18.7 mmol/L (21-25)
[2017-06-05 10:21] LABS: ARTERIAL BLOOD FIO2 30%
--- NOTE | 2017-06-05 10:23 | RADIOLOGY REPORT (SQ) ---
EXAM DESCRIPTION: CHEST SINGLE VIEW COMPLETED DATE/TIME: 06/05/2017 10:09 am REASON FOR STUDY: mechanical ventilation, pneumonia COMPARISON: Previous day. NUMBER OF VIEWS: One view. TECHNIQUE: Single frontal radiographic image of the chest acquired. LIMITATIONS: None. FINDINGS: LUNGS AND PLEURA: Bilateral airspace disease with overall improved aeration in the left lo wer lobe. No pneumothorax. MEDIASTINUM AND HILAR STRUCTURES: Stable heart size and mediastinal structures. HEART AND VASCULAR STRUCTURES: Stable appearance. SUPPORT DEVICES: Appropriate location. BONES: No acute findings. OTHER: No other significant finding. IMPRESSION: STABLE APPEARANCE OF THE CHEST. SUPPORT DEVICES UNCHANGED. TECHNICAL DOCUMENTATION: JOB ID: [id number] [employer]- All Rights Reserved Reading location - IP/workstation name: [email or web address]
[2017-06-05] MEDS ORDERED: HYDROMORPHONE HCL INJ/PF 2 MG/ML AMPULE ONE (10:33)
[2017-06-05] MEDS: METHYLPREDNISOLONE INJ 40 MG/1 ML SDV IV SCH (10:44)
[2017-06-05] MEDS: MICAFUNGIN SODIUM 100 MG in NORMAL SALINE 100 ML IV SCH (10:44)
--- NOTE | 2017-06-05 13:23 | PDOC PROGRESS REPORT ---
Subjective Progress Note for:: 06/05/17 Subjective:: Cannot obtain subjective as patient is intubated. Per nurse her night was relatively quiet. Did have some events of pain for which she received as needed fentanyl. Vent settings are stable. She continues off of pressor support. Reason For Visit: RESPIRATORY FAILURE,PNEUMONIA,SEPSIS, fungemia Physical Exam Vital Signs: Temp Pulse Resp BP Pulse Ox 99.0 F 93 26 H 119/72 98 06/05/17 12:00 06/05/17 12:00 06/05/17 12:00 06/05/17 12:00 06/05/17 12:00 Intake & Output 06/04/17 06/05/17 06/06/17 06:59 06:59 06:59 Intake Total 3541 3767 Output Total 3040 2100 575 Balance 501 1667 -575 Weight 66.7 kg 68 kg General appearance: PRESENT: no acute distress, thin Head exam: PRESENT: atraumatic, normocephalic Eye exam: PRESENT: conjunctiva pink Ear exam: PRESENT: drainage, normal external ear exam Mouth exam: PRESENT: dry mucosa, other - ET tube in place NG tube in place Neck exam: PRESENT: other - Right IJ central line without complications Respiratory exam: PRESENT: decreased breath sounds. ABSENT: rales, rhonchi, wheezes Cardiovascular exam: PRESENT: RRR. ABSENT: systolic murmur Pulses: PRESENT: normal radial pulses GI/Abdominal exam: PRESENT: distended, soft, other - Bowel sounds auscultated Rectal exam: PRESENT: deferred Gentrourinary exam: PRESENT: indwelling catheter Extremities exam: PRESENT: other - anasarca Musculoskeletal exam: PRESENT: normal inspection Neurological exam: PRESENT: other - sedated with propofol, spontaneously movement seen Psychiatric exam: PRESENT: other - cannot assess Skin exam: PRESENT: dry, other - stage 2 breakdownon sacrum. ABSENT: rash Results Laboratory Results: 06/05/17 05:30 06/05/17 05:30 06/04/17 06/04/17 06/04/17 09:51 18:40 18:40 WBC 18.7 H RBC 3.49 L Hgb 10.7 L D Hct 32.2 L MCV 93 MCH 30.8 MCHC 33.3 RDW 17.0 H Plt Count 116 L Carbonic Acid HCO3/H2CO3 Ratio ABG pH ABG pCO2 ABG pO2 ABG HCO3 ABG O2 Saturation ABG Base Excess FiO2 Sodium 138.5 Potassium 4.0 D Chloride 111 H Carbon Dioxide 18 L Anion Gap 10 BUN 17 Creatinine 0.52 Est GFR ( Amer) > 60 Est GFR (Non-Af Amer) > 60 Glucose 178 H Calcium 7.9 L Phosphorus Total Bilirubin AST ALT Alkaline Phosphatase Total Protein Albumin Prealbumin Blood Type A POSITIVE Antibody Screen NEGATIVE 06/05/17 06/05/17 06/05/17 05:30 05:30 05:30 WBC 15.7 H RBC 3.53 L Hgb 10.9 L Hct 32.4 L MCV 92 MCH 30.7 MCHC 33.5 RDW 17.2 H Plt Count 118 L Carbonic Acid HCO3/H2CO3 Ratio ABG pH ABG pCO2 ABG pO2 ABG HCO3 ABG O2 Saturation ABG Base Excess FiO2 Sodium Cancelled 138.9 Potassium Cancelled 3.6 Chloride Cancelled 111 H Carbon Dioxide Cancelled 18 L Anion Gap Cancelled 10 BUN Cancelled 15 Creatinine Cancelled 0.48 L Est GFR ( Amer) Cancelled > 60 Est GFR (Non-Af Amer) Cancelled > 60 Glucose Cancelled 119 H Calcium Cancelled 8.0 L Phosphorus 3.8 Total Bilirubin 0.5 AST 23 ALT 35 Alkaline Phosphatase 106 Total Protein 4.3 L Albumin 1.9 L Prealbumin 10.2 L Blood Type Antibody Screen 06/05/17 09:50 WBC RBC Hgb Hct MCV MCH MCHC RDW Plt Count Carbonic Acid 0.88 L HCO3/H2CO3 Ratio 20:1 ABG pH 7.40 ABG pCO2 29.3 L ABG pO2 81.8 ABG HCO3 17.8 L ABG O2 Saturation 96.2 ABG Base Excess -5.8 FiO2 30% Sodium Potassium Chloride Carbon Dioxide Anion Gap BUN Creatinine Est GFR ( Amer) Est GFR (Non-Af Amer) Glucose Calcium Phosphorus Total Bilirubin AST ALT Alkaline Phosphatase Total Protein Albumin Prealbumin Blood Type Antibody Screen 06/02/17 07:45 Blood Blood Culture - Final C.albicans/C.dubliniensis 06/03/17 08:45 Stool - Stool - Final 06/03/17 08:45 Stool - Stool Stool Culture - Final C.albicans/C.dubliniensis 06/02/17 07:50 Tracheal Aspirate Gram Stain - Final 06/02/17 07:50 Tracheal Aspirate Sputum Culture - Final C.albicans/C.dubliniensis Normal Aleida Absent Impressions: Abdomen/Pelvis CT 05/31/17 00:00 IMPRESSION: Large amount of free intraperitoneal air and fluid. There is oral contrast in the pelvis suggesting bowel perforation. Findings discussed with the patient's attending physician as a critical result KUB X-Ray 06/02/17 09:03 IMPRESSION: Nasogastric tube tip and side port in the stomach Gasless abdomen. Fluid-filled bowel loops are present. Chest X-Ray 06/05/17 00:00 IMPRESSION: STABLE APPEARANCE OF THE CHEST. SUPPORT DEVICES UNCHANGED. Assessment & Plan - Diagnosis (1) Fungemia Is this a current diagnosis for this admission?: Yes Plan: Patient is growing Justa albicans from 2 sets of blood cultures from 228. She is also growing Justa albicans from a stool culture, urine culture, sputum culture. She has a fluconazole allergy. She is on micafungin since yesterday. I consulted the ID specialist from [facility], her recommendations. The ID specialist does not recommend transfer to another facility for endophthalmitis exam but does recommend that once the patient can have that exam, should have it. She noted that endophthalmitis is exceedingly rare. Also based on her recommendations we will order echocardiogram to evaluate for evidence of endocarditis. Central line will be removed after peripheral IVs have been placed. Blood cultures are repeated today and if they are clear at 72 hours we can replace the central line. Her Ohara catheter will be removed and new one replaced. Will hold on TPN secondary to fungemia. Clinically patient has shown some improvement with white count down to 15, CVP has been good, blood pressure is been holding without pressor support, her vent settings are being reduced. (2) Alcohol withdrawal Is this a current diagnosis for this admission?: Yes Plan: This appears to have subsided. She continues on a low-dose of Versed which we will wean off as we are able. She will continue with as needed Ativan at that point. (3) Acute hypoxemic respiratory failure Is this a current diagnosis for this admission?: Yes Plan: Patient continues on the ventilator. Dr. Rea is managing that. She was initially admitted with pneumonia and acute respiratory failure. She grew strep pneumo in her lungs and she is now on ceftriaxone for that. Vancomycin has been discontinued as there is no evidence of staph. Continue with daily chest x-ray and ABG. (4) Electrolyte imbalance Is this a current diagnosis for this admission?: Yes Plan: We are monitoring electrolytes daily and repeating as indicated. (5) Hypokalemia Is this a current diagnosis for this admission?: Yes Plan: Repleted yesterday aggressively. Normal today. We will continue to monitor. (6) Perforated gastric ulcer Qualifiers: Gastric ulcer chronicity: acute Qualified Code(s): K25.1 - Acute gastric ulcer with perforation Is this a current diagnosis for this admission?: Yes Plan: Patient underwent laparotomy with omental patch repair of a perforated gastric ulcer. Surgery is following. Admittedly she seems to have abdominal pain for which we are administering as needed fentanyl which she tolerates well. The fentanyl, this morning, has not been holding her for very long period of tried 1 mg of Dilaudid and if she tolerates that well and it seems to control her pain better we will switch her from fentanyl to IV Dilaudid. (7) Pneumonia Qualifiers: Pneumonia type: aspiration pneumonia Aspiration pneumonia type: unspecified Laterality: bilateral Lung location: lower lobe of lung Qualified Code(s): J69.0 - Pneumonitis due to inhalation of food and vomit Is this a current diagnosis for this admission?: Yes Plan: Sputum culture on admission for strep pneumo. She has been on Zosyn until today. Ceftriaxone will replace Zosyn today. Vancomycin has been discontinued as there is no evidence of staph infection. (8) Protein calorie malnutrition Qualifiers: Protein-calorie malnutrition severity: severe Qualified Code(s): E43 - Unspecified severe protein-calorie malnutrition Is this a current diagnosis for this admission?: Yes Plan: Patient cannot receive enteral feeds secondary to recent gastric surgery. We will follow the advice of the surgeon on this and when we can feed her enterally we will through the NG tube. Secondary to fungemia we cannot start TPN. Nutrition consult will be placed to see if there is anything we can do to mitigate her severe protein calorie malnutrition at this time. (9) Sepsis Qualifiers: Sepsis type: Justa Qualified Code(s): B37.7 - Candidal sepsis Is this a current diagnosis for this admission?: Yes Plan: Parameters improving. Will monitor for evidence of sepsis and treat as indicated. (10) Thrombocytopenia Is this a current diagnosis for this admission?: Yes Plan: Platelet count is up into the 1 teens today. She is probably chronically low secondary to alcohol use disorder. We will continue to monitor. No evidence of acute bleeding today. (11) Tobacco abuse Is this a current diagnosis for this admission?: Yes Plan: Companion when appropriate. (12) Acute blood loss anemia Is this a current diagnosis for this admission?: Yes Plan: Yesterday patient's hemoglobin trended down to about 7. Dr. Rea ordered 2 units of packed red blood cells. Her hemoglobin has come up appropriately. We did not see active bleeding but she is several days postop so we will keep an eye on that. - Time Time Spent with patient: 35 or more minutes Total Critical Time (Minutes): 45 - Inpatient Certification Based on my medical assessment, after consideration of the patient's comorbidities, presenting symptoms, or acuity I expect that the services needed warrant INPATIENT care.: Yes I certify that my determination is in accordance with my understanding of Medicare's requirements for reasonable and necessary INPATIENT services [42 CFR 412.3e].: Yes Medical Necessity: Need Close Monitoring Due to Risk of Patient Decompensation, Need For Continuous Telemetry Monitoring, Need for IV Antibiotics, Risk of Complication if Not Cared For in Hospital - Plan Summary Plan Summary: I have discussed this patient's care today with Dr. Rea with pulmonology and with infectious diseases specialist at [facility].
[2017-06-05] MEDS: CEFTRIAXONE 2 GM/D5W RTU 2 GM/50 ML RTUPB IV SCH (17:16)
--- NOTE | 2017-06-05 17:24 | XCELERA REPORT ---
[address] [address] Transthoracic Echocardiogram Report Name: ENZO BECKMAN Age: 46 yrs Gender: Female : 1970 Patient Status: Inpatient Patient Location: ICU^[id number] Study Date: 06/05/2017 02:28 PM Height: 62 in Weight: 149 lb BSA: 1.7 m2 Procedure: A complete two-dimensional transthoracic echocardiogram was performed (2D, M-mode, spectral and color flow Doppler). The study was technically difficult with many images being suboptimal in quality. The study was technically limited with all images being suboptimal in quality. The parasternal views were not obtained due to emphysems. Reason For Study: eval for evidence of endocarditis Ordering Physician: DEREK VARGAS Performed By: Martha Haas Interpretation Summary A complete two-dimensional transthoracic echocardiogram was performed (2D, M-mode, spectral and color flow Doppler). The parasternal views were not obtained due to emphysems. The left ventricular ejection fraction is preserved. Consider additional methods to assess LVEF such as MUGA scan, CTA heart, cardiac MRI, MELINA, etc. if clinically indicated. Doppler measurements suggest pseudonormalized left ventricular relaxation, which is associated with grade II/IV or mild to moderate diastolic dysfunction Wall motion cannot be accurately commented on, but no definite regional wall motion abnormalities noted. There is mild concentric left ventricular hypertrophy. The left ventricle is grossly normal size. The right ventricle is borderline dilated. The right ventricular systolic function is normal. Right atrium not well visualized secondary to technical limitations The left atrium is mildly dilated. There is a trace amount of mitral regurgitation There is no mitral valve stenosis. No aortic regurgitation is present. There is no aortic valve stenosis No tricuspid regurgitation. There is no tricuspid stenosis. The inferior vena cava was not well visualized The aortic root is not well visualized. There is no pericardial effusion. No definite vegetations noted but if clinical suspicion is high, then consider MELINA and multiple blood cultures. MMode/2D Measurements & Calculations LVLd ap4: 7.5 cm SV(MOD-sp4): 32.0 ml EDV(MOD-sp4): 48.0 ml LVLs ap4: 5.9 cm ESV(MOD-sp4): 16.0 ml EF(MOD-sp4): 66.7 % Doppler Measurements & Calculations MV E max gideon: MV P1/2t max gideon: Ao V2 max: LV V1 max P.4 cm/sec 48.9 cm/sec 127.7 cm/sec 4.7 mmHg MV A max gideon: MV P1/2t: 50.5 msec Ao max PG: LV V1 max: 76.0 cm/sec 6.5 mmHg 108.1 cm/sec MV E/A: 0.64 MVA(P1/2t): 4.4 cm2 MV dec slope: 283.3 cm/sec2 Left Ventricle The left ventricle is grossly normal size. There is mild concentric left ventricular hypertrophy. The left ventricular ejection fraction is preserved. Consider additional methods to assess LVEF such as MUGA scan, CTA heart, cardiac MRI, MELINA, etc. if clinically indicated. Doppler measurements suggest pseudonormalized left ventricular relaxation, which is associated with grade II/IV or mild to moderate diastolic dysfunction. Wall motion cannot be accurately commented on, but no definite regional wall motion abnormalities noted. Right Ventricle The right ventricle is borderline dilated. The right ventricular systolic function is normal. Atria Right atrium not well visualized secondary to technical limitations. The left atrium is mildly dilated. Mitral Valve The mitral valve leaflets are sclerotic, but show no functional abnormalities. There is no mitral valve stenosis. There is a trace amount of mitral regurgitation. Aortic Valve The aortic valve is not well visualized secondary to technical limitations. The aortic valve opens well. There is no aortic valve stenosis. No aortic regurgitation is present. Tricuspid Valve The tricuspid valve is not well visualized secondary to technical limitations. There is no tricuspid stenosis. No tricuspid regurgitation. Pulmonic Valve The pulmonic valve is not well visualized. Great Vessels The aortic root is not well visualized. The inferior vena cava was not well visualized. Effusions There is no pericardial effusion. Incidental Findings No definite vegetations noted but if clinical suspicion is high, then consider MELINA and multiple blood cultures. : DEREK VARGAS > Brenda Jenkins
[2017-06-05] MEDS ORDERED: AMINO ACIDS 5%/D25W 1,000 ML IV PRN (18:00)
--- NOTE | 2017-06-05 19:58 | PDOC PROGRESS REPORT ---
Subjective Progress Note for:: 06/05/17 Subjective:: still intubated Reason For Visit: RESPIRATORY FAILURE,PNEUMONIA,SEPSIS Physical Exam Vital Signs: Temp Pulse Resp BP Pulse Ox 99.5 F 94 18 118/74 99 06/05/17 18:15 06/05/17 18:00 06/05/17 18:15 06/05/17 18:02 06/05/17 18:15 Intake & Output 06/04/17 06/05/17 06/06/17 06:59 06:59 06:59 Intake Total 3541 3767 1584 Output Total 3040 2100 945 Balance 501 1667 639 Weight 66.7 kg 68 kg Exam: More hemodynamically stable. Abdomen slightly distended but soft. NGT about 100 ccs Results Laboratory Results: 06/05/17 05:30 06/05/17 05:30 06/05/17 06/05/17 06/05/17 05:30 05:30 05:30 WBC 15.7 H RBC 3.53 L Hgb 10.9 L Hct 32.4 L MCV 92 MCH 30.7 MCHC 33.5 RDW 17.2 H Plt Count 118 L Carbonic Acid HCO3/H2CO3 Ratio ABG pH ABG pCO2 ABG pO2 ABG HCO3 ABG O2 Saturation ABG Base Excess FiO2 Sodium Cancelled 138.9 Potassium Cancelled 3.6 Chloride Cancelled 111 H Carbon Dioxide Cancelled 18 L Anion Gap Cancelled 10 BUN Cancelled 15 Creatinine Cancelled 0.48 L Est GFR ( Amer) Cancelled > 60 Est GFR (Non-Af Amer) Cancelled > 60 Glucose Cancelled 119 H Calcium Cancelled 8.0 L Phosphorus 3.8 Total Bilirubin 0.5 AST 23 ALT 35 Alkaline Phosphatase 106 Total Protein 4.3 L Albumin 1.9 L Prealbumin 10.2 L 06/05/17 09:50 WBC RBC Hgb Hct MCV MCH MCHC RDW Plt Count Carbonic Acid 0.88 L HCO3/H2CO3 Ratio 20:1 ABG pH 7.40 ABG pCO2 29.3 L ABG pO2 81.8 ABG HCO3 17.8 L ABG O2 Saturation 96.2 ABG Base Excess -5.8 FiO2 30% Sodium Potassium Chloride Carbon Dioxide Anion Gap BUN Creatinine Est GFR ( Amer) Est GFR (Non-Af Amer) Glucose Calcium Phosphorus Total Bilirubin AST ALT Alkaline Phosphatase Total Protein Albumin Prealbumin 06/02/17 07:45 Blood Blood Culture - Final C.albicans/C.dubliniensis 06/03/17 08:45 Stool - Stool - Final 06/03/17 08:45 Stool - Stool Stool Culture - Final C.albicans/C.dubliniensis Impressions: Abdomen/Pelvis CT 05/31/17 00:00 IMPRESSION: Large amount of free intraperitoneal air and fluid. There is oral contrast in the pelvis suggesting bowel perforation. Findings discussed with the patient's attending physician as a critical result KUB X-Ray 06/02/17 09:03 IMPRESSION: Nasogastric tube tip and side port in the stomach Gasless abdomen. Fluid-filled bowel loops are present. Chest X-Ray 06/05/17 00:00 IMPRESSION: STABLE APPEARANCE OF THE CHEST. SUPPORT DEVICES UNCHANGED. Assessment & Plan - Time Time Spent with patient: 15-24 minutes - Inpatient Certification Medical Necessity: Need Close Monitoring Due to Risk of Patient Decompensation, Need For IV Fluids, Need for IV Antibiotics - Plan Summary Plan Summary: Have a long talk with patient's Mom and daughter who just arrived from [place]. Also talked to pt's sister who live in the area who will be the contact center manager since unable to get in touch with pt's . This is the 5th POD. OK to try small amounts of tube feedings since unable to give TPN wit no central access available.
[2017-06-05] MEDS: DEXTROSE 5%-1/2 NORMAL SALINE 1,000 ML IV PRN (21:17)
[2017-06-05] MEDS ORDERED: DEXTROSE 50%-WATER 25 GM/50 ML DISP.SYRIN IV ONE (23:03)
[2017-06-05] MEDS ORDERED: DEXTROSE 50%-WATER SYRINGE 12.5 GM/25 ML DOSE IV PRN (23:52)
[2017-06-05] MEDS ORDERED: GLUCAGON,HUMAN RECOMB 1 MG INJ IM PRN (23:52)
[2017-06-05] MEDS ORDERED: DEXTROSE 50%-WATER SYRINGE 25 GM/50 ML DOSE IV PRN (23:52)
[2017-06-05] MEDS ORDERED: DEXTROSE 40% GEL 15 GM TUBE PO PRN (23:52)
[2017-06-05] MEDS ORDERED: DEXTROSE 40% GEL 15 GM TUBE X 2 PO PRN (23:52)
[2017-06-06] MEDS: FENTANYL CITRATE INJ/PF 100 MCG/2 ML AMPUL IV PRN (00:25)
[2017-06-06] MEDS: IPRATROPIUM/ALBUTEROL 0.5-2.5 MG/3 ML AMPUL NEB SCH ×4 (01:58→20:06)
[2017-06-06] MEDS: LORAZEPAM INJ 2 MG/1 ML VIAL IV PRN (02:24)
[2017-06-06] MEDS: PROPOFOL 100 ML IV PRN ×5 (03:21→20:59)
[2017-06-06] MEDS: ACETAMINOPHEN 650 MG SUPP.RECT PR PRN (04:13)
[2017-06-06 06:14] LABS: ARTERIAL BLOOD BASE EXCESS -5.6 mmol/L; ARTERIAL BLOOD H2CO3 0.91 mmol/L (1.05-1.35); ARTERIAL BLOOD HCO3 18.1 mmol/L (20-26); ARTERIAL BLOOD O2 SATURATION 95.6 % (94-98); ARTERIAL BLOOD PCO2 30.1 mmHg (35-45); ARTERIAL BLOOD PO2 77.4 mmHg (80-100)
[2017-06-06 06:15] LABS: ARTERIAL BLOOD FIO2 30%
[2017-06-06 06:17] LABS: ANION GAP 8 (5-19); BLOOD UREA NITROGEN 10 mg/dL (7-20); CARBON DIOXIDE 19 mmol/L (22-30); CHLORIDE 112 mmol/L (98-107); GLUCOSE 74 mg/dL (75-110); SODIUM 138.5 mmol/L (137-145)
[2017-06-06] MEDS: MIDAZOLAM HCL 50 MG/100 ML RTUINJ IV PRN ×2 (07:36→12:44)
[2017-06-06] MEDS ORDERED: FUROSEMIDE INJ/PF 20 MG/2 ML SDV IV ONE (07:42)
--- NOTE | 2017-06-06 07:42 | PDOC PROGRESS REPORT ---
Subjective Progress Note for:: 06/05/17 Subjective:: intubated/sedated Reason For Visit: RESPIRATORY FAILURE,PNEUMONIA,SEPSIS Physical Exam Vital Signs: Temp Pulse Resp BP Pulse Ox 97.5 F 86 22 H 132/83 H 98 06/05/17 07:49 06/05/17 08:15 06/05/17 08:15 06/05/17 07:49 06/05/17 08:16 Intake & Output 06/04/17 06/05/17 06/06/17 06:59 06:59 06:59 Intake Total 3541 3767 Output Total 3040 2100 175 Balance 501 1667 -175 Weight 66.7 kg 68 kg General appearance: PRESENT: no acute distress, disheveled, thin, well- developed. ABSENT: cooperative Head exam: PRESENT: atraumatic, normocephalic Eye exam: ABSENT: EOMI, nystagmus, periorbital swelling Mouth exam: PRESENT: dry mucosa, neck supple, tongue midline, other - ET tube Neck exam: ABSENT: carotid bruit, JVD, lymphadenopathy, thyromegaly, tracheal deviation Respiratory exam: PRESENT: crackles, decreased breath sounds, prolonged expiratory phas, rhonchi, symmetrical, unlabored. ABSENT: retraction, stridor, tachypnea Cardiovascular exam: PRESENT: RRR, +S1, +S2, tachycardia Pulses: PRESENT: normal radial pulses GI/Abdominal exam: PRESENT: other - s/p surgery Extremities exam: PRESENT: other - general anasarca. ABSENT: clubbing Musculoskeletal exam: ABSENT: deformity, dislocation Neurological exam: ABSENT: alert, awake, oriented to person Skin exam: PRESENT: dry, warm Results Laboratory Results: 06/05/17 05:30 06/05/17 05:30 06/04/17 06/04/17 06/04/17 09:30 09:51 18:40 WBC 17.2 H RBC 2.34 L Hgb 7.5 L Hct 22.4 L MCV 96 MCH 32.2 MCHC 33.5 RDW 16.8 H Plt Count 112 L Sodium 138.5 Potassium 4.0 D Chloride 111 H Carbon Dioxide 18 L Anion Gap 10 BUN 17 Creatinine 0.52 Est GFR ( Amer) > 60 Est GFR (Non-Af Amer) > 60 Glucose 178 H Calcium 7.9 L Phosphorus Total Bilirubin AST ALT Alkaline Phosphatase Total Protein Albumin Prealbumin Blood Type A POSITIVE Antibody Screen NEGATIVE 06/04/17 06/05/17 06/05/17 18:40 05:30 05:30 WBC 18.7 H RBC 3.49 L Hgb 10.7 L D Hct 32.2 L MCV 93 MCH 30.8 MCHC 33.3 RDW 17.0 H Plt Count 116 L Sodium Cancelled 138.9 Potassium Cancelled 3.6 Chloride Cancelled 111 H Carbon Dioxide Cancelled 18 L Anion Gap Cancelled 10 BUN Cancelled 15 Creatinine Cancelled 0.48 L Est GFR ( Amer) Cancelled > 60 Est GFR (Non-Af Amer) Cancelled > 60 Glucose Cancelled 119 H Calcium Cancelled 8.0 L Phosphorus 3.8 Total Bilirubin 0.5 AST 23 ALT 35 Alkaline Phosphatase 106 Total Protein 4.3 L Albumin 1.9 L Prealbumin 10.2 L Blood Type Antibody Screen 06/05/17 05:30 WBC 15.7 H RBC 3.53 L Hgb 10.9 L Hct 32.4 L MCV 92 MCH 30.7 MCHC 33.5 RDW 17.2 H Plt Count 118 L Sodium Potassium Chloride Carbon Dioxide Anion Gap BUN Creatinine Est GFR ( Amer) Est GFR (Non-Af Amer) Glucose Calcium Phosphorus Total Bilirubin AST ALT Alkaline Phosphatase Total Protein Albumin Prealbumin Blood Type Antibody Screen 06/03/17 08:45 Stool - Stool - Final 06/03/17 08:45 Stool - Stool Stool Culture - Final C.albicans/C.dubliniensis 06/02/17 07:50 Tracheal Aspirate Gram Stain - Final 06/02/17 07:50 Tracheal Aspirate Sputum Culture - Final C.albicans/C.dubliniensis Normal Aleida Absent Impressions: Abdomen/Pelvis CT 05/31/17 00:00 IMPRESSION: Large amount of free intraperitoneal air and fluid. There is oral contrast in the pelvis suggesting bowel perforation. Findings discussed with the patient's attending physician as a critical result KUB X-Ray 06/02/17 09:03 IMPRESSION: Nasogastric tube tip and side port in the stomach Gasless abdomen. Fluid-filled bowel loops are present. Chest X-Ray 06/04/17 06:00 IMPRESSION: Patchy predominately airspace densities appear essentially unchanged. On the current study the tip of the endotracheal tube is at the level of the right mainstem bronchus and should be repositioned. Other findings as noted above Assessment & Plan - Diagnosis (1) Acute hypoxemic respiratory failure Is this a current diagnosis for this admission?: Yes Plan: Better ABG with less FiO2 requirements (2) Acute renal failure Qualifiers: Acute renal failure type: unspecified Qualified Code(s): N17.9 - Acute kidney failure, unspecified Is this a current diagnosis for this admission?: Yes Plan: I/O last 96h +6.7L wt+3.7 kg (3) Chronic alcoholism Is this a current diagnosis for this admission?: Yes Plan: MCV 102--- min 24 beers per day ---per RN report DT precautions thiamine;MVI et al (4) Protein calorie malnutrition Qualifiers: Protein-calorie malnutrition severity: severe Qualified Code(s): E43 - Unspecified severe protein-calorie malnutrition Is this a current diagnosis for this admission?: Yes (5) Sepsis Qualifiers: Sepsis type: Justa Qualified Code(s): B37.7 - Candidal sepsis Is this a current diagnosis for this admission?: Yes Plan: reqiring vasopressor agent(s) (6) Tobacco abuse Is this a current diagnosis for this admission?: Yes Plan: transdermal nicotine - Time Total Critical Time (Minutes): 40
[2017-06-06 07:50] LABS: ALBUMIN 1.7 g/dL (3.5-5.0)
--- NOTE | 2017-06-06 07:50 | PDOC PROGRESS REPORT ---
Subjective Progress Note for:: 06/06/17 Subjective:: intubated/sedated Reason For Visit: RESPIRATORY FAILURE,PNEUMONIA,SEPSIS Physical Exam Vital Signs: Temp Pulse Resp BP Pulse Ox 101.1 F H 103 H 17 130/77 H 96 06/06/17 06:07 06/06/17 02:00 06/06/17 06:07 06/06/17 06:07 06/06/17 06:07 Intake & Output 06/05/17 06/06/17 06/07/17 06:59 06:59 06:59 Intake Total 3767 2820 Output Total 2100 2495 Balance 1667 325 Weight 68 kg 73.3 kg General appearance: PRESENT: no acute distress, disheveled, well-developed. ABSENT: cooperative Head exam: PRESENT: atraumatic, normocephalic Eye exam: PRESENT: conjunctiva pale. ABSENT: nystagmus, periorbital swelling, scleral icterus Mouth exam: PRESENT: dry mucosa, neck supple, tongue midline, other - ET tube Neck exam: ABSENT: carotid bruit, JVD, lymphadenopathy, thyromegaly, tracheal deviation, tracheostomy Respiratory exam: PRESENT: crackles, decreased breath sounds, prolonged expiratory phas, rhonchi, symmetrical, unlabored, wheezes. ABSENT: retraction, stridor, tachypnea Cardiovascular exam: PRESENT: RRR, +S1, +S2, tachycardia Pulses: PRESENT: normal radial pulses GI/Abdominal exam: PRESENT: other - s/p surgery Extremities exam: PRESENT: +2 edema. ABSENT: clubbing Musculoskeletal exam: ABSENT: ambulatory, deformity, dislocation Neurological exam: ABSENT: alert, awake, oriented to person Skin exam: PRESENT: dry, warm Results Laboratory Results: 06/05/17 05:30 06/06/17 05:45 06/05/17 06/06/17 06/06/17 09:50 05:45 05:50 Carbonic Acid 0.88 L 0.91 L HCO3/H2CO3 Ratio 20:1 19:1 ABG pH 7.40 7.40 ABG pCO2 29.3 L 30.1 L ABG pO2 81.8 77.4 L ABG HCO3 17.8 L 18.1 L ABG O2 Saturation 96.2 95.6 ABG Base Excess -5.8 -5.6 FiO2 30% 30% Sodium 138.5 Potassium 3.0 L* Chloride 112 H Carbon Dioxide 19 L Anion Gap 8 BUN 10 Creatinine 0.48 L Est GFR ( Amer) > 60 Est GFR (Non-Af Amer) > 60 Glucose 74 L Calcium 8.0 L 06/02/17 07:45 Blood Blood Culture - Final C.albicans/C.dubliniensis 06/03/17 08:45 Stool - Stool - Final 06/03/17 08:45 Stool - Stool Stool Culture - Final C.albicans/C.dubliniensis Impressions: Abdomen/Pelvis CT 05/31/17 00:00 IMPRESSION: Large amount of free intraperitoneal air and fluid. There is oral contrast in the pelvis suggesting bowel perforation. Findings discussed with the patient's attending physician as a critical result KUB X-Ray 06/02/17 09:03 IMPRESSION: Nasogastric tube tip and side port in the stomach Gasless abdomen. Fluid-filled bowel loops are present. Assessment & Plan - Diagnosis (1) Acute hypoxemic respiratory failure Is this a current diagnosis for this admission?: Yes Plan: Better ABG with less FiO2 requirements (2) Acute renal failure Qualifiers: Acute renal failure type: unspecified Qualified Code(s): N17.9 - Acute kidney failure, unspecified Is this a current diagnosis for this admission?: No (3) Chronic alcoholism Is this a current diagnosis for this admission?: Yes (4) Protein calorie malnutrition Qualifiers: Protein-calorie malnutrition severity: severe Qualified Code(s): E43 - Unspecified severe protein-calorie malnutrition Is this a current diagnosis for this admission?: Yes (5) Sepsis Qualifiers: Sepsis type: Justa Qualified Code(s): B37.7 - Candidal sepsis Is this a current diagnosis for this admission?: Yes Plan: 06/03/17 08:45 - Final Stool - Stool Stool Culture - Final C.albicans/C.dubliniensis 06/02/17 07:50 Gram Stain - Final Tracheal Aspirate Sputum Culture - Final C.albicans/C.dubliniensis Normal Aleida Absent 06/02/17 07:50 Urine Culture - Final Catheterized Urine C.albicans/C.dubliniensis 06/02/17 07:45 Yeast/Fungus Identification - Pending Blood Yeast/Fungus Identification - Pending 06/02/17 07:45 Yeast/Fungus Identification - Pending Blood Susceptibility Special Request - Pending 06/02/17 07:45 Blood Culture - Final Blood C.albicans/C.dubliniensis 05/23/17 15:28 Gram Stain - Preliminary Sputum Sputum Culture - Preliminary Streptococcus Pneumoniae . C.albicans/C.dubliniensis Reduced Normal Aleida 05/23/17 15:28 Gram Stain - Final Sputum Sputum Culture - Final Streptococcus Pneumoniae C.albicans/C.dubliniensis Reduced Normal Aleida (6) Tobacco abuse Is this a current diagnosis for this admission?: Yes - Time Total Critical Time (Minutes): 35
[2017-06-06] MEDS: BUDESONIDE NEB 0.5 MG/2 ML AMPUL NEB SCH ×2 (08:10→20:06)
[2017-06-06] MEDS: ACETYLCYSTEINE 20% SOLN 800 MG/4 ML VIAL.NEB NEB SCH ×2 (08:10→20:06)
--- NOTE | 2017-06-06 08:15 | RADIOLOGY REPORT (SQ) ---
EXAM DESCRIPTION: CHEST SINGLE VIEW COMPLETED DATE/TIME: 06/06/2017 6:36 am REASON FOR STUDY: resp failure/pna COMPARISON: 06/05/2017 EXAM PARAMETERS: NUMBER OF VIEWS: One view TECHNIQUE: Single frontal radiograph of the chest. RADIATION DOSE: N/A LIMITATIONS: None. FINDINGS: TEMPORARY SUPPORT DEVICES:ETT is just at the right mainstem bronchus and should be pulled back 2 cm. NG tube courses below the dilip-diaphragm in to the stomach. Central venous access cathete r tip is in expected location. LUNGS AND PLEURA: Persistent basilar opacities. Persistent small effusions. No masses. No pneumothora x. MEDIASTINUM AND HILAR STRUCTURES: No masses. Contour normal. HEART AND VASCULAR STRUCTURES: Heart normal in size. normal vascularity. Aorta normal for age. BONES: No acute findings. OTHER: No other significant finding. IMPRESSION: Stable appearance. Basilar opacities and effusions. ETT is just into the right mainstem bronchus and should be pulled back 2 cm. TECHNICAL DOCUMENTATION: JOB ID: [id number] [employer]- All Rights Reserved Reading location - IP/workstation name: [email or web address]
[2017-06-06 08:29] LABS: HEMATOCRIT 34.5 % (36.0-47.0); HEMOGLOBIN 11.4 g/dL (12.0-15.5); MEAN CORPUSCULAR HEMOGLOBIN 30.5 pg (27.0-33.4); MEAN CORPUSCULAR VOLUME 92 fl (80-97); PLATELET COUNT 131 10^3/uL (150-450); RED BLOOD COUNT 3.73 10^6/uL (3.72-5.28); RED CELL DISTRIBUTION WIDTH 16.7 % (11.5-14.0); WHITE BLOOD COUNT 24.3 10^3/uL (4.0-10.5)
[2017-06-06 08:35] LABS: ALBUMIN 1.7 g/dL (3.5-5.0)
[2017-06-06 08:40] LABS: ALANINE AMINOTRANSFERASE 39 U/L (9-52); ALKALINE PHOSPHATASE 107 U/L (38-126); ASPARTATE AMINO TRANSFERASE 20 U/L (14-36); BILIRUBIN,DIRECT 0.4 mg/dL (0.0-0.4); BILIRUBIN,TOTAL 0.4 mg/dL (0.2-1.3); TOTAL PROTEIN 3.7 g/dL (6.3-8.2)
[2017-06-06] MEDS ORDERED: POTASSI CL 20 MEQ/50 ML RIDER 20 MEQ/50 ML RTUPB IV ONE (09:06)
[2017-06-06] MEDS ORDERED: MAGNESIUM SULFATE/D5W 1 GM/100 ML RTUPB IV ONE (09:07)
[2017-06-06] MEDS: PANTOPRAZOLE SODIUM 40 MG VIAL IV SCH ×2 (09:12→22:03)
[2017-06-06] MEDS: NICOTINE 21 MG/24 HR PATCH.TD24 TD SCH (09:14)
[2017-06-06] MEDS: HYDROMORPHONE HCL INJ/PF 2 MG/ML AMPULE IV PRN (09:19)
[2017-06-06] MEDS: LACTULOSE SYRUP 20 GM/30 ML UDCUP NG SCH ×2 (09:32→22:03)
[2017-06-06] MEDS: MAGNESIUM SULFATE 1 GM/D5W 100 ML IV SCH ×2 (10:36→10:57)
[2017-06-06] MEDS: METHYLPREDNISOLONE INJ 40 MG/1 ML SDV IV SCH (10:37)
[2017-06-06] MEDS: MICAFUNGIN SODIUM 100 MG in NORMAL SALINE 100 ML IV SCH (10:37)
[2017-06-06] MEDS: POTASSIUM CHLORIDE 20 MEQ/50 ML RTU IV SCH ×3 (10:47→16:20)
[2017-06-06] MEDS: DEXTROSE 5%-1/2 NORMAL SALINE 1,000 ML IV PRN (10:52)
--- NOTE | 2017-06-06 15:24 | RADIOLOGY REPORT (SQ) ---
EXAM DESCRIPTION: CHEST SINGLE VIEW COMPLETED DATE/TIME: 06/06/2017 3:15 pm REASON FOR STUDY: Central line placement COMPARISON: 06/06/2017 EXAM PARAMETERS: NUMBER OF VIEWS: One view TECHNIQUE: Single frontal radiograph of the chest. RADIATION DOSE: N/A LIMITATIONS: None. FINDINGS: TEMPORARY SUPPORT DEVICES:ETT in expected location. NG tube courses below the dilip-diaphr agm in to the stomach. Central venous access catheter tip is in expected location. LUNGS AND PLEURA: Basilar opacities. Pleural reaction. No masses. No pneumothorax. MEDIASTINUM AND HILAR STRUCTURES: No masses. Contour normal. HEART AND VASCULAR STRUCTURES: Heart normal in size. normal vascularity. Aorta normal for age. BONES: No acute findings. OTHER: No other significant finding. IMPRESSION: Stable basilar opacities and pleural reaction. No pneumothorax status post central line placement. SUPPORT DEVICE(S) IN EXPECTED LOCATIONS. TECHNICAL DOCUMENTATION: JOB ID: [id number] [employer]- All Rights Reserved Reading location - IP/workstation name: [email or web address]
--- NOTE | 2017-06-06 16:23 | OPERATIVE REPORT E ---
Operative Report NAME: ENZO BECKMAN : 1970 AGE: 46Y DATE OF SURGERY: 06/06/2017 ROOM: 608 PREOPERATIVE DIAGNOSIS: CENTRAL LINE NEEDED AFTER REMOVAL OF OLD CENTRAL LINE BECAUSE OF SYSTEMIC FUNGEMIA. POSTOPERATIVE DIAGNOSIS: CENTRAL LINE NEEDED AFTER REMOVAL OF OLD CENTRAL LINE BECAUSE OF SYSTEMIC FUNGEMIA. SURGEON: MARGY MUÑOZ M.D. PROCEDURE: Patient was placed in the Trendelenburg position. The left neck and upper chest were then prepped and draped in the usual sterile fashion. Local anesthesia infiltrated over the path of the internal jugular vein on ultrasound guidance. The vein was subsequently punctured and guidewire passed through the needle towards the area of the superior vena cava. The puncture site was then dilated. A triple lumen catheter was inserted through the guidewire towards the area of the superior vena cava. The catheter was placed about 16 cm distally. Next, the catheter was then anchored to the skin with 3-0 silk and all the 3 ports irrigated nicely with saline and aspirated blood easily. A Biopatch was placed at the insertion site and a sterile transparent dressing was then placed over the Biopatch and guidewire. Chest x-ray will be obtained for placement. Patient tolerated the procedure well. DICTATING PHYSICIAN: MARGY MUÑOZ M.D. [id number] PHY#: [id number] ID: [id number] JOB#: [id number] ACCT: [id number] cc:MARGY MUÑOZ M.D. >
[2017-06-06] MEDS ORDERED: FUROSEMIDE INJ/PF 20 MG/2 ML SDV IV SCH (17:00)
[2017-06-06] MEDS: FUROSEMIDE INJ/PF 40 MG/4 ML SDV IV SCH (17:16)
[2017-06-06] MEDS: CEFTRIAXONE 2 GM/D5W RTU 2 GM/50 ML RTUPB IV SCH (17:17)
--- NOTE | 2017-06-06 17:56 | PDOC PROGRESS REPORT ---
Subjective Progress Note for:: 06/06/17 Subjective:: pt intubated and sedated. No success overnight with PIV access. Pt had a temp that has now resolved without tylenol. Most recent blood cultures neg to date. SHe has started to move her bowels, surgeon agreed OK to start tube feeds at low rate. Reason For Visit: RESPIRATORY FAILURE,PNEUMONIA,SEPSIS Physical Exam Vital Signs: Temp Pulse Resp BP Pulse Ox 98.2 F 92 18 94/65 L 98 06/06/17 16:00 06/06/17 16:00 06/06/17 16:00 06/06/17 16:00 06/06/17 16:25 Intake & Output 06/05/17 06/06/17 06/07/17 06:59 06:59 06:59 Intake Total 3767 2820 242 Output Total 2100 2495 1595 Balance 1667 325 -1353 Weight 68 kg 73.3 kg General appearance: PRESENT: no acute distress, thin Head exam: PRESENT: atraumatic, normocephalic Eye exam: PRESENT: conjunctiva pink, PERRLA. ABSENT: scleral icterus Ear exam: PRESENT: normal external ear exam. ABSENT: drainage Mouth exam: PRESENT: moist Neck exam: ABSENT: lymphadenopathy Respiratory exam: PRESENT: decreased breath sounds, rales, unlabored. ABSENT: rhonchi, tachypnea, wheezes Cardiovascular exam: PRESENT: RRR. ABSENT: systolic murmur Pulses: PRESENT: normal radial pulses GI/Abdominal exam: PRESENT: distended, hypoactive bowel sounds, soft Rectal exam: PRESENT: deferred Gentrourinary exam: PRESENT: indwelling catheter Extremities exam: PRESENT: +2 edema, other - anasarca Neurological exam: PRESENT: other - sedated with propofol Psychiatric exam: ABSENT: agitated Skin exam: PRESENT: other - very edematous throughout and seeping in a few spots , cone eccymoses from PIV attempts, stage 2 on sacrum Results Laboratory Results: 06/06/17 07:50 06/06/17 05:45 06/06/17 06/06/17 06/06/17 05:45 05:45 05:45 WBC RBC Hgb Hct MCV MCH MCHC RDW Plt Count Carbonic Acid HCO3/H2CO3 Ratio ABG pH ABG pCO2 ABG pO2 ABG HCO3 ABG O2 Saturation ABG Base Excess FiO2 Sodium 138.5 Potassium 3.0 L* Chloride 112 H Carbon Dioxide 19 L Anion Gap 8 BUN 10 Creatinine 0.48 L Est GFR ( Amer) > 60 Est GFR (Non-Af Amer) > 60 Glucose 74 L Calcium 8.0 L Magnesium 1.5 L Total Bilirubin 0.4 AST 20 ALT 39 Alkaline Phosphatase 107 Total Protein 3.7 L Albumin 1.7 L 1.7 L 06/06/17 06/06/17 05:50 07:50 WBC 24.3 H RBC 3.73 Hgb 11.4 L Hct 34.5 L MCV 92 MCH 30.5 MCHC 33.0 RDW 16.7 H Plt Count 131 L Carbonic Acid 0.91 L HCO3/H2CO3 Ratio 19:1 ABG pH 7.40 ABG pCO2 30.1 L ABG pO2 77.4 L ABG HCO3 18.1 L ABG O2 Saturation 95.6 ABG Base Excess -5.6 FiO2 30% Sodium Potassium Chloride Carbon Dioxide Anion Gap BUN Creatinine Est GFR ( Amer) Est GFR (Non-Af Amer) Glucose Calcium Magnesium Total Bilirubin AST ALT Alkaline Phosphatase Total Protein Albumin 06/02/17 07:45 Blood Blood Culture - Final C.albicans/C.dubliniensis Impressions: Abdomen/Pelvis CT 05/31/17 00:00 IMPRESSION: Large amount of free intraperitoneal air and fluid. There is oral contrast in the pelvis suggesting bowel perforation. Findings discussed with the patient's attending physician as a critical result KUB X-Ray 06/02/17 09:03 IMPRESSION: Nasogastric tube tip and side port in the stomach Gasless abdomen. Fluid-filled bowel loops are present. Chest X-Ray 06/06/17 06:00 IMPRESSION: Stable appearance. Basilar opacities and effusions. ETT is just into the right mainstem bronchus and should be pulled back 2 cm. Assessment & Plan - Diagnosis (1) Fungemia Is this a current diagnosis for this admission?: Yes Plan: Justa in blood, urine, stool, sputum. She has fluconazole allergy and is on micafungin. ID consult called yeterday. TTE shows no evidence of endocarditis , matamoros has been replaced. We have been unable to fine PIV access, due to anasarca, after many attempts with US. Therefore, suboptimally, I have removed CVC and surgeon replaced a new line. Will culture old line tip. She is now aggressivly diuresing and staff technologist working on PIV access. ONce PIVs inplace will remove newly placed CVC and cont to treat fungemia. Once all lines ( except PIV) out we will draw 2 sets of blood cultures and when those are clear for 72 hours another CVC can be placed if needed. ID consult said amador once pt stable and able she shouel have endopthalmitis exam performed. (2) Alcohol withdrawal Is this a current diagnosis for this admission?: Yes Plan: likely resolved, on low dose versed, wean off if she tolerates and will need to cont a prn benzo likely (3) Acute hypoxemic respiratory failure Is this a current diagnosis for this admission?: Yes Plan: pt has strep pneumo PNA, she is ventilated and pulomonolgist managing vent. She is on cefriaxone 2 grmas daily, to continue at least 7 days. SHe also has tobacco use disorder and pulm effusions contributing. (4) Electrolyte imbalance Is this a current diagnosis for this admission?: Yes Plan: monitoring K and Mag and BMP daily, will replete as indicated (5) Hypokalemia Is this a current diagnosis for this admission?: Yes Plan: repleting per protocol, will likely cont to be low now that lasix is being given , BMP tomorrow. (6) Perforated gastric ulcer Qualifiers: Gastric ulcer chronicity: acute Qualified Code(s): K25.1 - Acute gastric ulcer with perforation Is this a current diagnosis for this admission?: Yes Plan: Todya is POD 6 for omental patch repair of perforated gastric ulcer. Surgeon following. Will cont PPI and once we can use NG tube more aggressively will treat empirically for hpylori. (7) Pneumonia Qualifiers: Aspiration pneumonia type: unspecified Laterality: bilateral Lung location: lower lobe of lung Is this a current diagnosis for this admission?: Yes Plan: pt admitted with strep pneumo PNA and then may have aspirated perioperatively, she is recovering from a pulmonary perspective on ceftriaxone. Consider broader coverage if pulm status worsens, (8) Protein calorie malnutrition Qualifiers: Protein-calorie malnutrition severity: severe Qualified Code(s): E43 - Unspecified severe protein-calorie malnutrition Is this a current diagnosis for this admission?: Yes Plan: severe, started tube feeds, continue to monitor, nutrition consult placed (9) Sepsis Qualifiers: Sepsis type: Justa Qualified Code(s): B37.7 - Candidal sepsis Is this a current diagnosis for this admission?: Yes Plan: candidal sepsis, cont micafungin, fluids is needed (10) Thrombocytopenia Is this a current diagnosis for this admission?: Yes Plan: improving. monitor. (11) Tobacco abuse Is this a current diagnosis for this admission?: Yes Plan: will counseling services manager cessation once extubated and receptive (12) Acute blood loss anemia Is this a current diagnosis for this admission?: Yes Plan: this occurred post op, she has gotten 2 units PRBC (Wednesday) and H and H holding stable. (13) Stage 2 skin ulcer of sacral region Is this a current diagnosis for this admission?: Yes Plan: poor nutritional status, cont tube feeds, cont frequent turning and protocol for wound care (14) Anasarca Is this a current diagnosis for this admission?: Yes Plan: lasix 40 mg IV BID started, her BP is tolerating this fairly well, due to anasarca we are unable to obtain PIV access, will cont to diurese and monitor electrolytes/vitals and cont to attemp PIV access. - Time Time Spent with patient: 35 or more minutes Total Critical Time (Minutes): 40 Medications reviewed and adjusted accordingly: Yes Anticipated discharge: Acute Rehab - Inpatient Certification Based on my medical assessment, after consideration of the patient's comorbidities, presenting symptoms, or acuity I expect that the services needed warrant INPATIENT care.: Yes I certify that my determination is in accordance with my understanding of Medicare's requirements for reasonable and necessary INPATIENT services [42 CFR 412.3e].: Yes Medical Necessity: Need for IV Antibiotics, Risk of Complication if Not Cared For in Hospital
[2017-06-06 18:11] LABS: ANION GAP 8 (5-19); BLOOD UREA NITROGEN 10 mg/dL (7-20); CALCIUM 8.1 mg/dL (8.4-10.2); CARBON DIOXIDE 18 mmol/L (22-30); CHLORIDE 110 mmol/L (98-107); GLUCOSE 132 mg/dL (75-110); POTASSIUM 3.8 mmol/L (3.6-5.0); SODIUM 136.3 mmol/L (137-145)
--- NOTE | 2017-06-06 22:16 | PDOC PROGRESS REPORT ---
Subjective Progress Note for:: 06/06/17 Subjective:: tolerating tube feeds Reason For Visit: RESPIRATORY FAILURE,PNEUMONIA,SEPSIS Physical Exam Vital Signs: Temp Pulse Resp BP Pulse Ox 97.3 F 83 18 135/89 H 100 06/06/17 22:08 06/06/17 20:10 06/06/17 22:08 06/06/17 22:08 06/06/17 22:08 Intake & Output 06/05/17 06/06/17 06/07/17 06:59 06:59 06:59 Intake Total 3767 2820 2207 Output Total 2100 2495 1830 Balance 1667 325 377 Weight 68 kg 73.3 kg Exam: abd is soft. Incision clean and dry Results Laboratory Results: 06/06/17 07:50 06/06/17 17:43 06/06/17 06/06/17 06/06/17 05:45 05:45 05:45 WBC RBC Hgb Hct MCV MCH MCHC RDW Plt Count Carbonic Acid HCO3/H2CO3 Ratio ABG pH ABG pCO2 ABG pO2 ABG HCO3 ABG O2 Saturation ABG Base Excess FiO2 Sodium 138.5 Potassium 3.0 L* Chloride 112 H Carbon Dioxide 19 L Anion Gap 8 BUN 10 Creatinine 0.48 L Est GFR ( Amer) > 60 Est GFR (Non-Af Amer) > 60 Glucose 74 L Calcium 8.0 L Magnesium 1.5 L Total Bilirubin 0.4 AST 20 ALT 39 Alkaline Phosphatase 107 Total Protein 3.7 L Albumin 1.7 L 1.7 L 06/06/17 06/06/17 06/06/17 05:50 07:50 17:43 WBC 24.3 H RBC 3.73 Hgb 11.4 L Hct 34.5 L MCV 92 MCH 30.5 MCHC 33.0 RDW 16.7 H Plt Count 131 L Carbonic Acid 0.91 L HCO3/H2CO3 Ratio 19:1 ABG pH 7.40 ABG pCO2 30.1 L ABG pO2 77.4 L ABG HCO3 18.1 L ABG O2 Saturation 95.6 ABG Base Excess -5.6 FiO2 30% Sodium 136.3 L Potassium 3.8 Chloride 110 H Carbon Dioxide 18 L Anion Gap 8 BUN 10 Creatinine 0.48 L Est GFR ( Amer) > 60 Est GFR (Non-Af Amer) > 60 Glucose 132 H Calcium 8.1 L Magnesium Total Bilirubin AST ALT Alkaline Phosphatase Total Protein Albumin Impressions: Abdomen/Pelvis CT 05/31/17 00:00 IMPRESSION: Large amount of free intraperitoneal air and fluid. There is oral contrast in the pelvis suggesting bowel perforation. Findings discussed with the patient's attending physician as a critical result KUB X-Ray 06/02/17 09:03 IMPRESSION: Nasogastric tube tip and side port in the stomach Gasless abdomen. Fluid-filled bowel loops are present. Chest X-Ray 06/06/17 06:00 IMPRESSION: Stable appearance. Basilar opacities and effusions. ETT is just into the right mainstem bronchus and should be pulled back 2 cm. Assessment & Plan - Time Time Spent with patient: 15-24 minutes - Plan Summary Plan Summary: New left IJ catheter placed. Old right JV catheter removed for fungimea Continue tube feeding Hopefully can be extubated in 24-48 hrs
[2017-06-07] MEDS: PROPOFOL 100 ML IV PRN ×5 (01:34→17:36)
[2017-06-07] MEDS: IPRATROPIUM/ALBUTEROL 0.5-2.5 MG/3 ML AMPUL NEB SCH ×4 (02:17→19:33)
[2017-06-07] MEDS: HYDROMORPHONE HCL INJ/PF 2 MG/ML AMPULE IV PRN ×2 (03:04→08:27)
[2017-06-07 06:02] LABS: HEMATOCRIT 29.5 % (36.0-47.0); MEAN CORPUSCULAR HEMOGLOBIN 31.2 pg (27.0-33.4); MEAN CORPUSCULAR HGB CONC 33.8 g/dL (32.0-36.0); MEAN CORPUSCULAR VOLUME 92 fl (80-97); PLATELET COUNT 122 10^3/uL (150-450); RED BLOOD COUNT 3.19 10^6/uL (3.72-5.28); RED CELL DISTRIBUTION WIDTH 16.8 % (11.5-14.0); WHITE BLOOD COUNT 23.2 10^3/uL (4.0-10.5)
[2017-06-07 06:06] LABS: ARTERIAL BLOOD BASE EXCESS -5.2 mmol/L; ARTERIAL BLOOD H2CO3 0.91 mmol/L (1.05-1.35); ARTERIAL BLOOD HCO3 18.6 mmol/L (20-26); ARTERIAL BLOOD O2 SATURATION 95.6 % (94-98); ARTERIAL BLOOD PCO2 30.3 mmHg (35-45); ARTERIAL BLOOD PH 7.41 (7.35-7.45); ARTERIAL BLOOD PO2 76.9 mmHg (80-100); ARTERIAL BLOOD TOTAL CO2 19.5 mmol/L (21-25)
[2017-06-07] MEDS: FUROSEMIDE INJ/PF 40 MG/4 ML SDV IV SCH ×2 (06:06→17:09)
[2017-06-07 06:11] LABS: ANION GAP 9 (5-19); ARTERIAL BLOOD FIO2 30%; BLOOD UREA NITROGEN 11 mg/dL (7-20); CALCIUM 7.9 mg/dL (8.4-10.2); CARBON DIOXIDE 19 mmol/L (22-30); CHLORIDE 108 mmol/L (98-107); GLUCOSE 100 mg/dL (75-110); POTASSIUM 3.1 mmol/L (3.6-5.0); SODIUM 136.3 mmol/L (137-145)
[2017-06-07 07:02] LABS: ABSOLUTE LYMPHOCYTES# (MANUAL) 0.7 10^3/uL (0.5-4.7); ABSOLUTE MONOCYTES # (MANUAL) 0.2 10^3/uL (0.1-1.4); ABSOLUTE NEUTROPHILS# (MANUAL) 22.3 10^3/uL (1.7-8.2); BAND NEUTROPHILS % (MANUAL) 2 % (3-5); BASOPHILS % (MANUAL) 0 % (0-2); EOSINOPHILS % (MANUAL) 0 % (0-6); LYMPHOCYTES % (MANUAL) 3 % (13-45); MONOCYTES % (MANUAL) 1 % (3-13); SEGMENTED NEUTROPHILS % (MAN) 94 % (42-78); TOTAL CELLS COUNTED 100
[2017-06-07 07:03] LABS: ANISOCYTOSIS 1+
[2017-06-07 07:05] LABS: OVALOCYTES SLIGHT; POLYCHROMASIA 1+; SCHISTOCYTES SLIGHT; TOXIC GRANULATION 1+
[2017-06-07 07:06] LABS: PLATELET COMMENT ADEQUATE; PLATELET LARGE PRESENT
--- NOTE | 2017-06-07 07:33 | PDOC PROGRESS REPORT ---
Subjective Progress Note for:: 06/07/17 Subjective:: Intubated and sedated. Per night RN no fever overnight and no other adverse events. RN has not been able to obtain IV access. Reason For Visit: RESPIRATORY FAILURE,PNEUMONIA,SEPSIS Physical Exam Vital Signs: Temp Pulse Resp BP Pulse Ox 99.1 F 84 18 101/60 98 06/07/17 06:00 06/07/17 02:20 06/07/17 06:00 06/07/17 05:38 06/07/17 04:00 Intake & Output 06/05/17 06/06/17 06/07/17 06:59 06:59 06:59 Intake Total 3767 2820 3262 Output Total 2100 2495 3180 Balance 1667 325 82 Weight 68 kg 73.3 kg General appearance: PRESENT: no acute distress, thin, other - bitemporal wasting Head exam: PRESENT: atraumatic, normocephalic Eye exam: PRESENT: conjunctiva pink, PERRLA. ABSENT: scleral icterus Ear exam: PRESENT: normal external ear exam. ABSENT: drainage Mouth exam: PRESENT: moist Respiratory exam: PRESENT: clear to auscultation servando. ABSENT: rales, rhonchi, wheezes Cardiovascular exam: PRESENT: RRR. ABSENT: systolic murmur GI/Abdominal exam: PRESENT: diminished bowel sounds, distended, firm, soft. ABSENT: rigid Rectal exam: PRESENT: tenderness - no BM overnight, other Gentrourinary exam: PRESENT: indwelling catheter, other - clear yellow urine in matamoros bag Extremities exam: PRESENT: +2 edema - though edema is improving overall since yesterday Musculoskeletal exam: PRESENT: normal inspection - stage 2 breakdownon sacrum, minimal weeping in a few sites, eccymoses scattered from PIV attempts. ABSENT: deformity Skin exam: ABSENT: erythema Results Laboratory Results: 06/07/17 05:30 06/06/17 06/06/17 06/06/17 05:45 05:45 07:50 WBC 24.3 H RBC 3.73 Hgb 11.4 L Hct 34.5 L MCV 92 MCH 30.5 MCHC 33.0 RDW 16.7 H Plt Count 131 L Seg Neutrophils % Lymphocytes % Monocytes % Eosinophils % Basophils % Absolute Neutrophils Absolute Lymphocytes Absolute Monocytes Absolute Eosinophils Absolute Basophils Carbonic Acid HCO3/H2CO3 Ratio ABG pH ABG pCO2 ABG pO2 ABG HCO3 ABG O2 Saturation ABG Base Excess FiO2 Sodium Potassium Chloride Carbon Dioxide Anion Gap BUN Creatinine Est GFR ( Amer) Est GFR (Non-Af Amer) Glucose Calcium Magnesium 1.5 L Total Bilirubin 0.4 AST 20 ALT 39 Alkaline Phosphatase 107 Total Protein 3.7 L Albumin 1.7 L 1.7 L 06/06/17 06/07/17 06/07/17 17:43 05:30 05:30 WBC RBC Hgb Hct MCV MCH MCHC RDW Plt Count Seg Neutrophils % Not Reportable Lymphocytes % Not Reportable Monocytes % Not Reportable Eosinophils % Not Reportable Basophils % Not Reportable Absolute Neutrophils Not Reportable Absolute Lymphocytes Not Reportable Absolute Monocytes Not Reportable Absolute Eosinophils Not Reportable Absolute Basophils Not Reportable Carbonic Acid 0.91 L HCO3/H2CO3 Ratio 20:1 ABG pH 7.41 ABG pCO2 30.3 L ABG pO2 76.9 L ABG HCO3 18.6 L ABG O2 Saturation 95.6 ABG Base Excess -5.2 FiO2 30% Sodium 136.3 L Potassium 3.8 Chloride 110 H Carbon Dioxide 18 L Anion Gap 8 BUN 10 Creatinine 0.48 L Est GFR ( Amer) > 60 Est GFR (Non-Af Amer) > 60 Glucose 132 H Calcium 8.1 L Magnesium Total Bilirubin AST ALT Alkaline Phosphatase Total Protein Albumin 06/07/17 05:30 WBC RBC Hgb Hct MCV MCH MCHC RDW Plt Count Seg Neutrophils % Lymphocytes % Monocytes % Eosinophils % Basophils % Absolute Neutrophils Absolute Lymphocytes Absolute Monocytes Absolute Eosinophils Absolute Basophils Carbonic Acid HCO3/H2CO3 Ratio ABG pH ABG pCO2 ABG pO2 ABG HCO3 ABG O2 Saturation ABG Base Excess FiO2 Sodium 136.3 L Potassium 3.1 L Chloride 108 H Carbon Dioxide 19 L Anion Gap 9 BUN 11 Creatinine 0.43 L Est GFR ( Amer) > 60 Est GFR (Non-Af Amer) > 60 Glucose 100 Calcium 7.9 L Magnesium Total Bilirubin AST ALT Alkaline Phosphatase Total Protein Albumin Impressions: Abdomen/Pelvis CT 05/31/17 00:00 IMPRESSION: Large amount of free intraperitoneal air and fluid. There is oral contrast in the pelvis suggesting bowel perforation. Findings discussed with the patient's attending physician as a critical result KUB X-Ray 06/02/17 09:03 IMPRESSION: Nasogastric tube tip and side port in the stomach Gasless abdomen. Fluid-filled bowel loops are present. Assessment & Plan - Diagnosis (1) Fungemia Is this a current diagnosis for this admission?: Yes Plan: Growing Justa in multiple sites including blood. ID consult called by me and I spoke with Dr. Alcala at [facility]. On micafungin due to fluconazole allergy of unknown type. 2 sets blood cultures from 06/02 growing yeast/justa. 2 sets from 06/05 are neg to date. RNs have not been able to obtain PIV access and are currently trying again. Old CVC removed yesterday and new one placed as we had no other access, goal is to remove the CVC today when we have access, we are calling Radiology to see if with imaging guidance PIV access is possible. Matamoros has been replaced. When we have PIV access all invasive devices will be changed or removed. New blood cultures will be obtained and after 72 hours of clear blood cultures we can replace CVC if needed. She will eventually need, by guidelines, need endopthalmitis exam. If she declines she will need transfer. (2) Alcohol withdrawal Is this a current diagnosis for this admission?: Yes Plan: appears resolved. Cont to monitor clinically. Versed wean continues. (3) Acute hypoxemic respiratory failure Is this a current diagnosis for this admission?: Yes Plan: On admit had strep pneumo PNA and is on ceftriaxone for that. Has been appropriately covered for this since admit. Cont with hypoxemic resp failure due to pleural effusions and critical illness. Dr. Rea managing vent. On diprovan for sedation. (4) Electrolyte imbalance Is this a current diagnosis for this admission?: Yes Plan: we are replacing K and Mag per protocol, monitoring daily. Hope for improvment here with increase in TF (5) Hypokalemia Is this a current diagnosis for this admission?: Yes Plan: Low today, receiving lasix for anasarca, repletion in process this am per protocol. (6) Perforated gastric ulcer Qualifiers: Gastric ulcer chronicity: acute Qualified Code(s): K25.1 - Acute gastric ulcer with perforation Is this a current diagnosis for this admission?: Yes Plan: Is POD 7 omental patch repair of perforated gastric ulcer, is on PPI and once taking po will need empiric treatment for HPylori vs. stool Ag study. Surgeon following. (7) Pneumonia Qualifiers: Aspiration pneumonia type: unspecified Laterality: bilateral Lung location: lower lobe of lung Is this a current diagnosis for this admission?: Yes Plan: On ceftriaxone for strep pneumo PNA and may have may have aspirated perioperatively. (8) Protein calorie malnutrition Qualifiers: Protein-calorie malnutrition severity: severe Qualified Code(s): E43 - Unspecified severe protein-calorie malnutrition Is this a current diagnosis for this admission?: Yes Plan: Surgery has oked TF and we will uptitrate as is safe with recommendations from surgery (9) Sepsis Qualifiers: Sepsis type: Justa Qualified Code(s): B37.7 - Candidal sepsis Is this a current diagnosis for this admission?: Yes Plan: Was septic earlier in hospital course. Pt has stable BP, not tacypnec, afebrile today. Does have leukocytosis and multiple infections. WIll check lactate and consider broadening ABX. (10) Thrombocytopenia Is this a current diagnosis for this admission?: Yes Plan: stable, do not know her baseline, she is an alcoholic and baseline my be thrombocytopenia, cont to monitor, no active bleeding (11) Tobacco abuse Is this a current diagnosis for this admission?: Yes Plan: commercial counsel when appropriate (12) Acute blood loss anemia Is this a current diagnosis for this admission?: Yes Plan: post op she dropped her hgb and was transfused 2 units PRBC, hgb has bene stable since (13) Stage 2 skin ulcer of sacral region Is this a current diagnosis for this admission?: Yes Plan: cont with wound care and frequent turning. Daily monitoring. (14) Anasarca Is this a current diagnosis for this admission?: Yes Plan: Improving with lasix. Will monitor electrolytes. - Time Time Spent with patient: 35 or more minutes Total Critical Time (Minutes): 35 - Inpatient Certification Medical Necessity: Need for IV Antibiotics, Other - critically ill
[2017-06-07] MEDS: ACETYLCYSTEINE 20% SOLN 800 MG/4 ML VIAL.NEB NEB SCH ×2 (08:06→19:33)
[2017-06-07] MEDS: BUDESONIDE NEB 0.5 MG/2 ML AMPUL NEB SCH ×2 (08:06→19:33)
--- NOTE | 2017-06-07 08:20 | RADIOLOGY REPORT (SQ) ---
EXAM DESCRIPTION: CHEST SINGLE VIEW COMPLETED DATE/TIME: 06/07/2017 6:35 am REASON FOR STUDY: pna/sepsis COMPARISON: 06/06/2017. No pneumothorax. Allowing for lower lung volumes, parenchymal opacities look fairly stable. FINDINGS: Single-view chest AP portable upright approximately 0625 hours. Endotracheal and nasogastric tubes appropriate. Left subclavian line remains in place. IMPRESSION: Grossly stable chest with appropriate support lines and tubes. Basilar opacities remain . TECHNICAL DOCUMENTATION: JOB ID: [id number] Reading location - IP/workstation name: [facility]
[2017-06-07] MEDS ORDERED: FUROSEMIDE INJ/PF 20 MG/2 ML SDV IV PRN (09:43)
[2017-06-07] MEDS: NICOTINE 21 MG/24 HR PATCH.TD24 TD SCH (10:10)
[2017-06-07] MEDS: PANTOPRAZOLE SODIUM 40 MG VIAL IV SCH (10:10)
[2017-06-07] MEDS: LACTULOSE SYRUP 20 GM/30 ML UDCUP NG SCH ×2 (10:11→21:43)
[2017-06-07] MEDS: MICAFUNGIN SODIUM 100 MG in NORMAL SALINE 100 ML IV SCH (10:12)
[2017-06-07] MEDS: MAGNESIUM SULFATE 1 GM/D5W 100 ML IV SCH ×2 (10:12→11:19)
[2017-06-07] MEDS: METHYLPREDNISOLONE INJ 40 MG/1 ML SDV IV SCH (10:13)
[2017-06-07] MEDS: ALBUMIN HUMAN 50 ML IV SCH ×2 (11:14→13:57)
[2017-06-07] MEDS: POTASSIUM CHLORIDE 20 MEQ/50 ML RTU IV SCH ×2 (12:00→14:01)
--- NOTE | 2017-06-07 15:30 | Progress Note ---
Provider Note Provider Note: Patient remains septic with her white count still climbing now up to 23,000 again after initially declining postoperatively. Apparently when she was being cleaned and turned a huge amount of pus came out of her incision site. This has been sent for culture. I have changed her antibiotic from ceftriaxone to meropenem for any anerobic and broader spectrum coverage. This can be de- escalated as by her response. Attempts should still be made to get a central line but due to patient's severe illness and need for antibiotics the central line that was placed yesterday is still in place.
[2017-06-07] MEDS: DEXTROSE 5%-1/2 NORMAL SALINE 1,000 ML IV PRN (16:55)
[2017-06-07] MEDS: MEROPENEM 1 GM in NORMAL SALINE 50 ML IV SCH (18:05)
--- NOTE | 2017-06-07 18:48 | PDOC PROGRESS REPORT ---
Subjective Progress Note for:: 06/07/17 Reason For Visit: RESPIRATORY FAILURE,PNEUMONIA,SEPSIS Patient is postoperative day 6 status post exploratory laparotomy and Qasim patch repair of perforated gastric ulcer. Patient remains intubated, in the intensive care unit, malnourished, and in persisting sepsis. Earlier today during patient rotation, significant amount of sero-sanguinous fluid was evacuated from the midline wound. Furthermore patient has had progressively increasing nasogastric tube residuals therefore tube feeds have been held. Physical Exam Vital Signs: Temp Pulse Resp BP Pulse Ox 99.5 F 91 23 H 156/103 H 99 06/07/17 18:30 06/07/17 16:00 06/07/17 18:30 06/07/17 18:08 06/07/17 18:30 Intake & Output 06/06/17 06/07/17 06/08/17 06:59 06:59 06:59 Intake Total 2820 3262 1473 Output Total 2495 3180 2390 Balance 325 82 -917 Weight 73.3 kg 69.9 kg 69.9 kg General appearance: PRESENT: other - Patient intubated, sedated GI/Abdominal exam: PRESENT: other - Abdomen examined. Total body anasarca. Midline merry intact. There is no foul smell or drainage I can express. Some weeping edema fluid. It is difficult to assess the abdomen clinically due to abdominal distention, edema, and patient being on the ventilator, sedated Results Laboratory Results: 06/07/17 05:30 06/07/17 05:30 06/07/17 06/07/17 06/07/17 05:30 05:30 05:30 WBC 23.2 H RBC 3.19 L Hgb 10.0 L Hct 29.5 L MCV 92 MCH 31.2 MCHC 33.8 RDW 16.8 H Plt Count 122 L Seg Neutrophils % Not Reportable Lymphocytes % Not Reportable Monocytes % Not Reportable Eosinophils % Not Reportable Basophils % Not Reportable Absolute Neutrophils Not Reportable Absolute Lymphocytes Not Reportable Absolute Monocytes Not Reportable Absolute Eosinophils Not Reportable Absolute Basophils Not Reportable Carbonic Acid 0.91 L HCO3/H2CO3 Ratio 20:1 ABG pH 7.41 ABG pCO2 30.3 L ABG pO2 76.9 L ABG HCO3 18.6 L ABG O2 Saturation 95.6 ABG Base Excess -5.2 FiO2 30% Sodium 136.3 L Potassium 3.1 L Chloride 108 H Carbon Dioxide 19 L Anion Gap 9 BUN 11 Creatinine 0.43 L Est GFR ( Amer) > 60 Est GFR (Non-Af Amer) > 60 Glucose 100 Calcium 7.9 L Magnesium 06/07/17 05:30 WBC RBC Hgb Hct MCV MCH MCHC RDW Plt Count Seg Neutrophils % Lymphocytes % Monocytes % Eosinophils % Basophils % Absolute Neutrophils Absolute Lymphocytes Absolute Monocytes Absolute Eosinophils Absolute Basophils Carbonic Acid HCO3/H2CO3 Ratio ABG pH ABG pCO2 ABG pO2 ABG HCO3 ABG O2 Saturation ABG Base Excess FiO2 Sodium Potassium Chloride Carbon Dioxide Anion Gap BUN Creatinine Est GFR ( Amer) Est GFR (Non-Af Amer) Glucose Calcium Magnesium 1.4 L 06/02/17 10:28 Blood Blood Culture - Final C.albicans/C.dubliniensis Impressions: Abdomen/Pelvis CT 05/31/17 00:00 IMPRESSION: Large amount of free intraperitoneal air and fluid. There is oral contrast in the pelvis suggesting bowel perforation. Findings discussed with the patient's attending physician as a critical result KUB X-Ray 06/02/17 09:03 IMPRESSION: Nasogastric tube tip and side port in the stomach Gasless abdomen. Fluid-filled bowel loops are present. Chest X-Ray 06/07/17 06:00 IMPRESSION: Grossly stable chest with appropriate support lines and tubes. Basilar opacities remain. Assessment & Plan - Diagnosis (1) Perforated gastric ulcer Qualifiers: Gastric ulcer chronicity: acute Qualified Code(s): K25.1 - Acute gastric ulcer with perforation Is this a current diagnosis for this admission?: Yes Plan: Patient is nearly 1 week status post exploratory laparotomy, Qasim patch repair of perforated optic ulcer, remaining in the ICU, clinically ill with persisting leukocytosis, and metabolic acidosis. Concerns: 1. Persisting sepsis etiology likely pulmonary in nature; patient had new central line placed yesterday. Likely doubt midline incision source of sepsis; recommend continued vigilant observation of the midline incision; some merry may require removal in the next 24-48 hours to ensure no collections 2. Nasogastric tube feed intolerance. Will check a gastric emptying study tomorrow with Gastrografin.
[2017-06-08] MEDS: PROPOFOL 100 ML IV PRN ×5 (00:50→15:44)
[2017-06-08] MEDS: IPRATROPIUM/ALBUTEROL 0.5-2.5 MG/3 ML AMPUL NEB SCH ×3 (02:05→13:43)
[2017-06-08] MEDS: HYDROMORPHONE HCL INJ/PF 2 MG/ML AMPULE IV PRN (02:26)
[2017-06-08] MEDS: MEROPENEM 1 GM in NORMAL SALINE 50 ML IV SCH (02:27)
[2017-06-08 04:48] LABS: HEMATOCRIT 27.4 % (36.0-47.0); HEMOGLOBIN 9.2 g/dL (12.0-15.5); MEAN CORPUSCULAR HGB CONC 33.6 g/dL (32.0-36.0); MEAN CORPUSCULAR VOLUME 92 fl (80-97); PLATELET COUNT 114 10^3/uL (150-450); RED BLOOD COUNT 2.97 10^6/uL (3.72-5.28); RED CELL DISTRIBUTION WIDTH 16.3 % (11.5-14.0); WHITE BLOOD COUNT 21.9 10^3/uL (4.0-10.5)
[2017-06-08 05:13] LABS: ALANINE AMINOTRANSFERASE 31 U/L (9-52); ALKALINE PHOSPHATASE 89 U/L (38-126); ANION GAP 10 (5-19); ASPARTATE AMINO TRANSFERASE 17 U/L (14-36); BILIRUBIN,DIRECT 0.4 mg/dL (0.0-0.4); BILIRUBIN,TOTAL 0.4 mg/dL (0.2-1.3); BLOOD UREA NITROGEN 10 mg/dL (7-20); CALCIUM 8.1 mg/dL (8.4-10.2); CARBON DIOXIDE 21 mmol/L (22-30); CHLORIDE 107 mmol/L (98-107); GLUCOSE 90 mg/dL (75-110); PHOSPHORUS 5.3 mg/dL (2.5-4.5); SODIUM 137.5 mmol/L (137-145); TOTAL PROTEIN 4.2 g/dL (6.3-8.2)
[2017-06-08 05:14] LABS: ARTERIAL BLOOD BASE EXCESS -0.6 mmol/L; ARTERIAL BLOOD FIO2 35%; ARTERIAL BLOOD H2CO3 0.88 mmol/L (1.05-1.35); ARTERIAL BLOOD HCO3 22.5 mmol/L (20-26); ARTERIAL BLOOD O2 SATURATION 98.8 % (94-98); ARTERIAL BLOOD PCO2 29.4 mmHg (35-45); ARTERIAL BLOOD PO2 124.2 mmHg (80-100); ARTERIAL BLOOD TOTAL CO2 23.4 mmol/L (21-25)
[2017-06-08 05:20] LABS: PREALBUMIN 11.6 mg/dL (17.6-36.0)
[2017-06-08 05:24] LABS: POTASSIUM 2.7 mmol/L (3.6-5.0)
[2017-06-08 05:41] LABS: ABSOLUTE LYMPHOCYTES# (MANUAL) 0.9 10^3/uL (0.5-4.7); ABSOLUTE MONOCYTES # (MANUAL) 0.9 10^3/uL (0.1-1.4); ABSOLUTE NEUTROPHILS# (MANUAL) 20.1 10^3/uL (1.7-8.2); BASOPHILS % (MANUAL) 0 % (0-2); EOSINOPHILS % (MANUAL) 0 % (0-6); LYMPHOCYTES % (MANUAL) 4 % (13-45); MONOCYTES % (MANUAL) 4 % (3-13); SEGMENTED NEUTROPHILS % (MAN) 92 % (42-78); TOTAL CELLS COUNTED 100
[2017-06-08 05:45] LABS: ANISOCYTOSIS 1+; BURR CELLS SLIGHT; OVALOCYTES SLIGHT; PLATELET COMMENT ADEQUATE; POIKILOCYTOSIS 1+; SCHISTOCYTES 1+; TEAR DROP CELLS SLIGHT; TOXIC GRANULATION 2+
[2017-06-08 05:46] LABS: PLATELET LARGE PRESENT
[2017-06-08] MEDS: DEXTROSE 5%-1/2 NORMAL SALINE 1,000 ML IV PRN ×2 (06:13→10:26)
[2017-06-08] MEDS: POTASSIUM CHLORIDE 20 MEQ/50 ML RTU IV SCH ×3 (06:14→10:25)
[2017-06-08] MEDS: FUROSEMIDE INJ/PF 40 MG/4 ML SDV IV SCH (06:14)
--- NOTE | 2017-06-08 06:16 | RADIOLOGY REPORT (SQ) ---
EXAM DESCRIPTION: CHEST SINGLE VIEW CLINICAL HISTORY: intubated COMPARISON: 06/07/2017 FINDINGS: Single frontal view of the chest. Endotracheal tube with tip 3 cm above the josh. NG tube with tip below the diaphragm. Left IJ central venous catheter with tip in the SVC. Heart is not enlarged. Persistent bibasilar opacities and possible small bilateral pleural effusions. No pneumothorax. Postoperative change of the cervical spine. Leads overlie the chest. Upper abdominal soft tissues are unremarkable. IMPRESSION: 1. No significant interval change.
[2017-06-08 07:08] LABS: HELICOBACTER PYLORI IGA AB <9.0 units (0.0-8.9); HELICOBACTER PYLORI IGG AB <0.80 (0.00-0.79); HELICOBACTER PYLORI IGM AB <9.0 units (0.0-8.9)
--- NOTE | 2017-06-08 08:15 | PDOC PROGRESS REPORT ---
Subjective Progress Note for:: 06/08/17 Subjective:: intubated/sedated Reason For Visit: RESPIRATORY FAILURE,PNEUMONIA,SEPSIS Physical Exam Vital Signs: Temp Pulse Resp BP Pulse Ox 98.6 F 89 18 135/80 H 100 06/08/17 06:30 06/08/17 02:05 06/08/17 06:30 06/08/17 06:09 06/08/17 06:30 Intake & Output 06/07/17 06/08/17 06/09/17 06:59 06:59 06:59 Intake Total 3262 2704 Output Total 3180 4365 Balance 82 -1661 Weight 69.9 kg 66 kg General appearance: PRESENT: no acute distress, disheveled, well-developed. ABSENT: cooperative Head exam: PRESENT: atraumatic, normocephalic Eye exam: ABSENT: conjunctiva pale, nystagmus, periorbital swelling, scleral icterus Mouth exam: PRESENT: dry mucosa, neck supple, tongue midline, other - ET tube in place Neck exam: ABSENT: carotid bruit, JVD, lymphadenopathy, thyromegaly, tracheal deviation, tracheostomy Respiratory exam: PRESENT: crackles, decreased breath sounds, prolonged expiratory phas, rhonchi, symmetrical, unlabored, wheezes. ABSENT: retraction, stridor, tachypnea Cardiovascular exam: PRESENT: RRR, +S1, +S2, tachycardia Pulses: PRESENT: normal radial pulses GI/Abdominal exam: PRESENT: other - Status post surgery Extremities exam: ABSENT: clubbing Musculoskeletal exam: ABSENT: ambulatory, deformity, dislocation Neurological exam: ABSENT: alert, awake, oriented to person Skin exam: PRESENT: dry, warm, other - Fine macular rash areas rajeev right anterior lateral and posterior chest wall rash not present to 48 hours ago Results Laboratory Results: 06/08/17 04:20 06/08/17 04:20 06/07/17 06/08/17 06/08/17 05:30 04:20 04:20 WBC 21.9 H RBC 2.97 L Hgb 9.2 L Hct 27.4 L MCV 92 MCH 31.0 MCHC 33.6 RDW 16.3 H Plt Count 114 L Seg Neutrophils % Not Reportable Lymphocytes % Not Reportable Monocytes % Not Reportable Eosinophils % Not Reportable Basophils % Not Reportable Absolute Neutrophils Not Reportable Absolute Lymphocytes Not Reportable Absolute Monocytes Not Reportable Absolute Eosinophils Not Reportable Absolute Basophils Not Reportable Carbonic Acid 0.88 L HCO3/H2CO3 Ratio 25:1 ABG pH 7.50 H ABG pCO2 29.4 L ABG pO2 124.2 H ABG HCO3 22.5 ABG O2 Saturation 98.8 H ABG Base Excess -0.6 FiO2 35% Sodium Potassium Chloride Carbon Dioxide Anion Gap BUN Creatinine Est GFR ( Amer) Est GFR (Non-Af Amer) Glucose Calcium Phosphorus Magnesium 1.4 L Total Bilirubin AST ALT Alkaline Phosphatase Total Protein Albumin Prealbumin 06/08/17 04:20 WBC RBC Hgb Hct MCV MCH MCHC RDW Plt Count Seg Neutrophils % Lymphocytes % Monocytes % Eosinophils % Basophils % Absolute Neutrophils Absolute Lymphocytes Absolute Monocytes Absolute Eosinophils Absolute Basophils Carbonic Acid HCO3/H2CO3 Ratio ABG pH ABG pCO2 ABG pO2 ABG HCO3 ABG O2 Saturation ABG Base Excess FiO2 Sodium 137.5 Potassium 2.7 L* Chloride 107 Carbon Dioxide 21 L Anion Gap 10 BUN 10 Creatinine 0.44 L Est GFR ( Amer) > 60 Est GFR (Non-Af Amer) > 60 Glucose 90 Calcium 8.1 L Phosphorus 5.3 H Magnesium 1.5 L Total Bilirubin 0.4 AST 17 ALT 31 Alkaline Phosphatase 89 Total Protein 4.2 L Albumin 2.0 L Prealbumin 11.6 L 06/02/17 10:28 Blood Blood Culture - Final C.albicans/C.dubliniensis Impressions: Abdomen/Pelvis CT 05/31/17 00:00 IMPRESSION: Large amount of free intraperitoneal air and fluid. There is oral contrast in the pelvis suggesting bowel perforation. Findings discussed with the patient's attending physician as a critical result KUB X-Ray 06/02/17 09:03 IMPRESSION: Nasogastric tube tip and side port in the stomach Gasless abdomen. Fluid-filled bowel loops are present. Chest X-Ray 06/08/17 07:45 IMPRESSION: 1. No significant interval change. Assessment & Plan - Diagnosis (1) Acute hypoxemic respiratory failure Is this a current diagnosis for this admission?: Yes Plan: Better ABG with less FiO2 requirements (2) Acute renal failure Qualifiers: Acute renal failure type: unspecified Qualified Code(s): N17.9 - Acute kidney failure, unspecified Is this a current diagnosis for this admission?: No (3) Chronic alcoholism Is this a current diagnosis for this admission?: Yes Plan: MCV 102--- min 24 beers per day ---per RN report DT precautions thiamine;MVI et al (4) Protein calorie malnutrition Qualifiers: Protein-calorie malnutrition severity: severe Qualified Code(s): E43 - Unspecified severe protein-calorie malnutrition Is this a current diagnosis for this admission?: Yes Plan: Consider TPN or enteral nutrition patient desperate need of protein and calories (5) Sepsis Qualifiers: Sepsis type: Justa Qualified Code(s): B37.7 - Candidal sepsis Is this a current diagnosis for this admission?: Yes Plan: Candidemia;Believe new rash may be the result of her infection (6) Tobacco abuse Is this a current diagnosis for this admission?: Yes - Time Total Critical Time (Minutes): 50
[2017-06-08] MEDS: BUDESONIDE NEB 0.5 MG/2 ML AMPUL NEB SCH (08:20)
[2017-06-08] MEDS: ACETYLCYSTEINE 20% SOLN 800 MG/4 ML VIAL.NEB NEB SCH (08:21)
[2017-06-08] MEDS ORDERED: MEROPENEM 1 GM in NORMAL SALINE 100 ML IV SCH (10:00)
[2017-06-08] MEDS: MAGNESIUM SULFATE/D5W 1 GM/100 ML RTUPB IV SCH ×3 (10:24→15:06)
[2017-06-08] MEDS: NICOTINE 21 MG/24 HR PATCH.TD24 TD SCH (10:24)
[2017-06-08] MEDS: METHYLPREDNISOLONE INJ 40 MG/1 ML SDV IV SCH (10:26)
[2017-06-08] MEDS: MICAFUNGIN SODIUM 100 MG in NORMAL SALINE 100 ML IV SCH (10:37)
[2017-06-08] MEDS: LACTULOSE SYRUP 20 GM/30 ML UDCUP NG SCH (10:38)
[2017-06-08] MEDS: POTASSI CL 20 MEQ/50 ML RIDER 20 MEQ/50 ML RTUPB IV SCH ×3 (10:38→13:19)
--- NOTE | 2017-06-08 11:57 | PDOC PROGRESS REPORT ---
Subjective Progress Note for:: 06/07/17 Subjective:: intubated/sedated Reason For Visit: RESPIRATORY FAILURE,PNEUMONIA,SEPSIS Physical Exam Vital Signs: Temp Pulse Resp BP Pulse Ox 99.1 F 84 18 101/60 98 06/07/17 06:00 06/07/17 02:20 06/07/17 06:00 06/07/17 05:38 06/07/17 04:00 Intake & Output 06/06/17 06/07/17 06/08/17 06:59 06:59 06:59 Intake Total 2820 3262 Output Total 2495 3180 Balance 325 82 Weight 73.3 kg 69.9 kg General appearance: PRESENT: no acute distress, disheveled, well-developed. ABSENT: cooperative Head exam: PRESENT: atraumatic, normocephalic Eye exam: PRESENT: conjunctiva pale. ABSENT: nystagmus, periorbital swelling, scleral icterus Mouth exam: PRESENT: dry mucosa, neck supple, tongue midline, other - .ET tube in place Neck exam: ABSENT: carotid bruit, JVD, lymphadenopathy, thyromegaly, tracheal deviation, tracheostomy Respiratory exam: PRESENT: crackles, decreased breath sounds, prolonged expiratory phas, rhonchi, symmetrical, unlabored, wheezes. ABSENT: retraction, stridor, tachypnea Cardiovascular exam: PRESENT: RRR, +S1, +S2, tachycardia Pulses: PRESENT: normal radial pulses GI/Abdominal exam: PRESENT: other - s/p surgery Extremities exam: ABSENT: clubbing Musculoskeletal exam: ABSENT: ambulatory, deformity, dislocation Neurological exam: ABSENT: alert, awake, oriented to person Skin exam: PRESENT: dry, warm, other - Very fine macular rash right anterior lateral and posterior chest wall rash blanches but is new onset Results Laboratory Results: 06/07/17 05:30 06/07/17 05:30 06/06/17 06/06/17 06/06/17 05:45 07:50 17:43 WBC 24.3 H RBC 3.73 Hgb 11.4 L Hct 34.5 L MCV 92 MCH 30.5 MCHC 33.0 RDW 16.7 H Plt Count 131 L Seg Neutrophils % Lymphocytes % Monocytes % Eosinophils % Basophils % Absolute Neutrophils Absolute Lymphocytes Absolute Monocytes Absolute Eosinophils Absolute Basophils Carbonic Acid HCO3/H2CO3 Ratio ABG pH ABG pCO2 ABG pO2 ABG HCO3 ABG O2 Saturation ABG Base Excess FiO2 Sodium 136.3 L Potassium 3.8 Chloride 110 H Carbon Dioxide 18 L Anion Gap 8 BUN 10 Creatinine 0.48 L Est GFR ( Amer) > 60 Est GFR (Non-Af Amer) > 60 Glucose 132 H Calcium 8.1 L Total Bilirubin 0.4 AST 20 ALT 39 Alkaline Phosphatase 107 Total Protein 3.7 L Albumin 1.7 L 06/07/17 06/07/17 06/07/17 05:30 05:30 05:30 WBC 23.2 H RBC 3.19 L Hgb 10.0 L Hct 29.5 L MCV 92 MCH 31.2 MCHC 33.8 RDW 16.8 H Plt Count 122 L Seg Neutrophils % Not Reportable Lymphocytes % Not Reportable Monocytes % Not Reportable Eosinophils % Not Reportable Basophils % Not Reportable Absolute Neutrophils Not Reportable Absolute Lymphocytes Not Reportable Absolute Monocytes Not Reportable Absolute Eosinophils Not Reportable Absolute Basophils Not Reportable Carbonic Acid 0.91 L HCO3/H2CO3 Ratio 20:1 ABG pH 7.41 ABG pCO2 30.3 L ABG pO2 76.9 L ABG HCO3 18.6 L ABG O2 Saturation 95.6 ABG Base Excess -5.2 FiO2 30% Sodium 136.3 L Potassium 3.1 L Chloride 108 H Carbon Dioxide 19 L Anion Gap 9 BUN 11 Creatinine 0.43 L Est GFR ( Amer) > 60 Est GFR (Non-Af Amer) > 60 Glucose 100 Calcium 7.9 L Total Bilirubin AST ALT Alkaline Phosphatase Total Protein Albumin Impressions: Abdomen/Pelvis CT 05/31/17 00:00 IMPRESSION: Large amount of free intraperitoneal air and fluid. There is oral contrast in the pelvis suggesting bowel perforation. Findings discussed with the patient's attending physician as a critical result KUB X-Ray 06/02/17 09:03 IMPRESSION: Nasogastric tube tip and side port in the stomach Gasless abdomen. Fluid-filled bowel loops are present. Assessment & Plan - Diagnosis (1) Acute hypoxemic respiratory failure Is this a current diagnosis for this admission?: Yes Plan: Better ABG with less FiO2 requirements (2) Acute renal failure Qualifiers: Acute renal failure type: unspecified Qualified Code(s): N17.9 - Acute kidney failure, unspecified Is this a current diagnosis for this admission?: No (3) Chronic alcoholism Is this a current diagnosis for this admission?: Yes Plan: MCV 102--- min 24 beers per day ---per RN report DT precautions thiamine;MVI et al (4) Protein calorie malnutrition Qualifiers: Protein-calorie malnutrition severity: severe Qualified Code(s): E43 - Unspecified severe protein-calorie malnutrition Is this a current diagnosis for this admission?: Yes Plan: Consider TPN or enteral nutrition patient desperate need of protein and calories (5) Sepsis Qualifiers: Sepsis type: Justa Qualified Code(s): B37.7 - Candidal sepsis Is this a current diagnosis for this admission?: Yes Plan: Candidemia (6) Tobacco abuse Is this a current diagnosis for this admission?: Yes Plan: transdermal nicotine - Time Total Critical Time (Minutes): 45
--- NOTE | 2017-06-08 13:01 | PDOC TRANSFER SUMMARY ---
General Admission Date/PCP: 05/23/17 18:23 [place] FOSS Resuscitation Status: Full Code - Transfer Diagnosis (1) Sepsis Is this a current diagnosis for this admission?: Yes (2) Respiratory failure with hypoxia and hypercapnia Is this a current diagnosis for this admission?: Yes (3) Acute renal failure Is this a current diagnosis for this admission?: No (4) Chronic alcoholism Is this a current diagnosis for this admission?: Yes (5) Hyponatremia Is this a current diagnosis for this admission?: Yes (6) Pancytopenia Is this a current diagnosis for this admission?: Yes (7) Pneumonia Is this a current diagnosis for this admission?: Yes (8) Protein calorie malnutrition Is this a current diagnosis for this admission?: Yes (9) Tobacco abuse Is this a current diagnosis for this admission?: Yes (10) Hypokalemia Is this a current diagnosis for this admission?: Yes (11) Hypocalcemia Is this a current diagnosis for this admission?: Yes (12) Metabolic acidosis Is this a current diagnosis for this admission?: Yes - Transfer Medications Home Medications: Folic Acid [Folvite 1 mg Tablet] 1 mg PO DAILY 05/24/17 Furosemide [Lasix 20 mg Tablet] 20 mg PO DAILY 05/24/17 Magnesium Oxide [Mag-Ox 400 mg Tablet] 400 mg PO TID 05/24/17 Potassium Chloride [Klor-Con M10] 10 meq PO DAILY 05/24/17 Transfer Medications: Current Medications Acetaminophen (Tylenol 650 Mg Supp) 650 mg WV Q8HP PRN PRN Reason: FEVER HIGHER THAN 101 Stop: 07/02/17 07:11 Last Admin: 06/06/17 04:13 Dose: 650 mg Acetylcysteine (Mucomist 20% Soln 800 Mg/4 Ml) 600 mg NEB RTBID KIRSTY Stop: 07/02/17 19:59 Last Admin: 06/08/17 08:21 Dose: 600 mg Albuterol/Ipratropium (Duoneb 3 Ml Ampul) 3 ml NEB RTQ6 [facility] Stop: 06/24/17 13:59 Last Admin: 06/08/17 08:21 Dose: 3 ml Budesonide (Pulmicort Neb 0.5 Mg/2 Ml Ampul) 0.5 mg NEB RTQ12 [facility] Stop: 06/24/17 19:59 Last Admin: 06/08/17 08:20 Dose: 0.5 mg Dextrose (Dextrose Inj 50% Syringe (25 Gm/50 Ml)) 12.5 gm IV PRN PRN; Protocol PRN Reason: FOR BG 50-69 IN ALERT PATIENT Stop: 07/05/17 23:51 Dextrose (Dextrose Inj 50% Syringe (25 Gm/50 Ml)) 25 gm IV PRN PRN PRN Reason: Protocol Stop: 07/05/17 23:51 Last Admin: 06/05/17 23:54 Dose: 25 gm Furosemide (Lasix Inj/Pf 40 Mg/4 Ml Sdv) 40 mg IV Q12A KIRSTY Stop: 07/06/17 17:59 Last Admin: 06/08/17 06:14 Dose: 40 mg Glucagon (Glucagen Inj 1 Mg Vial) 1 mg IM PRN PRN; Protocol PRN Reason: EVALUATE FOR BG < 70 Stop: 07/05/17 23:51 Glucose (Glutose 40% Gel 15 Gm Tube) 15 gm PO PRN PRN; Protocol PRN Reason: FOR BG 50-69 IN ALERT PATIENT Stop: 07/05/17 23:51 Glucose (Glutose 40% Gel 15 Gm Tube) 30 gm PO PRN PRN; Protocol PRN Reason: FOR BG < 50 IN ALERT PATIENT Stop: 07/05/17 23:51 Heparin Sodium (Porcine) (Heparin Flush 10 Unit/Ml 5 Ml Disp.Syrg) 30 unit IV .AFTER EACH USE PRN PRN Reason: AFTER EACH INTERMITTENT USE Stop: 06/24/17 12:09 Last Admin: 05/30/17 10:02 Dose: 30 unit Heparin Sodium (Porcine) (Heparin Flush 10 Unit/Ml 5 Ml Disp.Syrg) 30 unit IV Q8 KIRSTY Stop: 06/24/17 13:59 Last Admin: 06/08/17 06:01 Dose: Not Given Hydromorphone HCl (Dilaudid Inj/Pf 2 Mg/Ml Ampule) 1 mg IV Q4HP PRN PRN Reason: PAIN Stop: 06/13/17 07:42 Last Admin: 06/08/17 02:26 Dose: 1 mg Propofol (Diprivan Rtu 1000 Mg/100 Ml Inf.Bottle) 100 mls @ 0 mls/hr IV CONTINUOUS PRN; Protocol; Titrate PRN Reason: THIS MED IS NOT "PRN" Stop: 06/23/17 18:03 Last Admin: 06/08/17 10:32 Dose: 100 ml Micafungin Sodium 100 mg/ (Sodium Chloride) 100 mls @ 100 mls/hr IV DAILY@1100 [facility] Stop: 06/11/17 10:59 Last Admin: 06/08/17 10:37 Dose: 100 mg Dextrose/Sodium Chloride (D5-1/2ns 1000 Ml Iv Soln) 1,000 mls @ 75 mls/hr IV CONTINUOUS PRN PRN Reason: THIS MED IS NOT "PRN" Stop: 07/04/17 19:06 Last Admin: 06/08/17 10:26 Dose: 1,000 ml Potassium Chloride/Water (Potassium Chloride Mack 20 Meq/50 Ml) 20 meq in 50 mls @ 25 mls/hr IV Q2H [facility] Stop: 06/08/17 12:14 Last Admin: 06/08/17 10:25 Dose: 50 ml Potassium Chloride/Water (Potassium Chloride Mack 20 Meq/50 Ml) 20 meq in 50 mls @ 25 mls/hr IV Q2H [facility] Stop: 06/08/17 15:59 Last Admin: 06/08/17 11:37 Dose: Not Given Magnesium Sulfate/Dextrose (Magnesium Sulfate Rtu-D5w 1 Gm/100 Ml Premix) 1 gm in 100 mls @ 100 mls/hr IV Q1H [facility] Stop: 06/08/17 12:59 Last Admin: 06/08/17 11:37 Dose: 100 ml Meropenem 1 gm/ Sodium (Chloride) 100 mls @ 200 mls/hr IV Q8A [facility] Stop: 06/15/17 09:59 Last Admin: 06/08/17 10:24 Dose: 1 gm Influenza Virus Vaccine Quadrival (Fluzone Adlt Quad 1142-9511 Vac 0.5 Ml Syr) 0.5 ml IM .DISCHARGE PRN PRN Reason: THIS MED IS NOT "PRN" Stop: 06/23/17 11:40 Lactulose (Cephulac Syrup 20 Gm/30 Ml Udcup) 10 gm NG Q12 [facility] Stop: 06/29/17 21:59 Last Admin: 06/08/17 10:38 Dose: Not Given Levalbuterol HCl (Xopenex Neb 1.25 Mg/3 Ml Ampul) 1.25 mg NEB RTQ4HP PRN PRN Reason: WHEEZING Stop: 06/30/17 10:12 Last Admin: 06/02/17 12:00 Dose: 1.25 mg Lorazepam (Ativan Inj 2 Mg/1 Ml Vial) 2 mg IV Q2HP PRN PRN Reason: ANXIETY/AGITATION Stop: 06/11/17 08:16 Last Admin: 06/06/17 02:24 Dose: 2 mg Nicotine (Nicoderm 21 Mg/24 Hr Transderm Patch) 1 each TD DAILY KIRSTY Stop: 06/24/17 09:59 Last Admin: 06/08/17 10:24 Dose: 1 each Ondansetron HCl (Zofran Inj/Pf 4 Mg/2 Ml Sdv) 4 mg IV Q6HP PRN PRN Reason: FOR NAUSEA/VOMITING Stop: 06/22/17 18:40 Pharmacy Profile Note (Medication Communication Order) 1 each MC .NOTICE NR Stop: 06/23/17 10:44 Sodium Chloride (Saline Flush 2.5 Ml Monoject Prefil Syrin) 2.5 ml IV Q8 KIRSTY Stop: 06/22/17 21:59 Last Admin: 06/08/17 06:01 Dose: Not Given Sodium Chloride (Nacl 0.9% Inj/Pf 10 Ml Sdv) 10 ml IV .AFTER EACH USE PRN PRN Reason: AFTER EACH INTERMITTENT USE Stop: 06/24/17 12:09 Last Admin: 05/31/17 05:03 Dose: 10 ml - Allergies Allergies/Adverse Reactions: fluconazole [From Diflucan] Allergy (Verified 05/23/17 13:20) Hospital Course Hospital Course: Patient is a 46-year-old female with a history of tobacco abuse, alcohol use bipolar disorder who presented on 05/23/2017 with complaint of shortness of breath. Patient was placed on BiPAP. Patient developed septic shock and was placed on Dajuan-Synephrine. Patient was then noted to have a right middle and right lower lobe pneumonia for which she was started on Zosyn and doxycycline. She also developed acute respiratory failure and was intubated on 05/24/2017. Patient was placed in the ICU. During her extensive smoking history patient was placed on nebs and bronchodilators along with Solu-Medrol. Patient was noted to have a history of chronic alcoholism she was placed on Versed and propofol. Patient was tachycardic however this could have been due to her septic shock. Patient sputum culture grew Streptococcus pneumoniae and Justa albicans. Streptococcus pneumonia was loomis susceptible. Patient had received several doses of doxycycline and Zosyn. Patient was transitioned to meropenem and she was not improving on previous management. On 05/30/2017 patient developed abdominal distention and vomiting despite having the NG tube. CT scan of the abdomen shows large amount of free intraperitoneal air and fluid and possible per. Patient underwent exploratory laparotomy on 05/31/2017 to repair a perforated gastric ulcer with omental patch. Patient was followed closely by surgery. On 06/02/2017 patient started to decline. Patient became tachycardic and hypotensive. She had bilious vomit despite NG tube in place. Patient systolic blood pressure was 85. Patient blood pressure did improve when the Versed and propofol fall was decreased. Patient was later on noted to have a bowel movement. Despite improvement of blood pressure with decreasing of Versed and propofol patient was started on vasopressin and Dajuan-Synephrine. On 06/03/2017 Dajuan-Synephrine was weaned off. Patient was continued on vasopressin. At that time patient antibiotics was broadened to meropenem and vancomycin. On 06/04/2017 patient required 2 units of packed RBCs for hemoglobin of 7.6. During the transfusion patient hemoglobin trended up to 10.7 is currently trending down to 9.2. Meanwhile patient blood culture from 06/02/2017 is growing Justa albicans, urine is growing Justa albicans, tracheal aspirate is growing Justa albicans which patient was started on micafungin as she is allergic to fluconazole. Patient Solu-Medrol was discontinued. Repeat blood cultures from 06/05/2017 shows no growth in 48 hours and one bottle second bottle shows gram-positive cocci in clusters. The catheter tip from the central line which was removed on 06/06/2017 has no growth. Abdominal wound culture has no growth. Repeat tracheal aspirate on 06/07/2017 has no growth. On 06/07/2017, postop day 6 while patient was being evaluated by surgery and was noted to have a significant amount of serosanguineous fluid evacuated from her midline abdominal wound. Patient was having increasing nasogastric tube residuals and currently her tube feeds are being held. Surgery was planning on doing a gastric emptying study with Gastrografin. He was also considering removal of merry in 24-48 hours to ensure no collections. Today patient is currently off all pressors. She still remains on meropenem and micafungin. Patient with persistent leukocytosis with today's white count being 21,000. Patient is on propofol for sedation. Patient is on IV fluids D5 half-normal saline at 75 mL's an hour. Patient is receiving potassium replacement for a level of 2.7. Patient is receiving magnesium supplementation for level of 1.5. This is most likely secondary to patient being on Lasix for anasarca. Patient is intubated on SIMV and pressure support, oxygen 50% rate 18 tidal volume 500 PEEP 8 and pressure support of 10. Patient is on aggressive pulmonary toilet with Xopenex, Pulmicort and Mucomyst. Did have profound thrombocytopenia on presentation however her platelets have trended up from 22,000-114,000. Patient was anemic on presentation with a hemoglobin of 11.2. Patient trended down to 7.5 at which point she was transfused 2 units. Patient hemoglobin was 10.7 following transfusion and trended up to 11.4. Patient hemoglobin is now 9.2. Patient has had a tumultuous hospital course increasing difficulty to care for the patient considering that there is no de alcoholizer or infectious disease. At this time patient will be better suited in a tertiary care facility. Patient has been accepted for transfer at [facility]. the accepting de alcoholizer is Dr.Amupama Kenny. Physical Exam Vital Signs: Temp Pulse Resp BP Pulse Ox 98.6 F 92 23 H 135/80 H 98 06/08/17 06:30 06/08/17 08:45 06/08/17 08:45 06/08/17 06:09 06/08/17 08:45 Intake & Output 06/07/17 06/08/17 06/09/17 06:59 06:59 06:59 Intake Total 3262 2704 Output Total 3180 4365 Balance 82 -1661 Weight 69.9 kg 66 kg General appearance: PRESENT: no acute distress, thin, well-nourished Head exam: PRESENT: normocephalic Eye exam: PRESENT: EOMI. ABSENT: scleral icterus Mouth exam: PRESENT: other - ET-tube in place Neck exam: ABSENT: carotid bruit, JVD, lymphadenopathy, thyromegaly Respiratory exam: PRESENT: clear to auscultation servando, unlabored, other - Intubated and ventilated. ABSENT: rales, rhonchi, wheezes Cardiovascular exam: PRESENT: RRR. ABSENT: diastolic murmur, rubs, systolic murmur GI/Abdominal exam: PRESENT: hypoactive bowel sounds, soft, other - Midline surgical incision with merry. ABSENT: distended, guarding, mass, organolmegaly, rebound, tenderness Rectal exam: PRESENT: deferred Gentrourinary exam: PRESENT: indwelling catheter Extremities exam: PRESENT: other - Generalized edema not improved. ABSENT: calf tenderness, clubbing, pedal edema Neurological exam: PRESENT: awake. ABSENT: motor sensory deficit Psychiatric exam: ABSENT: homicidal ideation, suicidal ideation Skin exam: PRESENT: dry, intact, rash - Macular rash on the torso, warm. ABSENT : cyanosis Results Laboratory Results: 06/08/17 04:20 06/08/17 04:20 06/08/17 06/08/17 06/08/17 04:20 04:20 04:20 WBC 21.9 H RBC 2.97 L Hgb 9.2 L Hct 27.4 L MCV 92 MCH 31.0 MCHC 33.6 RDW 16.3 H Plt Count 114 L Seg Neutrophils % Not Reportable Lymphocytes % Not Reportable Monocytes % Not Reportable Eosinophils % Not Reportable Basophils % Not Reportable Absolute Neutrophils Not Reportable Absolute Lymphocytes Not Reportable Absolute Monocytes Not Reportable Absolute Eosinophils Not Reportable Absolute Basophils Not Reportable Carbonic Acid 0.88 L HCO3/H2CO3 Ratio 25:1 ABG pH 7.50 H ABG pCO2 29.4 L ABG pO2 124.2 H ABG HCO3 22.5 ABG O2 Saturation 98.8 H ABG Base Excess -0.6 FiO2 35% Sodium 137.5 Potassium 2.7 L* Chloride 107 Carbon Dioxide 21 L Anion Gap 10 BUN 10 Creatinine 0.44 L Est GFR ( Amer) > 60 Est GFR (Non-Af Amer) > 60 Glucose 90 Calcium 8.1 L Phosphorus 5.3 H Magnesium 1.5 L Total Bilirubin 0.4 AST 17 ALT 31 Alkaline Phosphatase 89 Total Protein 4.2 L Albumin 2.0 L Prealbumin 11.6 L 06/02/17 10:28 Blood Blood Culture - Final C.albicans/C.dubliniensis Impressions: Abdomen/Pelvis CT 05/31/17 00:00 IMPRESSION: Large amount of free intraperitoneal air and fluid. There is oral contrast in the pelvis suggesting bowel perforation. Findings discussed with the patient's attending physician as a critical result KUB X-Ray 06/02/17 09:03 IMPRESSION: Nasogastric tube tip and side port in the stomach Gasless abdomen. Fluid-filled bowel loops are present. Chest X-Ray 06/08/17 07:45 IMPRESSION: 1. No significant interval change. Plan Discharge Plan: Patient is being transferred to a tertiary center where she can be evaluated by pulmonary critical care, infectious disease and surgery. Time Spent: Greater than 30 Minutes
[2017-06-08 14:22] VITALS: BP 135/79
[2017-06-08] MEDS ORDERED: 1/2 NORMAL SALINE 1,000 ML IV ONE (14:37)
--- NOTE | 2017-06-08 16:11 | RADIOLOGY REPORT (SQ) ---
EXAM DESCRIPTION: UGI SERIES COMPLETED DATE/TIME: 06/08/2017 REASON FOR STUDY: Rule out gastric outlet obstruction COMPARISON: None TECHNIQUE: Water-soluble contrast administered by feeding tube at the bed side, with digital spot an d plain films. RADIATION DOSE: No fluoroscopy. 7 images saved to PACS. LIMITATIONS: None FINDINGS: There is free flow of contrast into the duodenum. No evidence of stricture or leak. IMPRESSION: No evidence of obstruction or leak. COMMENT: Quality ID [id number]: Final reports for procedures using fluoroscopy that document radiation exp osure indices, or exposure time and number of fluorographic images (if radiation exposure indices are not available) TECHNICAL DOCUMENTATION: JOB ID: [id number] [employer]- All Rights Reserved Reading location - IP/workstation name: [email or web address]
--- NOTE | 2017-06-08 16:37 | PDOC PROGRESS REPORT ---
Subjective Progress Note for:: 06/08/17 Subjective:: persistent intubation Reason For Visit: RESPIRATORY FAILURE,PNEUMONIA,SEPSIS Physical Exam Vital Signs: Temp Pulse Resp BP Pulse Ox 100.0 F 113 H 20 135/79 H 97 06/08/17 14:33 06/08/17 14:33 06/08/17 14:33 06/08/17 14:33 06/08/17 14:33 Intake & Output 06/07/17 06/08/17 06/09/17 06:59 06:59 06:59 Intake Total 3262 2704 1249 Output Total 3187 4365 1500 Balance 62 -2125 -459 Weight 69.9 kg 66 kg 66 kg Exam: abd slightly distended but soft. Has 100 ccs from NGT and UGIS done which showed no obstruction or leak Results Laboratory Results: 06/08/17 04:20 06/08/17 04:20 06/08/17 06/08/17 06/08/17 04:20 04:20 04:20 WBC 21.9 H RBC 2.97 L Hgb 9.2 L Hct 27.4 L MCV 92 MCH 31.0 MCHC 33.6 RDW 16.3 H Plt Count 114 L Seg Neutrophils % Not Reportable Lymphocytes % Not Reportable Monocytes % Not Reportable Eosinophils % Not Reportable Basophils % Not Reportable Absolute Neutrophils Not Reportable Absolute Lymphocytes Not Reportable Absolute Monocytes Not Reportable Absolute Eosinophils Not Reportable Absolute Basophils Not Reportable Carbonic Acid 0.88 L HCO3/H2CO3 Ratio 25:1 ABG pH 7.50 H ABG pCO2 29.4 L ABG pO2 124.2 H ABG HCO3 22.5 ABG O2 Saturation 98.8 H ABG Base Excess -0.6 FiO2 35% Sodium 137.5 Potassium 2.7 L* Chloride 107 Carbon Dioxide 21 L Anion Gap 10 BUN 10 Creatinine 0.44 L Est GFR ( Amer) > 60 Est GFR (Non-Af Amer) > 60 Glucose 90 Calcium 8.1 L Phosphorus 5.3 H Magnesium 1.5 L Total Bilirubin 0.4 AST 17 ALT 31 Alkaline Phosphatase 89 Total Protein 4.2 L Albumin 2.0 L Prealbumin 11.6 L 06/02/17 07:45 Blood Yeast/Fungus Identification - Final 06/02/17 07:45 Blood Yeast/Fungus Identification - Final 06/07/17 12:44 Tracheal Aspirate Gram Stain - Final 06/07/17 12:44 Tracheal Aspirate Sputum Culture - Final C.albicans/C.dubliniensis Normal Aleida Absent 06/02/17 10:28 Blood Blood Culture - Final C.albicans/C.dubliniensis Impressions: Abdomen/Pelvis CT 05/31/17 00:00 IMPRESSION: Large amount of free intraperitoneal air and fluid. There is oral contrast in the pelvis suggesting bowel perforation. Findings discussed with the patient's attending physician as a critical result KUB X-Ray 06/02/17 09:03 IMPRESSION: Nasogastric tube tip and side port in the stomach Gasless abdomen. Fluid-filled bowel loops are present. Chest X-Ray 06/08/17 07:45 IMPRESSION: 1. No significant interval change. Upper GI Series 06/08/17 08:00 IMPRESSION: No evidence of obstruction or leak. Assessment & Plan - Time Time Spent with patient: 15-24 minutes - Plan Summary Plan Summary: Agree to transfer to tertiary care because of problems ie. systemic fungal infection with increasing WBC, poor nutrition and history of alcohol abuse and inability to wean from the vent
[2017-06-08] MEDS ORDERED: PANTOPRAZOLE SODIUM 40 MG VIAL IV SCH (22:00)
== END 2017-06-08 15:57 | disposition short-term general hospital (02) | DRG 853 ==
LOC: ER 13:18 → EH 18:23 → UNDOADMIN 18:28 → ICU 05-24 11:30
PROVIDERS: ADMIT Internal Medicine; ATTEND Internal Medicine
PROC: 02HV33Z Insertion of Infusion Device into Superior Vena Cava, Percutaneous Approach (ICD-10-PCS; 2017-05-23)
PROC: 0BH17EZ Insertion of Endotracheal Airway into Trachea, Via Natural or Artificial Opening (ICD-10-PCS; 2017-05-24)
PROC: 5A1955Z Respiratory Ventilation, Greater than 96 Consecutive Hours (ICD-10-PCS; 2017-05-24)
PROC: 0DH67UZ Insertion of Feeding Device into Stomach, Via Natural or Artificial Opening (ICD-10-PCS; 2017-05-24)
PROC: 30233K1 Transfusion of Nonautologous Frozen Plasma into Peripheral Vein, Percutaneous Approach (ICD-10-PCS; 2017-05-31)
PROC: 30233N1 Transfusion of Nonautologous Red Blood Cells into Peripheral Vein, Percutaneous Approach (ICD-10-PCS; 2017-05-31)
PROC: 0DUU07Z Supplement Omentum with Autologous Tissue Substitute, Open Approach (ICD-10-PCS; principal; 2017-05-31 15:00)
PROC: 30233N1 Transfusion of Nonautologous Red Blood Cells into Peripheral Vein, Percutaneous Approach (ICD-10-PCS; 2017-06-04)
PROC: 02HV33Z Insertion of Infusion Device into Superior Vena Cava, Percutaneous Approach (ICD-10-PCS; 2017-06-06)
DX: B37.7 Candidal sepsis (principal); K25.5 Chronic or unspecified gastric ulcer with perforation; J13 Pneumonia due to Streptococcus pneumoniae; K65.9 Peritonitis, unspecified; J96.01 Acute respiratory failure with hypoxia; R65.21 Severe sepsis with septic shock; J96.02 Acute respiratory failure with hypercapnia; J69.0 Pneumonitis due to inhalation of food and vomit; E43 Unspecified severe protein-calorie malnutrition; E87.1 Hypo-osmolality and hyponatremia; D61.818 Other pancytopenia; N17.9 Acute kidney failure, unspecified; Z68.1 Body mass index [BMI] 19.9 or less, adult; F10.239 Alcohol dependence with withdrawal, unspecified; B49 Unspecified mycosis; T81.4XXA Infection following a procedure, initial encounter; L89.152 Pressure ulcer of sacral region, stage 2; E87.6 Hypokalemia; E83.51 Hypocalcemia; F17.210 Nicotine dependence, cigarettes, uncomplicated; M19.90 Unspecified osteoarthritis, unspecified site; F31.9 Bipolar disorder, unspecified; J45.909 Unspecified asthma, uncomplicated; E86.0 Dehydration; Z88.8 Allergy status to other drugs, medicaments and biological substances; D70.9 Neutropenia, unspecified; Y83.8 Other surgical procedures as the cause of abnormal reaction of the patient, or of later complication, without mention of misadventure at the time of the procedure; Y92.239 Unspecified place in hospital as the place of occurrence of the external cause; E87.5 Hyperkalemia; D53.9 Nutritional anemia, unspecified; Z78.1 Physical restraint status
CPT/HCPCS: 31500; 36415; 36430; 36600; 51702; 71045; 74018; 74177; 74247; 790; 80048; 80053; 80074; 80076; 80202; 81001; 82040; 82271; 82272; 82550; 82553; 82565; 82803; 82962; 83605; 83735; 83880; 83930; 84100; 84132; 84134; 84439; 84443; 84484; 85025; 85027; 85384; 85610; 85730; 86677; 86701; 86850; 86900; 86901; 86920; 87040; 87045; 87070; 87077; 87086; 87186; 87205; 87493; 87804; 89055; 93005; 93010; 93308; 94002; 94003; 94660; 94667; 94668; 96361; 96365; 96367; 96368; 96375; 96376; 99291; 99292; C1751; J0610; J0696; J1170; J1642; J1940; J1956; J2060; J2185; J2248; J2250; J2370; J2405; J2543; J2704; J2765; J2920; J3010; J3370; J3411; J3475; J3480; J3490; J7030; J7060; J7120; J7620; P9016; P9017; P9047; S0164

== ENCOUNTER → 2017-11-10 | Outpatient (CLI) | payer OTHER ==
--- NOTE | 2017-11-10 14:43 | RADIOLOGY REPORT (SQ) ---
EXAM DESCRIPTION: PELVIS AP COMPLETED DATE/TIME: 11/10/2017 1:52 pm REASON FOR STUDY: PRESSURE [employer]ER OF [place], STAGE 4 L89.154 PRESSURE [employer] OF [place], STAGE 4 COMPARISON: 04/04/2011. NUMBER OF VIEWS: One view TECHNIQUE: AP Pelvis LIMITATIONS: None. FINDINGS: MINERALIZATION: Normal. HIPS: No acute fracture or dislocation. No worrisome bone lesions. PELVIS AND SACRUM: No acute fracture or dislocation. No worrisome bone lesions. PUBIS AND ISCHIUM: No acute fracture. LOWER LUMBAR SPINE: No significant findings as visualized. SOFT TISSUES: No findings. OTHER: No other significant finding. IMPRESSION: NEGATIVE STUDY OF THE PELVIS. TECHNICAL DOCUMENTATION: JOB ID: [id number] [employer]- All Rights Reserved Reading location - IP/workstation name: [email or web address]
== END ==
LOC: RAD 13:18
PROVIDERS: ATTEND Nurse Practitioner
DX: L89.154 Pressure ulcer of sacral region, stage 4 (principal)
CPT/HCPCS: 72170

== ENCOUNTER 2018-05-29 12:44 | Emergency (ER) | payer OTHER ==
[2018-05-29] MEDS ORDERED: NORMAL SALINE 1000 ML 1,000 ML IV ONE (13:19)
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
[2018-05-29] MEDS ORDERED: ONDANSETRON HCL INJ/PF 4 MG/2 ML SDV IV ONE (13:20)
[2018-05-29] MEDS ORDERED: MORPHINE SULFATE 10 MG/ML INJ IV ONE (13:20)
[2018-05-29 13:51] LABS: ABSOLUTE LYMPHOCYTES (AUTO) 1.1 10^3/uL (0.5-4.7); ABSOLUTE MONOCYTES (AUTO) 0.7 10^3/uL (0.1-1.4); ABSOLUTE NEUT (AUTO) 11.2 10^3/uL (1.7-8.2); BASOPHILS % (AUTO) 0.3 % (0-2); HEMATOCRIT 40.8 % (36.0-47.0); HEMOGLOBIN 14.3 g/dL (12.0-15.5); LYMPHOCYTES % (AUTO) 8.2 % (13-45); MEAN CORPUSCULAR HEMOGLOBIN 36.8 pg (27.0-33.4); MEAN CORPUSCULAR VOLUME 105 fl (80-97); MONOCYTES % (AUTO) 5.4 % (3-13); PLATELET COUNT 462 10^3/uL (150-450); RED BLOOD COUNT 3.88 10^6/uL (3.72-5.28); RED CELL DISTRIBUTION WIDTH 13.5 % (11.5-14.0); SEGMENTED NEUTROPHILS % (AUTO) 86.1 % (42-78); TOTAL CELLS COUNTED % (AUTO) 100 %; VENOUS BLOOD BASE EXCESS 1.7 mmol/L; VENOUS BLOOD HCO3 24.8 mmol/L (20-32); VENOUS BLOOD PCO2 34.3 mmHg (35-63); VENOUS BLOOD PH 7.48 (7.30-7.42)
[2018-05-29 13:58] LABS: INTERNATIONAL RATION (INR) 0.85
[2018-05-29 14:12] LABS: ALANINE AMINOTRANSFERASE 9 U/L (9-52); ALKALINE PHOSPHATASE 130 U/L (38-126); ANION GAP 13 (5-19); ASPARTATE AMINO TRANSFERASE 44 U/L (14-36); BILIRUBIN,DIRECT 0.3 mg/dL (0.0-0.4); BILIRUBIN,TOTAL 0.5 mg/dL (0.2-1.3); BLOOD UREA NITROGEN 6 mg/dL (7-20); CALCIUM 10.1 mg/dL (8.4-10.2); CARBON DIOXIDE 27 mmol/L (22-30); CHLORIDE 94 mmol/L (98-107); GLUCOSE 107 mg/dL (75-110); POTASSIUM 4.1 mmol/L (3.6-5.0); SODIUM 134.2 mmol/L (137-145); TOTAL PROTEIN 8.2 g/dL (6.3-8.2)
[2018-05-29 15:14] LABS: APPEARANCE,URINE SLIGHTLY-CLOUDY; BILIRUBIN,URINE NEGATIVE (NEGATIVE); COLOR,URINE YELLOW; GLUCOSE, URINE NEGATIVE (NEGATIVE); KETONES,URINE NEGATIVE (NEGATIVE); LEUKOCYTE ESTERASE,URINE NEGATIVE (NEGATIVE); NITRITE,URINE NEGATIVE (NEGATIVE); PROTEIN,URINE NEGATIVE (NEGATIVE); URINE SPECIFIC GRAVITY 1.005; UROBILINOGEN,URINE NEGATIVE mg/dL (<2.0)
--- NOTE | 2018-05-29 15:49 | RADIOLOGY REPORT (SQ) ---
EXAM DESCRIPTION: CT ABD/PELVIS WITH IV ORAL COMPLETED DATE/TIME: 05/29/2018 3:33 pm REASON FOR STUDY: abdominal pain, llq, vomiting COMPARISON: 05/31/2017 TECHNIQUE: CT scan of the abdomen and pelvis performed with intravenous and oral contrast using rajeev onel scanning technique with dynamic intravenous contrast injection. Images reviewed with lung, soft t issue, and bone windows. Reconstructed coronal and sagittal MPR images reviewed. Delayed images for e valuation of the urinary system also acquired. All images stored on PACS. All CT scanners at this facility use dose modulation, iterative reconstruction, and/or weight based d osing when appropriate to reduce radiation dose to as low as reasonably achievable (ALARA). [facility]: Dose Right [facility]: CareDose [facility]: Dose Right [facility]: Teradose 4D [facility]: MEMC Electronic Materials CONTRAST TYPE AND DOSE: contrast/concentration: Isovue 350.00 mg/ml; Total Contrast Delivered: 47.0 ml; Total Saline Delivered: 65.0 ml Not available. RENAL FUNCTION: Not available. RADIATION DOSE: CT Rad equipment meets quality standard of care and radiation dose reduction techniq ues were employed. CTDIvol: 4.8 mGy. DLP: 456 mGy-cm. . LIMITATIONS: None. FINDINGS: LOWER CHEST: Basilar atelectasis. LIVER: Subcentimeter low-density lesion too small to characterize. SPLEEN: Normal size. Old granulomatous disease. PANCREAS: No masses. No significant calcifications. No adjacent inflammation or peripancreatic fluid collections. Pancreatic duct not dilated. GALLBLADDER: No identified stones by CT criteria. No inflammatory changes to suggest cholecystitis. ADRENAL GLANDS: No significant masses or asymmetry. RIGHT KIDNEY AND URETER: No solid masses. No significant calcifications. No hydronephrosis or hyd roureter. LEFT KIDNEY AND URETER: No solid masses. No significant calcifications. No hydronephrosis or hydr oureter. AORTA AND VESSELS: No aneurysm. RETROPERITONEUM: No retroperitoneal adenopathy, hemorrhage or masses. BOWEL AND PERITONEAL CAVITY: No obstruction. No visualized masses. No free fluid. No inflammatory ch anges or thickening of bowel wall. APPENDIX: Not visualized. PELVIS: No significant masses. Normal bladder. No free fluid. ABDOMINAL WALL: No masses. No hernias. BONES: No significant or acute findings. OTHER: No other significant finding. IMPRESSION: No acute findings. TECHNICAL DOCUMENTATION: JOB ID: [id number] Quality ID # [id number]: Final reports with documentation of one or more dose reduction techniques (e.g., Au tomated exposure control, adjustment of the mA and/or kV according to patient size, use of iterative reconstruction technique) 2010 [employer]- All Rights Reserved Reading location - IP/workstation name: [email or web address]
--- NOTE | 2018-05-29 15:50 | EKG REPORT ---
SEVERITY:- BORDERLINE ECG - SINUS RHYTHM BORDERLINE R WAVE PROGRESSION, ANTERIOR LEADS BORDERLINE T ABNORMALITIES, ANT-LAT LEADS : Confirmed by: Nghia Cage MD 29-May-2018 15:49:16
[2018-05-29] MEDS ORDERED: HYDROMORPHONE HCL 2 MG TABLET PO ONE (17:32)
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
[2018-05-29] MEDS ORDERED: HYDROMORPHONE HCL INJ/PF 2 MG/ML AMPULE IV ONE (17:40)
[2018-05-29 20:10] VITALS: BP 133/80
== END 2018-05-29 18:28 | disposition home or self-care (01) ==
LOC: ER 12:44
DX: K52.9 Noninfective gastroenteritis and colitis, unspecified (principal); R10.9 Unspecified abdominal pain; M54.9 Dorsalgia, unspecified; R11.2 Nausea with vomiting, unspecified; R10.31 Right lower quadrant pain; R10.32 Left lower quadrant pain; R19.7 Diarrhea, unspecified; F17.200 Nicotine dependence, unspecified, uncomplicated; J45.909 Unspecified asthma, uncomplicated
CPT/HCPCS: 93005; 99284; 96361; 96374; 96375; 36415; 87086; 82962; 85025; 85610; 87088; 80053; 81001; 87186; 82803; 83605; 74177; 93010; J2270; J1170; J2405; J7030

== ENCOUNTER 2019-08-11 15:49 | Inpatient (IN) | payer OTHER ==
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
[2019-08-11 16:59] LABS: ABSOLUTE LYMPHOCYTES (AUTO) 0.8 10^3/uL (0.5-4.7); ABSOLUTE MONOCYTES (AUTO) 0.6 10^3/uL (0.1-1.4); ABSOLUTE NEUT (AUTO) 3.4 10^3/uL (1.7-8.2); BASOPHILS % (AUTO) 0.6 % (0-2); EOSINOPHILS % (AUTO) 0.4 % (0-6); HEMATOCRIT 35.5 % (36.0-47.0); LYMPHOCYTES % (AUTO) 17.4 % (13-45); MEAN CORPUSCULAR HGB CONC 36.7 g/dL (32.0-36.0); MEAN CORPUSCULAR VOLUME 106 fl (80-97); MONOCYTES % (AUTO) 12.2 % (3-13); PLATELET COUNT 195 10^3/uL (150-450); RED BLOOD COUNT 3.33 10^6/uL (3.72-5.28); SEGMENTED NEUTROPHILS % (AUTO) 69.4 % (42-78); TOTAL CELLS COUNTED % (AUTO) 100 %; WHITE BLOOD COUNT 4.9 10^3/uL (4.0-10.5)
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
[2019-08-11 17:17] LABS: ALBUMIN 5.1 g/dL (3.5-5.0); ALKALINE PHOSPHATASE 107 U/L (38-126); ASPARTATE AMINO TRANSFERASE 114 U/L (14-36); BILIRUBIN,DIRECT 0.3 mg/dL (0.0-0.4); BILIRUBIN,TOTAL 1.3 mg/dL (0.2-1.3); BLOOD UREA NITROGEN 6 mg/dL (7-20); CARBON DIOXIDE 26 mmol/L (22-30); CHLORIDE 69 mmol/L (98-107); GLUCOSE 91 mg/dL (75-110)
[2019-08-11 17:18] LABS: ANION GAP 19 (5-19)
[2019-08-11 17:35] LABS: APPEARANCE,URINE SLIGHTLY-CLOUDY; BILIRUBIN,URINE NEGATIVE (NEGATIVE); COLOR,URINE YELLOW; GLUCOSE, URINE NEGATIVE (NEGATIVE); KETONES,URINE TRACE mg/dL (NEGATIVE); LEUKOCYTE ESTERASE,URINE NEGATIVE (NEGATIVE); NITRITE,URINE NEGATIVE (NEGATIVE); PROTEIN,URINE NEGATIVE (NEGATIVE); URINE SPECIFIC GRAVITY 1.005
[2019-08-11 17:37] LABS: POTASSIUM 2.8 mmol/L (3.6-5.0)
[2019-08-11] MEDS ORDERED: POTASSI CL 20 MEQ/50 ML RIDER 20 MEQ/50 ML RTUPB IV ONE (17:48)
[2019-08-11] MEDS ORDERED: POTASSIUM CHLORIDE 20 MEQ PACKET PO ONE ×2 (17:48→18:36)
[2019-08-11] MEDS ORDERED: NORMAL SALINE 500 ML IV ONE (17:49)
[2019-08-11] MEDS ORDERED: ONDANSETRON HCL INJ/PF 4 MG/2 ML SDV IV ONE (18:36)
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
[2019-08-11] MEDS ORDERED: IPRATROPIUM/ALBUTEROL 0.5-2.5 MG/3 ML AMPUL NEB PRN (19:48)
[2019-08-11] MEDS ORDERED: MAG HYDROX/AL HYDROX/SIMETH SUSP 30 ML UDCUP PO PRN (19:48)
[2019-08-11] MEDS ORDERED: ONDANSETRON HCL INJ/PF 4 MG/2 ML SDV IV PRN (19:48)
[2019-08-11] MEDS ORDERED: ACETAMINOPHEN 325 MG TABLET PO PRN (19:48)
[2019-08-11] MEDS ORDERED: SODIUM CHLORIDE 3% 500 ML IV ONE (19:53)
[2019-08-11 20:21] LABS: URINE AMPHETAMINES SCREEN NEGATIVE; URINE BARBITURATES SCREEN NEGATIVE; URINE BENZODIAZEPINES SCREEN NEGATIVE; URINE COCAINE SCREEN UNCONFIRMED POSITIVE; URINE MARIJUANA (THC) SCREEN UNCONFIRMED POSITIVE; URINE METHADONE SCREEN NEGATIVE; URINE PHENCYCLIDINE SCREEN NEGATIVE
[2019-08-11] MEDS ORDERED: FUROSEMIDE INJ/PF 20 MG/2 ML SDV IV ONE (20:30)
--- NOTE | 2019-08-11 21:21 | EKG REPORT ---
SEVERITY:- ABNORMAL ECG - SINUS RHYTHM RIGHT ATRIAL ABNORMALITY BORDERLINE PROLONGED QT INTERVAL : Confirmed by: Nghia Cage MD 11-Aug-2019 21:21:10
[2019-08-11] MEDS: THIAMINE HCL 100 MG, FOLIC ACID 1 MG in NORMAL SALINE 250 ML IV SCH (23:21)
[2019-08-11] MEDS: MAGNESIUM SULFATE/D5W 1 GM/100 ML RTUPB IV SCH (23:22)
[2019-08-11] MEDS: HEPARIN SOD (PORCINE) 5,000 UNIT/ML 1 ML VIAL SUBCUT SCH (23:23)
[2019-08-12 00:43] LABS: ANION GAP 12 (5-19); BLOOD UREA NITROGEN 6 mg/dL (7-20); CALCIUM 7.3 mg/dL (8.4-10.2); CARBON DIOXIDE 25 mmol/L (22-30); CHLORIDE 92 mmol/L (98-107); GLUCOSE 81 mg/dL (75-110)
[2019-08-12] MEDS: MAGNESIUM SULFATE/D5W 1 GM/100 ML RTUPB IV SCH (00:45)
[2019-08-12] MEDS ORDERED: MAGNESIUM SULFATE/D5W 1 GM/100 ML RTUPB IV ONE (00:46)
[2019-08-12] MEDS ORDERED: DEXTROSE 5%-WATER 1000 ML 1,000 ML IV ONE (00:58)
[2019-08-12] MEDS: POTASSI CL 20 MEQ/50 ML RIDER 20 MEQ/50 ML RTUPB IV SCH ×4 (01:48→10:42)
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
[2019-08-12 06:19] LABS: HEMATOCRIT 32.4 % (36.0-47.0); HEMOGLOBIN 11.7 g/dL (12.0-15.5); MEAN CORPUSCULAR HEMOGLOBIN 38.7 pg (27.0-33.4); MEAN CORPUSCULAR HGB CONC 35.9 g/dL (32.0-36.0); MEAN CORPUSCULAR VOLUME 108 fl (80-97); PLATELET COUNT 168 10^3/uL (150-450); RED BLOOD COUNT 3.01 10^6/uL (3.72-5.28); RED CELL DISTRIBUTION WIDTH 12.7 % (11.5-14.0); WHITE BLOOD COUNT 3.1 10^3/uL (4.0-10.5)
[2019-08-12 06:38] LABS: ANION GAP 10 (5-19); BLOOD UREA NITROGEN 5 mg/dL (7-20); CALCIUM 7.3 mg/dL (8.4-10.2); CARBON DIOXIDE 25 mmol/L (22-30); CHLORIDE 91 mmol/L (98-107); GLUCOSE 82 mg/dL (75-110); POTASSIUM 3.3 mmol/L (3.6-5.0)
[2019-08-12] MEDS: HEPARIN SOD (PORCINE) 5,000 UNIT/ML 1 ML VIAL SUBCUT SCH ×3 (06:44→22:46)
[2019-08-12 06:50] LABS: ABSOLUTE LYMPHOCYTES# (MANUAL) 0.8 10^3/uL (0.5-4.7); ABSOLUTE MONOCYTES # (MANUAL) 0.4 10^3/uL (0.1-1.4); BASOPHILS % (MANUAL) 0 % (0-2); EOSINOPHILS % (MANUAL) 2 % (0-6); LYMPHOCYTES % (MANUAL) 26 % (13-45); MONOCYTES % (MANUAL) 14 % (3-13); SEGMENTED NEUTROPHILS % (MAN) 58 % (42-78); TOTAL CELLS COUNTED 100
[2019-08-12 06:51] LABS: PLATELET COMMENT ADEQUATE; RBC MORPHOLOGY COMMENT NORMO-CYTIC/CHROMIC
[2019-08-12] MEDS: DEXTROSE 5%-WATER 1000 ML 1,000 ML IV PRN ×2 (08:06→11:31)
--- NOTE | 2019-08-12 08:39 | EKG REPORT ---
SEVERITY:- BORDERLINE ECG - SINUS TACHYCARDIA BORDERLINE PROLONGED QT INTERVAL : Confirmed by: Nghia Cage MD 12-Aug-2019 08:38:53
[2019-08-12] MEDS: DESMOPRESSIN ACETATE INJ 4 MCG/1 ML AMPULE IV SCH ×2 (10:42→17:50)
[2019-08-12] MEDS: DOCUSATE SODIUM 100 MG CAPSULE PO SCH ×2 (10:43→17:49)
[2019-08-12 10:52] LABS: ANION GAP 9 (5-19); BLOOD UREA NITROGEN 6 mg/dL (7-20); CALCIUM 7.2 mg/dL (8.4-10.2); CARBON DIOXIDE 21 mmol/L (22-30); CHLORIDE 95 mmol/L (98-107); GLUCOSE 146 mg/dL (75-110); POTASSIUM 3.7 mmol/L (3.6-5.0)
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
[2019-08-12 14:58] LABS: ANION GAP 11 (5-19); BLOOD UREA NITROGEN 4 mg/dL (7-20); CALCIUM 7.6 mg/dL (8.4-10.2); CARBON DIOXIDE 25 mmol/L (22-30); CHLORIDE 88 mmol/L (98-107); GLUCOSE 111 mg/dL (75-110); POTASSIUM 3.5 mmol/L (3.6-5.0)
[2019-08-12 18:47] LABS: ANION GAP 10 (5-19); BLOOD UREA NITROGEN 3 mg/dL (7-20); CALCIUM 7.8 mg/dL (8.4-10.2); CARBON DIOXIDE 28 mmol/L (22-30); CHLORIDE 88 mmol/L (98-107); GLUCOSE 124 mg/dL (75-110); POTASSIUM 3.2 mmol/L (3.6-5.0)
[2019-08-12] MEDS ORDERED: DEXTROSE 5%-WATER 1000 ML 1,000 ML IV PRN (19:12)
[2019-08-12] MEDS: DIAZEPAM INJ 10 MG/2 ML DISP.SYRIN IV PRN (20:36)
[2019-08-12 21:42] LABS: ANION GAP 8 (5-19); BLOOD UREA NITROGEN 4 mg/dL (7-20); CALCIUM 7.7 mg/dL (8.4-10.2); CARBON DIOXIDE 25 mmol/L (22-30); CHLORIDE 90 mmol/L (98-107); GLUCOSE 97 mg/dL (75-110); POTASSIUM 3.6 mmol/L (3.6-5.0)
[2019-08-12] MEDS ORDERED: VANCOMYCIN HCL INJ 1000 MG VIAL IV PRN (22:04)
[2019-08-12] MEDS ORDERED: VANCOMYCIN HCL 1,000 MG in DEXTROSE 5%-WATER 250 ML IV ONE (22:15)
[2019-08-12] MEDS: THIAMINE HCL 100 MG, FOLIC ACID 1 MG in NORMAL SALINE 250 ML IV SCH (22:44)
[2019-08-13] MEDS ORDERED: DESMOPRESSIN ACETATE INJ 4 MCG/1 ML AMPULE IV SCH
[2019-08-13 01:08] LABS: ANION GAP 8 (5-19); BLOOD UREA NITROGEN 3 mg/dL (7-20); CALCIUM 7.5 mg/dL (8.4-10.2); CARBON DIOXIDE 25 mmol/L (22-30); CHLORIDE 87 mmol/L (98-107); GLUCOSE 162 mg/dL (75-110)
[2019-08-13] MEDS ORDERED: POTASSIUM CHLORIDE 10 MEQ TABLET.ER PO ONE (02:00)
[2019-08-13] MEDS ORDERED: DEXTROSE 5%-WATER 1000 ML 1,000 ML IV PRN (02:09)
[2019-08-13] MEDS: POTASSIUM CHLORIDE 20 MEQ/50 ML RTU IV SCH ×2 (02:13→04:10)
[2019-08-13 05:11] LABS: CALCIUM 7.7 mg/dL (8.4-10.2); CARBON DIOXIDE 24 mmol/L (22-30); CHLORIDE 84 mmol/L (98-107); GLUCOSE 120 mg/dL (75-110); POTASSIUM 3.9 mmol/L (3.6-5.0)
[2019-08-13 05:13] LABS: ANION GAP 11 (5-19)
[2019-08-13 05:27] LABS: BLOOD UREA NITROGEN < 2 mg/dL (7-20)
[2019-08-13] MEDS: HEPARIN SOD (PORCINE) 5,000 UNIT/ML 1 ML VIAL SUBCUT SCH ×2 (05:59→13:36)
[2019-08-13] MEDS ORDERED: NORMAL SALINE 1000 ML 1,000 ML IV PRN (07:49)
[2019-08-13 08:31] LABS: ANION GAP 8 (5-19); CALCIUM 8.2 mg/dL (8.4-10.2); CARBON DIOXIDE 27 mmol/L (22-30); CHLORIDE 86 mmol/L (98-107); GLUCOSE 118 mg/dL (75-110); POTASSIUM 4.7 mmol/L (3.6-5.0)
[2019-08-13 08:35] LABS: BLOOD UREA NITROGEN < 2 mg/dL (7-20)
[2019-08-13] MEDS: DOCUSATE SODIUM 100 MG CAPSULE PO SCH ×2 (10:15→17:12)
--- NOTE | 2019-08-13 11:27 | PDOC PROGRESS REPORT ---
Subjective Progress Note for:: 08/13/19 Subjective:: No adverse events overnight. Fortunately we were able to get her sodium levels back down to an acceptable level for the first 24-hours. She is pretty cantankerous this morning and did not really want to talk to me. Apparently she had threatened to leave AMA earlier. Reason For Visit: HYPONATREMIA ALCOHOL DEP Physical Exam Vital Signs: Temp Pulse Resp BP Pulse Ox 97.7 F 67 18 132/76 H 94 08/13/19 07:12 08/13/19 07:12 08/13/19 07:12 08/13/19 07:12 08/13/19 07:12 Intake & Output 08/12/19 08/13/19 08/14/19 06:59 06:59 06:59 Intake Total 2401.2 3590 673 Output Total 400 3900 Balance 2001.2 -310 673 Weight 45.9 kg 46.7 kg General appearance: PRESENT: no acute distress, cooperative, disheveled, thin Respiratory exam: PRESENT: clear to auscultation servando, symmetrical, unlabored. ABSENT: accessory muscle use, chest wall tenderness, crackles, prolonged expiratory phas, retraction, rhonchi, tachypnea, wheezes Cardiovascular exam: PRESENT: RRR, +S1, +S2 Pulses: PRESENT: normal carotid pulses Vascular exam: PRESENT: normal capillary refill GI/Abdominal exam: PRESENT: normal bowel sounds, soft. ABSENT: distended, guarding, rebound, tenderness Extremities exam: ABSENT: clubbing, pedal edema Musculoskeletal exam: PRESENT: normal inspection. ABSENT: deformity Neurological exam: PRESENT: awake, oriented to person, oriented to place Psychiatric exam: PRESENT: flat affect, normal mood Skin exam: PRESENT: dry, warm Results Laboratory Results: 08/12/19 05:48 08/13/19 08:03 08/12/19 08/12/19 08/12/19 14:15 17:50 20:55 Sodium 124.4 L 125.6 L 123.2 L Potassium 3.5 L 3.2 L 3.6 Chloride 88 L 88 L 90 L Carbon Dioxide 25 28 25 Anion Gap 11 10 8 BUN 4 L 3 L 4 L Creatinine 0.30 L 0.32 L 0.31 L Est GFR ( Amer) > 60 > 60 > 60 Glucose 111 H 124 H 97 Calcium 7.6 L 7.8 L 7.7 L 08/13/19 08/13/19 08/13/19 00:33 04:15 08:03 Sodium 120.3 L* 119.1 L* 121.2 L Potassium 3.0 L* 3.9 4.7 Chloride 87 L 84 L 86 L Carbon Dioxide 25 24 27 Anion Gap 8 11 8 BUN 3 L < 2 L < 2 L Creatinine 0.24 L 0.18 L 0.22 L Est GFR ( Amer) > 60 > 60 > 60 Glucose 162 H 120 H 118 H Calcium 7.5 L 7.7 L 8.2 L 08/11/19 08/11/19 16:28 20:49 Creatine Kinase 146 H Troponin I < 0.012 Impressions: Abdomen/Pelvis CT 08/11/19 00:00 IMPRESSION: Emphysematous changes with scattered ground-glass opacities. No acute is significant finding in the abdomen or pelvis. Chest X-Ray 08/11/19 16:25 IMPRESSION: Changes in the left chest which appear to be related to remote trauma. Old rib fractures in blunting of the left CP angle. No acute opacities. Chest CT 08/11/19 17:22 IMPRESSION: Emphysematous changes with scattered ground-glass opacities. No acute is significant finding in the abdomen or pelvis. Assessment and Plan - Diagnosis (1) Hyponatremia Is this a current diagnosis for this admission?: Yes Plan: Initial sodium was 113, we got her sodium back down to 119 after shot up to 128. We have taken her off of D5W and desmopressin. Have her on some very low rate normal saline. We will still checking metabolic panels every 4 hours. Our goal for the day will be to have her sodium between 125-128 this afternoon. (2) Hypomagnesemia Is this a current diagnosis for this admission?: Yes Plan: Resolved (3) Hypokalemia Is this a current diagnosis for this admission?: Yes Plan: Resolved (4) Polysubstance abuse Is this a current diagnosis for this admission?: Yes Plan: We will monitor for any signs of withdrawal including alcohol withdrawal. - Time Time Spent with patient: 15-24 minutes
[2019-08-13 12:36] LABS: ANION GAP 8 (5-19); CARBON DIOXIDE 25 mmol/L (22-30); CHLORIDE 89 mmol/L (98-107); GLUCOSE 106 mg/dL (75-110); POTASSIUM 4.3 mmol/L (3.6-5.0)
[2019-08-13] MEDS: LORAZEPAM INJ 2 MG/1 ML VIAL IV PRN ×2 (12:37→18:34)
[2019-08-13 12:47] LABS: BLOOD UREA NITROGEN < 2 mg/dL (7-20)
[2019-08-13] MEDS: DIAZEPAM INJ 10 MG/2 ML DISP.SYRIN IV PRN (13:34)
[2019-08-13] MEDS ORDERED: NICOTINE 21 MG/24 HR PATCH.TD24 TD SCH (14:00)
[2019-08-13 16:40] LABS: ANION GAP 7 (5-19); CARBON DIOXIDE 26 mmol/L (22-30); CHLORIDE 92 mmol/L (98-107); GLUCOSE 112 mg/dL (75-110); POTASSIUM 4.7 mmol/L (3.6-5.0)
[2019-08-13 16:43] LABS: BLOOD UREA NITROGEN < 2 mg/dL (7-20)
[2019-08-13] MEDS ORDERED: DIAZEPAM INJ 10 MG/2 ML DISP.SYRIN IV PRN (19:19)
[2019-08-13 20:09] VITALS: BP 136/93
--- NOTE | 2019-08-31 18:06 | Left Against Medical Advice ---
Against Medical Advice Admission Date/Time: 08/11/19 20:17 Primary Care Provider: STAR BISHOP NP Date of Patient Emigration: 08/13/19 - Diagnosis: (1) Hyponatremia Is this a current diagnosis for this admission?: Yes (2) Hypomagnesemia Is this a current diagnosis for this admission?: Yes (3) Hypokalemia Is this a current diagnosis for this admission?: Yes (4) Polysubstance abuse Is this a current diagnosis for this admission?: Yes - Summary: Summary: Please see Admission and Progress Notes as well. ENZO BECKMAN is a 48 F, who LEFT AGAINST MEDICAL ADVICE. The Patient was admitted on 08/11/19 20:17. ENZO BECKMAN is a 48 year old female with a past medical history of depression on Zoloft, alcohol with severe DTs and polysubstance abuse. Patient presents with several days of generalized weakness, nausea with anorexia without fever. In the emergency department she is found to have hyponatremia and hypokalemia. She is referred to the hospitalist for admission. Patient is anxious and hyperkinetic, admits a minimum of 12 beers per day with clear-colored urine, denies current drug use. Sodium returns 113 potassium 2.8 magnesium 1.0, cocaine, THC and alcohol positive. She denies a history of hyponatremia. She got a large amount of hypertonic saline, and her sodium climbed very high in a very short period of time. We are very aggressive with dilute fluid and vasopressin and were able to get her sodium back down to acceptable levels. She was stable within the desired 48-hour window in terms of rate of rise of sodium. Before her treatment was complete, she left AGAINST MEDICAL ADVICE.
== END 2019-08-13 20:00 | disposition left against medical advice (07) | DRG 641 ==
LOC: ER 15:49 → EH 20:17 → 3S 22:10
PROVIDERS: ADMIT Internal Medicine; ATTEND Internal Medicine
DX: E87.1 Hypo-osmolality and hyponatremia (principal); F10.239 Alcohol dependence with withdrawal, unspecified; E87.6 Hypokalemia; E83.42 Hypomagnesemia; F12.10 Cannabis abuse, uncomplicated; F14.10 Cocaine abuse, uncomplicated; M19.90 Unspecified osteoarthritis, unspecified site; F17.210 Nicotine dependence, cigarettes, uncomplicated; F31.9 Bipolar disorder, unspecified; Z79.899 Other long term (current) drug therapy; Z88.8 Allergy status to other drugs, medicaments and biological substances; Z82.49 Family history of ischemic heart disease and other diseases of the circulatory system; Z90.49 Acquired absence of other specified parts of digestive tract
CPT/HCPCS: 36415; 71045; 71260; 74177; 80048; 80053; 80307; 81001; 82550; 83690; 83735; 83935; 84100; 84443; 84484; 85025; 93005; 93010; 96365; 96366; 96375; 99285; J1644; J1940; J2060; J2405; J2597; J3360; J3411; J3475; J3480; J3490; J7030; J7040; J7050; J7060